=== PATIENT | male | born 1955 | race Two or more races ===

== ENCOUNTER 2023-06-30 10:24 | Outpatient (REF) | payer MEDICARE, SELFPAY ==
[2023-06-30 11:24] LABS: MANUAL DIFF FLAG NO
[2023-06-30 11:46] LABS: Basophils Percent Auto 0.3 % (0-2); Eosinophils Absolute Auto 0.1 X10*3/uL (0.0-0.4); Eosinophils Percent Auto 0.7 % (0-4); Hematocrit 38.4 % (42.0-52.0); Hemoglobin 12.8 g/dl (14.0-18.0); Imm Gran Abs Auto 0.08 X10*3/uL (0.00-0.03); Imm Gran Pct Auto 0.7 % (0.0-0.4); Lymphocytes Absolute Auto 2.2 X10*3/uL (1.2-4.9); Lymphocytes Percent Auto 18.9 % (20-40); Mean Corpuscular HGB Conc 33.3 g/dl (31.0-36.0); Mean Corpuscular Hemoglobin 31.6 pg (27.0-33.0); Mean Corpuscular Volume 94.8 fL (80.0-98.0); Mean Platelet Volume 9.2 fL (9.4-12.4); Monocytes Absolute Auto 1.5 X10*3/uL (0.1-1.2); Monocytes Percent Auto 12.6 % (2-11); Neutrophils Absolute Auto 7.8 x10*3/uL (2.0-8.3); Neutrophils Percent Auto 66.8 % (45-73); Platelet Count 419 X10*3/uL (160-400); Red Blood Count 4.05 X10*6/uL (4.60-5.80); White Blood Count 11.7 X10*3/uL (4.8-10.8)
[2023-06-30 12:20] LABS: Estimated Average Glucose 105 mg/dL; Hemoglobin A1c % 5.3 % (<6.0)
[2023-06-30 12:38] LABS: Cholesterol 194 mg/dL (<200); HDL Cholesterol 44 mg/dL (>40); LDL Cholesterol Calculated 123 mg/dL (<100); Triglycerides 138 mg/dL (<150)
[2023-06-30 12:39] LABS: Alanine Aminotransferase 11 U/L (0-40); Albumin Level 4.3 g/dL (3.5-5.0); Alkaline Phosphatase 84 U/L (39-117); Anion Gap 12 (12-20); Aspartate Amino Transferase 15 U/L (5-37); Bilirubin Total 0.3 mg/dL (0.0-1.0); Blood Urea Nitrogen 24 mg/dL (9-16); Calcium 9.4 mg/dL (8.4-10.2); Carbon Dioxide 26 mmol/L (22-29); Chloride 106 mmol/L (96-108); Estimated Glomerular Filt Rate > 60; Glucose Random 94 mg/dL (60-115); Potassium 4.1 mmol/L (3.3-5.1); Sodium 140 mmol/L (135-145); Total Protein 7.9 g/dL (6.5-8.0)
[2023-06-30 12:48] LABS: Reflex LDLD? No
[2023-06-30 15:47] LABS: CT PCR NOT DETECTED (Not Detect.); NG PCR NOT DETECTED (Not Detect.)
[2023-07-01 08:10] LABS: Syphilis Screen Nonreactive (Nonreactive)
[2023-07-01 08:43] LABS: HBc Num1 0.09 S/CO (0.00-0.79); HBsAGNum1 0.35 S/CO (0.00-0.99); Hepatitis B Core Antibody Nonreactive (Nonreactive); Hepatitis B Surface Antigen Negative (Negative); ~HepC Num1 0.33 S/CO (0.00-0.79); ~Hepatitis C Antibody Nonreactive (Nonreactive)
== END 2023-06-30 10:25 | disposition home or self-care (01) ==
LOC: HO.HHCL 10:24
PROVIDERS: Visit Provider Family Medicine
DX: Z00.00 Encounter for general adult medical examination without abnormal findings (principal); R63.4 Abnormal weight loss; R03.0 Elevated blood-pressure reading, without diagnosis of hypertension; Z20.2 Contact with and (suspected) exposure to infections with a predominantly sexual mode of transmission; Z13.220 Encounter for screening for lipoid disorders; Z13.1 Encounter for screening for diabetes mellitus
CPT/HCPCS: 0353U; 80053; 80061; 83036; 84443; 85025; 86704; 86780; 86803; 87340

== ENCOUNTER 2023-07-25 08:51 | Outpatient (REF) | payer MEDICARE, SELFPAY ==
--- NOTE | ~2023-07-25 | US_ITS ---
EXAMINATION: US RETROPERITONEAL LIMITED (AORTA) CLINICAL INFORMATION: Smoking history, screening COMPARISON: None available. TECHNIQUE: Desir-scale, color Doppler and spectral Doppler evaluation of the abdominal aorta. FINDINGS: There is atherosclerotic disease.. The measurements of the aorta in maximum AP and transverse dimensions respectively are as follows: Proximal: 2.6 x 2.6 cm. Mid: 1.9 x 1.7 cm. Distal: 1.7 x 1.5 cm. PSV: 80 cm/s. The measurements of the common iliac arteries in maximum AP and TRV dimensions are as follows: Right Common Iliac Artery: 1.1 x 1.0 cm. Left Common Iliac Artery: 1.2 x 1.1 cm. US/US abdominal aortic aneurysm IMPRESSION: No abdominal aortic or iliac artery aneurysm.
== END 2023-07-25 08:52 | disposition home or self-care (01) ==
LOC: HO.US 08:51
PROVIDERS: PCP Family Medicine; Visit Provider Family Medicine
DX: Z13.6 Encounter for screening for cardiovascular disorders (principal); F17.200 Nicotine dependence, unspecified, uncomplicated
CPT/HCPCS: 76706

== ENCOUNTER 2023-09-14 10:43 | Outpatient (REF) | payer MEDICARE, SELFPAY ==
--- NOTE | ~2023-09-14 | XR_ITS ---
EXAMINATION: CERVICAL SPINE 3 VIEWS CLINICAL INFORMATION: Bilateral chronic neck pain. COMPARISON: None. TECHNIQUE: Frontal, lateral and odontoid views are obtained. FINDINGS: Vertebral body heights and alignment are normal. At C5-C6 and C6-C7, there is moderately severe disc space narrowing. At C7-T1, there is moderate disc space narrowing. The remaining disc spaces are relatively well-maintained. No acute fracture or spondylolisthesis is seen. This multi-level mild cervical spondylosis. The posterior elements are intact. There are carotid atherosclerotic calcifications. XR/XR cervical spine 3V IMPRESSION: 1. There is moderately severe degenerative disc disease at C5-C6 and C6-C7, and moderate degenerative disc disease is seen at C7-T1. 2. There is multi-level cervical spondylosis. 3. There are carotid atherosclerotic calcifications, which can be more fully evaluated with dedicated carotid ultrasound, if clinically indicated. EXAMINATION: XR LUMBOSACRAL SPINE CLINICAL INFORMATION: Chronic lower back pain without sciatica. COMPARISON: Lumbar spine radiographs dated 12/15/2007. TECHNIQUE: AP and lateral views of the lumbar spine and lateral view of the lumbosacral junction. FINDINGS: Vertebral body heights are normal. At L1-L2, there is moderately severe disc space narrowing, with vacuum disc phenomenon. At L2-L3, there is a 4 mm retrolisthesis. The remaining disc spaces are relatively well-maintained. No acute fracture or spondylolisthesis is seen. There is multi-level lower thoracic and lumbar spondylosis. The posterior elements are intact. No spondylolysis defect is seen on the oblique views. The paravertebral soft tissues are unremarkable. IMPRESSION: 1. At L1-L2, spondylosis and severe degenerative disease, and at L2-L3, there is mild to moderate degenerative disc disease. 2. There is multi-level thoracolumbar spondylosis.
--- NOTE | ~2023-09-14 | XR_ITS ---
EXAMINATION: CERVICAL SPINE 3 VIEWS CLINICAL INFORMATION: Bilateral chronic neck pain. COMPARISON: None. TECHNIQUE: Frontal, lateral and odontoid views are obtained. FINDINGS: Vertebral body heights and alignment are normal. At C5-C6 and C6-C7, there is moderately severe disc space narrowing. At C7-T1, there is moderate disc space narrowing. The remaining disc spaces are relatively well-maintained. No acute fracture or spondylolisthesis is seen. This multi-level mild cervical spondylosis. The posterior elements are intact. There are carotid atherosclerotic calcifications. XR/XR lumbar spine 4V min IMPRESSION: 1. There is moderately severe degenerative disc disease at C5-C6 and C6-C7, and moderate degenerative disc disease is seen at C7-T1. 2. There is multi-level cervical spondylosis. 3. There are carotid atherosclerotic calcifications, which can be more fully evaluated with dedicated carotid ultrasound, if clinically indicated. EXAMINATION: XR LUMBOSACRAL SPINE CLINICAL INFORMATION: Chronic lower back pain without sciatica. COMPARISON: Lumbar spine radiographs dated 12/15/2007. TECHNIQUE: AP and lateral views of the lumbar spine and lateral view of the lumbosacral junction. FINDINGS: Vertebral body heights are normal. At L1-L2, there is moderately severe disc space narrowing, with vacuum disc phenomenon. At L2-L3, there is a 4 mm retrolisthesis. The remaining disc spaces are relatively well-maintained. No acute fracture or spondylolisthesis is seen. There is multi-level lower thoracic and lumbar spondylosis. The posterior elements are intact. No spondylolysis defect is seen on the oblique views. The paravertebral soft tissues are unremarkable. IMPRESSION: 1. At L1-L2, spondylosis and severe degenerative disease, and at L2-L3, there is mild to moderate degenerative disc disease. 2. There is multi-level thoracolumbar spondylosis.
== END 2023-09-14 10:44 | disposition home or self-care (01) ==
LOC: HO.HHCX 10:43
PROVIDERS: Visit Provider Family Medicine
DX: M54.50 Low back pain, unspecified (principal); M54.2 Cervicalgia; G89.29 Other chronic pain
CPT/HCPCS: 72040; 72110

== ENCOUNTER 2023-10-11 09:16 | Outpatient (REF) | payer MEDICARE, SELFPAY ==
[2023-10-11 11:05] LABS: MANUAL DIFF FLAG NO
[2023-10-11 11:07] LABS: Basophils Absolute Auto 0.1 X10*3/uL (0.0-0.2); Basophils Percent Auto 0.4 % (0-2); Eosinophils Absolute Auto 0.4 X10*3/uL (0.0-0.4); Eosinophils Percent Auto 3.4 % (0-4); Hematocrit 38.5 % (42.0-52.0); Hemoglobin 12.6 g/dl (14.0-18.0); Imm Gran Abs Auto 0.04 X10*3/uL (0.00-0.03); Imm Gran Pct Auto 0.4 % (0.0-0.4); Lymphocytes Absolute Auto 3.4 X10*3/uL (1.2-4.9); Lymphocytes Percent Auto 29.9 % (20-40); Mean Corpuscular HGB Conc 32.7 g/dl (31.0-36.0); Mean Corpuscular Hemoglobin 31.4 pg (27.0-33.0); Mean Platelet Volume 9.5 fL (9.4-12.4); Monocytes Absolute Auto 1.4 X10*3/uL (0.1-1.2); Monocytes Percent Auto 12.5 % (2-11); Neutrophils Percent Auto 53.4 % (45-73); Platelet Count 391 X10*3/uL (160-400); Red Blood Count 4.01 X10*6/uL (4.60-5.80); Red Cell Distribution Width 13.7 % (11.0-16.0); White Blood Count 11.3 X10*3/uL (4.8-10.8)
[2023-10-11 12:04] LABS: Cholesterol 124 mg/dL (<200); HDL Cholesterol 44 mg/dL (>40); LDL Cholesterol Calculated 60 mg/dL (<100); Triglycerides 101 mg/dL (<150)
[2023-10-11 12:34] LABS: Ferritin 130 ng/mL (20-250)
[2023-10-11 12:35] LABS: Folate 9.9 ng/mL (> or = 4.0); Vitamin B12 828 pg/mL (200-900)
[2023-10-11 12:39] LABS: Alanine Aminotransferase 18 U/L (0-40); Albumin Level 4.3 g/dL (3.5-5.0); Alkaline Phosphatase 82 U/L (39-117); Anion Gap 15 (12-20); Aspartate Amino Transferase 22 U/L (5-37); Bilirubin Total 0.3 mg/dL (0.0-1.0); Blood Urea Nitrogen 18 mg/dL (9-16); Calcium 9.6 mg/dL (8.4-10.2); Carbon Dioxide 23 mmol/L (22-29); Chloride 107 mmol/L (96-108); Estimated Glomerular Filt Rate > 60; Glucose Random 96 mg/dL (60-115); Iron 123 mcg/dL (45-160); Percent Iron Saturation 49 % (15-50); Potassium 4.3 mmol/L (3.3-5.1); Sodium 141 mmol/L (135-145); Total Iron Binding Capacity 251 mcg/dL (228-428); Total Protein 7.8 g/dL (6.5-8.0); Unsaturated Iron Binding 128 ug/dL
[2023-10-11 13:25] LABS: Reflex LDLD? No
== END 2023-10-11 09:17 | disposition home or self-care (01) ==
LOC: HO.HHCL 09:16
PROVIDERS: Visit Provider Family Medicine
DX: D64.9 Anemia, unspecified (principal); E78.5 Hyperlipidemia, unspecified; R03.0 Elevated blood-pressure reading, without diagnosis of hypertension
CPT/HCPCS: 36415; 80053; 80061; 82607; 82728; 82746; 83540; 85025

== ENCOUNTER 2023-10-19 13:58 | Outpatient (REF) | payer MEDICARE, SELFPAY ==
--- NOTE | ~2023-10-19 | US_ITS ---
EXAMINATION: US EXTRACRANIAL CAROTID DUPLEX, BILATERAL CLINICAL INFORMATION: Calcification of carotid arteries. COMPARISON: None available. TECHNIQUE: Real-time ultrasound and Doppler techniques (integrating B-mode 2-D vascular images, Doppler spectral analysis and color-flow Doppler imaging) were utilized to interrogate the extracranial carotid arteries, the vertebral arteries and proximal subclavian arteries bilaterally. The degree of stenosis is determined by criteria similar to NASCET. FINDINGS: Right Side: 1. There is mild atherosclerotic plaque seen in the bifurcation/proximal ICA region. 2. The common carotid artery PSV proximally is 113 cm/s and distally 104 cm/s. 3. The proximal internal carotid artery velocities are 232 cm/s systolic and 55 cm/s diastolic. 4. The proximal external carotid artery PSV is 117 cm/s. 5. The vertebral artery shows antegrade flow. 6. The subclavian artery waveforms are normal. Left Side: 1. There is mild atherosclerotic plaque seen in the bifurcation/proximal ICA region. 2. The common carotid artery PSV proximally is 104 cm/s and distally 80 cm/s. 3. The proximal internal carotid artery velocities are 70 cm/s systolic and 20 cm/s diastolic. 4. The proximal external carotid artery PSV is 113 cm/s. 5. The vertebral artery shows antegrade flow. 6. The subclavian artery waveforms are normal. US/US carotid duplex BI IMPRESSION: 1. RIGHT: Moderate, hemodynamically significant stenosis of the proximal right internal carotid artery corresponding to a 50-79% stenosis by velocity criteria. 2. LEFT: Minimal, non-hemodynamically significant stenosis of the proximal left internal carotid artery corresponding to a 0-49% stenosis by velocity criteria.
== END 2023-10-19 13:59 | disposition home or self-care (01) ==
LOC: HO.US 13:58
PROVIDERS: PCP Family Medicine; Visit Provider Family Medicine
DX: I65.23 Occlusion and stenosis of bilateral carotid arteries (principal)
CPT/HCPCS: 93880

== ENCOUNTER 2023-10-31 10:07 | Day surgery (SDC) | payer MEDICARE, SELFPAY ==
[2023-10-27 09:28] VITALS: BMI 20.6
--- NOTE | 2023-10-27 12:09 | HO.ANESPROP2 ---
Documented by User: Isadora Xiong NP 10/27/23 12:09 HPI - Anesthesia Eval Consult details Narrative: 68yo M for Left Cataract Extraction IOL Insertion Medically cleared No previous cataract on record [facility] Past Medical History Medical History (Updated 10/27/23 @ 09:26 by Paz Reese RN) Back pain Tobacco dependence Arthritis Anemia Elevated cholesterol Surgical History Surgical History (Updated 10/27/23 @ 09:13 by Paz Reese, RN) No pertinent past surgical history Social History Social History (System 09/15/23 @ 15:09 by Suzy Alvarado) Are you a primary care transport nurse to a significant other at home: No Do you presently have visiting nurse or other home services: No Patient Tobacco Use Status: Current everyday Tobacco user Tobacco use type: Cigarette Cigarettes Per Day: 10 Use of substances other than those prescribed or required for medical reasons: No Advance Directives: No Advance Directives Information Provided: Yes Advance Directives on File: No Recently lost weight without trying: No Eating poorly because of decreased appetite: No Nutrition Risks: No Nutritional Risk Poor oral hygiene: Yes (no teeth or dentures) Meds Allergies Allergy/AdvReac Type Severity Reaction Status Date / Time No Known Allergies Allergy Verified 10/27/23 08:53 Home Medications Medication Instructions Recorded Confirmed Last Taken Type atorvastatin 20 mg tablet 20 mg PO BEDTIME 10/27/23 10/27/23 Unknown History cyanocobalamin (vitamin B-12) 50 50 mcg PO DAILY 10/27/23 10/27/23 Unknown History mcg tablet (Vitamin B-12) cyclobenzaprine 5 mg tablet 5 mg PO TID PRN muscle spasm 10/27/23 10/27/23 Unknown History Exam Height,Weight and Vital Signs: Height 5 ft 5 in Weight 56.245 kg Assessment and Plan Assessment Anesthesia Assessment: Chart Reviewed Documented by User: Alban Chand MD 10/31/23 13:36 [facility] Past Medical History Medical History (Updated 10/27/23 @ 09:26 by Paz Reese RN) Back pain Tobacco dependence Arthritis Anemia Elevated cholesterol Family History Family history of problems with anesthesia: No Surgical History Surgical History (Updated 10/27/23 @ 09:13 by Paz Reese RN) No pertinent past surgical history History of Problems with Anesthesia: No Social History Social History (System 09/15/23 @ 15:09 by Suzy Alvarado) Are you a primary care transport nurse to a significant other at home: No Do you presently have visiting nurse or other home services: No Patient Tobacco Use Status: Current everyday Tobacco user Tobacco use type: Cigarette Cigarettes Per Day: 10 Use of substances other than those prescribed or required for medical reasons: No Advance Directives: No Advance Directives Information Provided: Yes Advance Directives on File: No Recently lost weight without trying: No Eating poorly because of decreased appetite: No Nutrition Risks: No Nutritional Risk Poor oral hygiene: Yes (no teeth or dentures) Meds Allergies Allergy/AdvReac Type Severity Reaction Status Date / Time No Known Allergies Allergy Verified 10/27/23 08:53 Home Medications Medication Instructions Recorded Confirmed Last Taken Type atorvastatin 20 mg tablet 20 mg PO BEDTIME 10/27/23 10/27/23 Unknown History cyanocobalamin (vitamin B-12) 50 50 mcg PO DAILY 10/27/23 10/27/23 Unknown History mcg tablet (Vitamin B-12) cyclobenzaprine 5 mg tablet 5 mg PO TID PRN muscle spasm 10/27/23 10/27/23 Unknown History Exam Airway Mallampati Class: II TM Dist: >3cm Neck ROM: Full Denture: Upper and Lower Loose/Missing/Broken Teeth: Yes Heart: rrr+[id number] Lungs: cta b/l Assessment and Plan Assessment Anesthesia Assessment: Anesthesia Plan Discussed Final Anesthetic Review Family History of Problems with Anesthesia: No History of Problems with Anesthesia: No NPO: Yes ASA Class: III Final Preanesthetic Review: No Changes in Pt Med Stat, Meds/Allgs Chart Reviewed, Consent Obtained/Reviewed and Anes Risks/Benef Reviewed Patient Risk: Intermediate Procedure Risk: Low Assessment/Block/Sedation in SS: Assess/Block/Sedation-SS Anesthetic Plan Anesthetic Plan: MAC: Disposition: Standard PACU
--- NOTE | 2023-10-28 08:37 | MHC.SHP ---
Pre-Procedural Eval Section A Date of Service: 10/28/23 The patient is an INPATIENT: No Changes since office visit: No Cold of Flu in the past 2 weeks, No New Medical Problems, No Changes in Medication and No Patient answered all questions The History & Physical has been completed within 30 days and I have reviewed it.: Yes Section B Chief Complaint: Age-related nuclear cataract, left eye Allergies: Allergies Allergy/AdvReac Type Severity Reaction Status Date / Time No Known Allergies Allergy Verified 10/27/23 08:53 Plan Diagnosis/Plan: Unchanged I have reviewed the history and physical and performed a pertinent physical examination on my patient. No changes have occurred unless specified. Time Spent With Patient Time: Total time managing care of this patient today ____ minutes.
[2023-10-31] MEDS: Phenylephrine HCL 2.5% Oph SoL 2 ML BOTTLE 1 DROP EYE-LEFT ×3 (13:29→13:39)
[2023-10-31] MEDS: Tropicamide 1 % Ophth Sol 3 ML BTL 1 DROP EYE-LEFT ×3 (13:29→13:39)
[2023-10-31] MEDS: Ketorolac Tromethamine 0.5% Op 5 ML DROPS 1 DROP EYE-LEFT ×3 (13:29→13:39)
[2023-10-31] MEDS: Cyclopentolate 1 % Ophth Sol 2 ML DRPBTL 1 DROP EYE-LEFT ×3 (13:30→13:39)
[2023-10-31] MEDS: Tetracaine HCl/PF 0.5% Oph Sol 4 ML DROPS 1 DROP EYE-LEFT (13:30)
[2023-10-31] MEDS: Lactated Ringers 500 ML 50 ML IV (13:31)
[2023-10-31 13:40] VITALS: BP 142/64; PULSE 76; RESP 18; TEMP 36.7; O2SAT 99
--- NOTE | 2023-10-31 14:16 | MHC.SHP ---
Pre-Procedural Eval Section A Date of Service: 10/31/23 The patient is an INPATIENT: No Changes since office visit: No Cold of Flu in the past 2 weeks, No New Medical Problems, No Changes in Medication and No Patient answered all questions The History & Physical has been completed within 30 days and I have reviewed it.: Yes Section B Chief Complaint: Age-related nuclear cataract, left eye Allergies: Allergies Allergy/AdvReac Type Severity Reaction Status Date / Time No Known Allergies Allergy Verified 10/31/23 13:48 Plan Diagnosis/Plan: Unchanged I have reviewed the history and physical and performed a pertinent physical examination on my patient. No changes have occurred unless specified. Time Spent With Patient Time: Total time managing care of this patient today ____ minutes.
--- NOTE | 2023-10-31 14:17 | HO.PNOPHT ---
Ophthalmology Procedure Procedure Date of Service: 10/31/23 Ophthalmology Viscoelastic: Heallia Duet Dual Pack Pro Ophthalmology Lenses: TECBRENDA [id number] (20) Procedure Notes: PREOPERATIVE DIAGNOSIS: Decreased visual acuity left eye secondary to cataract POSTOPERATIVE DIAGNOSIS: Same PROCEDURE: Left cataract extraction with intraocular lens insertion SURGEON: Delroy Aguilar M.D. ANESTHESIA: Topical/MAC ESTIMATED BLOOD LOSS: None COMPLICATIONS: None After obtaining informed consent, the patient was brought to the operation room suite and placed in the supine position. After adequate sedation per anesthesia, topical drops of Tetracaine were given to the left eye. The eye was then prepped and draped in the usual sterile fashion. The operating room microscope was then positioned over the operative eye and a lid speculum placed. A paracentesis was created. Viscoelastic was then instilled into the anterior chamber. A three plane incision was then created temporally, utilizing a 2.85 mm keratome. Capsulotomy forceps were then utilized to create a circular tear capsulotomy. Hydrodissection and hydrodelineation were carried out until adequate mobilization of the nucleus occurred. Phacoemulsification was then utilized to remove the dense central nucleus followed by removal of the cortical material utilizing the automated aspiration irrigation unit. Viscoat elastic was instilled into the posterior capsular bag followed by placement of a posterior chamber intraocular lens without difficulty. The residual Viscoat elastic was then removed utilizing the automated IA machine. The wound was check and found to be watertight. The patient tolerated the procedure well and the lid speculum was removed. Intracameral injection of Vigamox 0.1 mL followed by a subtenon injection of Kenalog-40 0.2 mL were administered. The patient will be seen in the a.m.
[2023-10-31 14:52] VITALS: BP 137/69; PULSE 71; RESP 16; TEMP 37.1; O2SAT 97
[2023-10-31 14:59] VITALS: BP 146/72; PULSE 72; RESP 16; TEMP 36.9; O2SAT 98
== END 2023-10-31 15:08 | disposition home or self-care (01) ==
PROVIDERS: PCP Family Medicine; Visit Provider Ophthalmology
PROC: (CPT 66985; principal; 2023-10-31 13:00)
DX: H25.12 Age-related nuclear cataract, left eye (principal); H52.4 Presbyopia; H11.153 Pinguecula, bilateral; H18.413 Arcus senilis, bilateral; E78.00 Pure hypercholesterolemia, unspecified; Z79.899 Other long term (current) drug therapy; F17.210 Nicotine dependence, cigarettes, uncomplicated
CPT/HCPCS: 66984; J3010; J3301; V2632

== ENCOUNTER 2023-11-07 08:35 | Day surgery (SDC) | payer MEDICARE, SELFPAY ==
[2023-10-27 09:37] VITALS: BMI 20.6
--- NOTE | 2023-11-04 09:20 | P.CONAN_ITS ---
Documented by User: Isadora Xiong NP 11/04/23 09:21 HPI - Anesthesia Eval Consult details Narrative: 68yo M for Right Cataract Extraction IOL Insertion PCP cleared Left eye 10/31/23: Fent 50 PMFSH Past Medical History Medical History Back pain Tobacco dependence Arthritis Anemia Elevated cholesterol Family History Family history of problems with anesthesia: No Surgical History Surgical History No pertinent past surgical history History of Problems with Anesthesia: No Social History Social History Are you a primary career coordinator to a significant other at home: No Do you presently have visiting nurse or other home services: No Patient Tobacco Use Status: Current everyday Tobacco user Tobacco use type: Cigarette Cigarettes Per Day: 10 Use of substances other than those prescribed or required for medical reasons: No Advance Directives: No Advance Directives Information Provided: Yes Advance Directives on File: No Recently lost weight without trying: No Eating poorly because of decreased appetite: No Nutrition Risks: No Nutritional Risk Poor oral hygiene: Yes (no teeth and no dentures) Meds Allergies Allergy/AdvReac Type Severity Reaction Status Date / Time No Known Allergies Allergy Verified 10/31/23 13:48 Home Medications Medication Instructions Recorded Confirmed Last Taken Type atorvastatin 20 mg tablet 20 mg PO BEDTIME 10/27/23 10/27/23 Unknown History cyanocobalamin (vitamin B-12) 50 50 mcg PO DAILY 10/27/23 10/27/23 Unknown History mcg tablet (Vitamin B-12) cyclobenzaprine 5 mg tablet 5 mg PO TID PRN muscle spasm 10/27/23 10/27/23 Unknown History Exam Height,Weight and Vital Signs: Height 5 ft 5 in Weight 56.245 kg Assessment and Plan Assessment Anesthesia Assessment: Chart Reviewed Final Anesthetic Review Family History of Problems with Anesthesia: No History of Problems with Anesthesia: No Documented by User: Alban Chand MD 11/07/23 09:46 [facility] Past Medical History Medical History Back pain Tobacco dependence Arthritis Anemia Elevated cholesterol Surgical History Surgical History No pertinent past surgical history Social History Social History Are you a primary career coordinator to a significant other at home: No Do you presently have visiting nurse or other home services: No Patient Tobacco Use Status: Current everyday Tobacco user Tobacco use type: Cigarette Cigarettes Per Day: 10 Use of substances other than those prescribed or required for medical reasons: No Advance Directives: No Advance Directives Information Provided: Yes Advance Directives on File: No Recently lost weight without trying: No Eating poorly because of decreased appetite: No Nutrition Risks: No Nutritional Risk Poor oral hygiene: Yes (no teeth and no dentures) Meds Allergies Allergy/AdvReac Type Severity Reaction Status Date / Time No Known Allergies Allergy Verified 10/31/23 13:48 Home Medications Medication Instructions Recorded Confirmed Last Taken Type atorvastatin 20 mg tablet 20 mg PO BEDTIME 10/27/23 10/27/23 Unknown History cyanocobalamin (vitamin B-12) 50 50 mcg PO DAILY 10/27/23 10/27/23 Unknown History mcg tablet (Vitamin B-12) cyclobenzaprine 5 mg tablet 5 mg PO TID PRN muscle spasm 10/27/23 10/27/23 Unknown History Exam Airway Mallampati Class: II TM Dist: >3cm Neck ROM: Full Loose/Missing/Broken Teeth: Yes Heart: rrr+s1s2 Lungs: cta b/l Assessment and Plan Assessment Anesthesia Assessment: Anesthesia Plan Discussed Final Anesthetic Review NPO: Yes ASA Class: III Final Preanesthetic Review: No Changes in Pt Med Stat, Meds/Allgs Chart Reviewed, Consent Obtained/Reviewed and Anes Risks/Benef Reviewed Patient Risk: Intermediate Procedure Risk: Low Assessment/Block/Sedation in SS: Assess/Block/Sedation-SS Anesthetic Plan Anesthetic Plan: MAC: Disposition: Standard PACU
[2023-11-07] MEDS: Tetracaine HCl/PF 0.5% Oph Sol 4 ML DROPS 1 DROP EYE-RIGHT (09:44)
[2023-11-07] MEDS: Cyclopentolate 1 % Ophth Sol 2 ML DRPBTL 1 DROP EYE-RIGHT ×3 (09:46→10:02)
[2023-11-07] MEDS: Tropicamide 1 % Ophth Sol 3 ML BTL 1 DROP EYE-RIGHT ×3 (09:48→10:04)
[2023-11-07 09:50] VITALS: BP 135/63; PULSE 75; RESP 16; TEMP 36.1; O2SAT 99; BMI 21.0
[2023-11-07] MEDS: Ketorolac Tromethamine 0.5% Op 5 ML DROPS 1 DROP EYE-RIGHT ×3 (09:50→10:06)
[2023-11-07] MEDS: Phenylephrine HCL 2.5% Oph SoL 2 ML BOTTLE 1 DROP EYE-RIGHT ×3 (09:52→10:08)
[2023-11-07] MEDS: Lactated Ringers 500 ML 50 ML IV (10:10)
--- NOTE | 2023-11-07 10:52 | MHC.SHP ---
Pre-Procedural Eval Section A - 24 Hr Update-Section A only Date of Service: 11/07/23 The patient is an INPATIENT: No Changes since office visit: No Cold of Flu in the past 2 weeks, No New Medical Problems, No Changes in Medication and No Patient answered all questions The patient has been examined within 24 hours of the surgical procedure. The History & Physical has been completed within 30 days and I have reviewed it.: Yes Section B - Complete if H&P > 30 days Chief Complaint: Age-related nuclear cataract, right eye Allergies: Allergies Allergy/AdvReac Type Severity Reaction Status Date / Time No Known Allergies Allergy Verified 10/31/23 13:48 Plan Diagnosis/Plan: Unchanged I have reviewed the history and physical and performed a pertinent physical examination on my patient. No changes have occurred unless specified. Time Spent With Patient Time: Total time managing care of this patient today ____ minutes.
--- NOTE | 2023-11-07 10:53 | HO.PNOPHT ---
Ophthalmology Procedure Procedure Date of Service: 11/07/23 Ophthalmology Viscoelastic: Heallia Duet Dual Pack Pro Ophthalmology Lenses: TECNIS [id number] (19.5) Procedure Notes: PREOPERATIVE DIAGNOSIS: Decreased visual acuity right eye secondary to cataract POSTOPERATIVE DIAGNOSIS: Same PROCEDURE: Right cataract extraction with intraocular lens insertion SURGEON: Delroy Aguilar M.D. ANESTHESIA: Topical/MAC ESTIMATED BLOOD LOSS: None COMPLICATIONS: None After obtaining informed consent, the patient was brought to the operating room suite and placed in the supine position. After adequate sedation per anesthesia, topical drops of Tetracaine were given to the right eye. The eye was then prepped and draped in the usual sterile fashion. The operating room microscope was then positioned over the operative eye and a lid speculum placed. A paracentesis was created. Viscoelastic was then instilled into the anterior chamber. A three plane incision was then created temporally, utilizing a 2.85 mm keratome. Capsulotomy forceps were then utilized to create a circular tear capsulotomy. Hydrodissection and hydrodelineation were carried out until adequate mobilization of the nucleus occurred. Phacoemulsification was then utilized to remove the dense central nucleus followed by removal of the cortical material utilizing the automated aspiration irrigation unit. Viscoelastic was instilled into the posterior capsular bag followed by placement of a posterior chamber intraocular lens without difficulty. The residual Viscoelastic was then removed utilizing the automated IA machine. The wound was checked and found to be watertight. The patient tolerated the procedure well and the lid speculum was removed. Intracameral injection of Vigamox 0.1 mL followed by a subtenon injection of Kenalog-40 0.2 mL were administered. The patient will be seen in the a.m.
[2023-11-07 11:18] VITALS: BP 125/64; PULSE 67; RESP 13; TEMP 36.7; O2SAT 100
== END 2023-11-07 11:35 | disposition home or self-care (01) ==
PROVIDERS: PCP Family Medicine; Visit Provider Ophthalmology
PROC: (CPT 66985; principal; 2023-11-07 11:20)
DX: H25.11 Age-related nuclear cataract, right eye (principal); H52.4 Presbyopia; H11.153 Pinguecula, bilateral; H18.413 Arcus senilis, bilateral; E78.00 Pure hypercholesterolemia, unspecified; D64.9 Anemia, unspecified; Z79.899 Other long term (current) drug therapy; F17.210 Nicotine dependence, cigarettes, uncomplicated
CPT/HCPCS: 66984; J2250; J3010; J3301; V2632

== ENCOUNTER 2023-11-18 11:07 | Outpatient (AMB) | payer MEDICARE, SELFPAY ==
--- NOTE | 2023-11-18 09:04 | MHC.OFFVIS ---
Intake Intake Visit Reasons: LDCT SD Allergies No Known Allergies Allergy (Verified 10/31/23 13:48) HPI HPI Comments History of Present Illness Details Omer is a pleasant 68 year old male, current smoker with a 22 PYH. Patient has been smoking since age 24 for 44 years at 1/2 ppd. Denies marijuana use. 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 Denies second hand smoke exposure. Denies known family history of lung cancer. Denies personal history of cancers. Denies chest CT in last year. Denies recent travel outside the [place]. Denies testing positive for COVID. Admits receiving COVID Vaccine. Denies fever, chills, chest pain, new cough, hemoptysis or unintentional weight loss. Lung Cancer Screening Questionnaire reviewed with patient by provider. Shared Decision Making Completed. Discussed in detail with patient, the risk versus benefit of LDCT screening. Patient in agreement of proceeding with scan. [facility] Medical History Back pain Tobacco dependence Arthritis Anemia Elevated cholesterol Surgical History No pertinent past surgical history Social History Are you a primary rn transitional care to a significant other at home: No Do you presently have visiting nurse or other home services: No Patient Tobacco Use Status: Current everyday Tobacco user Tobacco use type: Cigarette Cigarettes Per Day: 10 Assessment & Plan Assessment & Plan (1) Nicotine dependence, cigarettes, uncomplicated: Code(s): F17.210 - Nicotine dependence, cigarettes, uncomplicated Plan Shared decision-making visit completed today in office. This patient meets criteria for LDCT for lung cancer screening purposes and is asymptomatic. Offered smoking cessation, will enter referral to nurse navigator. Patient has been scheduled for a low dose chest CT for screening purposes at [facility]. We discussed how the results will be obtained depending on CT findings. RADS 1 and RADS 2 will receive a letter with results and will follow up for annual LDCT. Patient informed they will be contacted at later date to schedule upcoming LDCT scan. RADS 3 and RADS 4 will receive a telephone call, or an office visit after reviewing case at our Lung Cancer Conference to determine when the next LDCT will be scheduled or further interventions that may be needed. Discussed importance of screening program and compliance with yearly LDCT scan as scheduled. Risks, benefits, and alternatives were discussed in detail and patient agrees to proceed. Risks discussed include but are not limited to: radiation exposure and possibility of additional intervention for benign disease. Benefits include detection of lung cancer at an early stage. A copy of today's visit and LDCT results will be sent to patient's PCP. Incidental findings on LDCT are PCP's responsibility. If there are incidental findings, our office will ensure that PCP office is aware of these findings. All questions were answered and patient is in agreement of plan. Orders: Referrals Nurse Navigator Referral F17.210 - Nicotine dependence, cigarettes, uncomplicated Coding Level of Care Code Lung Cancer Screening G0296 Diagnoses Nicotine dependence, cigarettes, uncomplicated F17.210
== END 2023-11-18 11:24 | disposition home or self-care (01) ==
PROVIDERS: PCP Family Medicine; Referring Provider Family Medicine; Visit Provider Nurse Practitioner Family
DX: F17.210 Nicotine dependence, cigarettes, uncomplicated (principal)
CPT/HCPCS: G0296

== ENCOUNTER 2023-11-18 11:25 | Outpatient (REF) | payer MEDICARE, SELFPAY ==
--- NOTE | ~2023-11-18 | CT_ITS ---
EXAMINATION: CT CHEST SCREENING CLINICAL INFORMATION: Current smoker with 43 pack year history COMPARISON: No prior CTs. TECHNIQUE: Multidetector volumetric CT imaging of the chest is performed without contrast using low dose technique. Additional 2D coronal and sagittal reformatted images and axial 3D maximum intensity projection (MIP) images are generated on the CT workstation. This CT examination was performed using dose optimization techniques as appropriate, variously including the following: *Automated exposure control *Adjustment of mA and/or kV according to patient size (this includes techniques or standardized protocols for targeted exams where dose is matched to indication/reason for exam; i.e. 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 LUNGS: Mild biapical pleural thickening. Trachea and bronchi are patent. Mild paraseptal and centrilobular emphysema. 4 mm right lower lobe calcified granuloma. MEDIASTINUM: Unremarkable thyroid. Nonspecific mediastinal lymph nodes. Right hilar calcifications without evelia enlargement. Heart is not enlarged. No pericardial effusion. Atherosclerotic calcifications nonaneurysmal aorta. Nonenlarged pulmonary arteries. CORONARY ARTERY CALCIFICATION: Moderate PLEURA: There is no pleural effusion. No pleural mass or thickening. AXILLA: No lymphadenopathy. UPPER ABDOMEN: Unremarkable OSSEOUS STRUCTURES: Degenerative changes. No suspicious osseous lesions. CT/CT lung screening IMPRESSION: No suspicious lung lesions. Mild emphysematous changes. ASSESSMENT: Lung-RADS category 1: Negative RECOMMENDATION: Routine annual low-dose CT screening in 12 months.
== END 2023-11-18 11:26 | disposition home or self-care (01) ==
LOC: HO.CT 11:25
PROVIDERS: PCP Family Medicine; Visit Provider Nurse Practitioner Family
DX: Z12.2 Encounter for screening for malignant neoplasm of respiratory organs (principal); F17.210 Nicotine dependence, cigarettes, uncomplicated
CPT/HCPCS: 71271; G0296

== ENCOUNTER 2024-01-03 11:15 | Outpatient (AMB) | payer MEDICARE, SELFPAY ==
--- NOTE | 2024-01-03 11:23 | A.OFFVIS_ITS ---
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 He was sent over by [facility]. Was seen for blood pressure and upon workup was noted to have carotid bruits. Underwent subsequent carotid testing. And now presents to us for follow-up. Reports that he smokes about a half pack per day and reports that he quit about 6 days ago. He has a nondiabetic. 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 Now presents to us for evaluation with noninvasive carotid testing. [facility] Medical History Back pain Tobacco dependence Arthritis Anemia Elevated cholesterol Surgical History No pertinent past surgical history Social History Are you a primary family day care provider to a significant other at home: No Do you presently have visiting nurse or other home services: No Patient Tobacco Use Status: Current everyday Tobacco user Tobacco use type: Cigarette Cigarettes Per Day: 10 Review of Systems Const All systems reviewed & are unremarkable except as noted in HPI and below Reports no additional complaints ENT Reports Normal hearing present Card Denies chest pain, Denies chest pain at rest, Denies chest pain with activity and Denies pedal edema Resp Denies cough GI Denies abdominal pain Musc Denies abnormal gait, Denies muscle cramps and Denies radiating pain into limb Skin/Breast Denies skin ulcer and Denies wounds Neuro Reports Normal hearing present and Denies abnormal gait Psych Reports no additional complaints Physical Exam Vital Signs: Last Vital Signs BP 122/60 01/03/24 11:30 BMI result Body Mass Index 21.0 Const General: cooperative, healthy appearing and comfortable Orientation/consciousness: oriented to person, oriented to place and oriented to time HEENT Head: Yes normal to inspection Neck Neck: Yes normal visual inspection Carotids: no bruits Chest Chest palpation & inspection: normal inspection of the chest Resp Effort & Inspection: normal respiratory effort and able to speak in complete sentences Auscultation: clear to auscultation bilaterally, no crackles, no rales, no rhonchi and no wheezes Cardio Rate: regular rate Rhythm: regular rhythm Heart sounds: S1 normal heart sound present and S2 normal heart sound present Bruits: no carotid bruits Peripheral pulses: Peripheral pulses 2+ throughout GI Inspection: Yes normal to inspection Skin Wounds: no wounds Hair: normal Neuro General: oriented to person, oriented to place and oriented to time Cranial nerves: Yes CN's II-XII intact bilaterally and Yes Normal hearing present Cognition (Neuro): normal cognition Motor exam (neuro): 5/5 motor strength present throughout Extrem Other: venous exam: No significant superficial varicosities or spider te langiectasias, minimal edema General: No clubbing, No cyanosis and No edema Psych Appearance: grossly normal Mental Status: mental status grossly normal Speech and movement: Normal speech and movement present Results Reviewed Results Reviewed: Noninvasive carotid testing dated 10/19/2023 demonstrates right side 50-69% with a peak systolic velocity of 232 left side is 0-49% Assessment & Plan Assessment & Plan (1) Bilateral carotid artery stenosis: Code(s): I65.23 - Occlusion and stenosis of bilateral carotid arteries Plan: In short patient has asymptomatic carotid disease. We have reviewed signs and symptoms of a stroke. We also discussed risk factor modification inclusive a healthy diet low in cholesterol. We will obtain CT angiogram to elucidate the true degree of carotid stenosis. Should there be any changes or signs or sympto ms of a stroke we will be happy to see them back sooner. Thank you for allowing us to participate in this patient's care. If there are any questions or concerns please do not hesitate to contact us. Orders: Orders Creatinine Today I65.23 - Occlusion and stenosis of bilateral carotid arteries CT angio neck 1 Week I65.23 - Occlusion and stenosis of bilateral carotid arteries Blood Urea Nitrogen Today I65.23 - Occlusion and stenosis of bilateral carotid arteries Coding Level of Care Code Est Pt Level 4 (78168) Diagnoses Bilateral carotid artery stenosis I65.23
[2024-01-03 11:24] VITALS: BP 126/62; BMI 21.0
[2024-01-03 11:30] VITALS: BP 122/60
== END 2024-01-03 11:58 | disposition home or self-care (01) ==
PROVIDERS: PCP Family Medicine; Visit Provider Surgery Vascular Surgery
DX: I65.23 Occlusion and stenosis of bilateral carotid arteries (principal)
CPT/HCPCS: 99214

== ENCOUNTER → 2024-01-03 11:15 | Outpatient (BNVA) | payer MEDICARE, SELFPAY | PROVIDERS: PCP Family Medicine; Visit Provider Surgery Vascular Surgery | DX: I65.23 Occlusion and stenosis of bilateral carotid arteries (principal) | CPT/HCPCS: 99212 ==

== ENCOUNTER 2024-02-08 09:57 | Outpatient (REF) | payer MEDICARE, SELFPAY ==
[2024-02-08 12:11] LABS: Blood Urea Nitrogen 27 mg/dL (9-16); Estimated Glomerular Filt Rate > 60
== END 2024-02-08 09:58 | disposition home or self-care (01) ==
LOC: HO.HHCL 09:57
PROVIDERS: Visit Provider Surgery Vascular Surgery
DX: I65.23 Occlusion and stenosis of bilateral carotid arteries (principal)
CPT/HCPCS: 36415; 82565; 84520

== ENCOUNTER 2024-02-23 08:45 | Outpatient (AMB) | payer MEDICARE, SELFPAY ==
--- NOTE | 2024-02-23 08:56 | MHC.OFFVIS ---
Vital Signs 02/23/24 09:34 Height 5 ft 5 in Weight 128 lb 11.999 oz BMI 21.4 BP 150/72 H Blood Pressure Location Lt brachial Position Sitting Pulse 68 Intake Visit Reasons: Epigastric Pains, colon cancer screening Intake Note: New patient in office today for colonoscopy screening. CC: Patient c/o heartburn and acid reflux. Denies other GI symptoms. Patient has never had a colonoscopy done. 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 He is referred by [facility]. PMX Hypertension High cholesterol Smoker - quit 3 mos ago Carotid stenosis Back pain Neck pain Cataracts SURGICAL HISTORY Cataract surgery ALLERGIES;[facility] LABS: Laboratory Tests 10/11/23 09:18 WBC 11.3 H RBC 4.01 L Hgb 12.6 L Hct 38.5 L MCV 96.0 MCH 31.4 Plt Count 391 Estimated GFR > 60 Ferritin 130 Total Bilirubin 0.3 AST 22 ALT 18 Alkaline Phosphatase 82 NECK CTA 09/17/23 MPRESSION: 1. There is moderately severe degenerative disc disease at C5-C6 and C6-C7, and moderate degenerative disc disease is seen at C7-T1. 2. There is multi-level cervical spondylosis. 3. There are carotid atherosclerotic calcifications, which can be more fully evaluated with dedicated carotid ultrasound, if clinically indicated. FINDINGS: Vertebral body heights are normal. At L1-L2, there is moderately severe disc space narrowing, with vacuum disc phenomenon. At L2-L3, there is a 4 mm retrolisthesis. The remaining disc spaces are relatively well-maintained. No acute fracture or spondylolisthesis is seen. There is multi-level lower thoracic and lumbar spondylosis. The posterior elements are intact. No spondylolysis defect is seen on the oblique views. The paravertebral soft tissues are unremarkable. IMPRESSION: 1. At L1-L2, spondylosis and severe degenerative disease, and at L2-L3, there is mild to moderate degenerative disc disease. 2. There is multi-level thoracolumbar spondylosis. TODAY'S VISIT He has burning that only occurs when he looks up or lays in bed at night. No HB, no cough, no acid brash, no upset stomach and no r/t to moving his bowels. He will not have the pain if he sleeps on his stomach. 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 This is his first colonoscopy. He is naive to anesthesia and sedation. He denies any cardiac or respiratory problems. No ID problems. His father and brother had stomach cancer. No known FHX of crc or polyps PFSH Medical History Gastric pain Back pain Tobacco dependence Arthritis Anemia Elevated cholesterol Surgical History Hx of cataract surgery Family History Father Stomach cancer Brother Stomach cancer Social History Are you a primary day care supervisor to a significant other at home: No Do you presently have visiting nurse or other home services: No Alcohol intake: former Comment: quit 20 years ago Patient Tobacco Use Status: Former Tobacco user Tobacco use type: Cigarette Cigarettes Per Day: 10 Review of Systems Const Denies fatigue, Denies fever(s), Denies night sweats, Denies poor appetite and Denies weight loss ENT Reports Normal hearing present, Denies dental pain, Denies dysphagia, Denies hearing loss, Denies mouth pain, Denies odynophagia, Denies throat swelling, Denies tongue swelling and Reports other (Dentition adequate) Card Reports no additional complaints Resp Reports no additional complaints GI Details: Denies abdominal pain, Denies melena, Denies bloating, Denies hematochezia, Denies constipation, Denies GI cramping, Denies dysphagia, Denies excessive flatus, Denies early satiety, Reports heartburn, Denies diarrhea, Denies nausea, Denies odynophagia, Denies vomiting and Denies hematemesis Skin/Breast Denies pruritus, Denies lesions, Denies rash and Denies jaundice Neuro Reports Normal hearing present and Denies Abnormal speech present Endo Denies fatigue Aller/Immun Denies throat swelling and Denies tongue swelling Physical Exam Vital Signs: Last Vital Signs Pulse 68 02/23/24 09:34 BP 150/72 H 02/23/24 09:34 BMI result Body Mass Index 21.4 Const General: cooperative, no acute distress, well developed and well groomed Nutritional Appearance: average body habitus and well nourished Orientation/consciousness: oriented to person, oriented to place and oriented to time Limitations: No language barrier HEENT Head: Yes normocephalic and Yes atraumatic Eyes General: appearance normal, both eyes and all related structures Pupils: Equal, round and reactive pupils present Neck Neck: Yes normal visual inspection and Yes no lymphadenopathy Thyroid: Thyroid normal Resp Effort & Inspection: normal respiratory effort and able to speak in complete sentences Auscultation: clear to auscultation bilaterally Cardio Rate: regular rate Rhythm: regular rhythm Heart sounds: Normal, physiologic split S2 sound present Peripheral pulses: radial pulses present and posterior tibial pulses present GI Inspection: No distended and No Abdominal panniculus present Palpation (GI): Soft to palpation, nontender, no guarding, not rigid and No hepatosplenomegaly present Percussion: Yes normal to percussion Auscultation: normal bowel sounds Rectal Exam - Male: Yes deferred Back/Spine/Pelvis Cervical Spine: cervical ROM normal Thoracic/Lumbar Spine: pain with thoraco-lumbar ROM, No paraspinal muscle tenderness and other (Large spinal step off at T11-12) Skin General skin exam: no rashes or lesions noted, turgor normal, skin not dry, no jaundice, No spider nevi and no striae Rashes: no rashes Nails: normal Neuro General: oriented to person, oriented to place and oriented to time Cranial nerves: Yes Equal, round and reactive pupils present and Yes Normal hearing present Speech: No Abnormal speech present Extrem General: Yes normal to inspection, No clubbing, No cyanosis and No edema Psych Appearance: grossly normal and well kempt Mental Status: mental status grossly normal Speech and movement: Normal speech and movement present Affect: normal affect Attitude: cooperative Thought process: Normal thought process present and not confabulating Thought content: Normal thought content present Insight: Limited insight present (Psych) Judgement: Limited judgement present (Psych) Results Reviewed Results Reviewed: Laboratory Tests 10/11/23 09:18 WBC 11.3 H RBC 4.01 L Hgb 12.6 L Hct 38.5 L MCV 96.0 MCH 31.4 Plt Count 391 Estimated GFR > 60 Ferritin 130 Total Bilirubin 0.3 AST 22 ALT 18 Alkaline Phosphatase 82 NECK CTA 09/17/23 MPRESSION: 1. There is moderately severe degenerative disc disease at C5-C6 and C6-C7, and moderate degenerative disc disease is seen at C7-T1. 2. There is multi-level cervical spondylosis. 3. There are carotid atherosclerotic calcifications, which can be more fully evaluated with dedicated carotid ultrasound, if clinically indicated. FINDINGS: Vertebral body heights are normal. At L1-L2, there is moderately severe disc space narrowing, with vacuum disc phenomenon. At L2-L3, there is a 4 mm retrolisthesis. The remaining disc spaces are relatively well-maintained. No acute fracture or spondylolisthesis is seen. There is multi-level lower thoracic and lumbar spondylosis. The posterior elements are intact. No spondylolysis defect is seen on the oblique views. The paravertebral soft tissues are unremarkable. IMPRESSION: 1. At L1-L2, spondylosis and severe degenerative disease, and at L2-L3, there is mild to moderate degenerative disc disease. 2. There is multi-level thoracolumbar spondylosis Assessment & Plan Assessment & Plan (1) Pre-op examination: Code(s): Z01.818 - Encounter for other preprocedural examination Category: Medical Plan He has burning that only occurs when he looks up or lays in bed at night. No HB, no cough, no acid brash, no upset stomach and no r/t to moving his bowels. He will not have the pain if he sleeps on his stomach. 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 This is his first colonoscopy. He is naive to anesthesia and sedation. He denies any cardiac or respiratory problems. No ID problems. His father and brother had stomach cancer. No known FHX of crc or polyps Orders: Orders H Pylori Breath Test 02/23/24 Z01.818 - Encounter for other preprocedural examination, R10.9 - Unspecified abdominal pain EGD/[place] [facility] - GI Use Only 02/23/24 Z01.818 - Encounter for other preprocedural examination US abdomen complete 02/23/24 Z01.818 - Encounter for other preprocedural examination, R10.9 - Unspecified abdominal pain Medications: New sod sulf-pot chloride-mag sulf 1.479-0.188- 0.225 gram (Sutab) PO PER PKG DIR for colonoscopy prep 24 tabs 0RF Coding Level of Care Code New Pt Level 3 (57175) Diagnoses Pre-op examination Z01.818
[2024-02-23 09:34] VITALS: BP 150/72; PULSE 68; BMI 21.4
== END 2024-02-23 10:38 | disposition home or self-care (01) ==
PROVIDERS: PCP Family Medicine; Referring Provider Family Medicine; Visit Provider Nurse Practitioner
DX: R10.13 Epigastric pain (principal); Z01.818 Encounter for other preprocedural examination; Z12.11 Encounter for screening for malignant neoplasm of colon; Z80.0 Family history of malignant neoplasm of digestive organs
CPT/HCPCS: 99203; 99213

== ENCOUNTER 2024-02-23 14:09 | Outpatient (REF) | payer MEDICARE, SELFPAY ==
--- NOTE | ~2024-02-23 | CT_ITS ---
EXAMINATION: CT ANGIOGRAM NECK CLINICAL INFORMATION: Reason for Exam I65.23 - Occlusion and stenosis of bilateral carotid arteries COMPARISON: Carotid ultrasound 10/19/2023 TECHNIQUE: Test bolus sequences followed by intravenous administration 70 mL of Omnipaque 350. Helical imaging was performed in the axial plane from the aortic arch to the skull base. The data was processed at the product/device technologist's workstation for generation of MIP sequences. Angled MIPs and volume rendered reformatted images were also generated at an offline 3D workstation. Stenoses are assessed in accordance with Stenoses are assessed in accordance with Vines et al. Quantification of Carotid Stenosis on CT Angiography. AJR 2006. 27(1):13-19. This CT examination was performed using dose optimization techniques as appropriate, variously including the following: *Automated exposure control *Adjustment of mA and/or kV according to patient size (this includes techniques or standardized protocols for targeted exams where dose is matched to indication/reason for exam; i.e. extremities or head) *Use of iterative reconstruction technique DLP: 350.92 mGy-cm FINDINGS: CTA NECK: Two vessel branching pattern of the arch with left common carotid artery arising from the brachiocephalic trunk. Mild partially calcified atherosclerotic plaque of the aortic arch and great vessel origins. Origins of the great vessels are widely patent. Mid diagnostic assessment of the proximal right common carotid and right subclavian arteries related to adjacent venous contrast bolus. Minimal fibrofatty plaque of the left common carotid artery and trace calcific plaque of the right carotid artery without associated stenosis. Mild calcific plaque at the bilateral carotid bifurcations without associated stenosis. The left internal carotid artery is widely patent. There is partially calcified but predominantly fibrofatty plaque at the right post bulbar ICA contributing to 70% luminal narrowing with otherwise widely patent more distal right cervical ICA. The carotid bifurcations and bilateral internal carotid arteries are normal. The vertebral arteries are codominant The vertebral artery ostia are widely patent. Both vertebral arteries are widely patent throughout their extracranial cervical course. Patchy mild calcific plaque along the bilateral internal carotid arteries without associated stenosis. 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 1.8 mm infundibulum versus aneurysm arising from the terminal right ICA. CT NECK: Moderate bilateral frontoethmoidal mucosal disease. Sclerotic wall thickening of the bilateral maxillary sinus nobles compatible with sequela of remote sinusitis. Polypoid soft tissue opacifies the right maxillary sinus ostium/proximal ethmoid infundibulum and seen just posterior to the left ostiomeatal unit. The patient is edentulous. Bilateral calcified palatine tonsilloliths. Lobulated soft tissue along the base of tongue projecting into the vallecula, presumably lingual tonsillar hyperplasia. A small air-filled internal laryngocele partially effaces the right paraglottic fat. Centrilobular and paraseptal emphysema with several subpleural bullae in the lung apices and partially calcified biapical pleural plaques. Multilevel cervical spondylosis with several several rounded lucencies in the osseous structures with corresponding fat density most suggestive of focal osteopenia. Apparent severe C3-C4 spinal canal stenosis with mass effect on the cord and apparent at least moderate C6-C7 spinal canal stenosis. Uncovertebral and facet joint hypertrophy contribute to multilevel severe neural foraminal narrowing. CT/CT angio neck IMPRESSION: 1. Partially calcified but predominantly fibrofatty plaque at the right post bulbar ICA contributing to 70% luminal narrowing. The cervical arterial vasculature, including the left internal carotid artery, is otherwise widely patent. 2. 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 3. 1.8 mm infundibulum versus aneurysm arising from the terminal right ICA. 4. Cervical spondylosis as above that can be further diagnostically assessed with cervical spine MRI if there is referrable myelopathy/radiculopathy.
[2024-02-23] MEDS: iohexoL 350 MG/ML 100 ML INFUS..BTL IV (15:44)
[2024-02-26 09:23] LABS: H Pylori Breath Test Negative (Negative)
== END 2024-02-23 14:10 | disposition home or self-care (01) ==
LOC: HO.CT 14:09
PROVIDERS: Nurse Practitioner; PCP Family Medicine; Visit Provider Surgery Vascular Surgery
DX: Z01.818 Encounter for other preprocedural examination (principal); R10.9 Unspecified abdominal pain; I65.23 Occlusion and stenosis of bilateral carotid arteries
CPT/HCPCS: 70498; 83013; 99202; Q9967

== ENCOUNTER → 2024-03-08 10:28 | Outpatient (BNVA) | payer MEDICARE, SELFPAY | PROVIDERS: PCP Family Medicine; Visit Provider Surgery Vascular Surgery ==

== ENCOUNTER 2024-03-14 10:24 | Outpatient (AMB) | payer MEDICARE, SELFPAY ==
[2024-03-14 10:30] VITALS: BMI 21.3
--- NOTE | 2024-03-14 10:30 | A.OFFVIS_ITS ---
Vital Signs 03/14/24 10:30 Height 5 ft 5 in Weight 128 lb BMI 21.3 Intake Visit Reasons: Follow up CTA Neck 02/23/24 Intake Note: follow up CTA Neck 02/23/24, pt states no complaints Accompanied by: Self / Same As Patient Allergies No Known Allergies Allergy (Verified 03/14/24 10:33) HPI HPI Follow up CTA Neck 02/23/24: Details: Very pleasant 68-year-old gentleman presents for follow-up regarding carotid stenosis. He was sent in for [facility] that began as a workup for carotid bruits. He reports that he quit smoking about 2 and half months ago. He is a nondiabetic. 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 He reports he has no difficulty climbing 2 flights of stairs. He denies any shortness of breath. PFS Medical History Gastric pain Back pain Tobacco dependence Arthritis Anemia Elevated cholesterol Surgical History Hx of cataract surgery Family History Father Stomach cancer Brother Stomach cancer Social History Are you a primary care tech to a significant other at home: No Do you presently have visiting nurse or other home services: No Alcohol intake: former Comment: quit 20 years ago Patient Tobacco Use Status: Former Tobacco user Tobacco use type: Cigarette Cigarettes Per Day: 10 Review of Systems Const All systems reviewed & are unremarkable except as noted in HPI and below Reports no additional complaints ENT Reports Normal hearing present Card Denies chest pain, Denies chest pain at rest, Denies chest pain with activity and Denies pedal edema Resp Denies cough GI Denies abdominal pain Musc Denies abnormal gait, Denies muscle cramps and Denies radiating pain into limb Skin/Breast Denies skin ulcer and Denies wounds Neuro Reports Normal hearing present and Denies abnormal gait Psych Reports no additional complaints Physical Exam Vital Signs: BMI result Body Mass Index 21.3 Const General: cooperative, healthy appearing and comfortable Orientation/consciousness: oriented to person, oriented to place and oriented to time HEENT Head: Yes normal to inspection Neck Other: Thin neck palpable carotid pulse Neck: Yes normal visual inspection Carotids: no bruits Chest Chest palpation & inspection: normal inspection of the chest Resp Effort & Inspection: normal respiratory effort and able to speak in complete sentences Auscultation: clear to auscultation bilaterally, no crackles, no rales, no rhonchi and no wheezes Cardio Rate: regular rate Rhythm: regular rhythm Heart sounds: S1 normal heart sound present and S2 normal heart sound present Bruits: no carotid bruits Peripheral pulses: Peripheral pulses 2+ throughout GI Inspection: Yes normal to inspection Skin Wounds: no wounds Hair: normal Neuro General: oriented to person, oriented to place and oriented to time Cranial nerves: Yes CN's II-XII intact bilaterally and Yes Normal hearing present Cognition (Neuro): normal cognition Motor exam (neuro): 5/5 motor strength present throughout Extrem Other: venous exam: No significant superficial varicosities or spider telangiectasias, minimal edema General: No clubbing, No cyanosis and No edema Psych Appearance: grossly normal Mental Status: mental status grossly normal Speech and movement: Normal speech and movement present Results Reviewed Results Reviewed: CT angiogram dated 02/23/2024 demonstrates high-grade right carotid stenosis of 70%. Assessment & Plan Assessment & Plan (1) Bilateral carotid artery stenosis: Code(s): I65.23 - Occlusion and stenosis of bilateral carotid arteries Category: Medical Plan: In short patient has high-grade right carotid stenosis. The patient will require right carotid endarterectomy. Risks benefits complications of the proce dure including but not limited to bleeding infection stroke and were discussed in detail with the patient. Understood and consented and would like to move forward. Of note he will require cardiac risk stratification prior to operation. Coding Level of Care Code Est Pt Level 4 (97201) Diagnoses Bilateral carotid artery stenosis I65.23
== END 2024-03-14 10:59 | disposition home or self-care (01) ==
PROVIDERS: PCP Family Medicine; Visit Provider Surgery Vascular Surgery
DX: I65.23 Occlusion and stenosis of bilateral carotid arteries (principal)
CPT/HCPCS: 99214

== ENCOUNTER → 2024-03-14 10:24 | Outpatient (BNVA) | payer MEDICARE, SELFPAY | PROVIDERS: PCP Family Medicine; Visit Provider Surgery Vascular Surgery | DX: I65.23 Occlusion and stenosis of bilateral carotid arteries (principal) | CPT/HCPCS: 99212 ==

== ENCOUNTER 2024-03-20 13:38 | Outpatient (AMB) | payer MEDICARE, SELFPAY ==
[2024-03-20 13:59] VITALS: BP 120/64; PULSE 63; BMI 21.9
--- NOTE | 2024-03-20 13:59 | A.OFFVIS_ITS ---
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: Yes Ground Support Equipment Mechanic Name: [id number]/guillermo/indian Accompanied by: Self / Same As Patient Allergies No Known Allergies Allergy (Verified 03/14/24 10:33) Medication List - Last Reconciled 03/20/24 by Davey Aiken MD amlodipine 2.5 mg PO DAILY atorvastatin 20 mg PO BEDTIME cyanocobalamin (vitamin B-12) (Vitamin B-12) 50 mcg PO DAILY cyclobenzaprine 5 mg PO TID PRN gabapentin 600 mg PO DAILY sod sulf-pot chloride-mag sulf 1.479-0.188- 0.225 gram (Sutab) PO PER PKG DIR for colonoscopy prep HPI Comments Details: Omer is here for consultation regarding preoperative risk stratification for carotid surgery. History of smoking, hypertension, dyslipidemia. Within limits of his activity, he does not have any clear-cut anginal-type symptoms or other cardiac concerns. Discussed with patient using dry press operator helper. PFSH Medical History Gastric pain Back pain Tobacco dependence Arthritis Anemia Elevated cholesterol Surgical History Hx of cataract surgery Family History Father Stomach cancer Brother Stomach cancer Social History Are you a primary career center advisor to a significant other at home: No Do you presently have visiting nurse or other home services: No Alcohol intake: former Comment: quit 20 years ago Patient Tobacco Use Status: Former Tobacco user Tobacco use type: Cigarette Cigarettes Per Day: 10 Review of Systems Const Denies chills, Denies fatigue, Denies fever(s), Denies frequent falls, Denies weakness, Denies weight gain and Denies weight loss ENT Denies dizziness Card Denies chest pain, Denies leg edema, Denies lightheadedness, Denies palpitations, Denies dyspnea, Denies dyspnea on exertion and Denies orthopnea Resp Denies cough, Denies dyspnea and Denies dyspnea on exertion GI Denies bloating and Denies change in bowel habits Musc Denies muscle weakness, Denies numbness and Denies tingling Neuro Denies dizziness, Denies frequent falls, Denies numbness, Denies tingling and Denies weakness Endo Denies fatigue and Denies palpitations Physical Exam Vital Signs: Last Vital Signs Pulse 63 03/20/24 13:59 BP 120/64 03/20/24 13:59 BMI result Body Mass Index 21.9 Const General: comfortable and no acute distress Orientation/consciousness: patient oriented x3 HEENT Other: Unremarkable Head: Yes normal to inspection Neck Neck: Yes normal visual inspection Chest Chest palpation & inspection: normal inspection of the chest Resp Auscultation: clear to auscultation bilaterally Cardio Palpation: normal PMI Heart sounds: S1 normal heart sound present, S2 normal heart sound present, no gallops, no murmurs and no rubs GI Palpation (GI): Soft to palpation Back/Spine/Pelvis Other: unremarkable Skin General skin exam: no rashes or lesions noted Neuro General: patient oriented x3 Extrem General: Yes normal to inspection Psych Mental Status: mental status grossly normal Office Procedures EKG Details: EKG with sinus rhythm at 63/Min; LVH; no significant ST-T changes and otherwise unremarkable. [place] [id number], Complete Assessment & Plan Assessment & Plan (1) Preoperative cardiovascular examination: Code(s): Z01.810 - Encounter for preprocedural cardiovascular examination Category: Medical (2) Stenosis of right carotid artery: Code(s): I65.21 - Occlusion and stenosis of right carotid artery Category: Medical Plan Chest CT scan shows moderate coronary artery calcification. Multiple risk factors including smoking, hypertension, dyslipidemia. Plan for an echocardiogram/stress test as part of preop assessment. Can make an addendum after review of the above. Orders: Orders CA echo stress exercise Today R07.2 - Precordial pain, Z.810 - Encounter for preprocedural cardiovascular examination CA echo transthoracic complete Today I25.10 - Atherosclerotic heart disease of [place] coronary artery without angina pectoris, Z.810 - Encounter for preprocedural cardiovascular examination Coding Level of Care Code New Pt Level 4 (11270) Diagnoses Preoperative cardiovascular examination Z01.0 Stenosis of right carotid artery I65.21 CPT Codes EKG - CPT: 77706-[id number], Complete ([id number])
== END 2024-03-20 14:41 | disposition home or self-care (01) ==
PROVIDERS: PCP Family Medicine; Visit Provider Internal Medicine
DX: Z01.810 Encounter for preprocedural cardiovascular examination (principal); I65.21 Occlusion and stenosis of right carotid artery
CPT/HCPCS: 93010; 99204

== ENCOUNTER → 2024-03-20 13:38 | Outpatient (BNVA) | payer MEDICARE, SELFPAY | PROVIDERS: PCP Family Medicine; Visit Provider Internal Medicine | DX: Z01.810 Encounter for preprocedural cardiovascular examination (principal); I65.21 Occlusion and stenosis of right carotid artery | CPT/HCPCS: 93005; 99202 ==

== ENCOUNTER → 2024-03-21 12:08 | Outpatient (REF) | payer MEDICARE, SELFPAY ==
--- NOTE | 2024-03-21 12:14 | CA_ITS ---
Transthoracic Echocardiogram Patient (Last, First, Middle): Omer Lara, Gender: Male Date of : 1955 Age: 68 Procedure Date: 03/21/2024 Procedure Type: Transthoracic Echocardiogram Location: OP Height: 165.1 cm Weight: 58.06 kg BSA: 1.64 m2 Heart Rate: 59 bpm BP: 126 / 70 mmHg Aerosol Supervisor: SB Referring MD: Davey Aiken MD Symptoms: I25.10 - Atherosclerotic heart disease of [place] coronary artery without... Study Quality: Adequate ECG Rhythm: Bradycardia Conclusions: - The left ventricular systolic function is normal. The calculated ejection fraction is 67% by biplane method. - No obvious valvular pathology seen on this study. Findings Left Ventricle Normal left ventricular cavity size. There is normal left ventricular wall thickness. The left ventricular systolic function is normal. The calculated ejection fraction is 67% by biplane method. There is no evidence of regional wall motion abnormalities. Diastolic function is normal for age. LV peak GLS -16.7%. Right Ventricle Mildly increased right ventricular cavity size. There is normal right ventricular systolic function. Atria Both atria are normal in size. Aortic Valve There is a normal trileaflet aortic valve. There is no aortic valve stenosis. There is no aortic valve regurgitation. Mitral Valve The mitral valve appears normal. There is trace mitral valve regurgitation. There is no mitral valve stenosis. Pulmonic Valve The pulmonic valve is likely normal. There is trace pulmonic valve regurgitation. Tricuspid Valve Normal tricuspid valve structure. There is mild tricuspid valve regurgitation. There is no evidence of pulmonary hypertension. Great Vessels The asc aorta is normal in size. Venous The inferior vena cava is normal in size and collapses greater than 50% with inspiration. Pericardium/Pleural There is no evidence of pericardial effusion. Prior Study Comparison No prior study available for comparison. Recommendations, Care & Conclusions No obvious valvular pathology seen on this study. Measurements 2D Linear Measurements IVSd: 0.95 0.6-0.9/0.6-1.0 cm LVIDd: 4.64 3.9-5.3/4.2-5.9 cm LVIDd Index: 2.83 2.4-3.2/2.2-3.1 cm/m2 LVIDs: 3.11 2.0-3.6 cm LVPWd: 0.81 0.7-1.1 cm LA Diam: 3.40 2.7-3.8/3.0-4.0 cm LAIDs Index: 2.07 1.5-2.3 cm/m2 LV Mass: 169.63 67-162/88-224 g LV Mass Index: 103.43 43-95/49-115 g/m2 LVOT Diam: 2.30 3.0+(-)1.3 cm 2D Systolic Function EF 4C: 62.30 >55% EF 2C: 70.30 >55% EF BiP: 67.20 >55% Mitral Valve MV Pk E: 0.65 MV PK A: 0.53 MV Decel Time: 259.00 E/A: 1.20 E'Lateral: 8.81 E'Medial: 6.53 E/E' Med: 10.00 E/E' Lat: 7.40 PHT: 76.00 MVA PHT: 2.89 Decel [place]: 2.52 Aortic Valve AoV Pk Basim: 1.24 AoV Pk Grad: 6.00 GÓMEZ: 3.15 LVOT LVOT Pk Basim: 0.94 LVOT Mn Basim: 0.64 LVOT VTI: 0.22 LVOT Pk Grad: 4.00 LVOT Mn Grad: 2.00 LVOT Diam: 2.30 LVOT Area: 4.15 Diastolic Function MV Pk E: 0.65 MV Pk A: 0.53 E/A: 1.20 E'Medial: 6.53 E/E' Med: 10.00 E' Laterial: 8.81 E/E' Lat: 7.40 Right Ventricle TAPSE (mm): 21.70 TVS' Basim: 12.10 Tricuspid Valve TR Pk Basim: 2.20 TR Pk Grad: 19.00 RA Press: 3.00 RVSP: 22.00 Great Vessels Aorta Sinus of Valsalva: 3.40 2.0-3.5 cm Ao Asc: 3.50 2.1-3.4 cm Pulmonary Veins Pulm Vein S/D 1.10 Pulmonary Valve PV Pk Basim: 1.03 Peak PV Grad: 4.00 Updated in Other Vendor System with Status of Final Davey Aiken MD electronically signed on 03/23/2024 1:08:17 PM with status of Final
== END ==
LOC: HO.CARD 12:08
PROVIDERS: PCP Family Medicine; Visit Provider Internal Medicine
DX: Z01.810 Encounter for preprocedural cardiovascular examination (principal); I25.10 Atherosclerotic heart disease of native coronary artery without angina pectoris
CPT/HCPCS: 93306; 93356

== ENCOUNTER → 2024-03-21 12:14 | Outpatient (BNV) | payer MEDICARE, SELFPAY | PROVIDERS: PCP Family Medicine; Visit Provider Internal Medicine | DX: I36.1 Nonrheumatic tricuspid (valve) insufficiency (principal); I25.10 Atherosclerotic heart disease of native coronary artery without angina pectoris | CPT/HCPCS: 93306; 93356 ==

== ENCOUNTER → 2024-03-23 12:08 | Outpatient (REF) | payer MEDICARE, SELFPAY ==
--- NOTE | 2024-03-23 12:11 | CA_ITS ---
Acquisition Time: 2024-03-23 12:32:16 Total Exercise Time: 00:07:14 Test Indications: Precordial Pain Medications: Protocol: KIA Max HR: 142 BPM 92% of Pred: 154 BPM Max BP: 158/070 mmHG Max Work Load: 8.5 METS Exercise stress test exercise 7 min 41 sec of Kia protocol achieving 91% MPHR, with mild SOB, no chest discomfort, without arrhythmias, with noprmotensive response to exercise, without EKG chnages. Echo images obtained by tech at rest and immediately post peak exercise. Definity contrast used. Test reviewed with Dr. Aiken. Referred By: Davey Aiken Overread By: Deirdre Koenig
== END ==
LOC: HO.CARD 12:08
PROVIDERS: PCP Family Medicine; Visit Provider Internal Medicine
DX: Z01.810 Encounter for preprocedural cardiovascular examination (principal); R07.2 Precordial pain
CPT/HCPCS: 93350; Q9957

== ENCOUNTER → 2024-03-23 12:11 | Outpatient (BNV) | payer MEDICARE, SELFPAY | PROVIDERS: PCP Family Medicine; Visit Provider Nurse Practitioner | DX: R07.2 Precordial pain (principal) | CPT/HCPCS: 93016; 93018; 93350; 93352 ==

== ENCOUNTER 2024-04-02 06:05 | Inpatient (IN) | payer MEDICARE, SELFPAY ==
[2024-03-28 13:05] VITALS: BP 120/62; PULSE 74; RESP 16; O2SAT 97; BMI 25.5
--- NOTE | 2024-03-28 13:17 | HO.ANESPROP2 ---
Documented by User: Isadora Xiong NP 03/29/24 13:43 HPI - Anesthesia Eval Consult details Narrative: 68yo M for Right Carotid Endarterectomy Cardiac optimized. Work up by 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 Bruit noted by pcp w/u for htn. PMF Active Problems Active Problems: All Active Problems Stenosis of right carotid artery (Acute) Preoperative cardiovascular examination (Acute) Pre-op examination (Acute) HTN (hypertension), benign (Acute) Bilateral carotid artery stenosis (Acute) Nicotine dependence, cigarettes, uncomplicated (Acute) Elevated cholesterol (Acute) Past Medical History Medical History HTN (hypertension) Gastric pain Back pain Tobacco dependence Arthritis Anemia Elevated cholesterol Family History Family History Father Stomach cancer Brother Stomach cancer Family history of problems with anesthesia: No Surgical History Surgical History Hx of cataract surgery History of Problems with Anesthesia: No (Never rec'd GA) Social History Social History Are you a primary human services care specialist to a significant other at home: No Do you presently have visiting nurse or other home services: No Alcohol intake: former Comment: quit 20 years ago Patient Tobacco Use Status: Former Tobacco user Tobacco use type: Cigarette Cigarettes Per Day: 10 Use of substances other than those prescribed or required for medical reasons: No Have you been hit, kicked, punched, or otherwise hurt by someone within the past year? If so, by whom?: No Are you DNR?: No Advance Directives: No Advance Directives Information Provided: Yes Advance Directives on File: No Recently lost weight without trying: No Eating poorly because of decreased appetite: No Nutrition Risks: No Nutritional Risk Poor oral hygiene: Yes (no teeth) Meds Allergies Allergy/AdvReac Type Severity Reaction Status Date / Time No Known Allergies Allergy Verified 03/14/24 10:33 Home Medications ?Medication ?Instructions ?Recorded ?Confirmed ?Last Taken ?Type atorvastatin 20 mg tablet 20 mg PO BEDTIME 10/27/23 04/02/24 04/01/24 History cyanocobalamin (vitamin B-12) 50 50 mcg PO DAILY 10/27/23 04/02/24 04/01/24 History mcg tablet (Vitamin B-12) amlodipine 2.5 mg tablet 2.5 mg PO DAILY 02/23/24 03/28/24 04/02/24 History gabapentin 600 mg tablet 600 mg PO DAILY 02/23/24 04/02/24 04/01/24 History Exam Height,Weight and Vital Signs: Height 5 ft 0.5 in Weight 60.328 kg Last Vital Signs Pulse 74 03/28/24 13:05 Resp 16 03/28/24 13:05 BP 120/62 03/28/24 13:05 Pulse Ox 97 03/28/24 13:05 O2 Del Method Room Air 03/28/24 13:05 Pertinent Lab Results Pertinent Lab Results: Lab Results 03/28/24 03/28/24 Range/Units 13:40 13:45 WBC 8.1 (4.8-10.8) X10*3/uL RBC 3.63 L (4.60-5.80) X10*6/uL Hgb 11.7 L (14.0-18.0) g/dl Hct 34.8 L (42.0-52.0) % MCV 95.9 (80.0-98.0) fL MCH 32.2 (27.0-33.0) pg MCHC 33.6 (31.0-36.0) g/dl RDW 12.6 (11.0-16.0) % Plt Count 387 (160-400) X10*3/uL MPV 8.9 L (9.4-12.4) fL Absolute Nucleated RBC 0.000 (0.0-0.012) X10*3/uL Nucleated RBC % (auto) 0.0 (0.0-0.2) /100WBC PT 10.6 L (11.1-13.3) SEC INR 0.9 (0.9-1.1) APTT 31.0 (26.0-36.8) SEC Sodium 140 (135-145) mmol/L Potassium 4.4 (3.3-5.1) mmol/L Chloride 105 (96-108) mmol/L Carbon Dioxide 27 (22-29) mmol/L Anion Gap 12 (12-20) BUN 29 H (9-16) mg/dL Creatinine 0.96 (0.5-1.4) mg/dL Estim Creat Clear Calc 57.9 Estimated GFR > 60 Random Glucose 89 (60-115) mg/dL Calcium 9.4 (8.4-10.2) mg/dL Total Bilirubin 0.3 (0.0-1.0) mg/dL AST 21 (5-37) U/L ALT 19 (0-40) U/L Alkaline Phosphatase 91 (39-117) U/L Total Protein 7.8 (6.5-8.0) g/dL Albumin 4.5 (3.5-5.0) g/dL Blood Type O Positive Antibody Screen NEGATIVE Narrative Narrative: EKG 03/2024 sinus rhythm at 63/Min; LVH; no significant ST-T changes and otherwise unremarkable. Normal NH and corrected QT. ECHO 03/2024 Conclusions: - The left ventricular systolic function is normal. The calculated ejection fraction is 67% by biplane method. - No obvious valvular pathology seen on this study. ECHO Stress 03/2024 Protocol: MARCUS Max HR: 142 BPM 92% of Pred: 154 BPM Max BP: 158/070 mmHG Max Work Load: 8.5 METS Exercise stress test exercise 7 min 41 sec of Marcus protocol achieving 91% MPHR, with mild SOB, no chest discomfort, without arrhythmias, with noprmotensive response to exercise, without EKG chnages. Echo images obtained by tech at rest and immediately post peak exercise. Definity contrast used. Test reviewed with Dr. Aiken. Exercise stress echocardiogram reviewed. At rest, there is normal LVEF and wall motion. With peak exercise, there is appropriate augmentation of wall thickening and contractility. There is normal decrease in end-systolic volumes. There is no evidence of exercise induced diastolic dysfunction or pulmonary hypertension. Overall, normal study. Airway Mallampati Class: II TM Dist: >3cm Neck ROM: Limited Loose/Missing/Broken Teeth: Yes (Edentulous) Heart: RRR Lungs: CTAB Assessment and Plan Assessment Anesthesia Assessment: Anesthesia Plan Discussed, Smoking Cess. Discussed and PAT Visit Final Anesthetic Review Family History of Problems with Anesthesia: No History of Problems with Anesthesia: No (Never rec'd GA) Documented by User: Tayler Rogers MD 04/02/24 07:35 HPI - Anesthesia Eval Consult details Narrative: 68yo M for Right Carotid Endarterectomy Cardiac optimized. Work up by 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 Bruit noted by pcp w/u for htn. [facility] Past Medical History Medical History HTN (hypertension) Gastric pain Back pain Tobacco dependence Arthritis Anemia Elevated cholesterol Family History Family History Father Stomach cancer Brother Stomach cancer Family history of problems with anesthesia: No Surgical History Surgical History Hx of cataract surgery History of Problems with Anesthesia: No Social History Social History Are you a primary human services care specialist to a significant other at home: No Do you presently have visiting nurse or other home services: No Alcohol intake: former Comment: quit 20 years ago Patient Tobacco Use Status: Former Tobacco user Tobacco use type: Cigarette Cigarettes Per Day: 10 Use of substances other than those prescribed or required for medical reasons: No Have you been hit, kicked, punched, or otherwise hurt by someone within the past year? If so, by whom?: No Are you DNR?: No Advance Directives: No Advance Directives Information Provided: Yes Advance Directives on File: No Recently lost weight without trying: No Eating poorly because of decreased appetite: No Nutrition Risks: No Nutritional Risk Poor oral hygiene: Yes (no teeth) Meds Allergies Allergy/AdvReac Type Severity Reaction Status Date / Time No Known Allergies Allergy Verified 03/14/24 10:33 Home Medications ?Medication ?Instructions ?Recorded ?Confirmed ?Last Taken ?Type atorvastatin 20 mg tablet 20 mg PO BEDTIME 10/27/23 04/02/24 04/01/24 History cyanocobalamin (vitamin B-12) 50 50 mcg PO DAILY 10/27/23 04/02/24 04/01/24 History mcg tablet (Vitamin B-12) amlodipine 2.5 mg tablet 2.5 mg PO DAILY 02/23/24 03/28/24 04/02/24 History gabapentin 600 mg tablet 600 mg PO DAILY 02/23/24 04/02/24 04/01/24 History Exam Height,Weight and Vital Signs: Height 5 ft 0.5 in Weight 60.328 kg Last Vital Signs Pulse 74 03/28/24 13:05 Resp 16 03/28/24 13:05 BP 120/62 03/28/24 13:05 Pulse Ox 97 03/28/24 13:05 O2 Del Method Room Air 03/28/24 13:05 Vital Signs Temp Pulse Resp BP Pulse Ox O2 Del Method 04/02/24 06:42 97.9 F 56 16 122/56 L 99 Room Air Pertinent Lab Results Pertinent Lab Results: Lab Results 03/28/24 03/28/24 Range/Units 13:40 13:45 WBC 8.1 (4.8-10.8) X10*3/uL RBC 3.63 L (4.60-5.80) X10*6/uL Hgb 11.7 L (14.0-18.0) g/dl Hct 34.8 L (42.0-52.0) % MCV 95.9 (80.0-98.0) fL MCH 32.2 (27.0-33.0) pg MCHC 33.6 (31.0-36.0) g/dl RDW 12.6 (11.0-16.0) % Plt Count 387 (160-400) X10*3/uL MPV 8.9 L (9.4-12.4) fL Absolute Nucleated RBC 0.000 (0.0-0.012) X10*3/uL Nucleated RBC % (auto) 0.0 (0.0-0.2) /100WBC PT 10.6 L (11.1-13.3) SEC INR 0.9 (0.9-1.1) APTT 31.0 (26.0-36.8) SEC Sodium 140 (135-145) mmol/L Potassium 4.4 (3.3-5.1) mmol/L Chloride 105 (96-108) mmol/L Carbon Dioxide 27 (22-29) mmol/L Anion Gap 12 (12-20) BUN 29 H (9-16) mg/dL Creatinine 0.96 (0.5-1.4) mg/dL Estim Creat Clear Calc 57.9 Estimated GFR > 60 Random Glucose 89 (60-115) mg/dL Calcium 9.4 (8.4-10.2) mg/dL Total Bilirubin 0.3 (0.0-1.0) mg/dL AST 21 (5-37) U/L ALT 19 (0-40) U/L Alkaline Phosphatase 91 (39-117) U/L Total Protein 7.8 (6.5-8.0) g/dL Albumin 4.5 (3.5-5.0) g/dL Blood Type O Positive Antibody Screen NEGATIVE Lab Results 03/28/24 03/28/24 04/02/24 Range/Units 13:40 13:45 06:43 WBC 8.1 9.1 (4.8-10.8) X10*3/uL RBC 3.63 L 3.65 L (4.60-5.80) X10*6/uL Hgb 11.7 L 11.9 L (14.0-18.0) g/dl Hct 34.8 L 35.0 L (42.0-52.0) % MCV 95.9 95.9 (80.0-98.0) fL MCH 32.2 32.6 (27.0-33.0) pg MCHC 33.6 34.0 (31.0-36.0) g/dl RDW 12.6 12.5 (11.0-16.0) % Plt Count 387 379 (160-400) X10*3/uL MPV 8.9 L 8.8 L (9.4-12.4) fL Absolute Nucleated RBC 0.000 0.000 (0.0-0.012) X10*3/uL Nucleated RBC % (auto) 0.0 0.0 (0.0-0.2) /100WBC PT 10.6 L 11.2 (11.1-13.3) SEC INR 0.9 0.9 (0.9-1.1) APTT 31.0 31.0 (26.0-36.8) SEC Sodium 140 140 (135-145) mmol/L Potassium 4.4 3.9 (3.3-5.1) mmol/L Chloride 105 107 (96-108) mmol/L Carbon Dioxide 27 27 (22-29) mmol/L Anion Gap 12 10 L (12-20) BUN 29 H 28 H (9-16) mg/dL Creatinine 0.96 0.98 (0.5-1.4) mg/dL Estim Creat Clear Calc 57.9 56.9 Estimated GFR > 60 > 60 Random Glucose 89 92 (60-115) mg/dL Calcium 9.4 9.5 (8.4-10.2) mg/dL Total Bilirubin 0.3 (0.0-1.0) mg/dL AST 21 (5-37) U/L ALT 19 (0-40) U/L Alkaline Phosphatase 91 (39-117) U/L Total Protein 7.8 (6.5-8.0) g/dL Albumin 4.5 (3.5-5.0) g/dL Blood Type O Positive Antibody Screen NEGATIVE Airway Mallampati Class: II TM Dist: >3cm Neck ROM: Limited Loose/Missing/Broken Teeth: Yes (Edentulous) Heart: RRR Lungs: CTAB Assessment and Plan Assessment Anesthesia Assessment: Anesthesia Plan Discussed and Chart Reviewed Final Anesthetic Review Family History of Problems with Anesthesia: No History of Problems with Anesthesia: No NPO: Yes ASA Class: III Final Preanesthetic Review: No Changes in Pt Med Stat, Meds/Allgs Chart Reviewed, Consent Obtained/Reviewed and Anes Risks/Benef Reviewed Patient Risk: Intermediate Procedure Risk: Intermediate Assessment/Block/Sedation in SS: Assess/Block/Sedation-SS Anesthetic Plan Anesthetic Plan: GA and Other (Arterial line) Disposition: Standard PACU and Inp. Admit - ICU
[2024-03-28 14:25] LABS: Hematocrit 34.8 % (42.0-52.0); Hemoglobin 11.7 g/dl (14.0-18.0); Mean Corpuscular HGB Conc 33.6 g/dl (31.0-36.0); Mean Corpuscular Hemoglobin 32.2 pg (27.0-33.0); Mean Corpuscular Volume 95.9 fL (80.0-98.0); Mean Platelet Volume 8.9 fL (9.4-12.4); Platelet Count 387 X10*3/uL (160-400); Red Blood Count 3.63 X10*6/uL (4.60-5.80); Red Cell Distribution Width 12.6 % (11.0-16.0); White Blood Count 8.1 X10*3/uL (4.8-10.8)
[2024-03-28 14:29] LABS: INTERNATIONAL NORM RATIO 0.9 (0.9-1.1); Prothrombin Time 10.6 SEC (11.1-13.3)
[2024-03-28 14:50] LABS: Alanine Aminotransferase 19 U/L (0-40); Albumin Level 4.5 g/dL (3.5-5.0); Alkaline Phosphatase 91 U/L (39-117); Anion Gap 12 (12-20); Aspartate Amino Transferase 21 U/L (5-37); Bilirubin Total 0.3 mg/dL (0.0-1.0); Blood Urea Nitrogen 29 mg/dL (9-16); Calcium 9.4 mg/dL (8.4-10.2); Carbon Dioxide 27 mmol/L (22-29); Chloride 105 mmol/L (96-108); Creatinine Clr Calc Pharmacy 57.9; Estimated Glomerular Filt Rate > 60; Glucose Random 89 mg/dL (60-115); Potassium 4.4 mmol/L (3.3-5.1); Sodium 140 mmol/L (135-145); Total Protein 7.8 g/dL (6.5-8.0)
[2024-04-02] VITALS (22 sets, daily range): BP systolic 108–146; BP diastolic 40–76; PULSE 56–78; RESP 12–20; TEMP 36.1–36.6; O2SAT 94–100; BMI 25.7
--- NOTE | 2024-04-02 06:10 | PC.NURSE ---
called for labs
--- NOTE | 2024-04-02 06:49 | PC.NURSE ---
labs drawn. computer scanning with the lab is having problems
[2024-04-02] MEDS: Lactated Ringers 1,000 ML 100 ML IVCONT (06:55)
[2024-04-02 06:59] LABS: Hemoglobin 11.9 g/dl (14.0-18.0); Mean Corpuscular Hemoglobin 32.6 pg (27.0-33.0); Mean Corpuscular Volume 95.9 fL (80.0-98.0); Mean Platelet Volume 8.8 fL (9.4-12.4); Platelet Count 379 X10*3/uL (160-400); Red Blood Count 3.65 X10*6/uL (4.60-5.80); Red Cell Distribution Width 12.5 % (11.0-16.0); White Blood Count 9.1 X10*3/uL (4.8-10.8)
[2024-04-02 07:04] LABS: INTERNATIONAL NORM RATIO 0.9 (0.9-1.1); Prothrombin Time 11.2 SEC (11.1-13.3)
[2024-04-02 07:17] LABS: Anion Gap 10 (12-20); Blood Urea Nitrogen 28 mg/dL (9-16); Calcium 9.5 mg/dL (8.4-10.2); Carbon Dioxide 27 mmol/L (22-29); Chloride 107 mmol/L (96-108); Creatinine Clr Calc Pharmacy 56.9; Estimated Glomerular Filt Rate > 60; Glucose Random 92 mg/dL (60-115); Potassium 3.9 mmol/L (3.3-5.1); Sodium 140 mmol/L (135-145)
--- NOTE | 2024-04-02 07:36 | MHC.SHP ---
Pre-Procedural Eval Section A - 24 Hr Update-Section A only Date of Service: 04/02/24 The patient is an INPATIENT: No Changes since office visit: Yes Patient answered all questions The patient has been examined within 24 hours of the surgical procedure. The History & Physical has been completed within 30 days and I have reviewed it.: Yes Section B - Complete if H&P > 30 days Chief Complaint: postop Allergies: Allergies Allergy/AdvReac Type Severity Reaction Status Date / Time No Known Allergies Allergy Verified 03/14/24 10:33 Plan I have reviewed the history and physical and performed a pertinent physical examination on my patient. No changes have occurred unless specified. Time Spent With Patient Time: Total time managing care of this patient today ____ minutes.
--- NOTE | 2024-04-02 10:48 | W.PM.OPN ---
Operative Note Operative Note Date of Service: 04/02/24 Narrative: Operative note by [facility] Preoperative diagnosis:1. Right Carotid stenosis Postoperative diagnosis: Same Procedure: Right Carotid endarterectomy with patch angioplasty Surgeon:Luis Coy M.D. Robotic Technician: Dr. Mcclain Anesthesia: General Specimens: 1 Drains: 1 Estimated blood loss: 100 mL Indications: Very pleasant 68-year-old gentleman upon workup was noted to high-grade right carotid stenosis. On CT angiogram was confirmed to be greater than 70%. He now presents for right carotid endarterectomy The patient has signed the informed consent after reviewing risks, complications, benefits, and alternatives previously discussed with the patient. The patient was given the opportunity to ask any additional questions or voice any concerns. All questions were answered to the patient's satisfaction. Procedure in detail: Patient was taken to the operating room and placed in a supine position and prepped and draped in sterile manner with ChloraPrep. Longitudinal incision was made along the right anterior border of the sternocleidomastoid carried down through the subcutaneous fat and fascia. Hemostasis was obtained with electrocautery. The platysma muscle was then divided. The carotid sheath was identified in open. The vagus nerve, Ancef cervicalis, and hypoglossal nerves were identified and avoided. The common internal and external carotids were then freed from the surrounding tissue. At this point, 5000 units of heparin was administered and allowed to circulate for 5 minutes time to take effect. The internal, common, external carotids were clamped in that order. Once this was accomplished, we proceeded with the procedure. The carotid bulb was opened with an 11 blade and extended with Curry scissors through the very tight lesion into normal internal carotid artery. This was then extended down into the common carotid artery. We then placed a Valentin shunt. Then the plaque was sharply excised proximally and an eversion endarterectomy was performed successfully at the external. The plaque tapered nicely on to the internal and no tacking sutures were necessary. Heparinized saline was injected and no evidence of flapping or other debris was noted. The remaining carotid was examined, which showed no debris or flaps present. At this point a XenoSure patch was brought on to the field. This was anastomosed to the artery using a 6 0 Prolene in a running fashion. Once approximately 4/5 of the patch was sewn in the shunt was then removed. Prior to the last stitch the internal carotid was back bled through this. Heparinized saline was instilled into the carotid. The last stitch was tied. Hemostasis was excellent. The internal carotid was gently occluded while while of the external and internal were open in that order. Finally the internal was then opened and flow was restored to the entire system. Hemostasis was achieved with interrupted 7-0 Prolene sutures. The wound was irrigated thoroughly. We then used [place] Seal as a hemostatic agent. Deep layer was reapproximated using a 2-0 poly Sorb and finally the superficial layer with a 3-0 Polysorb. The skin was closed in a subcuticular manner. The patient awoke and neurologic status was checked and appeared to be intact. Sponge, needle and instrument counts were correct. The patient tolerated the procedure well. Returned to recovery with stable vitals. This note is constructed using voice recognition software. While every effort has been made to ensure accuracy, hard rock miner blasting errors may have been included. Thank you for allowing me to participate in the care of your patient. Yours sincerely, Luis Coy MD, FACS, R.P.V.I.
--- NOTE | 2024-04-02 11:15 | PHA.MEDREC ---
Pharmacy Consult ? Medication Reconciliation Pharmacy has completed the medication reconciliation. Reviewed med rec done by nursing
[2024-04-02] MEDS: 0.9 % Sodium Chloride 1,000 ML 80 ML IVCONT (11:57)
[2024-04-02] MEDS: oxyCODONE HCl Immed Release 5 MG TABLET PO ×2 (12:02→18:49)
[2024-04-02] MEDS: ceFAZolin Sodium/Dextrose,Iso 2 GM/50 ML PIGGYBACK IV (13:02)
[2024-04-02] MEDS: 0.9 % Sodium Chloride Flush 3 ML SYRINGE IVFLUSH (15:07)
--- NOTE | 2024-04-02 17:54 | P.HPCC_ITS ---
History of Present Illness Date of Service: 04/02/24 Chief Complaint: Admitted for elective right carotid endarterectomy 68-year-old male gentleman with past medical history of smoking over 20 pack years of cigarette, history of hypertension and hyperlipidemia was found to have carotid bruits for which he underwent CTA of the neck which showed 70% stenosis of postbulbar internal carotid artery. Today he is electively admitted to the hospital for and carotid endarterectomy, procedure was uneventful. Review of Systems 2 Constitutional: Constitutional: Denies body ache(s) and Denies chills Eyes: Eyes: Denies exophthalmos and Denies change in vision ENT: Reports Normal hearing present and Denies bleeding gums Cardiovascular: Cardiovascular: Reports no additional cardiovascular complaints, Denies Abdominal Distension, Denies chest pain, Denies chest pain at rest and Denies chest pain with activity Respiratory: Respiratory: Denies change in phlegm color, Denies chest congestion and Denies cough Gastrointestinal: Gastrointestinal: Denies abdominal pain and Denies belching Genitourinary: Genitourinary: Denies hematospermia and Denies change in libido Neurologic: Reports Normal hearing present, Denies Neuro-related abnormal movements, Denies Abnormal speech present and Denies behavioral changes Psychiatric: Psychiatric: Denies abnormal sleep pattern, Denies behavioral changes and Denies change in libido Endocrine: Endocrine: Denies change in body appearance and Denies change in libido [facility] Past Medical History Medical History HTN (hypertension) Gastric pain Back pain Tobacco dependence Arthritis Anemia Elevated cholesterol Family History Family History Father Stomach cancer Brother Stomach cancer Surgical History Surgical History Hx of cataract surgery Social History Social History Household Members: Spouse Housing: Apartment Are you a primary childcare director to a significant other at home: No Do you presently have visiting nurse or other home services: No Alcohol intake: former Comment: quit 20 years ago Patient Tobacco Use Status: Former Tobacco user Tobacco use type: Cigarette Cigarettes Per Day: 10 Use of substances other than those prescribed or required for medical reasons: No Have you been hit, kicked, punched, or otherwise hurt by someone within the past year? If so, by whom?: No Do you feel safe in your current relationship?: Yes Is there a partner from a previous relationship who is making you feel unsafe now?: No Are you made to feel afraid or neglected: No Spiritual Healthcare Practices: none per patient Jehov[employer] Healthcare Practices: none per patient Cultural Healthcare Practices: none per patient Are you DNR?: No Advance Directives: No Advance Directives Information Provided: Yes Advance Directives on File: No Do you have a plan to hurt others: No Plan Recently lost weight without trying: No Eating poorly because of decreased appetite: No Nutrition Risks: Difficulty chewing Poor oral hygiene: Yes Meds Allergies Allergy/AdvReac Type Severity Reaction Status Date / Time No Known Allergies Allergy Verified 03/14/24 10:33 Active Medications: Current Medications Acetaminophen (Acetaminophen 325 Mg Tablet) 650 mg PO Q6H PRN PRN Reason: Pain, Mild (Pain Scale 1-3), fever or headache Albuterol Sulfate (Albuterol Sulfate (0.083%) 2.5 Mg/3 Ml Vial.Neb) 2.5 mg INHALE ONCE PRN PRN Reason: Shortness of Breath/Wheezing Amlodipine Besylate (Amlodipine Besylate 2.5 Mg Tablet) 2.5 mg PO DAILY [facility]; Protocol Atorvastatin Calcium (Atorvastatin Calcium 20 Mg Tablet) 20 mg PO BEDTIME [facility] Calcium Carbonate (Calcium Carbonate 750 Mg Tab.Chew) 750 mg PO Q4H PRN PRN Reason: Heartburn Cyanocobalamin (Cyanocobalamin (Vitamin B-12) 100 Mcg Tablet) 50 mcg PO DAILY [facility] Gabapentin (Gabapentin 600 Mg Tablet) 600 mg PO DAILY [facility] Sodium Chloride (Ns) 1,000 mls @ 80 mls/hr IVCONT .[id number] [facility] Last Admin: 04/02/24 11:57 Dose: 80 mls/hr Magnesium Hydroxide (Milk Of Magnesia 30 Ml Oral.Susp) 30 ml PO DAILY PRN PRN Reason: Constipation Melatonin (Melatonin 3 Mg Tablet) 6 mg PO BEDTIME PRN PRN Reason: Insomnia Morphine Sulfate (Morphine Sulfate 2 Mg/Ml Cartridge) 2 mg IVPUSH Q4H PRN; Protocol PRN Reason: Pain, Severe (Pain Scale 7-10) Oxycodone HCl (Oxycodone Hcl Immed Release 5 Mg Tablet) 5 mg PO Q4H PRN PRN Reason: Pain, Moderate(Pain Scale 4-6) Last Admin: 04/02/24 12:02 Dose: 5 mg Sodium Chloride (0.9 % Sodium Chloride Flush 3 Ml Syringe) 3 ml IVFLUSH QSHIFT [facility] Last Admin: 04/02/24 15:07 Dose: 3 ml Home Medications ?Medication ?Instructions ?Recorded ?Confirmed ?Last Taken ?Type atorvastatin 20 mg tablet 20 mg PO BEDTIME 10/27/23 04/02/24 Unknown History cyanocobalamin (vitamin B-12) 50 50 mcg PO DAILY 10/27/23 04/02/24 04/01/24 History mcg tablet (Vitamin B-12) amlodipine 2.5 mg tablet 2.5 mg PO DAILY 02/23/24 03/28/24 Unknown History gabapentin 600 mg tablet 600 mg PO DAILY 02/23/24 04/02/24 Unknown History acetaminophen 500 mg tablet 1,000 mg PO Q8H PRN moderate pain 04/02/24 Unknown History diclofenac sodium 1 % topical gel g topical DAILY 04/02/24 04/02/24 Unknown History famotidine 20 mg tablet 20 - 40 mg PO BEDTIME 04/02/24 Unknown History nicotine (polacrilex) 2 mg gum 2 mg PO nicotine cravings 04/02/24 Unknown History omeprazole 20 mg capsule,delayed 20 mg PO QAM PRN Acid Reflux 04/02/24 Unknown History release Physical Exam 2 Vital Signs: Vital Signs: Last Vital Signs Temp 97.4 F 04/02/24 15:50 Pulse 76 04/02/24 17:51 Resp 15 04/02/24 17:51 BP 108/48 L 04/02/24 17:51 Pulse Ox 97 04/02/24 17:51 O2 Del Method Room Air 04/02/24 17:51 O2 Flow Rate 2 04/02/24 11:00 FiO2 43 04/02/24 11:30 BMI result Body Mass Index 25.7 General: Not in acute distress, normal appearing Nutritional Appearance: well nourished and normal weight Eyes: appearance normal, both eyes and all related structures; Alignment and Position: alignment normal and position normal Neck: No lymphadenopathy, no thyromegaly, carotid endarterectomy site looks okay, no bleeding, no oozing Resp: bilateral air entry equal, no added sounds present Cardio: Regular rate, regular rhythm; Heart sounds: S1 normal heart sound present and S2 normal heart sound present GI: soft, nontender, no guarding, no hepatosplenomegaly : bladder normal to inspection, bladder normal to palpation, no renal angle tenderness Skin: no rashes or lesions noted and elasticity normal Neuro: oriented to person, oriented to place, oriented to time and moves all extremities Neuro: Cranial nerves: Yes Normal hearing present Speech: No Abnormal speech present Results Labs 04/02/24 06:43 04/02/24 06:43 Labs: Laboratory Results - last 24 hr 04/02/24 06:43 MCV 95.9 MCH 32.6 MCHC 34.0 RDW 12.5 Plt Count 379 MPV 8.8 L Absolute Nucleated RBC 0.000 Nucleated RBC % (auto) 0.0 PT 11.2 INR 0.9 APTT 31.0 Anion Gap 10 L Estim Creat Clear Calc 56.9 Estimated GFR > 60 Random Glucose 92 Calcium 9.5 Assessment and Plan (1) Stenosis of right carotid artery: Status: Acute (2) HTN (hypertension), benign: Status: Acute (3) Bilateral carotid artery stenosis: Status: Acute (4) Nicotine dependence, cigarettes, uncomplicated: Status: Acute (5) Elevated cholesterol: Status: Acute Plan 68-year-old male gentleman with past medical history of smoking over 20 pack years of cigarette, history of hypertension and hyperlipidemia was found to have carotid bruits for which he underwent CTA of the neck which showed 70% stenosis of postbulbar internal carotid artery. T He underwent successful carotid endarterectomy this morning, procedure was uneventful. Continues to closely monitor his blood pressures, if needed we will restart his home antihypertensives We will closely watch for any signs of dyspnea or dysphagia or any signs of bleeding.
[2024-04-02] MEDS: Atorvastatin Calcium 20 MG TABLET PO (21:20)
[2024-04-02] MEDS: Melatonin 3 MG TABLET 6 MG PO (22:41)
[2024-04-03] VITALS (16 sets, daily range): BP systolic 118–148; BP diastolic 39–65; PULSE 60–77; RESP 13–21; TEMP 36.4–36.6; O2SAT 94–98; BMI 26.6
[2024-04-03] MEDS: 0.9 % Sodium Chloride 1,000 ML 80 ML IVCONT (00:53)
[2024-04-03] MEDS: 0.9 % Sodium Chloride Flush 3 ML SYRINGE IVFLUSH ×2 (00:54→08:54)
[2024-04-03] MEDS: oxyCODONE HCl Immed Release 5 MG TABLET PO (04:11)
[2024-04-03 05:33] LABS: Basophils Percent Auto 0.1 % (0-2); Eosinophils Absolute Auto 0.1 X10*3/uL (0.0-0.4); Eosinophils Percent Auto 0.3 % (0-4); Hematocrit 30.1 % (42.0-52.0); Hemoglobin 10.5 g/dl (14.0-18.0); Imm Gran Abs Auto 0.07 X10*3/uL (0.00-0.03); Imm Gran Pct Auto 0.4 % (0.0-0.4); Lymphocytes Absolute Auto 2.5 X10*3/uL (1.2-4.9); Lymphocytes Percent Auto 15.8 % (20-40); MANUAL DIFF FLAG SCAN; Mean Corpuscular HGB Conc 34.9 g/dl (31.0-36.0); Mean Corpuscular Hemoglobin 32.6 pg (27.0-33.0); Mean Corpuscular Volume 93.5 fL (80.0-98.0); Mean Platelet Volume 8.8 fL (9.4-12.4); Monocytes Absolute Auto 1.9 X10*3/uL (0.1-1.2); Monocytes Percent Auto 12.2 % (2-11); Neutrophils Absolute Auto 11.1 x10*3/uL (2.0-8.3); Neutrophils Percent Auto 71.2 % (45-73); Platelet Count 339 X10*3/uL (160-400); Red Blood Count 3.22 X10*6/uL (4.60-5.80); Red Cell Distribution Width 12.5 % (11.0-16.0); SCAN SMEAR FLAG 1; White Blood Count 15.6 X10*3/uL (4.8-10.8)
[2024-04-03 05:52] LABS: Anion Gap 9 (12-20); Blood Urea Nitrogen 21 mg/dL (9-16); Calcium 8.4 mg/dL (8.4-10.2); Carbon Dioxide 26 mmol/L (22-29); Chloride 108 mmol/L (96-108); Creatinine Clr Calc Pharmacy 74.4; Estimated Glomerular Filt Rate > 60; Glucose Random 102 mg/dL (60-115); Potassium 3.7 mmol/L (3.3-5.1); Sodium 139 mmol/L (135-145)
[2024-04-03 06:18] LABS: SLIDE REVIEW VERIFIED
[2024-04-03] MEDS: Gabapentin 600 MG TABLET PO (08:54)
[2024-04-03] MEDS: amLODIPine Besylate 2.5 MG TABLET PO (08:54)
[2024-04-03] MEDS: Cyanocobalamin (Vitamin B-12) 100 MCG TABLET 50 MCG PO (08:55)
--- NOTE | 2024-04-03 09:33 | MHC.CM.PN ---
IMM DELIVERED PT IS INDEPENDENT AT BASELINE AND LIVES WITH SPOUSE. PT STATES HE HAS A COPY OF HIS HCP BUT UNSURE WHERE, COPY REQUESTED. PCP DR. THERON KOCH DP: HOME NO SERVICES IS THE GOAL. PT HAS OWN RIDE HOME. CM WILL CONTINUE TO FOLLOW FOR ANY CHANGE TO DC PLAN/NEEDS
--- NOTE | 2024-04-03 13:08 | P.DS_ITS ---
DS: Providers Provider Date of Service: 04/03/24 Date of admission: 04/02/24 06:05 Primary care physician: Kassandra Phillips MD DS: Diagnosis Discharge Diagnosis (1) Stenosis of right carotid artery: Status: Acute (2) HTN (hypertension), benign: Status: Acute (3) Bilateral carotid artery stenosis: Status: Acute (4) Nicotine dependence, cigarettes, uncomplicated: Status: Acute (5) Elevated cholesterol: Status: Acute DS: Summary Hospital Course Hospital Course: Patient underwent elective right carotid endarterectomy on 04/02/2024. Postoperatively no issues. Was brought to the ICU and observed overnight. Blood pressure was within normal limits. Postop day 1: A-line and Cornelius was removed. He was voiding freely. He was neurologically intact. He was subsequently discharged. Time Attestation Discharge Coordination Time (in mins): 35 Quality: Safe Use of Opioids Does Pt have an Active Cancer Diagnosis on the Problem List?: No Quality: Stroke Does the patient have a stroke diagnosis?: No Physical Exam Vital Signs: Vital Signs: Last Vital Signs Temp 97.5 F 04/03/24 12:00 Pulse 67 04/03/24 12:00 Resp 18 04/03/24 12:00 BP 121/65 04/03/24 12:00 Pulse Ox 97 04/03/24 12:00 O2 Del Method Room Air 04/03/24 12:00 O2 Flow Rate 2 04/02/24 11:00 FiO2 43 04/02/24 11:30 BMI result Body Mass Index 26.6 Const: General: cooperative, healthy appearing and no acute distress Orientation/consciousness: oriented to person, oriented to place and oriented to time HEENT: Head: Yes normal to inspection Neck: Carotids: no bruits Chest: Chest palpation & inspection: normal inspection of the chest Resp: Effort & Inspection: normal respiratory effort and able to speak in complete sentences Auscultation: clear to auscultation bilaterally Cardio: Rate: regular rate Heart sounds: S1 normal heart sound present and S2 normal heart sound present GI: Inspection: Yes normal to inspection Skin: General skin exam: no rashes or lesions noted Wounds: no wounds Neuro: General: oriented to person, oriented to place, oriented to time and CN's II-XI intact bilaterally Extrem: General: Yes normal to inspection, Yes full ROM and Yes no clubbing, cyanosis or edema Psych: Appearance: grossly normal and well kempt Speech and movement: Normal speech and movement present Affect: normal affect DS: Data Data Completed and Pending Pending studies at discharge: Pending at discharge 04/02/24 09:02 Surgical [PTH] Routine Labs on day of discharge: Laboratory Results - last 24 hr 04/03/24 05:05 WBC 15.6 H RBC 3.22 L Hgb 10.5 L Hct 30.1 L MCV 93.5 MCH 32.6 MCHC 34.9 RDW 12.5 Plt Count 339 MPV 8.8 L Immature Gran % (Auto) 0.4 Neut % (Auto) 71.2 Lymph % (Auto) 15.8 L [place] % (Auto) 12.2 H Eos % (Auto) 0.3 Baso % (Auto) 0.1 Lymph # (Auto) 2.5 [place] # (Auto) 1.9 H Eos # (Auto) 0.1 Baso # (Auto) 0.0 Abs Immat Gran (auto) 0.07 H Absolute Neuts (auto) 11.1 H Absolute Nucleated RBC 0.000 Nucleated RBC % (auto) 0.0 Smear Tech's Comments VERIFIED Sodium 139 Potassium 3.7 Chloride 108 Carbon Dioxide 26 Anion Gap 9 L BUN 21 H Creatinine 0.75 Estim Creat Clear Calc 74.4 Estimated GFR > 60 Random Glucose 102 Calcium 8.4 D Discharge Plan Discharge Anticipated Discharge Date/Time: 04/03/24 13:04 Patient Disposition: Home, Self-Care Discharge Diagnosis: Status post right carotid endarterectomy Referrals: Kassandra Phillips MD [Primary Care Provider] - 1 Week Discharge Medications: New oxycodone-acetaminophen [Percocet] 5-325 mg tablet 1 tab PO TID PRN (Reason: pain) Qty: 10 0RF Rx Instructions: Partial Fill upon patient request. Continued atorvastatin 20 mg tablet 20 mg PO BEDTIME Vitamin B-12 50 mcg Tablet 50 mcg PO DAILY nicotine (polacrilex) 2 mg gum 2 mg PO acetaminophen 500 mg tablet 1,000 mg PO Q8H PRN (Reason: moderate pain) famotidine 20 mg tablet 20 - 40 mg PO BEDTIME omeprazole 20 mg capsule,delayed release(DR/EC) 20 mg PO QAM PRN (Reason: Acid Reflux) diclofenac sodium 1 % gel topical DAILY amlodipine 2.5 mg tablet 2.5 mg PO DAILY gabapentin 600 mg tablet 600 mg PO DAILY Discharge Orders: Discharge Order (Routine); Ordered 04/03/24 Ordered By: Luis Coy Diet: Advance to usual diet Activity on Discharge: As tolerated Stand Alone Forms: Patient Portal Discharge page Print Language: Azerbaijani Care Plan Goals: Carotid surveillance Health Concerns: Carotid stenosis Plan of Treatment: Postoperative ultrasound surveillance follow-up of carotid Assessment: Status post carotid endarterectomy
--- NOTE | 2024-04-03 13:12 | MHC.CM.PN ---
DP: PT HAS BEEN MEDICALLY CLEARED FOR DC HOME, NO SERIVES. PT HAS OWN RIDE HOME.
--- NOTE | 2024-04-03 14:04 | HO.POSTANES ---
Post Anesthesia Evaluation Post Anesthesia Evaluation Date of Service: 04/02/24 Vital Signs: Vital Signs Temp Pulse Pulse Resp BP BP Pulse Ox 04/03/24 13:00 71 18 121/45 L 94 04/03/24 12:00 97.5 F 67 18 121/65 97 04/03/24 11:00 70 15 131/61 96 04/03/24 10:00 61 15 135/53 L 97 04/03/24 08:58 67 21 H 147/49 H 98 04/03/24 08:54 143/47 H 04/03/24 08:37 97 04/03/24 08:00 64 148/50 H 04/03/24 08:00 65 15 135/44 L 97 04/03/24 07:00 64 15 131/43 L 96 04/03/24 06:00 74 15 127/49 L 95 04/03/24 05:00 63 15 130/43 L 97 04/03/24 04:00 97.8 F 65 15 127/42 L 97 04/03/24 03:00 68 14 120/39 L 96 O2 Del Method O2 Flow Rate 04/03/24 13:00 Nasal Cannula 4 04/03/24 12:00 Room Air 04/03/24 11:00 Room Air 04/03/24 10:00 Room Air 04/03/24 08:58 Room Air 04/03/24 08:54 04/03/24 08:37 Room Air 04/03/24 08:00 04/03/24 08:00 Room Air 04/03/24 07:00 Room Air 04/03/24 06:00 Room Air 04/03/24 05:00 Room Air 04/03/24 04:00 Room Air 04/03/24 03:00 Room Air Anesthesia: General Mental Status: Awake Pain Control: Satisfactory Nausea/Vomiting: None Hydration: Adequate Anesthesia-Related Issues: No Anes. Related Issues
--- NOTE | 2024-04-03 15:23 | P.DS_ITS ---
DS: Providers Provider Date of Service: 04/03/24 Date of admission: 04/02/24 06:05 Date of discharge: 04/03/24 Primary care physician: Kassandra Phillips MD Admitting clinician: Luis Coy Consults: none Attending physician on discharge: Yobany Strickland DS: Diagnosis Discharge Diagnosis (1) Stenosis of right carotid artery: Status: Acute (2) HTN (hypertension), benign: Status: Acute (3) Bilateral carotid artery stenosis: Status: Acute (4) Nicotine dependence, cigarettes, uncomplicated: Status: Acute (5) Elevated cholesterol: Status: Acute DS: Summary Hospital Course Hospital Course: Patient underwent elective right carotid endarterectomy on 04/02/2024. Postoperatively no issues. Was brought to the ICU and observed overnight. Blood pressure was within normal limits. Postop day 1: A-line and Cornelius was removed. He was voiding freely. He was neurologically intact. He was subsequently discharged. Status at Discharge Functional status at discharge: independent ambulation Physical Exam Vital Signs: Vital Signs: Last Vital Signs Temp 97.5 F 04/03/24 12:00 Pulse 71 04/03/24 13:00 Resp 18 04/03/24 13:00 BP 121/45 L 04/03/24 13:00 Pulse Ox 94 04/03/24 13:00 O2 Del Method Nasal Cannula 04/03/24 13:00 O2 Flow Rate 4 04/03/24 13:00 FiO2 43 04/02/24 11:30 BMI result Body Mass Index 26.6 DS: Data Data Completed and Pending Pending studies at discharge: Pending at discharge 04/02/24 09:02 Surgical [PTH] Routine Labs on day of discharge: Laboratory Results - last 24 hr 04/03/24 05:05 WBC 15.6 H RBC 3.22 L Hgb 10.5 L Hct 30.1 L MCV 93.5 MCH 32.6 MCHC 34.9 RDW 12.5 Plt Count 339 MPV 8.8 L Immature Gran % (Auto) 0.4 Neut % (Auto) 71.2 Lymph % (Auto) 15.8 L [place] % (Auto) 12.2 H Eos % (Auto) 0.3 Baso % (Auto) 0.1 Lymph # (Auto) 2.5 [place] # (Auto) 1.9 H Eos # (Auto) 0.1 Baso # (Auto) 0.0 Abs Immat Gran (auto) 0.07 H Absolute Neuts (auto) 11.1 H Absolute Nucleated RBC 0.000 Nucleated RBC % (auto) 0.0 Smear Tech's Comments VERIFIED Sodium 139 Potassium 3.7 Chloride 108 Carbon Dioxide 26 Anion Gap 9 L BUN 21 H Creatinine 0.75 Estim Creat Clear Calc 74.4 Estimated GFR > 60 Random Glucose 102 Calcium 8.4 D Discharge Plan Discharge Anticipated Discharge Date/Time: 04/03/24 13:04 Patient Disposition: Home, Self-Care Discharge Diagnosis: Status post right carotid endarterectomy Referrals: Kassandra Phillips MD [Primary Care Provider] - 1 Week Discharge Medications: New oxycodone-acetaminophen [Percocet] 5-325 mg tablet 1 tab PO TID PRN (Reason: pain) Qty: 10 0RF Rx Instructions: Partial Fill upon patient request. Continued atorvastatin 20 mg tablet 20 mg PO BEDTIME Vitamin B-12 50 mcg Tablet 50 mcg PO DAILY nicotine (polacrilex) 2 mg gum 2 mg PO acetaminophen 500 mg tablet 1,000 mg PO Q8H PRN (Reason: moderate pain) famotidine 20 mg tablet 20 - 40 mg PO BEDTIME omeprazole 20 mg capsule,delayed release(DR/EC) 20 mg PO QAM PRN (Reason: Acid Reflux) diclofenac sodium 1 % gel topical DAILY amlodipine 2.5 mg tablet 2.5 mg PO DAILY gabapentin 600 mg tablet 600 mg PO DAILY Discharge Orders: Discharge Order (Routine); Ordered 04/03/24 Ordered By: Luis Coy Diet: Advance to usual diet Activity on Discharge: As tolerated Stand Alone Forms: Patient Portal Discharge page Print Language: Stateless Care Plan Goals: Carotid surveillance Health Concerns: Carotid stenosis Plan of Treatment: Postoperative ultrasound surveillance follow-up of carotid Assessment: Status post carotid endarterectomy Discharge Date/Time: 04/03/24 13:57
--- NOTE | 2024-04-03 15:25 | PM.CCPN ---
Subjective Subjective Date of Service: 04/03/24 Critical Care Time (minutes): 20 Comment: Doing well this morning, no complaints Physical Exam Vital Signs: Vital Signs: Last Vital Signs Temp 97.5 F 04/03/24 12:00 Pulse 71 04/03/24 13:00 Resp 18 04/03/24 13:00 BP 121/45 L 04/03/24 13:00 Pulse Ox 94 04/03/24 13:00 O2 Del Method Nasal Cannula 04/03/24 13:00 O2 Flow Rate 4 04/03/24 13:00 FiO2 43 04/02/24 11:30 BMI result Body Mass Index 26.6 General: a not in any distress, normal appearance Nutritional Appearance: well nourished and normal weight Eyes: appearance normal, both eyes and all related structures; Alignment and Position: alignment normal and position normal Neck: No lymphadenopathy, no thyromegaly Resp: bilateral air entry equal, occasional added sounds present Cardio: Regular rate, regular rhythm; Heart sounds: S1 normal heart sound present and S2 normal heart sound present GI: soft, nontender, no guarding, no hepatosplenomegaly : bladder normal to inspection, bladder normal to palpation, no renal angle tenderness Skin: no rashes or lesions noted and elasticity normal Neuro: oriented to person, oriented to place, oriented to time and moves all extremities Objective Data Labs 04/03/24 05:05 04/03/24 05:05 Labs: Laboratory Results - last 24 hr 04/03/24 05:05 WBC 15.6 H RBC 3.22 L Hgb 10.5 L Hct 30.1 L MCV 93.5 MCH 32.6 MCHC 34.9 RDW 12.5 Plt Count 339 MPV 8.8 L Immature Gran % (Auto) 0.4 Neut % (Auto) 71.2 Lymph % (Auto) 15.8 L [place] % (Auto) 12.2 H Eos % (Auto) 0.3 Baso % (Auto) 0.1 Lymph # (Auto) 2.5 [place] # (Auto) 1.9 H Eos # (Auto) 0.1 Baso # (Auto) 0.0 Abs Immat Gran (auto) 0.07 H Absolute Neuts (auto) 11.1 H Absolute Nucleated RBC 0.000 Nucleated RBC % (auto) 0.0 Smear Tech's Comments VERIFIED Sodium 139 Potassium 3.7 Chloride 108 Carbon Dioxide 26 Anion Gap 9 L BUN 21 H Creatinine 0.75 Estim Creat Clear Calc 74.4 Estimated GFR > 60 Random Glucose 102 Calcium 8.4 D Progress Note: A&P Assessment and plan (1) Stenosis of right carotid artery: Status: Acute (2) Preoperative cardiovascular examination: Status: Acute (3) Pre-op examination: Status: Acute (4) HTN (hypertension), benign: Status: Acute (5) Bilateral carotid artery stenosis: Status: Acute Plan 68-year-old gentleman who has a chronic smoker with past medical history of hypertension, hyperlipidemia admitted yesterday to the hospital for an elective right carotid endarterectomy. He underwent the procedure successfully with no complications. We monitored him closely his blood pressures remained stable, this morning patient was comfortable with no complaints. He has been planned for discharge home with resuming his home medications. Discharge instructions given to the patient. Quality Stroke Does the patient have a stroke diagnosis?: No VTE Prior VTE?: No VTE Risk Level:: Medical - low VTE Device Contraindication: N/A - Device Ordered VTE Drug Contraindication: Patient Refused
== END 2024-04-03 13:57 | disposition home or self-care (01) | DRG 39 ==
LOC: HO.SSSA 06:54 → HO.ICU 10:58
PROVIDERS: Nurse Practitioner; Admitting Provider Surgery Vascular Surgery; PCP Family Medicine; Visit Provider Surgery Vascular Surgery
PROC: 03CK0ZZ Extirpation of Matter from Right Internal Carotid Artery, Open Approach (ICD-10-PCS; CPT 35301; principal; 2024-04-02 07:30)
DX: I65.21 Occlusion and stenosis of right carotid artery (principal); I10 Essential (primary) hypertension; E78.5 Hyperlipidemia, unspecified; Z79.899 Other long term (current) drug therapy; Z87.891 Personal history of nicotine dependence
CPT/HCPCS: 36415; 80048; 80053; 85025; 85027; 85610; 85730; 86850; 86900; 86901; 88304; 88311; A4649; C1758; C1768; C9250; J0690; J1100; J1644; J2250; J2371; J2405; J2704; J2795; J3010

== ENCOUNTER → 2024-04-02 06:05 | Outpatient (BNV) | payer MEDICARE, SELFPAY | PROVIDERS: Admitting Provider Surgery Vascular Surgery; PCP Family Medicine; Visit Provider Surgery Vascular Surgery | DX: I65.21 Occlusion and stenosis of right carotid artery (principal); I10 Essential (primary) hypertension; I65.23 Occlusion and stenosis of bilateral carotid arteries; F17.210 Nicotine dependence, cigarettes, uncomplicated; E78.00 Pure hypercholesterolemia, unspecified | CPT/HCPCS: 35301; 99024 ==

== ENCOUNTER → 2024-04-02 06:05 | Outpatient (BNV) | payer MEDICARE, SELFPAY | PROVIDERS: Admitting Provider Surgery Vascular Surgery; PCP Family Medicine; Visit Provider Internal Medicine Critical Care Medicine | DX: I65.21 Occlusion and stenosis of right carotid artery (principal); Z01.810 Encounter for preprocedural cardiovascular examination; Z01.818 Encounter for other preprocedural examination; I10 Essential (primary) hypertension; I65.23 Occlusion and stenosis of bilateral carotid arteries | CPT/HCPCS: 99222; 99231 ==

== ENCOUNTER 2024-04-23 13:08 | Outpatient (AMB) | payer MEDICARE, SELFPAY ==
--- NOTE | 2024-04-23 13:13 | A.OFFVIS_ITS ---
Vital Signs 04/23/24 13:18 04/23/24 13:19 BP 108/60 112/60 Blood Pressure Location Rt brachial Lt brachial Position Sitting Sitting Intake Visit Reasons: 2 week follow up right CEA Intake Note: 2 week follow up Right CEA 04/02/24. Pt states he has numbness in the incision area and jaw. Eating and drinking okay, no difficulty breathing. Accompanied by: Self / Same As Patient Allergies No Known Allergies Allergy (Verified 04/23/24 13:16) HPI HPI 2 week follow up right CEA: Details: Pleasant 68-year-old gentleman presents for follow-up regarding right carotid endarterectomy. No postoperative issues. Tolerating regular diet. Now for routine postoperative follow-up. [facility] Medical History (Updated 04/23/24 @ 13:39 by Luis Coy MD) HTN (hypertension) Gastric pain Back pain Tobacco dependence Arthritis Anemia Elevated cholesterol Surgical History (Updated 04/23/24 @ 13:17 by TESFAYE Gallagher) S/P carotid endarterectomy (04/02/24) Hx of cataract surgery Family History Father Stomach cancer Brother Stomach cancer Social History Household Members: Spouse Housing: Apartment Are you a primary care support representative to a significant other at home: No Do you presently have visiting nurse or other home services: No Alcohol intake: former Comment: quit 20 years ago Patient Tobacco Use Status: Former Tobacco user Tobacco use type: Cigarette Cigarettes Per Day: 10 service: No Review of Systems Const All systems reviewed & are unremarkable except as noted in HPI and below Reports no additional complaints ENT Reports Normal hearing present Card Denies chest pain, Denies chest pain at rest, Denies chest pain with activity and Denies pedal edema Resp Denies cough GI Denies abdominal pain Musc Denies abnormal gait, Denies muscle cramps and Denies radiating pain into limb Skin/Breast Denies skin ulcer and Denies wounds Neuro Reports Normal hearing present and Denies abnormal gait Psych Reports no additional complaints Physical Exam Vital Signs: Last Vital Signs BP 112/60 04/23/24 13:19 Const General: cooperative, healthy appearing and comfortable Orientation/consciousness: oriented to person, oriented to place and oriented to time HEENT Head: Yes normal to inspection Neck Neck: Yes normal visual inspection Carotids: no bruits Chest Chest palpation & inspection: normal inspection of the chest Resp Effort & Inspection: normal respiratory effort and able to speak in complete sentences Auscultation: clear to auscultation bilaterally, no crackles, no rales, no rhonchi and no wheezes Cardio Rate: regular rate Rhythm: regular rhythm Heart sounds: S1 normal heart sound present and S2 normal heart sound present Bruits: no carotid bruits Peripheral pulses: Peripheral pulses 2+ throughout GI Inspection: Yes normal to inspection Skin Other: Well-healed right neck incision Wounds: no wounds Hair: normal Neuro General: oriented to person, oriented to place and oriented to time Cranial nerves: Yes CN's II-XII intact bilaterally and Yes Normal hearing present Cognition (Neuro): normal cognition Motor exam (neuro): 5/5 motor strength present throughout Extrem Other: venous exam: No significant superficial varicosities or spider telangiectasias, minimal edema General: No clubbing, No cyanosis and No edema Psych Appearance: grossly normal Mental Status: mental status grossly normal Speech and movement: Normal speech and movement present Assessment & Plan Assessment & Plan (1) Bilateral carotid artery stenosis: Comment: 04/02/2024- right carotid endarterectomy Code(s): I65.23 - Occlusion and stenosis of bilateral carotid arteries Category: Medical Plan: Patient is doing extremely well status post right carotid endarterectomy. Patient will require daily baby aspirin. In addition we will schedule him for 3 month surveillance follow-up. Routine risk factor modification discussed with patient. Thank you for allowing us to assist in his care. Orders: Orders US carotid duplex BI 3 Months I65.23 - Occlusion and stenosis of bilateral carotid arteries Coding Level of Care Code Est Pt Level 4 (50592) Diagnoses Bilateral carotid artery stenosis I65.23
[2024-04-23 13:18] VITALS: BP 108/60
[2024-04-23 13:19] VITALS: BP 112/60
== END 2024-04-23 13:34 | disposition home or self-care (01) ==
PROVIDERS: PCP Family Medicine; Visit Provider Surgery Vascular Surgery
DX: I65.23 Occlusion and stenosis of bilateral carotid arteries (principal)
CPT/HCPCS: 99024

== ENCOUNTER → 2024-04-23 13:08 | Outpatient (BNVA) | payer MEDICARE, SELFPAY | PROVIDERS: PCP Family Medicine; Visit Provider Surgery Vascular Surgery | DX: I65.23 Occlusion and stenosis of bilateral carotid arteries (principal) | CPT/HCPCS: 99212 ==

== ENCOUNTER 2024-05-10 13:18 | Outpatient (REF) | payer MEDICARE, SELFPAY ==
--- NOTE | ~2024-05-10 | US_ITS ---
EXAMINATION: US EXTRACRANIAL CAROTID DUPLEX, BILATERAL CLINICAL INFORMATION: History of right-sided endarterectomy 03/29/2024 COMPARISON: Carotid duplex 10/19/2023 TECHNIQUE: Real-time ultrasound and Doppler techniques (integrating B-mode 2-D vascular images, Doppler spectral analysis and color-flow Doppler imaging) were utilized to interrogate the extracranial carotid arteries, the vertebral arteries and proximal subclavian arteries bilaterally. The degree of stenosis is determined by criteria similar to NASCET. FINDINGS: Right Side: 1. There is no atherosclerotic plaque seen in the bifurcation/proximal ICA region. 2. The common carotid artery PSV proximally is 100.9 cm/s and distally 79.3 cm/s. 3. The proximal internal carotid artery velocities are 63.7 cm/s systolic and 20.9 cm/s diastolic. 4. The proximal external carotid artery PSV is 108 cm/s. 5. The vertebral artery shows antegrade flow. 6. The subclavian artery waveforms are normal. Left Side: 1. There is mild atherosclerotic plaque seen in the bifurcation/proximal ICA region. 2. The common carotid artery PSV proximally is 77.5 cm/s and distally 58.2 cm/s. 3. The proximal internal carotid artery velocities are 58.2 cm/s systolic and 18 cm/s diastolic. 4. The proximal external carotid artery PSV is 88.3 cm/s. 5. The vertebral artery shows antegrade flow. 6. The subclavian artery waveforms are normal. US/US carotid duplex BI IMPRESSION: 1. RIGHT: Resolution of right-sided plaque status post endarterectomy with normal velocities in the common carotid artery and internal carotid artery. 2. LEFT: Minimal, non-hemodynamically significant stenosis of the proximal left internal carotid artery corresponding to a 0-49% stenosis by velocity criteria.
== END 2024-05-10 13:19 | disposition home or self-care (01) ==
LOC: HO.US 13:18
PROVIDERS: PCP Family Medicine; Visit Provider Surgery Vascular Surgery
DX: I65.23 Occlusion and stenosis of bilateral carotid arteries (principal)
CPT/HCPCS: 93880

== ENCOUNTER 2024-05-21 10:29 | Outpatient (REF) | payer MEDICARE, SELFPAY ==
--- NOTE | ~2024-05-21 | XR_ITS ---
EXAMINATION: XR KNEE, LEFT CLINICAL INFORMATION: Left knee pain. COMPARISON: None available. TECHNIQUE: AP and lateral views of the left knee. FINDINGS: Mild medial compartment joint space narrowing. Tiny medial and patellofemoral compartment marginal osteophytes. No osseous erosion. Mild tricompartmental chondrocalcinosis. Trace joint effusion. XR/XR knee LT 2V IMPRESSION: Mild medial and patellofemoral compartment osteoarthritis. Mild tricompartmental chondrocalcinosis. Trace joint effusion.
== END 2024-05-21 10:30 | disposition home or self-care (01) ==
LOC: HO.HHCX 10:29
PROVIDERS: Visit Provider Family Medicine
DX: M25.562 Pain in left knee (principal); G89.29 Other chronic pain
CPT/HCPCS: 73560

== ENCOUNTER 2024-05-25 09:47 | Outpatient (AMB) | payer MEDICARE, SELFPAY ==
--- NOTE | 2024-05-25 09:51 | MHC.OFFVIS ---
Vital Signs 05/25/24 10:36 Height 5 ft 5 in Weight 136 lb BMI 22.6 BP 143/62 H Blood Pressure Location Lt brachial Position Sitting Pulse 63 Intake Visit Reasons: acid reflex Intake Note: Patient followup for acid reflex/ January current patient Patient cc: acid reflex wth burning sensation at night time, edications Fmotidine and Omeprazole are not working for him, denies any other GI issues. Farm Machine Tender Required: Yes Farm Machine Tender Name: [facility] Accompanied by: Self / Same As Patient Allergies No Known Allergies Allergy (Verified 05/25/24 10:22) Medication List - Last Reconciled 05/25/24 by Ben Ricci MD acetaminophen 1,000 mg PO Q8H PRN amlodipine 2.5 mg PO DAILY atorvastatin 20 mg PO BEDTIME cyanocobalamin (vitamin B-12) (Vitamin B-12) 50 mcg PO DAILY diclofenac sodium 1% grams topical DAILY famotidine 20 - 40 mg PO BEDTIME gabapentin 600 mg PO DAILY nicotine (polacrilex) 2 mg PO omeprazole 20 mg PO QAM PRN oxycodone-acetaminophen 5-325 mg (Percocet) 1 tab PO TID PRN HPI HPI acid reflex: Details: GI clinic visit for this 68 YM for evaluation of heartburn Patient is stating when he laying down upwards he is been having strong burning sensation. Pt is followed by Niki Cutler NP and scheduled for an urgent FU appt. LABS IN [facility] : 03/2024 Reviewed - showed normocytic normochromic anemia IMAGING STUDIES: No recent GI imaging ENDOSCOPIC STUDIES: None in [facility] TODAY'S VISIT: Patient cc: acid reflex wth burning sensation at night time, edications Fmotidine and Omeprazole are not working for him, denies any other GI issues. Complains of intermittent burning in his stomach and radiating into the chest. Denies significant association with food intake Patient denies symptoms of dysphagia, nausea, vomiting, change in appetite or weight. Denies recent change in bowel habits, constipation, diarrhea, black stools or rectal bleeding. Patient denies major cardiac or pulmonary problems, loud snoring or sleep apnea Denies problems with anesthesia in the past. Denies being on chronic anticoagulation. Patient denies known family history of colon polyps, colon cancer or other GI malignancies. PAST GI HISTORY BY REVIEW OF MEDICAL RECORDS: Pt was seen by Niki Cutler and advised to schedule an EGD and a colonoscopy On 05/21/24 @ 10:01 ShukriJayshree Wrote To [facility] Schedulers patient has been called 3x's and a letter was mailed with no response from pt. [facility] Medical History (Updated 05/25/24 @ 11:07 by Ben Ricci MD) HTN (hypertension) Gastric pain Back pain Tobacco dependence Arthritis Anemia Elevated cholesterol Surgical History S/P carotid endarterectomy (04/02/24) Hx of cataract surgery Family History Father Stomach cancer Brother Stomach cancer Social History Household Members: Spouse Housing: Apartment Are you a primary care team coordinator scheduler to a significant other at home: No Do you presently have visiting nurse or other home services: No Alcohol intake: former Comment: quit 20 years ago Patient Tobacco Use Status: Former Tobacco user Tobacco use type: Cigarette Cigarettes Per Day: 10 service: No Review of Systems Const All systems reviewed & are unremarkable except as noted in HPI and below Reports no additional complaints ENT Reports Normal hearing present Card Denies chest pain, Denies chest pain at rest, Denies chest pain with activity and Denies pedal edema Resp Denies cough GI Denies abdominal pain Musc Denies abnormal gait, Denies muscle cramps and Denies radiating pain into limb Skin/Breast Denies skin ulcer and Denies wounds Neuro Reports Normal hearing present and Denies abnormal gait Psych Reports no additional complaints Physical Exam Vital Signs: Last Vital Signs Pulse 63 05/25/24 10:36 BP 143/62 H 05/25/24 10:36 BMI result Body Mass Index 22.6 Const General: no acute distress Nutritional Appearance: average body habitus Orientation/consciousness: patient oriented x3 Limitations: language barrier HEENT Head: Yes normal to inspection Ears: hearing grossly normal bilaterally Eyes Sclerae: sclerae normal Pupils: Equal, round and reactive pupils present Neck Neck: Yes normal visual inspection Chest Chest palpation & inspection: normal inspection of the chest Resp Effort & Inspection: normal respiratory effort Auscultation: clear to auscultation bilaterally Cardio Palpation: normal PMI Rate: regular rate Rhythm: regular rhythm Heart sounds: S1 normal heart sound present, S2 normal heart sound present and no murmurs GI Palpation (GI): Soft to palpation, nontender and No hepatosplenomegaly present Auscultation: normal bowel sounds Rectal Exam - Male: Yes deferred Skin General skin exam: no rashes or lesions noted Neuro General: patient oriented x3, gait normal and moves all extremities Cranial nerves: Yes Equal, round and reactive pupils present and Yes Normal hearing present Psych Appearance: grossly normal Mental Status: mental status grossly normal Assessment & Plan Assessment & Plan (1) GERD (gastroesophageal reflux disease): Code(s): K21.9 - Gastro-esophageal reflux disease without esophagitis Category: Medical (2) Upper abdominal pain: Code(s): R10.10 - Upper abdominal pain, unspecified Category: Medical (3) Colon cancer screening: Code(s): Z12.11 - Encounter for screening for malignant neoplasm of colon Category: Medical (4) Anemia: Code(s): D64.9 - Anemia, unspecified Category: Medical Plan 68-year-old Hebrew-speaking male with hypertension, hypercholesterolemia and bilateral carotid artery stenosis seen in GI clinic with GERD, epigastric pain and anemia. Complains of intermittent burning in his stomach and radiating into the chest. Denies significant association with food intake Anemia can be due to upper versus LGI source. Patient denies major cardiac or pulmonary problems, loud snoring or sleep apnea Denies problems with anesthesia in the past. Denies being on chronic anticoagulation. Patient denies known family history of colon polyps, colon cancer or other GI malignancies. Pt was seen by Niki Cutler and advised to schedule an EGD and a colonoscopy On 05/21/24 @ 10:01 Jayshree Watt Wrote To [facility] Schedul[facility] patient has been called 3x's and a letter was mailed with no response from pt. PLAN: Patient was advised further evaluation with an upper endoscopy and colonoscopy. Both procedures and potential complications including bleeding, perforation, reaction to anesthetics and aspiration pneumonia were reviewed with the patient. He was advised to increase omeprazole from 20 mg once daily to twice a day. Follow-up in 3 months with Niki Cutler NP Orders: Orders Ferritin 05/25/24 D64.9 - Anemia, unspecified Complete Blood Count Auto Diff 05/25/24 D64.9 - Anemia, unspecified IRON PROFILE 05/25/24 D64.9 - Anemia, unspecified Medications: Changed From omeprazole 20 mg PO QAM PRN Acid Reflux K21.9 - Gastro-esophageal reflux disease without esophagitis, R10.10 - Upper abdominal pain, unspecified To omeprazole 20 mg PO BID PRN 120 caps 2RF Acid Reflux 60 days K21.9 - Gastro-esophageal reflux disease without esophagitis, R10.10 - Upper abdominal pain, unspecified Coding Level of Care Code Est Pt Level 4 (43743) Diagnoses GERD (gastroesophageal reflux disease) K21.9 Upper abdominal pain R10.10 Colon cancer screening Z12.11 Anemia D64.9 Time Spent (min) 22
[2024-05-25 10:36] VITALS: BP 143/62; PULSE 63; BMI 22.6
== END 2024-05-25 11:13 | disposition home or self-care (01) ==
PROVIDERS: PCP Family Medicine; Visit Provider Internal Medicine Gastroenterology
DX: K21.9 Gastro-esophageal reflux disease without esophagitis (principal); R10.10 Upper abdominal pain, unspecified; Z12.11 Encounter for screening for malignant neoplasm of colon; D64.9 Anemia, unspecified
CPT/HCPCS: 99214

== ENCOUNTER → 2024-05-25 09:47 | Outpatient (BNVA) | payer MEDICARE, SELFPAY | PROVIDERS: PCP Family Medicine; Visit Provider Internal Medicine Gastroenterology | DX: K21.9 Gastro-esophageal reflux disease without esophagitis (principal); R10.10 Upper abdominal pain, unspecified; Z79.899 Other long term (current) drug therapy | CPT/HCPCS: 99212 ==

== ENCOUNTER 2024-08-07 09:54 | Day surgery (SDC) | payer MEDICARE, SELFPAY ==
--- NOTE | 2024-08-06 12:00 | HO.ANESPROP2 ---
Documented by User: Isadora Xiong NP 08/06/24 12:03 HPI - Anesthesia Eval Consult details Narrative: 68yo M for Upper Endoscopy and Colonoscopy s/p R CEA 03/2024 by [facility]. 04/2024 f/u visit - no issues post op PMFSH Active Problems Active Problems: All Active Problems Anemia (Acute) Colon cancer screening (Acute) Upper abdominal pain (Acute) GERD (gastroesophageal reflux disease) (Acute) Preoperative cardiovascular examination (Acute) Pre-op examination (Acute) HTN (hypertension), benign (Acute) Bilateral carotid artery stenosis (Acute) Nicotine dependence, cigarettes, uncomplicated (Acute) Elevated cholesterol (Acute) Past Medical History Medical History HTN (hypertension) Gastric pain Back pain Tobacco dependence Arthritis Anemia Elevated cholesterol Family History Family History Father Stomach cancer Brother Stomach cancer Family history of problems with anesthesia: No Surgical History Surgical History S/P carotid endarterectomy (04/02/24) Hx of cataract surgery History of Problems with Anesthesia: No Social History Social History Household Members: Spouse Housing: Apartment Are you a primary career professional to a significant other at home: No Do you presently have visiting nurse or other home services: No Alcohol intake: former Comment: quit 20 years ago Patient Tobacco Use Status: Former Tobacco user Tobacco use type: Cigarette Cigarettes Per Day: 10 Have you been hit, kicked, punched, or otherwise hurt by someone within the past year? If so, by whom?: No Are you DNR?: No Advance Directives: No Advance Directives Information Provided: Yes Recently lost weight without trying: No Nutrition Risks: No Nutritional Risk service: No Meds Allergies Allergy/AdvReac Type Severity Reaction Status Date / Time No Known Allergies Allergy Verified 08/07/24 10:07 Home Medications ?Medication ?Instructions ?Recorded ?Confirmed ?Last Taken ?Type atorvastatin 20 mg tablet 20 mg PO BEDTIME 10/27/23 08/07/24 Unknown History cyanocobalamin (vitamin B-12) 50 50 mcg PO DAILY 10/27/23 08/07/24 04/01/24 History mcg tablet (Vitamin B-12) amlodipine 2.5 mg tablet 2.5 mg PO DAILY 02/23/24 08/07/24 Unknown History gabapentin 600 mg tablet 600 mg PO DAILY 02/23/24 08/07/24 Unknown History acetaminophen 500 mg tablet 1,000 mg PO Q8H PRN moderate pain 04/02/24 08/07/24 Unknown History diclofenac sodium 1 % topical gel g topical DAILY 04/02/24 05/25/24 Unknown History famotidine 20 mg tablet 20 - 40 mg PO BEDTIME 04/02/24 08/07/24 Unknown History nicotine (polacrilex) 2 mg gum 2 mg PO nicotine cravings 04/02/24 05/25/24 Unknown History Exam Pertinent Lab Results Pertinent Lab Results: Laboratory Tests 04/03/24 05:05 WBC 15.6 H Hgb 10.5 L Hct 30.1 L Plt Count 339 Sodium 139 Potassium 3.7 Chloride 108 Carbon Dioxide 26 BUN 21 H Creatinine 0.75 Narrative Narrative: EKG 03/2024 sinus rhythm at 63/Min; LVH; no significant ST-T changes and otherwise unremarkable. Normal OH and corrected QT. ECHO 03/2024 Conclusions: - The left ventricular systolic function is normal. The calculated ejection fraction is 67% by biplane method. - No obvious valvular pathology seen on this study. ECHO Stress 03/2024 Protocol: MARCUS Max HR: 142 BPM 92% of Pred: 154 BPM Max BP: 158/070 mmHG Max Work Load: 8.5 METS Exercise stress test exercise 7 min 41 sec of Marcus protocol achieving 91% MPHR, with mild SOB, no chest discomfort, without arrhythmias, with noprmotensive response to exercise, without EKG chnages. Echo images obtained by tech at rest and immediately post peak exercise. Definity contrast used. Test reviewed with Dr. Aiken. Exercise stress echocardiogram reviewed. At rest, there is normal LVEF and wall motion. With peak exercise, there is appropriate augmentation of wall thickening and contractility. There is normal decrease in end-systolic volumes. There is no evidence of exercise induced diastolic dysfunction or pulmonary hypertension. Overall, normal study. Assessment and Plan Assessment Anesthesia Assessment: Chart Reviewed Final Anesthetic Review Family History of Problems with Anesthesia: No History of Problems with Anesthesia: No Documented by User: Tayler Rogers MD 08/07/24 12:01 [facility] Past Medical History Medical History HTN (hypertension) Gastric pain Back pain Tobacco dependence Arthritis Anemia Elevated cholesterol Family History Family History Father Stomach cancer Brother Stomach cancer Family history of problems with anesthesia: No Surgical History Surgical History S/P carotid endarterectomy (04/02/24) Hx of cataract surgery History of Problems with Anesthesia: No Social History Social History Household Members: Spouse Housing: Apartment Are you a primary career professional to a significant other at home: No Do you presently have visiting nurse or other home services: No Alcohol intake: former Comment: quit 20 years ago Patient Tobacco Use Status: Former Tobacco user Tobacco use type: Cigarette Cigarettes Per Day: 10 Have you been hit, kicked, punched, or otherwise hurt by someone within the past year? If so, by whom?: No Are you DNR?: No Advance Directives: No Advance Directives Information Provided: Yes Recently lost weight without trying: No Nutrition Risks: No Nutritional Risk service: No Meds Allergies Allergy/AdvReac Type Severity Reaction Status Date / Time No Known Allergies Allergy Verified 08/07/24 10:07 Home Medications ?Medication ?Instructions ?Recorded ?Confirmed ?Last Taken ?Type atorvastatin 20 mg tablet 20 mg PO BEDTIME 10/27/23 08/07/24 Unknown History cyanocobalamin (vitamin B-12) 50 50 mcg PO DAILY 10/27/23 08/07/24 04/01/24 History mcg tablet (Vitamin B-12) amlodipine 2.5 mg tablet 2.5 mg PO DAILY 02/23/24 08/07/24 Unknown History gabapentin 600 mg tablet 600 mg PO DAILY 02/23/24 08/07/24 Unknown History acetaminophen 500 mg tablet 1,000 mg PO Q8H PRN moderate pain 04/02/24 08/07/24 Unknown History diclofenac sodium 1 % topical gel g topical DAILY 04/02/24 05/25/24 Unknown History famotidine 20 mg tablet 20 - 40 mg PO BEDTIME 04/02/24 08/07/24 Unknown History nicotine (polacrilex) 2 mg gum 2 mg PO nicotine cravings 04/02/24 05/25/24 Unknown History Exam Height,Weight and Vital Signs: Height 5 ft 5 in Weight 61.689 kg Vital Signs Temp Pulse Resp BP Pulse Ox O2 Del Method 08/07/24 10:25 98.2 F 76 18 147/68 H 100 Room Air Pertinent Lab Results Pertinent Lab Results: Laboratory Tests 04/03/24 05:05 WBC 15.6 H Hgb 10.5 L Hct 30.1 L Plt Count 339 Sodium 139 Potassium 3.7 Chloride 108 Carbon Dioxide 26 BUN 21 H Creatinine 0.75 Airway Mallampati Class: II TM Dist: >3cm Neck ROM: Full Denture: Upper and Lower Loose/Missing/Broken Teeth: Yes (Edentulous) Heart: RRR Lungs: CTAB Assessment and Plan Assessment Anesthesia Assessment: Anesthesia Plan Discussed and Chart Reviewed Final Anesthetic Review Family History of Problems with Anesthesia: No History of Problems with Anesthesia: No NPO: Yes ASA Class: III Final Preanesthetic Review: No Changes in Pt Med Stat, Meds/Allgs Chart Reviewed, Consent Obtained/Reviewed and Anes Risks/Benef Reviewed Patient Risk: Intermediate Procedure Risk: Low Assessment/Block/Sedation in SS: Assess/Block/Sedation-SS Anesthetic Plan Anesthetic Plan: TIVA Disposition: Standard PACU
[2024-08-07 10:04] VITALS: BMI 22.6
[2024-08-07] MEDS: Lactated Ringers 1,000 ML 100 ML IVCONT (10:17)
[2024-08-07 10:25] VITALS: BP 147/68; PULSE 76; RESP 18; TEMP 36.8; O2SAT 100
--- NOTE | 2024-08-07 10:46 | P.HPSUR_ITS ---
Pre-Procedural Eval Section A - 24 Hr Update-Section A only Date of Service: 08/07/24 The patient is an INPATIENT: No The patient has been examined within 24 hours of the surgical procedure. The History & Physical has been completed within 30 days and I have reviewed it.: No Section B - Complete if H&P > 30 days Chief Complaint: screening, GERD Relevant Family History (Specify if Yes): Yes Relevant Social History: Tobacco Use (former smoker) Present Medications: see Short Stay Collaborative assessment Medical History: Significant History (HTN (hypertension) Gastric pain Back pain Tobacco dependence Arthritis Anemia Elevated cholesterol) History of Previous Operations: Relevant previous surgery/procedure and date(s) (S/P carotid endarterectomy (04/02/24) Hx of cataract surgery) Allergies: Allergies Allergy/AdvReac Type Severity Reaction Status Date / Time No Known Allergies Allergy Verified 08/07/24 10:07 Review of Systems Sugical H&P ROS: Negative: Constitution, Cardiovascular, Respiratory and Ga strointestinal Exam Surgical H&P Exam: Normal: Heart, Normal: Lungs, Normal: Extremities and Normal: Abdomen Plan Diagnosis/Plan: Unchanged I have reviewed the history and physical and performed a pertinent physical examination on my patient. No changes have occurred unless specified. Time Spent With Patient Time: Total time managing care of this patient today ____ minutes.
--- NOTE | 2024-08-07 12:30 | HO.OPN-COLON ---
Colonoscopy Operative Note Operative Note Date of Service: 08/07/24 Narrative: FLEXIBLE TRANSORAL UPPER GASTROINTESTINAL ENDOSCOPY WITH BIOPSIES AND COLONOSCOPY TILL CECUM WITH BIOPSIES AND SNARE POLYPECTOMY Pre-op diagnosis: Colon cancer screening, nodule Post-op diagnosis: Gastritis, Gastric polyp, Colon Polyps, Diverticulosis, hemorrhoids Endoscopist:? Ben Ricci MD Anesthesia:?MAC UPPER ENDOSCOPY Consent: Indications for the procedure and potential complications of bleeding, perforation, reaction to medications and missed diagnosis were discussed with the patient and informed consent was obtained. Instrument: Olympus GIF H 190 mid size upper endoscope Monitoring: Vital signs and clinical assessment, continuous EKG monitoring, Pulse oximetry, Carbon Dioxide monitoring and blood pressure monitoring were done throughout the procedure. Procedure: The patient was placed in the left lateral decubitis position and pre-procedure medications were administered and a bite block was placed. The endoscope was inserted into the mouth and advanced under direct vision to the third part of duodenum. A careful inspection was made as the upper endoscope was withdrawn including a retroflexed examination of the proximal stomach; Findings and interventions are described below. Findings: Larynx: Normal Esophagus: GE junction at 40 cms. Mildly tortuous esophagus without stricture or ring. No esophagitis or Krueger's Stomach: Moderate diffuse gastric erythema with decreased fundal folds - biopsies were obtained from the gastric body and antrum. A 5-6 mm calcified nodule in the gastric body - biopsied. Grade 2 flap valve on retroflexed examination of the cardia. Duodenum: Normal bulb and descending duodenum Biopsies were obtained from descending duodenum to check for celiac sprue Intervention: Biopsies as noted above COLONOSCOPY PROCEDURE NOTE Instrument: Olympus PCF H 190 L variable stiffness pediatric colonoscope Monitoring: Vital signs and clinical assessment, intermittent blood pressure monitoring, continuous EKG monitoring, Pulse oximetry and Carbon Dioxide monitoring were done throughout the procedure. Please see anesthesia flowsheet. Colon withdrawl time was 22 minutes. Procedure: The patient was placed in the left lateral decubitis position and pre-procedure medications were administered. After a digital rectal examination of the ano-rectum, the video colonoscope was inserted into the rectum and advanced through the colon to the cecum. The colonoscope was slowly withdrawn in a retrograde panoramic fashion and the colon mucosa was carefully examined including a retroflexed view of the rectum. Findings and interventions are described below. Procedure Difficulty: Colon was tortuous and there was spasm and some loop formation Findings: Terminal Ileum: Not evaluated Cecum: A 7-8 mm sessile polyp - removed with a cold snare Ascending Colon: Moderate diverticulosis scattered throughout the colon Transverse Colon: Moderate diverticulosis scattered throughout the colon Descending Colon: Moderate diverticulosis scattered throughout the colon Sigmoid Colon: Moderate diverticulosis Rectum: Normal Ano-rectum: Moderate internal hemorrhoids Colon preparation: Good after copious irrigation. Charlotte Bowel Preparation Scale Right colon; 2 Transverse colon: 2 Left colon; 2 (0 = Unprepared colon segment with mucosa not seen due to solid stool that cannot be cleared. 1 = Portion of mucosa of the colon segment seen, but other areas of the colon segment not well seen due to staining, residual stool and/or opaque liquid. 2 = Minor amount of residual staining, small fragments of stool and/or opaque liquid, but mucosa of colon segment seen well. 3 = Entire mucosa of colon segment seen well with no residual staining, small fragments of stool or opaque liquid) Impression and Post Procedure Diagnosis: Endoscopy Findings: ESOPHAGUS: Mildly tortuous esophagus without stricture or ring. No esophagitis or Krueger's STOMACH: : Moderate diffuse gastric erythema with decreased fundal folds - biopsies were obtained from the gastric body and antrum. A 5-6 mm calcified nodule in the gastric body - biopsied. DUODENUM: Normal - biopsied to check for celiac sprue Colonoscopy Findings: One polyp was removed Moderate diverticulosis seen in the entire colon Small hemorrhoids on retroflexed exam. Plan: Pt has a FU appointment on 08/24/24 with Niki Cutler NP, Repeat Colonoscopy in 5 years if polyps are adenomatous and 10 year if polyps are hyperplastic. Above findings were reviewed with the patient and relevant handouts were given and the discharge area. BIOPSIES SHOWED: A. Small bowel, biopsy: Duodenal mucosa within normal limits. B. Stomach, antrum, biopsy: Reactive gastropathy with background mild chronic inactive inflammation. C. Stomach, body, biopsy: - Oxyntic mucosa with severe chronic active inflammation. - Positive for H pylori. D. Stomach, nodule, biopsy: Antral-type mucosa with moderate chronic active inflammation. E. Cecum, polypectomy: Fragments of sessile serrated lesion/polyp; negative for cytologic dysplasia. Letter sent to the patient advising repeat colon in 5 years. Patient was placed on the colonoscopy recall list.
[2024-08-07 13:10] VITALS: BP 94/44; PULSE 65; RESP 16; TEMP 36.2; O2SAT 98
[2024-08-07 13:25] VITALS: BP 114/55; PULSE 59; RESP 16; TEMP 36.5; O2SAT 97
== END 2024-08-07 14:09 | disposition home or self-care (01) ==
PROVIDERS: PCP Family Medicine; Visit Provider Internal Medicine Gastroenterology
PROC: (CPT 45385; principal; 2024-08-07 12:10)
DX: Z12.11 Encounter for screening for malignant neoplasm of colon (principal); D12.0 Benign neoplasm of cecum; K57.30 Diverticulosis of large intestine without perforation or abscess without bleeding; K64.8 Other hemorrhoids; K21.9 Gastro-esophageal reflux disease without esophagitis; K22.89 Other specified disease of esophagus; K29.50 Unspecified chronic gastritis without bleeding; K31.7 Polyp of stomach and duodenum; D64.9 Anemia, unspecified; I10 Essential (primary) hypertension; E78.00 Pure hypercholesterolemia, unspecified; Z79.899 Other long term (current) drug therapy; Z87.891 Personal history of nicotine dependence; Z98.890 Other specified postprocedural states
CPT/HCPCS: 45385; 45380; 43239; 88305; 88313; 88342; J1596; J2003; J2704; J2710

== ENCOUNTER → 2024-08-07 09:54 | Outpatient (BNV) | payer MEDICARE, SELFPAY | PROVIDERS: PCP Family Medicine; Visit Provider Internal Medicine Gastroenterology | DX: Z12.11 Encounter for screening for malignant neoplasm of colon (principal); K63.5 Polyp of colon; K64.8 Other hemorrhoids; K57.90 Diverticulosis of intestine, part unspecified, without perforation or abscess without bleeding; K29.70 Gastritis, unspecified, without bleeding; K31.7 Polyp of stomach and duodenum | CPT/HCPCS: 43239; 45385 ==

== ENCOUNTER 2024-08-14 11:14 | Outpatient (REF) | payer MEDICARE, SELFPAY ==
--- NOTE | ~2024-08-14 | US_ITS ---
EXAMINATION: US EXTRACRANIAL CAROTID DUPLEX, BILATERAL CLINICAL INFORMATION: Occlusion/stenosis of bilateral carotid arteries. COMPARISON: 05/10/2024 TECHNIQUE: Real-time ultrasound and Doppler techniques (integrating B-mode 2-D vascular images, Doppler spectral analysis and color-flow Doppler imaging) were utilized to interrogate the extracranial carotid arteries, the vertebral arteries and proximal subclavian arteries bilaterally. The degree of stenosis is determined by criteria similar to NASCET. FINDINGS: Right Side: 1. There is minimal atherosclerotic plaque seen in the bifurcation/proximal ICA region. 2. The common carotid artery PSV proximally is 79 cm/s and distally 136 cm/s. 3. The proximal internal carotid artery velocities are 98 cm/s systolic and 40 cm/s diastolic. 4. The proximal external carotid artery PSV is 149 cm/s. 5. The vertebral artery shows antegrade flow. 6. The subclavian artery waveforms are normal. Left Side: 1. There is mild atherosclerotic plaque seen in the bifurcation/proximal ICA region. 2. The common carotid artery PSV proximally is 86 cm/s and distally 90 cm/s. 3. The proximal internal carotid artery velocities are 85 cm/s systolic and 32 cm/s diastolic. 4. The proximal external carotid artery PSV is 149 cm/s. 5. The vertebral artery shows antegrade flow. 6. The subclavian artery waveforms are normal. US/US carotid duplex BI IMPRESSION: 1. RIGHT: Minimal, non-hemodynamically significant stenosis of the proximal right internal carotid artery corresponding to a 0-49% stenosis by velocity criteria. 2. LEFT: Minimal, non-hemodynamically significant stenosis of the proximal left internal carotid artery corresponding to a 0-49% stenosis by velocity criteria. 3. There is no change in the category severity of disease when compared to the previous study dated 05/10/2024. Electronically signed by: Ramon Ibrahim MD 08/21/2024 12:54 PM [facility] [place]
== END 2024-08-14 11:15 | disposition home or self-care (01) ==
LOC: HO.US 11:14
PROVIDERS: PCP Family Medicine; Visit Provider Surgery Vascular Surgery
DX: I65.23 Occlusion and stenosis of bilateral carotid arteries (principal)
CPT/HCPCS: 93880

== ENCOUNTER 2024-08-24 13:04 | Outpatient (AMB) | payer MEDICARE, SELFPAY ==
[2024-08-24 13:05] VITALS: BP 138/72; PULSE 76; O2SAT 96; BMI 22.5
--- NOTE | 2024-08-24 13:05 | MHC.OFFVIS ---
Vital Signs 08/24/24 13:05 Height 5 ft 5 in Weight 135 lb 5.821 oz BMI 22.5 BP 138/72 Blood Pressure Location Rt brachial Position Sitting Pulse 76 Pulse Source Pulse Oximeter Pulse Oximetry (%) 96 Oxygen Delivery Method Room Air Intake Visit Reasons: s/p colonoscopy Intake Note: Relevant Flags or Indicators ? Requires Contract Administration Manager? N Omer presents in office today for a scheduled s/p FUV (colo) CC; No recent labs, diagnostics, or med orders placed. ? Relevant GI Sx as reported per pt? Reflux - Pt states that his medication that he was using for PPI does not seem to be working as well for him anymore. Pt is unsure, believes he had been taking pantoprazole most recently? Hx of any recent surgeries? [place] w/ Dr. Ricci Contract Administration Manager Required: No Allergies No Known Allergies Allergy (Verified 10/19/24 15:19) HPI HPI s/p colonoscopy: Details: Assessment & Plan (1) Pre-op examination: Code(s): Z01.818 - Encounter for other preprocedural examination Category: Medical Plan He has burning that only occurs when he looks up or lays in bed at night. No HB, no cough, no acid brash, no upset stomach and no r/t to moving his bowels. He will not have the pain if he sleeps on his stomach. 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 This is his first colonoscopy. He is naive to anesthesia and sedation. He denies any cardiac or respiratory problems. No ID problems. His father and brother had stomach cancer. No known FHX of crc or polyps Orders: Orders H Pylori Breath Test 02/23/24 Z01.818 - Encounter for other preprocedural examination, R10.9 - Unspecified abdominal pain EGD/[place] Combo - GI Use Only 02/23/24 Z01.818 - Encounter for other preprocedural examination US abdomen complete 02/23/24 Z01.818 - Encounter for other preprocedural examination, R10.9 - Unspecified abdominal pain Medications: New sod sulf-pot chloride-mag sulf 1.479-0.188- 0.225 gram (Sutab) PO PER PKG DIR for colonoscopy prep 24 tabs 0RF Laboratory Tests 02/23/24 10:26 H. pylori Breath Test Negative EGD/COLONOSCOPY 08/07/24 Findings: Larynx: Normal Esophagus: GE junction at 40 cms. Mildly tortuous esophagus without stricture or ring. No esophagitis or Krueger's Stomach: Moderate diffuse gastric erythema with decreased fundal folds - biopsies were obtained from the gastric body and antrum. A 5-6 mm calcified nodule in the gastric body - biopsied. Grade 2 flap valve on retroflexed examination of the cardia. Duodenum: Normal bulb and descending duodenum Biopsies were obtained from descending duodenum to check for celiac sprue Findings: Terminal Ileum: Not evaluated Cecum: A 7-8 mm sessile polyp - removed with a cold snare Ascending Colon: Moderate diverticulosis scattered throughout the colon Transverse Colon: Moderate diverticulosis scattered throughout the colon Descending Colon: Moderate diverticulosis scattered throughout the colon Sigmoid Colon: Moderate diverticulosis Rectum: Normal Ano-rectum: Moderate internal hemorrhoids Impression and Post Procedure Diagnosis: Endoscopy Findings: ESOPHAGUS: Mildly tortuous esophagus without stricture or ring. No esophagitis or Krueger's STOMACH: : Moderate diffuse gastric erythema with decreased fundal folds - biopsies were obtained from the gastric body and antrum. A 5-6 mm calcified nodule in the gastric body - biopsied. DUODENUM: Normal - biopsied to check for celiac sprue Colonoscopy Findings: One polyp was removed Moderate diverticulosis seen in the entire colon Small hemorrhoids on retroflexed exam. Plan: Pt has a FU appointment on 08/24/24 with Niki Cutler NP, Repeat Colonoscopy in 5 years if polyps are adenomatous and 10 year if polyps are hyperplastic. BIOPSY Received: 08/07/24 Diagnosis A. Small bowel, biopsy: Duodenal mucosa within normal limits. B. Stomach, antrum, biopsy: Reactive gastropathy with background mild chronic inactive inflammation. C. Stomach, body, biopsy: - Oxyntic mucosa with severe chronic active inflammation. - Positive for H pylori. D. Stomach, nodule, biopsy: Antral-type mucosa with moderate chronic active inflammation. E. Cecum, polypectomy: Fragments of sessile serrated lesion/polyp; negative for cytologic dysplasia. CORRESPONDENCE On 08/15/24 @ 11:24 Niki Cutler Wrote To Niki Cutler (2) Yes he has H pylori. Ordinarily I would explain this to him during his follow-up appointment. I have not yet seen him after his endoscopy to go over all of this. Jc can you call the patient and find out if he desires to be treated right away and if so I can do this. If he does want to be treated he will be put on doxycycline and Flagyl so he will need Education about the importance of completing the antibiotics, the fact that he can not have any alcohol or things like cough syrup containing alcohol. And he would need a probiotic supplement. On 08/13/24 @ 13:34 Agnes Ansari Wrote To Niki Cutler (2) Patient had a procedure done last month and his PCP called and stated the patient told her, that he tested positive for H.pylori and wasn't going to be given an antibiotic and his PCP, is a little confused but this. She is asking for clarification to the patient. He seems to not understand also. Please advise US ABD TODAY'S VISIT He is positive for H pylori via direct biopsy after his EGD. I started him on quadruple therapy. Taking abx but has epigastric/under the ribs burning. Also lack of appetite in the morning. Increase int o2o from 20mg to 40mg and want him to take BID. I educated him that sometimes it gets worse before it gets better and he should really try to stick out the antibiotics. He is agreeable to a 5 year follow-up. The procedure was well tolerated. The results were explained and the patient is agreeable to the follow-up interval as stated. The bowel pattern has returned to normal. Education was provided to tell any 1st degree relatives about their findings to be sure that they are screened by age 45. Educated that they will be put on a recall list when it is time for their repeat scope but should they move out of state or away from the hospital they will need to remember along with their primary to repeat the procedure in a timely fashion to avoid any adverse complications. ROV 6 weeks will need HP stool. PFSH Medical History Nicotine dependence, cigarettes, uncomplicated Colon cancer screening HTN (hypertension) Gastric pain Back pain Arthritis Anemia Elevated cholesterol Surgical History S/P carotid endarterectomy (04/02/24) Hx of cataract surgery Family History Father Stomach cancer Brother Stomach cancer Social History Household Members: Spouse Housing: Apartment Are you a primary healthcare administration intern to a significant other at home: No Do you presently have visiting nurse or other home services: No Alcohol intake: former Comment: quit 20 years ago Patient Tobacco Use Status: Former Tobacco user Tobacco use type: Cigarette Cigarettes Per Day: 10 service: No Review of Systems Const Denies fatigue, Denies fever(s), Denies night sweats, Denies poor appetite and Denies weight loss ENT Reports Normal hearing present, Denies dental pain, Denies dysphagia, Denies hearing loss, Denies mouth pain, Denies odynophagia, Denies throat swelling, Denies tongue swelling and Reports other (Dentition adequate) Card Reports no additional complaints Resp Reports no additional complaints GI Details: Reports abdominal pain, Denies melena, Denies bloating, Denies hematochezia, Denies constipation, Denies GI cramping, Denies dysphagia, Denies excessive flatus, Denies early satiety, Reports dyspepsia, Reports heartburn, Denies diarrhea, Denies nausea, Denies odynophagia, Denies vomiting and Denies hematemesis Skin/Breast Denies pruritus, Denies lesions, Denies rash and Denies jaundice Neuro Reports Normal hearing present and Denies Abnormal speech present Endo Denies fatigue Aller/Immun Denies throat swelling and Denies tongue swelling Physical Exam Vital Signs: Last Vital Signs Pulse 76 08/24/24 13:05 BP 138/72 08/24/24 13:05 Pulse Ox 96 08/24/24 13:05 Oxygen Delivery Method Room Air 08/24/24 13:05 BMI result Body Mass Index 22.5 Const General: cooperative, no acute distress, well developed and well groomed Nutritional Appearance: average body habitus and well nourished Orientation/consciousness: oriented to person, oriented to place and oriented to time Limitations: No language barrier HEENT Head: Yes normocephalic and Yes atraumatic Eyes General: appearance normal, both eyes and all related structures Pupils: Equal, round and reactive pupils present Neck Neck: Yes normal visual inspection and Yes no lymphadenopathy Thyroid: Thyroid normal Resp Effort & Inspection: normal respiratory effort and able to speak in complete sentences Auscultation: clear to auscultation bilaterally Cardio Rate: regular rate Rhythm: regular rhythm Heart sounds: Normal, physiologic split S2 sound present Peripheral pulses: radial pulses present and posterior tibial pulses present GI Inspection: No distended and No Abdominal panniculus present Palpation (GI): Soft to palpation, nontender, no guarding, not rigid and No hepatosplenomegaly present Percussion: Yes normal to percussion Auscultation: normal bowel sounds Rectal Exam - Male: Yes deferred Skin General skin exam: no rashes or lesions noted, turgor normal, skin not dry, no jaundice, No spider nevi and no striae Rashes: no rashes Nails: normal Neuro General: oriented to person, oriented to place and oriented to time Cranial nerves: Yes Equal, round and reactive pupils present and Yes Normal hearing present Speech: No Abnormal speech present Extrem General: Yes normal to inspection, No clubbing, No cyanosis and No edema Psych Appearance: grossly normal and well kempt Mental Status: mental status grossly normal Speech and movement: Normal speech and movement present Affect: normal affect Attitude: cooperative Thought process: Normal thought process present and not confabulating Thought content: Normal thought content present Insight: Limited insight present (Psych) Judgement: Limited judgement present (Psych) Results Reviewed Results Reviewed: Laboratory Tests 02/23/24 10:26 H. pylori Breath Test Negative EGD/COLONOSCOPY 08/07/24 Findings: Larynx: Normal Esophagus: GE junction at 40 cms. Mildly tortuous esophagus without stricture or ring. No esophagitis or Krueger's Stomach: Moderate diffuse gastric erythema with decreased fundal folds - biopsies were obtained from the gastric body and antrum. A 5-6 mm calcified nodule in the gastric body - biopsied. Grade 2 flap valve on retroflexed examination of the cardia. Duodenum: Normal bulb and descending duodenum Biopsies were obtained from descending duodenum to check for celiac sprue Findings: Terminal Ileum: Not evaluated Cecum: A 7-8 mm sessile polyp - removed with a cold snare Ascending Colon: Moderate diverticulosis scattered throughout the colon Transverse Colon: Moderate diverticulosis scattered throughout the colon Descending Colon: Moderate diverticulosis scattered throughout the colon Sigmoid Colon: Moderate diverticulosis Rectum: Normal Ano-rectum: Moderate internal hemorrhoids Impression and Post Procedure Diagnosis: Endoscopy Findings: ESOPHAGUS: Mildly tortuous esophagus without stricture or ring. No esophagitis or Krueger's STOMACH: : Moderate diffuse gastric erythema with decreased fundal folds - biopsies were obtained from the gastric body and antrum. A 5-6 mm calcified nodule in the gastric body - biopsied. DUODENUM: Normal - biopsied to check for celiac sprue Colonoscopy Findings: One polyp was removed Moderate diverticulosis seen in the entire colon Small hemorrhoids on retroflexed exam. Plan: Pt has a FU appointment on 08/24/24 with Niki Cutler NP, Repeat Colonoscopy in 5 years if polyps are adenomatous and 10 year if polyps are hyperplastic. BIOPSY Received: 08/07/24 Diagnosis A. Small bowel, biopsy: Duodenal mucosa within normal limits. B. Stomach, antrum, biopsy: Reactive gastropathy with background mild chronic inactive inflammation. C. Stomach, body, biopsy: - Oxyntic mucosa with severe chronic active inflammation. - Positive for H pylori. D. Stomach, nodule, biopsy: Antral-type mucosa with moderate chronic active inflammation. E. Cecum, polypectomy: Fragments of sessile serrated lesion/polyp; negative for cytologic dysplasia. Assessment & Plan Assessment & Plan (1) H. pylori duodenitis: Comment: 10/2024 stool antigen confirms eradication after quadruple therapy Code(s): K29.80 - Duodenitis without bleeding; B96.81 - Helicobacter pylori [H. pylori] as the cause of diseases classified elsewhere Category: Medical (2) Upper abdominal pain: Code(s): R10.10 - Upper abdominal pain, unspecified Category: Medical (3) GERD (gastroesophageal reflux disease): Code(s): K21.9 - Gastro-esophageal reflux disease without esophagitis Category: Medical Plan He is positive for H pylori via direct biopsy after his EGD. I started him on quadruple therapy. Taking abx but has epigastric/under the ribs burning. Also lack of appetite in the morning. Increase int o2o from 20mg to 40mg and want him to take BID. I educated him that sometimes it gets worse before it gets better and he should really try to stick out the antibiotics. He is agreeable to a 5 year follow-up. The procedure was well tolerated. The results were explained and the patient is agreeable to the follow-up interval as stated. The bowel pattern has returned to normal. Education was provided to tell any 1st degree relatives about their findings to be sure that they are screened by age 45. Educated that they will be put on a recall list when it is time for their repeat scope but should they move out of state or away from the hospital they will need to remember along with their primary to repeat the procedure in a timely fashion to avoid any adverse complications. ROV 6 weeks will need HP stool. Orders: Orders US abdomen complete 08/24/24 R10.10 - Upper abdominal pain, unspecified Medications: New omeprazole 40 mg PO BID 28 caps 3RF 14 days K29.80 - Duodenitis without bleeding, B96.81 - Helicobacter pylori [H. pylori] as the cause of diseases classified elsewhere Discontinued omeprazole Discontinued Reason: Doctor's Order 20 mg PO BID 60 days PRN 120 caps 2RF Acid Reflux K21.9 - Gastro-esophageal reflux disease without esophagitis, R10.10 - Upper abdominal pain, unspecified Patient Instructions: Omer Lara Estoy aumentando el omeprazol a 40 mg y quiero que lo tomes DOS VECES AL D?A bree 14 d?as. Despu?s de esto puede volver a cool dosis de 20 mg. Es importante terminar todos vinod antibi?ticos ya que H. pylori es un microbio dif?cil de matar. Quiero verte en 6 semanas. Coding Level of Care Code Est Pt Level 3 (83874) Diagnoses H. pylori duodenitis K29.80; B96.81 Upper abdominal pain R10.10 GERD (gastroesophageal reflux disease) K21.9
== END 2024-08-24 13:33 | disposition home or self-care (01) ==
PROVIDERS: PCP Family Medicine; Visit Provider Nurse Practitioner
DX: K29.80 Duodenitis without bleeding (principal); B96.81 Helicobacter pylori [H. pylori] as the cause of diseases classified elsewhere; R10.10 Upper abdominal pain, unspecified; K21.9 Gastro-esophageal reflux disease without esophagitis
CPT/HCPCS: 99213

== ENCOUNTER → 2024-08-24 13:04 | Outpatient (BNVA) | payer MEDICARE, SELFPAY | PROVIDERS: PCP Family Medicine; Visit Provider Nurse Practitioner | DX: K29.80 Duodenitis without bleeding (principal); K21.9 Gastro-esophageal reflux disease without esophagitis; B96.81 Helicobacter pylori [H. pylori] as the cause of diseases classified elsewhere; R10.10 Upper abdominal pain, unspecified; Z98.890 Other specified postprocedural states | CPT/HCPCS: 99212 ==

== ENCOUNTER 2024-09-03 13:44 | Outpatient (AMB) | payer MEDICARE, SELFPAY ==
--- NOTE | 2024-09-03 13:51 | MHC.OFFVIS ---
Intake Visit Reasons: follow up s/p Carotid US 08/14/24 Intake Note: Patient presents for Carotid US follow up. No complaints. Allergies No Known Allergies Allergy (Verified 09/03/24 13:52) HPI HPI follow up s/p Carotid US 08/14/24: Details: Omer, a pleasant 69-year-old male patient, presenting today for three-month follow-up to bilateral carotid ultrasound. He is status post right carotid endarterectomy on April 02 2024. He continues to endorse numbness along the right carotid area where the incision was. He denies any numbness or tingling in the jaw. He denies any difficulty chewing, talking, or swallowing. He denies any stroke-like symptoms. He states he is feeling very well other than the numbness in the site of the incision. [facility] Medical History Pre-op examination Preoperative cardiovascular examination Colon cancer screening HTN (hypertension) Gastric pain Back pain Tobacco dependence Arthritis Anemia Elevated cholesterol Surgical History S/P carotid endarterectomy (04/02/24) Hx of cataract surgery Family History Father Stomach cancer Brother Stomach cancer Social History Household Members: Spouse Housing: Apartment Are you a primary lpn care manager to a significant other at home: No Do you presently have visiting nurse or other home services: No Alcohol intake: former Comment: quit 20 years ago Patient Tobacco Use Status: Former Tobacco user Tobacco use type: Cigarette Cigarettes Per Day: 10 service: No Review of Systems Const Reports as per HPI and Denies weakness ENT Reports Normal hearing present and Denies dizziness Card Reports as per HPI, Denies chest pain, Denies chest pain at rest, Denies chest pain with activity, Denies dyspnea and Denies dyspnea on exertion Resp Reports as per HPI, Denies cough, Denies dyspnea and Denies dyspnea on exertion GI Reports as per HPI, Denies abdominal pain, Denies nausea and Denies vomiting Musc Denies numbness Skin/Breast Reports as per HPI, Denies erythema and Denies wounds Neuro Reports Normal hearing present, Denies dizziness, Denies numbness, Denies Sensory deficit (Neuro) and Denies weakness Psych Reports no additional complaints Endo Reports no additional complaints Physical Exam Const General: healthy appearing and no acute distress Orientation/consciousness: patient oriented x3 HEENT Head: Yes normal to inspection Ears: hearing grossly normal bilaterally Mouth: Normal oral and palatal mucosa present Neck Other: Well healed right carotid incision site. Resp Effort & Inspection: normal respiratory effort and able to speak in complete sentences Auscultation: clear to auscultation bilaterally Cardio Jugular venous distension: no JVD Rate: regular rate Rhythm: regular rhythm Heart sounds: S1 normal heart sound present and S2 normal heart sound present Bruits: no abdominal aortic bruits, no carotid bruits, no femoral bruits and no renal bruits Peripheral pulses: Peripheral pulses 2+ throughout GI Inspection: Yes normal to inspection Palpation (GI): No Abdominal aortic bruit present Skin General skin exam: no rashes or lesions noted Wounds: no wounds Hair: normal Neuro General: patient oriented x3 Cranial nerves: Yes Normal hearing present Cognition (Neuro): normal cognition Gait exam (Neuro): Normal gait present Motor exam (neuro): 5/5 motor strength present throughout Sensory Exam: No Sensory deficit (Neuro) Extrem General: Yes normal to inspection, Yes full ROM, Yes capillary refill normal and Yes normal gait Results Reviewed Results Reviewed: Bilateral carotid duplex ultrasound: Minimal non hemodynamically significant stenosis of the proximal right internal carotid artery corresponding to 0-49% stenosis Minimal non hemodynamically significant stenosis of the proximal left internal carotid artery corresponding to a 0-49% stenosis Assessment & Plan Assessment & Plan (1) Bilateral carotid artery stenosis: Comment: 04/02/2024- right carotid endarterectomy Code(s): I65.23 - Occlusion and stenosis of bilateral carotid arteries Category: Medical Plan: Omer is presenting today as a follow up to a bilateral carotid ultrasound. He is status post right CEA on 04/02/2024. He states he is doing very well, other than some numbness at the site of the incision. He denies any jaw issues or eating issues. He is doing well otherwise. We discussed that it can take a while for the numbness to go away, if it does go away at all. We will have him follow up with an US and appt in 6m. If there are any questions or concerns or any changes, please do not hesitate to reach out to us. Orders: Orders US carotid duplex BI 6 Months I65.23 - Occlusion and stenosis of bilateral carotid arteries Coding Level of Care Code Est Pt Level 4 (50271) Diagnoses Bilateral carotid artery stenosis I65.23 Comment Review of carotid US
== END 2024-09-03 13:58 | disposition home or self-care (01) ==
PROVIDERS: PCP Family Medicine; Visit Provider Physician Assistant Surgical
DX: I65.23 Occlusion and stenosis of bilateral carotid arteries (principal)
CPT/HCPCS: 99214

== ENCOUNTER → 2024-09-03 13:44 | Outpatient (BNVA) | payer MEDICARE, SELFPAY | PROVIDERS: PCP Family Medicine; Visit Provider Physician Assistant Surgical | DX: I65.23 Occlusion and stenosis of bilateral carotid arteries (principal) | CPT/HCPCS: 99212 ==

== ENCOUNTER 2024-09-11 09:42 | Outpatient (REF) | payer MEDICARE, SELFPAY | END 2024-09-11 09:43 | disposition home or self-care (01) | LOC: HO.US 09:42 | PROVIDERS: PCP Family Medicine; Visit Provider Nurse Practitioner | DX: R10.10 Upper abdominal pain, unspecified (principal) | CPT/HCPCS: 76700 ==

== ENCOUNTER 2024-10-11 13:56 | Outpatient (AMB) | payer MEDICARE, SELFPAY ==
--- NOTE | 2024-10-11 13:59 | MHC.OFFVIS ---
Vital Signs 10/11/24 14:00 Height 5 ft 5 in Weight 141 lb BMI 23.5 BP 142/78 H Blood Pressure Location Lt brachial Position Sitting Pulse 75 Intake Visit Reasons: s/p egd/colon Intake Note: Patient in office today in follow up of US. CC: Patient c/o heartburn and constipation. Patient states that he feels the medication given for heartburn is not working. Per patient the heartburn is worst when laying down. 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 Also lack of appetite in the morning. Increasing o2o from 20mg to 40mg and want him to take BID. ROV 6 weeks will need HP stool. Assessment & Plan (1) H. pylori duodenitis: Code(s): K29.80 - Duodenitis without bleeding; B96.81 - Helicobacter pylori [H. pylori] as the cause of diseases classified elsewhere Category: Medical (2) Upper abdominal pain: Code(s): R10.10 - Upper abdominal pain, unspecified Category: Medical (3) GERD (gastroesophageal reflux disease): Code(s): K21.9 - Gastro-esophageal reflux disease without esophagitis Category: Medical Orders: Orders US abdomen complete Today R10.10 - Upper abdominal pain, unspecified Medications: New omeprazole 40 mg PO BID 28 caps 3RF 14 days B96.81 - Helicobacter pylori [H. pylori] as the cause of diseases classified elsewhere, K29.80 - Duodenitis without bleeding Discontinued omeprazole Discontinued Reason: Doctor's Order 20 mg PO BID 60 days PRN 120 caps 2RF Acid Reflux K21.9 - Gastro-esophageal reflux disease without esophagitis, R10.10 - Upper abdominal pain, unspecified ULTRASOUND OF THE ABDOMEN 09/30/24 FINDINGS: PANCREAS: Visualized portions are unremarkable. ABDOMINAL AORTA: There are atheromatous plaques. Partially obscured by bowel gas. INFERIOR VENA CAVA: Visualized portions are normal. LIVER: The liver is normal in size. The liver contour is normal. Parenchymal echogenicity is normal. No focal hepatic lesion. There is no intrahepatic biliary duct dilatation seen. GALLBLADDER: The gallbladder is physiologically distended without evidence of stones, sludge, polyps, wall thickening or pericholecystic fluid. COMMON BILE DUCT: Normal in caliber measuring 0.3 cm in diameter. RIGHT KIDNEY: No hydronephrosis. No renal calculi or focal parenchymal lesions. The kidney measures 10.6 cm in maximum dimension. LEFT KIDNEY: No hydronephrosis. No renal calculi or focal parenchymal lesions. The kidney measures 10.4 cm in maximum dimension. Limited visualization obscured by bowel gas. SPLEEN: The spleen measures 9.6 cm in maximum dimension. Limited visualization obscured by bowel gas. FREE FLUID: None. US/US abdomen complete IMPRESSION: 1. No ultrasound explanation for patient's pain symptoms. 2. No evidence of gallbladder disease or gallstones. 3. Atheromatous plaques of the abdominal aorta. TODAY'S VISIT He needs to go for an HP stool. He continues to have quite a lot of heartburn and can not eat 1st thing in the morning related to pain and nausea. However this does clear and he is able to eat by noon. I am uncertain if this is a some other pathology than H pylori but we really need to get his stool sample to see if we eradicated it. If not we will progress from quadruple therapy to Levaquin amoxicillin therapy. Since there is no evidence of gallbladder disease, and if the H pylori is eradicated we may need to consider if a gastric emptying study is part of the potential problem. He has not appointment with me on October 19 and we will keep that going forward. [facility] Medical History (Updated 10/08/24 @ 14:57 by Margo Chamberlain PA-C) Nicotine dependence, cigarettes, uncomplicated Colon cancer screening HTN (hypertension) Gastric pain Back pain Arthritis Anemia Elevated cholesterol Surgical History S/P carotid endarterectomy (04/02/24) Hx of cataract surgery Family History Father Stomach cancer Brother Stomach cancer Social History Household Members: Spouse Housing: Apartment Are you a primary home care manager rn to a significant other at home: No Do you presently have visiting nurse or other home services: No Alcohol intake: former Comment: quit 20 years ago Patient Tobacco Use Status: Former Tobacco user Tobacco use type: Cigarette Cigarettes Per Day: 10 service: No Review of Systems Const Denies fatigue, Denies fever(s), Denies night sweats, Reports poor appetite and Denies weight loss ENT Reports Normal hearing present, Denies dental pain, Denies dysphagia, Denies hearing loss, Denies mouth pain, Denies odynophagia, Denies throat swelling, Denies tongue swelling and Reports other (Dentition adequate) Card Reports no additional complaints Resp Reports no additional complaints GI Details: Reports abdominal pain, Denies melena, Denies bloating, Denies hematochezia, Denies constipation, Denies GI cramping, Denies dysphagia, Denies excessive flatus, Denies early satiety, Reports heartburn, Denies diarrhea, Denies nausea, Denies odynophagia, Denies vomiting and Denies hematemesis Skin/Breast Denies pruritus, Denies lesions, Denies rash and Denies jaundice Neuro Reports Normal hearing present and Denies Abnormal speech present Endo Denies fatigue Aller/Immun Denies throat swelling and Denies tongue swelling Physical Exam Vital Signs: Last Vital Signs Pulse 75 10/11/24 14:00 BP 142/78 H 10/11/24 14:00 BMI result Body Mass Index 23.5 Const General: cooperative, no acute distress, well developed and well groomed Nutritional Appearance: average body habitus and well nourished Orientation/consciousness: oriented to person, oriented to place and oriented to time Limitations: No language barrier HEENT Head: Yes normocephalic and Yes atraumatic Eyes General: appearance normal, both eyes and all related structures Pupils: Equal, round and reactive pupils present Neck Neck: Yes normal visual inspection and Yes no lymphadenopathy Thyroid: Thyroid normal Resp Effort & Inspection: normal respiratory effort and able to speak in complete sentences Auscultation: clear to auscultation bilaterally Cardio Rate: regular rate Rhythm: regular rhythm Heart sounds: Normal, physiologic split S2 sound present Peripheral pulses: radial pulses present and posterior tibial pulses present GI Inspection: No distended and No Abdominal panniculus present Palpation (GI): Soft to palpation, nontender, no guarding, not rigid and No hepatosplenomegaly present Percussion: Yes normal to percussion Auscultation: normal bowel sounds Rectal Exam - Male: Yes deferred Skin General skin exam: no rashes or lesions noted, turgor normal, skin not dry, no jaundice, No spider nevi and no striae Rashes: no rashes Nails: normal Neuro General: oriented to person, oriented to place and oriented to time Cranial nerves: Yes Equal, round and reactive pupils present and Yes Normal hearing present Speech: No Abnormal speech present Extrem General: Yes normal to inspection, No clubbing, No cyanosis and No edema Psych Appearance: grossly normal and well kempt Mental Status: mental status grossly normal Speech and movement: Normal speech and movement present Affect: normal affect Attitude: cooperative Thought process: Normal thought process present and not confabulating Thought content: Normal thought content present Insight: Fair insight present (Psych) and Limited insight present (Psych) Judgement: Fair judgement present (Psych) and Limited judgement present (Psych) Assessment & Plan Assessment & Plan (1) Upper abdominal pain: Code(s): R10.10 - Upper abdominal pain, unspecified Category: Medical (2) GERD (gastroesophageal reflux disease): Code(s): K21.9 - Gastro-esophageal reflux disease without esophagitis Category: Medical (3) H. pylori duodenitis: Code(s): K29.80 - Duodenitis without bleeding; B96.81 - Helicobacter pylori [H. pylori] as the cause of diseases classified elsewhere Category: Medical Plan He needs to go for an HP stool. He continues to have quite a lot of heartburn and can not eat 1st thing in the morning related to pain and nausea. However this does clear and he is able to eat by noon. I am uncertain if this is a some other pathology than H pylori but we really need to get his stool sample to see if we eradicated it. If not we will progress from quadruple therapy to Levaquin amoxicillin therapy. Since there is no evidence of gallbladder disease, and if the H pylori is eradicated we may need to consider if a gastric emptying study is part of the potential problem. He has not appointment with me on October 19 and we will keep that going forward. Orders: Orders H pylori Ag Stool Today B96.81 - Helicobacter pylori [H. pylori] as the cause of diseases classified elsewhere, K29.80 - Duodenitis without bleeding Coding Level of Care Code Est Pt Level 3 (22715) Diagnoses Upper abdominal pain R10.10 GERD (gastroesophageal reflux disease) K21.9 H. pylori duodenitis K29.80; B96.81
[2024-10-11 14:00] VITALS: BP 142/78; PULSE 75; BMI 23.5
== END 2024-10-11 14:21 | disposition home or self-care (01) ==
PROVIDERS: PCP Family Medicine; Visit Provider Nurse Practitioner
DX: R10.10 Upper abdominal pain, unspecified (principal); K21.9 Gastro-esophageal reflux disease without esophagitis; K29.80 Duodenitis without bleeding; B96.81 Helicobacter pylori [H. pylori] as the cause of diseases classified elsewhere
CPT/HCPCS: 99213

== ENCOUNTER → 2024-10-11 13:56 | Outpatient (BNVA) | payer MEDICARE, SELFPAY | PROVIDERS: PCP Family Medicine; Visit Provider Nurse Practitioner | DX: K21.9 Gastro-esophageal reflux disease without esophagitis (principal); K29.80 Duodenitis without bleeding; R10.10 Upper abdominal pain, unspecified; B96.81 Helicobacter pylori [H. pylori] as the cause of diseases classified elsewhere | CPT/HCPCS: 99212 ==

== ENCOUNTER 2024-10-12 12:50 | Outpatient (REF) | payer MEDICARE, SELFPAY | END 2024-10-12 12:51 | disposition home or self-care (01) | LOC: HO.LNP 12:50 | PROVIDERS: Visit Provider Nurse Practitioner | DX: K29.80 Duodenitis without bleeding (principal); B96.81 Helicobacter pylori [H. pylori] as the cause of diseases classified elsewhere | CPT/HCPCS: 87338 ==

== ENCOUNTER → 2024-10-14 14:42 | Outpatient (BNV) | payer MEDICARE, SELFPAY | PROVIDERS: PCP Family Medicine; Visit Provider Radiology Diagnostic Radiology | DX: M48.062 Spinal stenosis, lumbar region with neurogenic claudication (principal) | CPT/HCPCS: 72148 ==

== ENCOUNTER 2024-10-14 14:43 | Outpatient (REF) | payer MEDICARE, SELFPAY ==
--- NOTE | ~2024-10-14 | MR_ITS ---
EXAMINATION: MR LUMBAR SPINE WITHOUT IV CONTRAST History: low back pain with radiculopathy. Difficulty walking. Technique: Sagittal T1, T2 and STIR, and axial T1 and T2 weighted images of the lumbar spine were obtained per departmental protocol. Comparison: Correlation is made with plain films of the lumbar spine dated 09/14/2023. Findings: The vertebral bodies maintain normal height and marrow signal intensity. There is slight anterior wedging of L1 without abnormal marrow signal intensities to suggest an acute fracture. The appearance is similar to that on the prior plain films. There is mild to moderate degenerative disc disease with disc desiccation, loss of disc height, and endplate spurring, most prominent at the L1-2 level. At T12-L1,there is no evidence of disc herniation, central spinal stenosis, or neural foraminal narrowing. At L1-2, there is posterior spurring and a mild disc bulge which are asymmetric to the right. This causes narrowing of the inferior recess of the right neural foramen. There is no central spinal or left neural foraminal stenosis. At L2-3, there is a mild disc bulge. There is mild facet hypertrophy without central spinal or neural foraminal stenosis. At L3-4, there is a mild disc bulge with annular tear. There is mild facet and ligamentum flavum hypertrophy causing narrowing of the inferior recess of the right neural foramen. The left neural foramen is patent. There is no central spinal stenosis. At L4-5, there is a mild disc bulge with central annular tear. There is facet and ligamentum flavum hypertrophy causing narrowing of the inferior recesses of the neural foramen. There is no central spinal stenosis. At L5-S1, there is a mild disc bulge. There is facet and ligamentum flavum hypertrophy causing bilateral neural foraminal stenosis. There is no central spinal stenosis. The conus terminates at the T12-L1 level and demonstrates normal signal intensity. The visualized paraspinal soft tissues are unremarkable. MR/MR lumbar spine wo con Impression: Degenerative changes of the lumbar spine as described. There is bilateral neural foraminal stenosis at the L5-S1 level secondary to a disc bulge and facet and ligamentum flavum hypertrophy. Electronically signed by: Azam Brito MD 10/15/2024 09:59 AM [facility] [place]
== END 2024-10-14 14:44 | disposition home or self-care (01) ==
LOC: HO.MRI 14:43
PROVIDERS: PCP Family Medicine; Visit Provider Family Medicine
DX: M54.50 Low back pain, unspecified (principal); G89.29 Other chronic pain
CPT/HCPCS: 72148

== ENCOUNTER 2024-10-19 14:57 | Outpatient (AMB) | payer MEDICARE, SELFPAY ==
[2024-10-19 15:06] VITALS: BP 156/76; PULSE 78; BMI 23.8
--- NOTE | 2024-10-19 15:06 | MHC.OFFVIS ---
Vital Signs 10/19/24 15:06 Height 5 ft 5 in Weight 143 lb 4.807 oz BMI 23.8 BP 156/76 H Blood Pressure Location Lt brachial Position Sitting Pulse 78 Intake Visit Reasons: 6 week follow up Intake Note: Patient in office today in follow up of H pylori stool test. CC: Patient reports doing well today and denies new concerns. Hospital Manager Required: No Accompanied by: Self / Same As Patient Allergies No Known Allergies Allergy (Verified 10/19/24 15:19) HPI HPI 6 week follow up: Details: ssessment & Plan (1) Upper abdominal pain: Code(s): R10.10 - Upper abdominal pain, unspecified Category: Medical (2) GERD (gastroesophageal reflux disease): Code(s): K21.9 - Gastro-esophageal reflux disease without esophagitis Category: Medical (3) H. pylori duodenitis: Code(s): K29.80 - Duodenitis without bleeding; B96.81 - Helicobacter pylori [H. pylori] as the cause of diseases classified elsewhere Category: Medical Plan He needs to go for an HP stool. He continues to have quite a lot of heartburn and can not eat 1st thing in the morning related to pain and nausea. However this does clear and he is able to eat by noon. I am uncertain if this is a some other pathology than H pylori but we really need to get his stool sample to see if we eradicated it. If not we will progress from quadruple therapy to Levaquin amoxicillin therapy. Since there is no evidence of gallbladder disease, and if the H pylori is eradicated we may need to consider if a gastric emptying study is part of the potential problem. He has not appointment with me on October 19 and we will keep that going forward. Orders: Orders H pylori Ag Stool Today B96.81 - Helicobacter pylori [H. pylori] as the cause of diseases classified elsewhere, K29.80 - Duodenitis without bleeding Laboratory Tests 10/12/24 11:00 Stool H. pylori Ag negative TODAY'S VISIT I informed him that the H pylori seems to be eradicated. He continues on omeprazole twice a day and only has rare heartburn which isn't improvement from before we 1st started. However, he still has the inability to eat filling like ?my stomach is blocked? in the morning. This really bothers him because he needs to take his medications in the morning and some need to be taken with food. Usually this will resolve by noon time. To address this as he may have some sort of intermittent gastroparesis I will start him on a dose of Reglan 10 mg only in the morning. I told him that he can try going down to once a day on the omeprazole in order to simplify his medication regimen, if he finds that he has severe reflux he can go back to twice a day. Return office visit next available to evaluate the Reglan and to see if he is able to wean down the omeprazole. [facility] Medical History Nicotine dependence, cigarettes, uncomplicated Colon cancer screening HTN (hypertension) Gastric pain Back pain Arthritis Anemia Elevated cholesterol Surgical History S/P carotid endarterectomy (04/02/24) Hx of cataract surgery Family History Father Stomach cancer Brother Stomach cancer Social History Household Members: Spouse Housing: Apartment Are you a primary healthcare market consultant to a significant other at home: No Do you presently have visiting nurse or other home services: No Alcohol intake: former Comment: quit 20 years ago Patient Tobacco Use Status: Former Tobacco user Tobacco use type: Cigarette Cigarettes Per Day: 10 service: No Review of Systems Const Denies fatigue, Denies fever(s), Denies night sweats, Reports poor appetite (Only in the mornings) and Denies weight loss ENT Reports Normal hearing present, Denies dental pain, Denies dysphagia, Denies hearing loss, Denies mouth pain, Denies odynophagia, Denies throat swelling, Denies tongue swelling and Reports other (Dentition adequate) Card Reports no additional complaints Resp Reports no additional complaints GI Details: Denies abdominal pain, Denies melena, Denies bloating, Denies hematochezia, Denies constipation, Denies GI cramping, Denies dysphagia, Denies excessive flatus, Denies early satiety, Reports heartburn, Denies diarrhea, Denies nausea, Denies odynophagia, Denies vomiting and Denies hematemesis Skin/Breast Denies pruritus, Denies lesions, Denies rash and Denies jaundice Neuro Reports Normal hearing present and Denies Abnormal speech present Endo Denies fatigue Aller/Immun Denies throat swelling and Denies tongue swelling Physical Exam Vital Signs: Last Vital Signs Pulse 78 10/19/24 15:06 BP 156/76 H 10/19/24 15:06 BMI result Body Mass Index 23.8 Const General: cooperative, no acute distress, well developed and well groomed Nutritional Appearance: average body habitus and well nourished Orientation/consciousness: oriented to person, oriented to place and oriented to time Limitations: No language barrier HEENT Head: Yes normocephalic and Yes atraumatic Eyes General: appearance normal, both eyes and all related structures Pupils: Equal, round and reactive pupils present Neck Neck: Yes normal visual inspection and Yes no lymphadenopathy Thyroid: Thyroid normal Resp Effort & Inspection: normal respiratory effort and able to speak in complete sentences Auscultation: clear to auscultation bilaterally Cardio Rate: regular rate Rhythm: regular rhythm Heart sounds: Normal, physiologic split S2 sound present Peripheral pulses: radial pulses present and posterior tibial pulses present GI Inspection: No distended and No Abdominal panniculus present Palpation (GI): Soft to palpation, nontender, no guarding, not rigid and No hepatosplenomegaly present Percussion: Yes normal to percussion Auscultation: normal bowel sounds Rectal Exam - Male: Yes deferred Skin General skin exam: no rashes or lesions noted, turgor normal, skin not dry, no jaundice, No spider nevi and no striae Rashes: no rashes Nails: normal Neuro General: oriented to person, oriented to place and oriented to time Cranial nerves: Yes Equal, round and reactive pupils present and Yes Normal hearing present Speech: No Abnormal speech present Extrem General: Yes normal to inspection, No clubbing, No cyanosis and No edema Psych Appearance: grossly normal and well kempt Mental Status: mental status grossly normal Speech and movement: Normal speech and movement present Affect: normal affect Attitude: cooperative Thought process: Normal thought process present and not confabulating Thought content: Normal thought content present Insight: Limited insight present (Psych) Judgement: Limited judgement present (Psych) Assessment & Plan Assessment & Plan (1) H. pylori duodenitis: Comment: 10/2024 stool antigen confirms eradication Code(s): K29.80 - Duodenitis without bleeding; B96.81 - Helicobacter pylori [H. pylori] as the cause of diseases classified elsewhere Category: Medical (2) Lack of appetite: Comment: Occurs only in the morning and bothersome because he needs to take medications Code(s): R63.0 - Anorexia Category: Medical (3) GERD (gastroesophageal reflux disease): Code(s): K21.9 - Gastro-esophageal reflux disease without esophagitis Category: Medical Plan I informed him that the H pylori seems to be eradicated. He continues on omeprazole twice a day and only has rare heartburn which isn't improvement from before we 1st started. However, he still has the inability to eat filling like ?my stomach is blocked? in the morning. This really bothers him because he needs to take his medications in the morning and some need to be taken with food. Usually this will resolve by noon time. To address this as he may have some sort of intermittent gastroparesis I will start him on a dose of Reglan 10 mg only in the morning. I told him that he can try going down to once a day on the omeprazole in order to simplify his medication regimen, if he finds that he has severe reflux he can go back to twice a day. Return office visit next available to evaluate the Reglan and to see if he is able to wean down the omeprazole. Medications: New metoclopramide HCl (Reglan) 10 mg PO .qamac 30 tabs 6RF K21.9 - Gastro-esophageal reflux disease without esophagitis Changed From omeprazole 40 mg PO BID 14 days 28 caps 3RF K21.9 - Gastro-esophageal reflux disease without esophagitis To omeprazole 40 mg PO BID 30 days 60 caps 6RF K21.9 - Gastro-esophageal reflux disease without esophagitis Coding Level of Care Code Est Pt Level 3 (89416) Diagnoses H. pylori duodenitis K29.80; B96.81 Lack of appetite R63.0 GERD (gastroesophageal reflux disease) K21.9
== END 2024-10-19 15:53 | disposition home or self-care (01) ==
PROVIDERS: PCP Family Medicine; Visit Provider Nurse Practitioner
DX: K29.80 Duodenitis without bleeding (principal); B96.81 Helicobacter pylori [H. pylori] as the cause of diseases classified elsewhere; R63.0 Anorexia; K21.9 Gastro-esophageal reflux disease without esophagitis
CPT/HCPCS: 99213

== ENCOUNTER → 2024-10-19 14:57 | Outpatient (BNVA) | payer MEDICARE, SELFPAY | PROVIDERS: PCP Family Medicine; Visit Provider Nurse Practitioner | DX: K29.80 Duodenitis without bleeding (principal); K21.9 Gastro-esophageal reflux disease without esophagitis; R63.0 Anorexia; B96.81 Helicobacter pylori [H. pylori] as the cause of diseases classified elsewhere | CPT/HCPCS: 99212 ==

== ENCOUNTER 2024-11-22 12:04 | Outpatient (REF) | payer MEDICARE, SELFPAY ==
--- OUTSIDE RECORDS SUMMARY | 2024-11-22 12:22 | XMS_ITS | Encounter Summary ---
Author Organization [employer] Address [address] [facility] [address] [place] [address] Care Team Providers Care Pallet Stone Inserter Name Role Phone Kassandra Phillips MD Primary Care Provider [phone] Blanco Gar PharmD Unavailable [phone] Reason for Visit * Reason Comments Med Refill Encounter Details Date Type Department Care Team ([facility] st Contact Info) Description 02/29/2024 Refill [facility] [address], [place] [phone] Kassandra Phillips MD [address] [place], [place] [phone] Social History Tobacco Use Types Packs/Day Years Used Date Smoking Tobacco: Former Cigarettes 0.5 40 0 12/26/1983 - 12/26/2023 Passive Smoke Exposure: Current Comments:Cigarette smoking h istory of 1/2 ppd x 40 years. Most recent Quit date 12/26/2023 Alcohol Use Standard Drinks/Week Comments Not Currently 0 (1 standard drink = 0.6 oz pur e alcohol) Depression Answer Date Recorded Patient Health Questionnaire-9 Score 4 06/30/2023 Housing Stability Answer Date Recorded What is your housing situation today? I have suma marie 07/25/[address] you li ve. Do you have problems with any of the following? None of the above 07/25/2023 Food Insecurity Answer Date Recorded Within the past 12 months, y ou worried that your food would run out before you got money to buy more: Never True 07/25/2023 Within the past 12 months,th e food you bought just didn't last and you didn't have enough money to get more: Never True Transportation Answer Date Recorded In the past 12 months, has l ack of transportation kept you from medical appts, meetings, work or from getting things needed for daily living? No 07/25/2023 Utilities Answer Date Recorded In the past 12 months, has t he electric, gas, oil or water company threatened to shut off services in your home? No 07/25/2023 Depression Answer Date Recorded Patient Health Questionnaire-2 Score 0 06/30/2023 Sex and Gender Information Value Date Recorded Sex Assigned at Male 05/03/2023 1:47 PM EDT Legal Sex Male 9:48 AM EDT Gender Identity Male 05/03/2023 1:47 PM EDT Sexual Orientation Don't know 06/28/2023 3: 06 PM EDT documented as of this encounter Plan of Treatment Upcoming Encounters Date Type Department Care Team (Late st Contact Info) Description 02/15/2025 11:00 AM EDT Clinical Support [facility] [address] [place] [phone] Layla Thapa RN [address] [place] [address] documented as of this encounter Goals Goal Patient Goal Type Associated Problems Recent Progress Patient-Stated? Author Quit using tobacco (cigarettes, smokeless, etc) Tobacco Use No Blanco Gar, Julianne Note: Quit date: 12/26/2023 documented as of this encounter Visit Diagnoses Not on filedocumented in this encounter Additional Health Concerns Assessment Noted Time PHQ-9 Depression Total Score: 4 06/30/20 23 9:32 AM EDT documented as of this encounter Care Teams Pallet Stone Inserter Relationship Specialty Start Date End Date Kassandra Phillips MD [address] [place] [id number] PCP - General Family Medicine 06/30/23 Blanco Gar, SouravD [address] [place] [phone] Pharmacist Internal Medicine 12/26/23 documented as of this encounter
--- OUTSIDE RECORDS SUMMARY | 2024-11-22 12:22 | XMS_ITS | Encounter Summary ---
Author Organization [employer] Address [address] [facility] [address] [place] [address] Care Team Providers Care Corrections Lieutenant Name Role Phone Kassandra Phillips MD Primary Care Provider [phone] Blanco Gar PharmD Unavailable [phone] Reason for Visit * Reason Onset Date Comments Med Refill 07/18/2024 Encounter Details Date Type Department Care Team ([facility] st Contact Info) Description 07/18/2024 Telephone [facility] [address] [place], [place] [phone] Kassandra Phillips MD [address] [place], [place] [phone] Med Refill Social History Tobacco Use Types Packs/Day Years [...] PM EDT documented as of this encounter Miscellaneous Notes * Telephone Encounter - Gerard Wright - 07/18/2024 3:32 PM EDT TC from pt requesting medication refill. Medications needing refill : traMADol (Ultram) 50 MG tablet To be sent to: [id number] - [place], [place] - [address] [place] [address] AT [facility] documented in this encounter Plan of Treatment Upcoming Encounters Date Type Department Care Team ([facility] st Contact Info) Description 02/15/2025 11:00 AM EDT Clinical Support [facility] [address] [place] [address] Layla Thapa, DON [address] [place] [address] documented as of this encounter Goals Goal Patient Goal Type Associated Problems Recent Progress Patient-Stated? Author Quit using tobacco (cigarettes, smokeless, etc) Tobacco Use No Blanco Gar, PharmD Note: Quit date: 12/26/2023 documented as of this encounter Visit Diagnoses Not on filedocumented in this encounter Additional Health Concerns Assessment Noted Time PHQ-9 Depression Total Score: 4 06/30/20 23 9:32 AM EDT documented as of this encounter Care Teams Corrections Lieutenant Relationship Specialty Start Date End Date Kassandra Phillips MD [address] [place] [address] PCP - General Family Medicine 06/30/23 Blanco Gar, SouravD [address] [place] [address] Pharmacist Internal Medicine 12/26/23 documented as of this encounter
--- OUTSIDE RECORDS SUMMARY | 2024-11-22 12:22 | XMS_ITS | Clinical Summary ---
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 30 tablet 2 09/14/20 23 Active nicotine polacrilex (Nicorette) 2 MG gumIndications :Tobacco dependence Chew 1 piece of gum every 1-2 hours as needed for cravings 110 each 12/26/19 24 Active atorvastatin (Lipitor) 20 MG tabletIndicati ons:Routine general medical examination at a health care facility TAKE 1 TABLET(20 MG) BY MOUTH AT BEDTIME 90 tablet 3 03/27/20 24 Active Diclofenac Sodium 1 % gel APPLY TOPICALLY TO THE AFFECTED AREA DAILY 100 g 2 04/13/20 24 Active pantoprazole (Protonix) 40 MG EC tablet Take 1 tablet (40 mg) by mouth before breakfast. Do not crush, chew, or split. 30 tablet 11 05/21/20 24 025 Active Acetaminophen Extra Strength 500 MG tablet TAKE 2 TABLETS BY MOUTH EVERY 8 HOURS NEEDED FOR MODERATE PAIN OR FEVER 60 tablet 3 07/30/20 24 Active gabapentin (Neurontin) 600 MG tablet Take 1 tablet (600 mg) by mouth 2 times daily. 60 tablet 11 08/13/20 24 025 Active famotidine (Pepcid) 20 MG tablet TAKE 1 TO 2 TABLETS BY MOUTH AT NIGHT 60 tablet 11/14/19 25 Active oxyCODONE (Roxicodone) 5 MG immediate release tabletIndicati ons:Cervical spondylosis,Ne ck pain,Chronic bilateral low back pain, unspecified whether sciatica present Take 1 tablet (5 mg) by mouth if needed each day for severe pain. 28 tablet 11/22/19 25 Active naloxone (Narcan) 4 mg/0.1 mL nasal spray Administer 1 spray (4 mg) into affected nostril(s) if needed for opioid reversal. May repeat every 2-3 minutes if needed, alternating nostrils, until medical assistance becomes available. 2 each 11/22/19 25 026 Active amLODIPine (Norvasc) 5 MG tablet TAKE 1 TABLET(5 MG) BY MOUTH IN THE MORNING 90 tablet 3 11/22/19 25 Active amLODIPine (Norvasc) 2.5 MG tablet TAKE 1 TABLET(2.5 MG) BY MOUTH IN THE MORNING 90 tablet 3 11/29/19 24 025 Discontinued(R eorder (will not trigger notification to Pharmacy)) traMADol (Ultram) 50 MG tabletIndicati ons:Cervical spondylosis,Ne ck pain,Other chronic back pain TAKE 1 TABLET(50 MG) BY MOUTH EVERY 8 HOURS NEEDED FOR SEVERE PAIN 84 tablet 09/20/20 24 025 Discontinued(R eorder (will not trigger notification to Pharmacy)) naloxone (Narcan) 4 mg/0.1 mL nasal spray Administer 1 spray (4 mg) into affected nostril(s) if needed for opioid reversal. May repeat every 2-3 minutes if needed, alternating nostrils, until medical assistance becomes available. 2 each 09/28/20 24 025 Discontinued(R eorder (will not trigger notification to Pharmacy)) naloxone (Narcan) 4 mg/0.1 mL nasal spray Administer 1 spray (4 mg) into affected nostril(s) if needed for opioid reversal. May repeat every 2-3 minutes if needed, alternating nostrils, until medical assistance becomes available. 2 each 09/28/20 24 025 Discontinued(M ed list cleanup (will not trigger notification to Pharmacy)) famotidine (Pepcid) 20 MG tablet TAKE 1 TO 2 TABLETS BY MOUTH AT NIGHT 60 tablet 10/22/19 25 025 Discontinued traMADol (Ultram) 50 MG tabletIndicati ons:Cervical spondylosis,Ne ck pain,Other chronic back pain Take 1 tablet (50 mg) by mouth every 8 (eight) hours if needed for severe pain. 84 tablet 10/31/19 25 025 Discontinued(A lternate therapy) Active Problems Problem Noted Date Diagnosed Date Chronic pain of both knees 05/21/2024 Assessment & Plan (05/21/2024 11:41 AM EDT): -likely arthritic in nature -ordered XR to further evaluate Gastroesophageal reflux disease 05/21/2024 Assessment & Plan (08/19/2024 2:12 PM EST): -followed by [facility], last seen in Jul 2024 -H. Pylori stool antigen and breath test were negative previously -EGD on 08/07/24 was positive for H. Pylori -continue pantoprazole and famotidine -keep appointment with GI for follow up of EGD Assessment & Plan (05/21/2024 11:38 AM EDT): -seen by GI in February 2024, Rx antacid, but patient has not been taking it -H. Pylori stool antigen and breath test were negative -continue famotidine at bedtime -change omeprazole to pantoprazole -keep appointment with GI for EGD Cervical spondylosis 05/20/2024 Assessment & Plan (08/19/2024 2:13 PM EST): - see neck pain plan Abdominal pain 12/04/2023 Assessment & Plan (08/19/2024 2:10 PM EST): - H pylori stool antigen test ordered, which he has not done it yet - EGD on 08/07/24 was positive for H. pylori - Continue omeprazole 20 mg daily - Continue Famotidine 20 mg at night Assessment & Plan (02/12/2024 5:36 AM EDT): - probable GERD, or possibly H. Pylori - H pylori stool antigen test ordered - Continue omeprazole 20 mg daily - Start Famotidine 20 mg daily in the morning - Patient has been scheduled with GI for colonoscopy planning on 02/23/24. Will ask if patient can also have EGD. Assessment & Plan (12/04/2023 2:54 PM EST): - probable GERD, or possibly H. Pylori - start omeprazole 20 mg daily - work on smoking cessation - refer to another GI for can evaluate him with both EGD and colonoscopy Hypertension 10/30/2023 Assessment & Plan (08/17/2024 4:45 PM EST): -Goal BP < 150/90 per JNC-8 and < 130 per ACC/AHA guideline -BP WNL in clinic -Continue working on lifestyle modifications -Continue amlodipine 2.5 mg daily -Recommended self-monitoring BP. If SBP persistently > 150, advised to contact us. -Follow up in 3 mo, sooner if any problem arises Assessment & Plan (05/21/2024 10:01 AM EDT): -Goal BP < 150/90 per JNC-8 and < 130 per ACC/AHA guideline -BP WNL in clinic -Continue working on lifestyle modifications -Continue amlodipine 2.5 mg daily -Recommended self-monitoring BP. If SBP persistently > 150, advised to contact us. -Follow up in 3 mo, sooner if any problem arises Assessment & Plan (02/08/2024 9:06 PM EDT): -Goal BP < 150/90 per JNC-8 and < 130 per ACC/AHA guideline -BP borderline in the clinic, mostly normal at home per pt -Continue working on lifestyle modifications -Continue amlodipine 2.5 mg daily -Recommended self-monitoring BP. If SBP persistently > 150, advised to contact us. -Follow up in 3 mo, sooner if any problem arises Assessment & Plan (12/04/2023 2:50 PM EST): -Goal BP < 150/90 per JNC-8 and < 130 per ACC/AHA guideline -BP borderline in the clinic, mostly normal at home per pt -Continue working on lifestyle modifications -Continue amlodipine 2.5 mg daily -Recommended self-monitoring BP. If SBP persistently > 150, advised to contact us. -Follow up in 3 mo, sooner if any problem arises Assessment & Plan (10/30/2023 10:14 AM EST): Records of previous BP 161/89 as of 10/28/2023 161/89 153/80 Today BP in both arms 144/70 Checked manually -start amlodipine 2.5 mg daily -bring home BP readings at next apt w PCP -has apt already scheduled in 4 weeks -advised to decrease or stop smoking --referred today to tobacco cessation program Carotid stenosis, right 10/20/2023 Assessment & Plan (08/17/2024 4:45 PM EST): - carotid US on 10/19/23, showed moderate, hemodynamically significant stenosis of the proximal right internal carotid artery corresponding to a 50-79% stenosis by velocity criteria. Minimal, non-hemodynamically significant stenosis of the proximal left internal carotid artery corresponding to a 0-49% stenosis by velocity criteria. 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 - s/p right carotid endarterectomy with patch angioplasty on 04/02/24. - Optimize risk factor management Assessment & Plan (05/20/2024 6:29 AM EDT): - carotid US on 10/19/23, showed moderate, hemodynamically significant stenosis of the proximal right internal carotid artery corresponding to a 50-79% stenosis by velocity criteria. Minimal, non-hemodynamically significant stenosis of the proximal left internal carotid artery corresponding to a 0-49% stenosis by velocity criteria. 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 - s/p right carotid endarterectomy with patch angioplasty on 04/02/24. - Optimize risk factor management Assessment & Plan (02/12/2024 5:32 AM EDT): - carotid US on 10/19/23 - RIGHT: Moderate, hemodynamically significant stenosis of the proximal right internal carotid artery corresponding to a 50-79% stenosis by velocity criteria. - LEFT: Minimal, non-hemodynamically significant stenosis of the proximal left internal carotid artery corresponding to a 0-49% stenosis by velocity criteria. - Seen by [facility] vascular specialist, Dr. Coy, on 01/05/24. CTA is scheduled on 02/23/24. - Optimize risk factor management Assessment & Plan (12/04/2023 2:51 PM EST): - carotid US on 10/19/23 - RIGHT: Moderate, hemodynamically significant stenosis of the proximal right internal carotid artery corresponding to a 50-79% stenosis by velocity criteria. - LEFT: Minimal, non-hemodynamically significant stenosis of the proximal left internal carotid artery corresponding to a 0-49% stenosis by velocity criteria. - Upcoming appointment with vascular specialist - Optimize risk factor management Assessment & Plan (10/20/2023 1:28 PM EST): - carotid US on 10/19/23 1. RIGHT: Moderate, hemodynamically significant stenosis of the proximal right internal carotid artery corresponding to a 50-79% stenosis by velocity criteria. 2. LEFT: Minimal, non-hemodynamically significant stenosis of the proximal left internal carotid artery corresponding to a 0-49% stenosis by velocity criteria. Referred to vascular specialist Optimize risk factor management Dyslipidemia 09/14/2023 Assessment & Plan (08/17/2024 4:46 PM EST): - Lipid profile on 10/11/23 TC 124; TG 101; HDL 44; LDL 60 - continue working on lifestyle modification - continue atorvastatin 20 mg at bedtime (started in Jun 2023 for 10-year ASCVD risk 23%) Assessment & Plan (05/21/2024 9:51 AM EDT): - Lipid profile on 10/11/23 TC 124; TG 101; HDL 44; LDL 60 - continue working on lifestyle modification - continue atorvastatin 20 mg at bedtime (started in Jun 2023 for 10-year ASCVD risk 23%) Assessment & Plan (02/08/2024 9:12 PM EDT): - Lipid profile on 10/11/23 TC 124; TG 101; HDL 44; LDL 60 - continue working on lifestyle modification - continue atorvastatin 20 mg at bedtime (started in Jun 2023 for 10-year ASCVD risk 23%) Assessment & Plan (09/14/2023 4:25 AM EST): - Lipid profile on 06/30/23 TC 194; TG 138; HDL 44; LDL 123 - continue working on lifestyle modification - continue atorvastatin 20 mg at bedtime (started in Jun 2023 for 10-year ASCVD risk 23%) Neck pain 09/14/2023 Assessment & Plan (08/19/2024 2:09 PM EST): - multifactorial, cervical spondylosis / DDD - trapezius muscle spasm - diclofenac gel - add Tramadol prn for pain - judicious use of Gabapentin, and encouraged to taper down and off - check the status of MRI Assessment & Plan (05/21/2024 11:40 AM EDT): - multifactorial, cervical spondylosis / DDD - trapezius muscle spasm - diclofenac gel - add Tramadol prn for pain - judicious use of Gabapentin, and encouraged to taper down and off - will order MRI to further evaluate Assessment & Plan (02/08/2024 9:05 PM EDT): - multifactorial - trapezius muscle spasm - add cyclobenzaprine prn - apply lidocaine patch - refer to PT - reassess symptoms in 3 mo to see if he needs further imaging or referral to pain management and/or movement education specialist Assessment & Plan (09/14/2023 3:47 PM EST): - multifactorial - evaluate with X-ray - trapezius muscle spasm - add cyclobenzaprine prn - apply lidocaine patch - refer to PT - reassess symptoms in 3 mo to see if he needs further imaging or referral to pain management and/or movement education specialist Back pain 09/14/2023 Assessment & Plan (08/19/2024 2:18 PM EST): - X-ray in Sep 2023 showed severe DDD - evaluated by PSS provider and was recommended PT and/or injection treatment. He has tried PT which unsatisfactory outcome. - previously tried APAP, NSAIDs, topical diclofenac, and cyclobenzaprine with minimal relief - started on tramadol and gabapentin which have been effective - Continue judicious use of tramadol and gabapentin, will increase dose. - check the status of MRI order - [employer] appt Assessment & Plan (05/21/2024 11:42 AM EDT): - X-ray in Sep 2023 showed severe DDD - evaluated by PSS provider and was recommended PT and/or injection treatment - patient has tried APAP and NSAIDs which were ineffective - currently taking cyclobenzaprine which give mild relief, but still with significant pain - Rx diclofenac gel - Rx tramadol for severe pain - evaluate with MRI Assessment & Plan (02/08/2024 9:11 PM EDT): - X-ray in Sep 2023 showed severe DDD - evaluated by PSS provider and was recommended PT and/or injection treatment - patient has tried APAP and NSAIDs which were ineffective - currently taking cyclobenzaprine which give mild relief, but still with significant pain - Rx diclofenac gel - Rx tramadol for severe pain - follow up with specialist as scheduled Assessment & Plan (12/04/2023 3:02 PM EST): - X-ray in Sep 2023 showed severe DDD - evaluated by PSS provider and was recommended PT and/or injection treatment - patient has tried APAP and NSAIDs which were ineffective - currently taking cyclobenzaprine which give mild relief, but still with significant pain - Rx diclofenac gel - Rx tramadol for severe pain - follow up with specialist as scheduled Anemia 09/14/2023 Assessment & Plan (02/08/2024 9:10 PM EDT): -Labs on 10/11/23 showed: Hb 12.6, iron 123. B12 828. Folate 9.9 - Continue follow up with Colonoscopy as scheduled (02/23/24) Assessment & Plan (09/14/2023 3:52 PM EST): - check iron study, B12 - advised to check with GI office for colonoscopy appt date Cataract 06/30/2023 Assessment & Plan (05/20/2024 6:30 AM EDT): - following with Dr. Aguilar - s/p bilateral cataract surgery in Oct 2023 Assessment & Plan (09/14/2023 4:35 AM EST): - discussed about driving safety and fall precaution - following with Dr. Aguilar - cataract surgery in Oct 2023 Assessment & Plan (06/30/2023 5:33 PM EDT): - discussed about driving safety and fall precaution Tobacco dependence 06/30/2023 Assessment & Plan (08/17/2024 4:46 PM EST): -Congratulated patient on quitting (quit in January 2024) and encouraged him to maintain smoking cessation. Assessment & Plan (05/21/2024 10:17 AM EDT): -Congratulated patient on quitting (quit in January 2024) and encouraged him to maintain smoking cessation. Assessment & Plan (02/08/2024 9:14 PM EDT): -Congratulated patient on quitting (quit in January 2024) and encouraged him to maintain smoking cessation. Assessment & Plan (09/14/2023 3:51 PM EST): - precontemplative stage of change, possibly preparation - continue discussing about smoking cessation Assessment & Plan (06/30/2023 5:33 PM EDT): - precontemplative stage of change - continue discussing about smoking cessation Smoking greater than 20 pack years 06/30/2023 Assessment & Plan (08/19/2024 2:13 PM EST): - low-dose chest CT through [facility] [place] screening [facility] - Last CT on 11/18/23 Lung RADS 1 Assessment & Plan (05/21/2024 9:51 AM EDT): - low-dose chest CT through [facility] [place] [facility] - Last CT on 11/18/23 Lung RADS 1 Assessment & Plan (02/08/2024 9:14 PM EDT): - low-dose chest CT through [facility] [place] [facility] - Last CT on 11/18/23 Lung RADS 1 Assessment & Plan (09/14/2023 3:51 PM EST): - low-dose chest CT through [facility] [place] [facility] - pt states he will go to get CT done and is thinking about smoking cessation Assessment & Plan (06/30/2023 5:32 PM EDT): - low-dose chest CT through [facility] [place] screening [facility] Resolved Problems Problem Noted Date Diagnosed Date Resolved Date Health care maintenance 09/14/2023 05/0 10/2023 Assessment & Plan (09/14/2023 4:24 AM EST): - Colonoscopy: Referred - AAA screening US on 07/25/23 negative Encounters Date Type Department Care Team Description 11/22/2024 11:00 AM EST Office Visit [facility] [address] [place] [id number] Kassandra Phillips MD Hypertension, unspecified type (Primary Dx); Carotid stenosis, right; Cervical spondylosis; Dyslipidemia; Tobacco dependence; Smoking greater than 20 pack years; Neck pain; Need for COVID-19 vaccine; Screening for diabetes mellitus; Chronic bilateral low back pain, unspecified whether sciatica present 11/22/2024 Travel 11/16/2024 11:00 AM EST Clinical Support [address] [address] Layla Thapa, carrot tier pain of both knees 11/16/2024 Travel 11/14/[address] [place] [address] Kassandra Phillips MD 11/13/2024 Telephone [facility] [address] [facility] [place] [address] Layla Thapa RN 11/08/2024 Patient Outreach [facility] [address] [place] [address] Kassandra Phillips MD Pre-visit Planning (Pre-visit planning - LV ) 10/30/2024 Refill [facility] [address] [place] [address] Kassandra Phillips MD Cervical spondylosis; Neck pain; Other chronic back pain 10/30/2024 Telephone [facility] [address] [place] [address] Kassandra Phillips MD 10/25/2024 Telephone [facility] [place] [address] Yamile Curiel MA november10/20/2024 Refill [facility] [address] [place] [address] Kassandra Phillips MD 09/28/2024 9:00 AM EST Clinical Support [facility] [place] [address] Layla Thapa, DON Other chronic back pain 09/28/2024 Refill [facility] [address] [facility] [place] [address] Layla Thapa RN 09/28/2024 Travel 09/20/2024 Refill [facility] [address] [place] [address] Kassandra Phillips MD 09/20/2024 Refill [facility] [address] [place] [address] Kassandra Phillips MD 09/19/2024 Refill [facility] [address] [place] [address] Kassandra Phillips MD Cervical spondylosis; Neck pain; Other chronic back pain 09/17/2024 Telephone [facility] [address] [place] [address] Kassandra Phillips MD Med Refill 09/11/2024 Orders Only External Provider, [facility] from Last 3 Months Immunizations Name Administration Dates Next Due Hep A, Adult 08/13/2024,11/29/2023 Influenza High-dose Quadrivalent Preservative Fr ee 06/20/2023 Influenza injectable quadrivalent preservative f ree 07/18/2021 Influenza, High Dose Seasonal, Preservative Free 08/13/2024 Meningococcal Polysaccharide A,C,Y,W-135 TT Conj ugate 08/13/2024 Pfizer Covid-19 Vaccine 12+ 11/22/2024, Pneumococcal Conjugate PCV 20 06/30/2023 RSV Bivalent 12/26/2023 Tdap 06/30/2023 Zoster, Recombinant 12/26/2023,06/20/2023 Family History Medical History Relation Name Comments Stomach cancer Brother Stomach cancer Father Relation Name Status Comments Brother Father Social History Tobacco Use Types Packs/Day Years Used Date Smoking Tobacco: Former Cigarettes 0.5 40 0 12/26/1983 - 12/26/2023 Passive Smoke Exposure: Current Tobacco Cessation:Counseling Given: Not Answered Comments:Cigarette smoking history of 1/2 ppd x 40 years. Most recent Quit date 12/26/2023 Alcohol Use Standard Drinks/Week Comments Not Currently 0 (1 standard drink = 0.6 oz pur e alcohol) Alcohol Answer Date Recorded Frequency of Alcohol Consumption Not on file 08/13/2024 Average Number of Drinks Not on file 024 Frequency of Binge Drinking Not on file 01/2024 Score 0 08/13/2024 Depression Answer Date Recorded Patient Health Questionnaire-9 Score 1 08/13/2024 Patient Health Questionnaire-9 Score 1 08/13/2024 Last PHQ-9: Questionnaire Data Not on file 1 10/13/2023 Housing Stability Answer Date Recorded What is your housing situation today? I have suma marie 08/13/[address] you li ve. Do you have problems with any of the following? None of the above 08/13/2024 Food Insecurity Answer Date Recorded Within the past 12 months, y ou worried that your food would run out before you got money to buy more: Never True 08/13/2024 Within the past 12 months,th e food you bought just didn't last and you didn't have enough money to get more: Never True 01/2024 Transportation Answer Date Recorded In the past 12 months, has l ack of transportation kept you from medical appts, meetings, work or from getting things needed for daily living? No 08/13/2024 Utilities Answer Date Recorded In the past 12 months, has t he electric, gas, oil or water company threatened to shut off services in your home? No 08/13/2024 Depression Answer Date Recorded Patient Health Questionnaire-2 Score 0 08/13/2024 Internet Access Answer Date Recorded Internet Access Q1 I am not sure 08/13/2024 Internet Access Q2 Not on file 08/13/2024 Sex and Gender Information Value Date Recorded Sex Assigned at Male 05/03/2023 1:47 PM EDT Legal Sex Male 9:48 AM EDT Gender Identity Male 05/03/2023 1:47 PM EDT Sexual Orientation Don't know 06/28/2023 3: 06 PM EDT Last Filed Vital Signs Vital Sign Reading Time Taken Comments Blood Pressure 144/85 11/22/2024 11:15 AM EST Pulse 60 11/22/2024 11:15 AM EST Temperature 36.1 ??C (96.9 ??F) 11/22/2024 11:[address] Respiratory Rate 19 11/22/2024 11:15 AM EST Oxygen Saturation 98% 11/22/2024 11:15 AM EST Inhaled Oxygen Concentration - - Weight 67.8 kg (149 lb 6.4 oz) 11/22/2024 11:15 AM EST Height 165.1 cm (5' 5 ) 08/13/2024 12:58 PM EST Body Mass Index 24.86 08/13/2024 12:58 PM EST Plan of Treatment Upcoming Encounters Date Type Department Care Team (Late st Contact Info) Description 02/15/2025 11:00 AM EDT Clinical Support [facility] [address] [place], [place] [phone] Layla Thapa, DON [address] [place], [place] [phone] Health Maintenance Due Date Last Done Comments CT Colonography 1957 Colonoscopy 1957 Colorectal Cancer Screening 1957 FIT DNA/Cologuard 1957 FIT 1957 FOBT 1957 Sigmoidoscopy 1957 Lung Cancer Screening 11/18/2024 11/18/2023 Alcohol/Substance Use Screening 08/13/2025 08/13/2024 Depression Screening 08/13/2025 08/13/2024, 08/13/20 24 SDOH Screening 08/13/2025 08/13/2024 Tobacco Screening 11/22/2025 11/22/2024 Lipid Panel 10/11/2028 10/11/2023, 06/30/2023 DTaP/Tdap/Td Vaccines (2 - Td or Tdap) 06/30/2033 06/30/2023 Hepatitis C Screening Completed 06/30/2023 Pneumococcal Vaccine: 50+ Years Completed 06/30/2023 RSV Patients and Patients Aged 60 years or older Completed 12/26/2023 Zoster Vaccines Completed 12/26/2023, 06/20/2023 Hepatitis A Vaccines Completed 08/13/2024, 11/29/19 24 Influenza Vaccine Completed 08/13/2024, , 07/18/2021 Meningococcal Vaccine Aged Out 08/13/2024 No rodrigo lisandro eligible based on patient's age to complete this topic COVID-19 Vaccine Completed 11/22/2024, , 03/16/2022, Additional history exists HIB Vaccines Aged Out No longer eligi ble based on patient's age to complete this topic HPV Vaccines Aged Out No longer eligi ble based on patient's age to complete this topic Hepatitis B Vaccines Aged Out No long er eligible based on patient's age to complete this topic IPV Vaccines Aged Out No longer eligi ble based on patient's age to complete this topic RSV under 20 months Aged Out No longe r eligible based on patient's age to complete this topic Rotavirus Vaccines Aged Out No longer eligible based on patient's age to complete this topic Goals Goal Patient Goal Type Associated Problems Recent Progress Patient-Stated? Author Quit using tobacco (cigarettes, smokeless, etc) Tobacco Use Blanco Vega, PharmD Note: Quit date: 12/26/2023 Procedures Procedure Name Priority Date/Time Associated Diagnosis Comments POCT JOSE-14 URINE DRUG SCREEN Routine 11/16/2024 10:56 AM EST Chronic pain of both knees MR LUMBAR SPINE WO CONTRAST Routine 10/14/2024 3:07 PM EST Chronic bilateral low back pain, unspecified whether sciatica present POCT JOSE-14 URINE DRUG SCREEN Routine 09/28/2024 9:10 AM EST Other chronic back pain US ABDOMEN COMPLETE Routine 09/11/2024 9 :54 AM EST LDCT LUNG SCREENING Routine 11/18/2023 1 1:57 AM EST LIPID PANEL WITH REFLEX TO DIRECT LDL Routine 10/11/2023 9:18 AM EST Dyslipidemia HEPATITIS C AB W/REFL TO HCV RNA, QN, PCR Routine 06/30/2023 10:33 AM EDT Routine general medical examination at a health care facility from Last 3 Months or Most Recently Relevant to Health Maintenance Results * POCT JOSE-14 Urine Drug Screen (11/16/2024 10:56 AM EST) Only the most recent of2 resultswithin the time period is included. Urine Urine specimen obtained by clean catch procedure / Unknown 11/16/2024 10:56 AM EST Narrative Layla Thapa RN - 11/16/2024 10:56 AM EST .[employer] cup Lot#[id number] Exp. 07/04/26 Internal Pass Control us Kassandra Phillips MD POINT OF CARE TEST ENTER/EDIT OR DERABLES Final Result * MR Lumbar Spine w/o Contrast (10/14/2024 3:07 PM EST) Anatomical Region Laterality Modality Spine, L-spine Magnetic Resonan ce 10/14/2024 3:07 PM EST Narrative 10/15/2024 10:02 AM EST ? [facility] ?[address] ?[place] [address] ? Magnetic Resonance Report ? Signed ? Patient: Kostas Peter,Omer ?MR#: [id number] ?? [id number] ? : 1955 ?Acct:[id number] ? Age/Sex: 69 / M ?ADM Date: 10/14/24 ? Loc: HO.MRI ? Attending Dr: Kassandra Phillips MD ? Ordering Physician: Kassandra Phillips MD ?? Date of Service: 10/14/24 ?? Procedure(s): MR lumbar spine wo con ?? Accession Number(s): [id number] ? cc: Kassandra Phillips MD ? Workstation: [id number] ? EXAMINATION: ??MR LUMBAR SPINE WITHOUT IV CONTRAST ? History: low back pain with radiculopathy. ??Difficulty walking. ? Technique: Sagittal T1, T2 and STIR, and axial T1 and T2 weighted ?? images of the lumbar spine were obtained per departmental protocol. ? Comparison: Correlation is made with plain films of the lumbar spine ?? dated 09/14/2023. ? Findings: ?? The vertebral bodies maintain normal height and marrow signal ?? intensity. There is slight anterior wedging of L1 without abnormal ?? marrow signal intensities to suggest an acute fracture. The appearance ?? is similar to that on the prior plain films. There is mild to moderate ?? degenerative disc disease with disc desiccation, loss of disc height, ?? and endplate spurring, most prominent at the L1-2 level. ? At T12-L1,there is no evidence of disc herniation, central spinal ?? stenosis, or neural foraminal narrowing. ? At L1-2, there is posterior spurring and a mild disc bulge which are ?? asymmetric to the right. This causes narrowing of the inferior recess ?? of the right neural foramen. There is no central spinal or left neural ?? foraminal stenosis. ? At L2-3, there is a mild disc bulge. There is mild facet hypertrophy ?? without central spinal or neural foraminal stenosis. ? At L3-4, there is a mild disc bulge with annular tear. There is mild ?? facet and ligamentum flavum hypertrophy causing narrowing of the ?? inferior recess of the right neural foramen. The left neural foramen is ?? patent. There is no central spinal stenosis. ? At L4-5, there is a mild disc bulge with central annular tear. There is ?? facet and ligamentum flavum hypertrophy causing narrowing of the ?? inferior recesses of the neural foramen. There is no central spinal ?? stenosis. ? At L5-S1, there is a mild disc bulge. There is facet and ligamentum ?? flavum hypertrophy causing bilateral neural foraminal stenosis. There ?? is no central spinal stenosis. ? The conus terminates at the T12-L1 level and demonstrates normal signal ?? intensity. The visualized paraspinal soft tissues are unremarkable. ? MR/MR lumbar spine wo con ?? Impression: ?? Degenerative changes of the lumbar spine as described. There is ?? bilateral neural foraminal stenosis at the L5-S1 level secondary to a ?? disc bulge and facet and ligamentum flavum hypertrophy. ? Electronically signed by: ??Azam Brito MD ??10/15/2024 09:59 AM EST ? Dictated By: ?Azam Brito MD ? Signed By: ?<Electronically signed by Azam Brito MD in OV> ?10/15/24 0959 ? DD/ 1507 ? TD/TT: 10/14/24 1521 ? Industrial Methods Consultant: ? Procedure Note Breanna, Chasidy - 10/15/2024 [place] [address] Magnetic Resonance Report Signed Patient: Benny LaraUziel#: [id number] : 1955cct:[id number] Age/Sex: 69 / MADM Date: 10/14/24 Loc: HO.MRI Attending Dr: Kassandra Phillips MD Ordering Physician: Kassandra Phillips MD Date of Service: 10/14/24 Procedure(s): MR lumbar spine wo con Accession Number(s): [id number] cc: Kassandra Phillips MD Workstation: [id number] EXAMINATION: MR LUMBAR SPINE WITHOUT IV CONTRAST History: low back pain with radiculopathy. Difficulty walking. Technique: Sagittal T1, T2 and STIR, and axial T1 and T2 weighted images of the lumbar spine were obtained per departmental protocol. Comparison: Correlation is made with plain films of the lumbar spine dated 09/14/2023. Findings: The vertebral bodies maintain normal height and marrow signal intensity. There is slight anterior wedging of L1 without abnormal marrow signal intensities to suggest an acute fracture. The appearance is similar to that on the prior plain films. There is mild to moderate degenerative disc disease with disc desiccation, loss of disc height, and endplate spurring, most prominent at the L1-2 level. At T12-L1,there is no evidence of disc herniation, central spinal stenosis, or neural foraminal narrowing. At L1-2, there is posterior spurring and a mild disc bulge which are asymmetric to the right. This causes narrowing of the inferior recess of the right neural foramen. There is no central spinal or left neural foraminal stenosis. At L2-3, there is a mild disc bulge. There is mild facet hypertrophy without central spinal or neural foraminal stenosis. At L3-4, there is a mild disc bulge with annular tear. There is mild facet and ligamentum flavum hypertrophy causing narrowing of the inferior recess of the right neural foramen. The left neural foramen is patent. There is no central spinal stenosis. At L4-5, there is a mild disc bulge with central annular tear. There is facet and ligamentum flavum hypertrophy causing narrowing of the inferior recesses of the neural foramen. There is no central spinal stenosis. At L5-S1, there is a mild disc bulge. There is facet and ligamentum flavum hypertrophy causing bilateral neural foraminal stenosis. There is no central spinal stenosis. The conus terminates at the T12-L1 level and demonstrates normal signal intensity. The visualized paraspinal soft tissues are unremarkable. MR/MR lumbar spine wo con Impression: Degenerative changes of the lumbar spine as described. There is bilateral neural foraminal stenosis at the L5-S1 level secondary to a disc bulge and facet and ligamentum flavum hypertrophy. Electronically signed by: Azam Brito MD 10/15/2024 09:59 AM EST Dictated By: Azam Brito MD Signed By: <Electronically signed by Azam Brito MD in OV> 10/15/24 0959 DD/ 1507 TD/TT: 10/14/24 1521 Industrial Methods Consultant: us Kassandra Phillips MD IMDeniz MRI PROCEDURES Edited Result - Final * US Abdomen Complete (09/11/2024 9:54 AM EST) Anatomical Region Laterality Modality Abdomen Ultrasound 09/11/2024 9:54 AM EST Narrative 09/30/2024 12:55 PM EST ? [facility] ?[address] ?[place] [address] ? Ultrasound Report ? Signed ? Patient: Omer Lara ?MR#: [id number] ?? [id number] ? : 1955 ?Acct:[id number] ? Age/Sex: 69 / M ?ADM Date: 09/11/24 ? Loc: HO.US ? Attending Dr: Niki GUO ? Ordering Physician: Niki Cutler ?? Date of Service: 09/11/24 ?? Procedure(s): US abdomen complete ?? Accession Number(s): [id number] ? cc: Niki Cutler; Kassandra Phillips MD ? EXAMINATION: ?? US ABDOMEN COMPLETE ? CLINICAL INFORMATION: ?? Upper abdominal pain, unspecified. ? COMPARISON: ?? None available. ? TECHNIQUE: ?? Real-time imaging of the abdominal viscera. Technically limited study ?? secondary to bowel gas. ? FINDINGS: ? PANCREAS: Visualized portions are unremarkable. ? ABDOMINAL AORTA: There are atheromatous plaques. Partially obscured by ?? bowel gas. ? INFERIOR VENA CAVA: Visualized portions are normal. ? LIVER: The liver is normal in size. The liver contour is normal. ?? Parenchymal echogenicity is normal. No focal hepatic lesion. There is ?? no intrahepatic biliary duct dilatation seen. ? GALLBLADDER: The gallbladder is physiologically distended without ?? evidence of stones, sludge, polyps, wall thickening or pericholecystic ?? fluid. ? COMMON BILE DUCT: Normal in caliber measuring 0.3 cm in diameter. ? RIGHT KIDNEY: No hydronephrosis. No renal calculi or focal parenchymal ?? lesions. The kidney measures 10.6 cm in maximum dimension. ? LEFT KIDNEY: No hydronephrosis. No renal calculi or focal parenchymal ?? lesions. The kidney measures 10.4 cm in maximum dimension. Limited ?? visualization obscured by bowel gas. ? SPLEEN: The spleen measures 9.6 cm in maximum dimension. Limited ?? visualization obscured by bowel gas. ? FREE FLUID: None. ? US/US abdomen complete ?? IMPRESSION: ? 1. ??No ultrasound explanation for patient's pain symptoms. ? 2. ??No evidence of gallbladder disease or gallstones. ? 3. ??Atheromatous plaques of the abdominal aorta. ? Electronically signed by: ??Nicolle Sutherland MD ??09/30/2024 12:52 PM EST ? Dictated By: ?Nicolle Sutherland MD ? Signed By: ?<Electronically signed by Nicolle Sutherland MD in OV> ?09/30/24 1252 ? DD/ 0954 ? TD/TT: 09/11/24 1024 ? Industrial Methods Consultant: HS ? Procedure Note Chasidy Carlos - 09/30/2024 [place] [address] Ultrasound Report Signed Patient: Maria Antonia Lara#: [id number] : 1955cct:[id number] Age/Sex: 69 / MADM Date: 09/11/24 Loc: HO.US Attending Dr: Niki GUO Ordering Physician: Niki Cutler Date of Service: 09/11/24 Procedure(s): US abdomen complete Accession Number(s): [id number] cc: Niki Cutler; Kassandra Phillips MD EXAMINATION: US ABDOMEN COMPLETE CLINICAL INFORMATION: Upper abdominal pain, unspecified. COMPARISON: None available. TECHNIQUE: Real-time imaging of the abdominal viscera. Technically limited study secondary to bowel gas. FINDINGS: PANCREAS: Visualized portions are unremarkable. ABDOMINAL AORTA: There are atheromatous plaques. Partially obscured by bowel gas. INFERIOR VENA CAVA: Visualized portions are normal. LIVER: The liver is normal in size. The liver contour is normal. Parenchymal echogenicity is normal. No focal hepatic lesion. There is no intrahepatic biliary duct dilatation seen. GALLBLADDER: The gallbladder is physiologically distended without evidence of stones, sludge, polyps, wall thickening or pericholecystic fluid. COMMON BILE DUCT: Normal in caliber measuring 0.3 cm in diameter. RIGHT KIDNEY: No hydronephrosis. No renal calculi or focal parenchymal lesions. The kidney measures 10.6 cm in maximum dimension. LEFT KIDNEY: No hydronephrosis. No renal calculi or focal parenchymal lesions. The kidney measures 10.4 cm in maximum dimension. Limited visualization obscured by bowel gas. SPLEEN: The spleen measures 9.6 cm in maximum dimension. Limited visualization obscured by bowel gas. FREE FLUID: None. US/US abdomen complete IMPRESSION: 1. No ultrasound explanation for patient's pain symptoms. 2. No evidence of gallbladder disease or gallstones. 3. Atheromatous plaques of the abdominal aorta. Electronically signed by: Nicolle Sutherland MD 09/30/2024 12:52 PM EST Dictated By: Nicolle Sutherland MD Signed By: <Electronically signed by Nicolle Sutherland MD in OV> 09/30/24 1252 DD/ 0954 TD/TT: 09/11/24 1024 Industrial Methods Consultant: JAIR [facility] External Provider IMG US PROCEDURES Edited Result - Final * CT Lung Screening Low dose (11/18/2023 11:57 AM EST) Anatomical Region Laterality Modality Lung Computed Tomogra phy 11/18/2023 11:5 7 AM EST Narrative 11/22/2023 3:09 PM EST ? [facility] ?[address] ?[place] [address] ? CT Scan Report ? Signed ? Patient: Omer Lara ?MR#: [id number] ?? [id number] ? : 1955 ?Acct:[id number] ? Age/Sex: 68 / M ?ADM Date: //24 ? Loc: HO.CT ? Attending Dr: Laura Tinajero MACHINE ICER ? Ordering Physician: Laura Tinajero NP ?? Date of Service: 11/18/23 ?? Procedure(s): CT lung screening ?? Accession Number(s): [id number] ? cc: Kassandra Phillips MD; Laura Tinajero NP ? EXAMINATION: ?? CT CHEST SCREENING ? CLINICAL INFORMATION: ?? Current smoker with 43 pack year history ? COMPARISON: ?? No prior CTs. ? TECHNIQUE: ?? Multidetector volumetric CT imaging of the chest is performed without ?? contrast using low dose technique. Additional 2D coronal and sagittal ?? reformatted images and axial 3D maximum intensity projection (MIP) ?? images are generated on the CT workstation. ? This CT examination was performed using dose optimization techniques as ?? appropriate, variously including the following: ?? *Automated exposure control ?? *Adjustment of mA and/or kV according to patient size (this includes ?? techniques or standardized protocols for targeted exams where dose is ?? matched to indication/reason for exam; i.e. extremities or head) ?? *Use of iterative reconstruction technique ? DLP: ? 43 mGy-cm ? FINDINGS: ? MODELING AGENCY MANAGER: Clear lungs. ? LUNGS: Mild biapical pleural thickening. Trachea and bronchi are ?? patent. Mild paraseptal and centrilobular emphysema. 4 mm right lower ?? lobe calcified granuloma. ? MEDIASTINUM: Unremarkable thyroid. Nonspecific mediastinal lymph nodes. ?? Right hilar calcifications without evelia enlargement. ?? Heart is not enlarged. No pericardial effusion. ?? Atherosclerotic calcifications nonaneurysmal aorta. Nonenlarged ?? pulmonary arteries. ? CORONARY ARTERY CALCIFICATION: Moderate ? PLEURA: There is no pleural effusion. No pleural mass or thickening. ? AXILLA: No lymphadenopathy. ? UPPER ABDOMEN: Unremarkable ? OSSEOUS STRUCTURES: Degenerative changes. No suspicious osseous ?? lesions. ? CT/CT lung screening ?? IMPRESSION: ?? No suspicious lung lesions. Mild emphysematous changes. ? ASSESSMENT: ? Lung-RADS category 1: ??Negative ? RECOMMENDATION: ?? Routine annual low-dose CT screening in 12 months. ? Dictated By: ?Temi Rogers MD ? Signed By: ?<Electronically signed by Temi Rogers MD in OV> ?11/22/23 1505 ? DD/ ? TD/TT: ? Industrial Methods Consultant: ? Procedure Note Donotluz elenater, Image - 11/22/[address] [address] [address] Scan Report Signed Patient: Benny LaraR#: [id number] : 1955cct:[id number] Age/Sex: 68 / MADM Date: 11/18/23 Loc: HO.CT Attending Dr: Laura Tinajero NP Ordering Physician: Laura Tinajero NP Date of Service: 11/18/23 Procedure(s): CT lung screening Accession Number(s): [id number] cc: Kassandra Phillips MD; Laura Tinajero NP EXAMINATION: CT CHEST SCREENING CLINICAL INFORMATION: Current smoker with 43 pack year history COMPARISON: No prior CTs. TECHNIQUE: Multidetector volumetric CT imaging of the chest is performed without contrast using low dose technique. Additional 2D coronal and sagittal reformatted images and axial 3D maximum intensity projection (MIP) images are generated on the CT workstation. This CT examination was performed using dose optimization techniques as appropriate, variously including the following: *Automated exposure control *Adjustment of mA and/or kV according to patient size (this includes techniques or standardized protocols for targeted exams where dose is matched to indication/reason for exam; i.e. extremities or head) *Use of iterative reconstruction technique DLP: 43 mGy-cm FINDINGS: MODELING AGENCY MANAGER: Clear lungs. LUNGS: Mild biapical pleural thickening. Trachea and bronchi are patent. Mild paraseptal and centrilobular emphysema. 4 mm right lower lobe calcified granuloma. MEDIASTINUM: Unremarkable thyroid. Nonspecific mediastinal lymph nodes. Right hilar calcifications without evelia enlargement. Heart is not enlarged. No pericardial effusion. Atherosclerotic calcifications nonaneurysmal aorta. Nonenlarged pulmonary arteries. CORONARY ARTERY CALCIFICATION: Moderate PLEURA: There is no pleural effusion. No pleural mass or thickening. AXILLA: No lymphadenopathy. UPPER ABDOMEN: Unremarkable OSSEOUS STRUCTURES: Degenerative changes. No suspicious osseous lesions. CT/CT lung screening IMPRESSION: No suspicious lung lesions. Mild emphysematous changes. ASSESSMENT: Lung-RADS category 1: Negative RECOMMENDATION: Routine annual low-dose CT screening in 12 months. Dictated By: Temi Rogers MD Signed By: <Electronically signed by Temi Rogers MD in OV> 11/22/23 1505 DD/ 1157 TD/TT: Industrial Methods Consultant: [facility] External Provider IMG CT PROCEDURES Final Result * Lipid Panel with Reflex to Direct LDL (10/11/2023 9:18 AM EST) Triglycerides 101 <150 mg/dL [facility] Comment:Desirable Triglyceri de: less than 150 mg/dLBorderline High Triglyceride 150-199 mg/dLHigh Triglyceride: 200-499 mg/dLVery High Triglyceride: greater than or equal to 5OO mg/dL Cholesterol 124 <200 mg/dL [facility] Comment:Desirable Cholestero l: less than 200 mg/dLBorderline High Cholesterol: 200-239 mg/dLHigh Cholesterol: greater than 239 mg/dL LDL Cholesterol Calculated 60 <100 mg/dL [facility] Comment:Desirable LDL: less than 100 mg/dLNear Optimal/Above Optimal LDL: 110- 129 mg/dLBorderline High LDL: 130-159 mg/dLHigh LDL: 160-189 mg/dLVery High LDL: greater than or equal to 190 mg/dL HDL Cholesterol 44 >40 mg/dL [facility] Comment:Desirable HDL: great er than 40 mg/dL Note: This HDL assay may give artificially low results in patients with liver disease. Blood 10/11/2023 9:18 AM EST 10/11/2023 10:59 AM EST Kassandra Phillips MD LAB BLOOD ORDERABLES Final Resul t LABS [address] [place] [address] [phone] * Hepatitis C Antibody with Reflex to HCV, RNA, Quantitative, Real-Time PCR (06/30/2023 10:33 AM EDT) Hepatitis C Antibody Nonreactive Nonreactive LAB[facility] Comment:Antibodies to HCV no t detected; does not exclude early acuteHCV infection. Blood Venous blood specimen / Unknown 06/30/2023 10:33 AM EDT 06/30/2023 11:20 AM EDT Kassandra Phillips MD LAB BLOOD ORDERABLES Final Resul t LABS [address] [place] [address] [phone] from Last 3 Months or Most Recently Relevant to Health Maintenance Insurance [facility] Care Teams Rectifier Operator Relationship Specialty Start Date End Date Kassandra Phillips MD [address] [place] [address] PCP - General Family Medicine 06/30/23 Blanco Gar, PharmD [address] [place] [address] Pharmacist Internal Medicine 12/26/23
--- OUTSIDE RECORDS SUMMARY | 2024-11-22 12:22 | XMS_ITS | Encounter Summary ---
Author Organization [employer] Address [address] [facility] [address] [place] [address] Care Team Providers Care Head Of Operation And Logistics Name Role Phone Kassandra Phillips MD Primary Care Provider [phone] Blanco Gar PharmD Unavailable [phone] Reason for Visit * Reason Comments Med Refill Encounter Details Date Type Department Care Team ([facility] st Contact Info) Description 09/20/2024 Refill [facility] [address] [place], [place] [phone] Kassandra Phillips MD [address] [place], [place] [phone] Social History Tobacco Use Types Packs/Day Years [...] Description 02/15/2025 11:00 AM EDT Clinical Support [facility] [address] [place] [phone] Layla Thapa RN [address] [place] [address] documented as of this encounter Goals Goal Patient Goal Type Associated Problems Recent Progress Patient-Stated? Author Quit using tobacco (cigarettes, smokeless, etc) Tobacco Use Blanco Vega, SouravD Note: Quit date: 12/26/2023 documented as of this encounter Visit Diagnoses Not on filedocumented in this encounter Additional Health Concerns Assessment Noted Time PHQ-9 Depression Total Score: 1 08/13/20 24 12:59 PM EST documented as of this encounter Care Teams Head Of Operation And Logistics Relationship Specialty Start Date End Date Kassandra Phillips MD [address] [place] [address] PCP - General Family Medicine 06/30/23 Blanco Gar, SouravD [address] [place] [phone] Pharmacist Internal Medicine 12/26/23 documented as of this encounter
--- OUTSIDE RECORDS SUMMARY | 2024-11-22 12:23 | XMS_ITS | Encounter Summary ---
Author Organization [facility] Address [address] [place] [address] [address] [place] [address] Care Team Providers Care Geographic Information System Analyst Name Role Phone Kassandra Phillips MD Primary Care Provider [phone] Blanco Gar PharmD Unavailable [phone] Encounter Details Date Type Department Care Team (Late st Contact Info) Description 07/01/2023 Orders Only [facility] [address] [place] [address] [phone] Kassandra Phillips MD [address] [place] [address] [phone] Anemia, unspecified type (Primary Dx) Social History Tobacco Use Types Packs/Day Years Used Date Smoking Tobacco: Every Day Cigarettes Passive Smoke Exposure: Current Depression Answer Date Recorded Patient Health Questionnaire-9 Score 4 06/30/2023 Depression Answer Date Recorded Patient Health Questionnaire-2 [...] Description 02/15/2025 11:00 AM EDT Clinical Support [facility] [address] [place] [address] [phone] Layla Thapa RN [address] [place], [place] [phone] Scheduled Orders Name Type Priority Associated Diagnoses Orde r Schedule CBC auto differential Lab Routine Anemia, unspecified type Expected: 07/01/2023 (Approximate), Expires: 07/01/2024 Iron And Total Iron Binding Capacity Lab Routine Anemia, unspecified type Expected: 07/01/2023, Expires: 07/01/2024 Vitamin B12/Folate, Serum Panel Lab Routine Anemia, unspecified type Expected: 07/01/2023 (Approximate), Expires: 07/01/2024 PSA,Total Lab Routine Anemia, unspecified type Expected: 07/01/2023, Expires: 07/01/2024 HIV-1/2 Antigen and Antibodies, Fourth Generation, with Reflexes Lab Routine Anemia, unspecified type Expected: 07/01/2023 (Approximate), Expires: 07/01/2024 documented as of this encounter Visit Diagnoses Diagnosis Anemia, unspecified type- Primary documented in this encounter Additional Health Concerns Assessment Noted Time PHQ-9 Depression Total Score: 4 06/30/20 23 9:32 AM EDT documented as of this encounter Care Teams Geographic Information System Analyst Relationship Specialty Start Date End Date Kassandra Phillips MD [address] [place] [address] PCP - General Family Medicine 06/30/23 Blanco Gar, SouravD [address] [place] [address] Pharmacist Internal Medicine 12/26/23 documented as of this encounter
--- OUTSIDE RECORDS SUMMARY | 2024-11-22 12:23 | XMS_ITS | Encounter Summary ---
Author Organization [employer] Address [address] [facility] 7t [place] [address] Care Team Providers Care Lens Blank Gauger Name Role Phone Kassandra Phillips MD Primary Care Provider [phone] Blanco Gar PharmD Unavailable [phone] Reason for Visit * Reason Onset Date Comments november recall 10/25/2024 Encounter Details Date Type Department Care Team (Late st Contact Info) Description 10/25/2024 Telephone [facility] [address] [place], [place] [phone] Yamile Curiel [place] november recall Social History Tobacco Use Types Packs/Day Years [...] t he electric, gas, oil or water [employer] threatened to shut off services in your [...] encounter Miscellaneous Notes * Telephone Encounter - Mateusz Lomas - 10/25/2024 2:54 PM EST Tc from pt returning call regarding message prior. * Telephone Encounter - Yamile Curiel MA - 10/25/2024 1:32 PM EST .CATHLEEN called the patient to schedule a visit and no answer. Message left to call back and schedule. (November recall RV carotid stenosis, lab, GERD, neck and back MRI. ) documented in this encounter Plan of Treatment Upcoming Encounters Date Type Department Care Team (Late st Contact Info) Description 02/15/2025 11:00 AM EDT Clinical Support [facility] [address] [place] [address] Layla Thapa, DON [address] [place], [place] [phone] documented as of this encounter Goals Goal Patient Goal Type Associated Problems Recent Progress Patient-Stated? Author Quit using tobacco (cigarettes, smokeless, etc) Tobacco Use No Blanco Gar, PharmJohnnie Note: Quit date: 12/26/2023 documented as of this encounter Visit Diagnoses Not on filedocumented in this encounter Additional Health Concerns Assessment Noted Time PHQ-9 Depression Total Score: 1 08/13/20 24 12:59 PM EST documented as of this encounter Care Teams Lens Blank Gauger Relationship Specialty Start Date End Date Kassandra Phillips MD [address] [place] [address] PCP - General Family Medicine 06/30/23 Blanco Gar, PharmD [address] [place] [address] Pharmacist Internal Medicine 12/26/23 documented as of this encounter
--- OUTSIDE RECORDS SUMMARY | 2024-11-22 12:23 | XMS_ITS | Encounter Summary ---
Author Organization [employer] Address [address] [facility] 7t [place] [address] Care Team Providers Care Marine Fitter Name Role Phone Kassandra Phillips MD Primary Care Provider [phone] Blanco Gar PharmD Unavailable [phone] Reason for Referral * Consultation (Routine) - Closed Specialty Diagnoses / Procedures Referred By Contac t Referred To Contact Orthopaedic Surgery Diagnoses Osteoarthritis of cervical spine, unspecified spinal osteoarthritis complication status Lumbar degenerative disc disease Kassandra Phillips MD [address] [place] [address] Phone: tel: fax: [facility] [address] [facility] [address] [place], [place] Phone: tel: fax: Referral ID Status Reason Start Date Expiration Date V isits Requested Visits Authorized [id number] Closed Specialty Services Required 09/19/2023 09/18/2024 1 1 * Imaging (Routine) - Closed Specialty Diagnoses / Procedures Referred By Contac t Referred To Contact Cardiology Diagnoses Calcification of both carotid arteries Procedures VASC US Carotid Artery Duplex Bilateral Kassandra Phillips MD [address] [place] [address] Phone: tel: fax: [facility] [address] [place], [place] Phone: tel: fax: Referral ID Status Reason Start Date Expiration Date V isits Requested Visits Authorized [id number] Closed Perform Procedure 09/19/2023 09/18/2024 1 1 Encounter Details Date Type Department Care Team (Late st Contact Info) Description 09/19/2023 Orders Only [facility] [address] [place] [address] Kassandra Phillips MD [address] [place] [address] Calcification of both carotid arteries (Primary Dx); Osteoarthritis of cervical spine, unspecified spinal osteoarthritis complication status; Lumbar degenerative disc disease Social History Tobacco Use Types Packs/Day Years [...] as of this encounter Miscellaneous Notes * Result Encounter Note - Kassandra Phillips MD - 09/19/2023 9:12 AM EST Please inform patient that carotid us shows carotid stenosis on the right side and patient will be referred to a vascular specialist. It will be important to take cholesterol medication and BP control. BP at last visit was elevated. Please ask patient to monitor home BP. Please schedule BP check with nurse or PCP within 1 mo. Thank you. documented in this encounter Plan of Treatment Upcoming Encounters Date Type Department Care Team (Late st Contact Info) Description 02/15/2025 11:00 AM EDT Clinical Support [facility] [address] [place] [address] Layla Thapa RN [address] [place] [address] Scheduled Referrals Name Type Priority Associated Diagnoses Orde r Schedule Referral to Orthopaedic Surgery Outpatient Referral Routine Osteoarthritis of cervical spine, unspecified spinal osteoarthritis complication status Lumbar degenerative disc disease Expected: 09/19/2023 (Approximate), Expires: 09/19/2024 documented as of this encounter Procedures Procedure Name Priority Date/Time Associated Diagnosis Comments [facility] US CAROTID ARTERY DUPLEX BILATERAL Routine 10/19/2023 2:39 PM EST documented in this encounter Results * [facility] US Carotid Artery Duplex Bilateral (10/19/2023 2:39 PM EST) 10/19/2023 2:39 PM EST Narrative [facility] - 10/20/2023 12:34 PM EST ? [facility] ?[address] ?[place] [address] ? Ultrasound Report ? Signed ? Patient: Kostas Peter,Omer ?MR#: [id number] ?? [id number] ? : 1955 ?Acct:[id number] ? Age/Sex: 68 / M ?ADM Date: 01/10/24 ? Loc: HO.US ? Attending Dr: Kassandra Phillips MD ? Ordering Physician: Kassandra Phillips MD ?? Date of Service: 10/19/23 ?? Procedure(s): US carotid duplex BI ?? Accession Number(s): [id number] ? cc: Kassandra Phillips MD ? EXAMINATION: ?? US EXTRACRANIAL CAROTID DUPLEX, BILATERAL ? CLINICAL INFORMATION: ?? Calcification of carotid arteries. ? COMPARISON: ?? None available. ? TECHNIQUE: ?? Real-time ultrasound and Doppler techniques (integrating B-mode 2-D ?? vascular images, Doppler spectral analysis and color-flow Doppler ?? imaging) were ?? utilized to interrogate the extracranial carotid arteries, the ?? vertebral arteries and proximal subclavian arteries bilaterally. The ?? degree of stenosis is determined by criteria similar to NASCET. ? FINDINGS: ?? Right Side: ?? 1. There is mild atherosclerotic plaque seen in the ?? bifurcation/proximal ICA region. ?? 2. The common carotid artery PSV proximally is 113 cm/s and distally ?? 104 cm/s. ?? 3. The proximal internal carotid artery velocities are 232 cm/s ?? systolic and 55 cm/s diastolic. ?? 4. The proximal external carotid artery PSV is 117 cm/s. ?? 5. The vertebral artery shows antegrade flow. ?? 6. The subclavian artery waveforms are normal. ? Left Side: ?? 1. There is mild atherosclerotic plaque seen in the ?? bifurcation/proximal ICA region. ?? 2. The common carotid artery PSV proximally is 104 cm/s and distally 80 ?? cm/s. ?? 3. The proximal internal carotid artery velocities are 70 cm/s systolic ?? and 20 cm/s diastolic. ?? 4. The proximal external carotid artery PSV is 113 cm/s. ?? 5. The vertebral artery shows antegrade flow. ?? 6. The subclavian artery waveforms are normal. ? US/US carotid duplex BI ?? IMPRESSION: ?? 1. RIGHT: Moderate, hemodynamically significant stenosis of the ?? proximal right internal carotid artery corresponding to a 50-79% ?? stenosis by velocity criteria. ? 2. LEFT: Minimal, non-hemodynamically significant stenosis of the ?? proximal left internal carotid artery corresponding to a 0-49% stenosis ?? by velocity criteria. ? Dictated By: ?Gerard Swift MD ? Signed By: ?<Electronically signed by Gerard Swift MD in OV> ?10/20/23 1230 ? DD/ 1439 ? TD/TT: ? Cro: JK ? Procedure Note Donotuseinterpreter, Image - 10/20/[address] [address] Ultrasound Report Signed Patient: Benny LaraR#: [id number] : 1955cct:[id number] Age/Sex: 68 / MADM Date: 10/19/23 Loc: HO.US Attending Dr: Kassandra Phillips MD Ordering Physician: Kassandra Pihllips MD Date of Service: 10/19/23 Procedure(s): US carotid duplex BI Accession Number(s): [id number] cc: Kassandra Phillips MD EXAMINATION: US EXTRACRANIAL CAROTID DUPLEX, BILATERAL CLINICAL INFORMATION: Calcification of carotid arteries. COMPARISON: None available. TECHNIQUE: Real-time ultrasound and Doppler techniques (integrating B-mode 2-D vascular images, Doppler spectral analysis and color-flow Doppler imaging) were utilized to interrogate the extracranial carotid arteries, the vertebral arteries and proximal subclavian arteries bilaterally. The degree of stenosis is determined by criteria similar to NASCET. FINDINGS: Right Side: 1. There is mild atherosclerotic plaque seen in the bifurcation/proximal ICA region. 2. The common carotid artery PSV proximally is 113 cm/s and distally 104 cm/s. 3. The proximal internal carotid artery velocities are 232 cm/s systolic and 55 cm/s diastolic. 4. The proximal external carotid artery PSV is 117 cm/s. 5. The vertebral artery shows antegrade flow. 6. The subclavian artery waveforms are normal. Left Side: 1. There is mild atherosclerotic plaque seen in the bifurcation/proximal ICA region. 2. The common carotid artery PSV proximally is 104 cm/s and distally 80 cm/s. 3. The proximal internal carotid artery velocities are 70 cm/s systolic and 20 cm/s diastolic. 4. The proximal external carotid artery PSV is 113 cm/s. 5. The vertebral artery shows antegrade flow. 6. The subclavian artery waveforms are normal. US/US carotid duplex BI IMPRESSION: 1. RIGHT: Moderate, hemodynamically significant stenosis of the proximal right internal carotid artery corresponding to a 50-79% stenosis by velocity criteria. 2. LEFT: Minimal, non-hemodynamically significant stenosis of the proximal left internal carotid artery corresponding to a 0-49% stenosis by velocity criteria. Dictated By: Gerard Swift MD Signed By: <Electronically signed by Gerard Swift MD in OV> 10/20/23 1230 DD/ 1439 TD/TT: Cro: SUMAN us Kassandra Phillips MD CV VASCULAR PROCEDURES Final Res ult [facility] [address] [place], [place] [phone] documented in this encounter Visit Diagnoses Diagnosis Calcification of both carotid arteries- Primary Osteoarthritis of cervical spine, unspecified spinal osteoarthritis complication status Lumbar degenerative disc disease documented in this encounter Additional Health Concerns Assessment Noted Time PHQ-9 Depression Total Score: 4 06/30/20 23 9:32 AM EDT documented as of this encounter Care Teams Marine Fitter Relationship Specialty Start Date End Date Kassandra Phillips MD [address] [place] [address] PCP - General Family Medicine 06/30/23 Blanco Gar, SouravD [address] [place] [address] Pharmacist Internal Medicine 12/26/23 documented as of this encounter
--- OUTSIDE RECORDS SUMMARY | 2024-11-22 12:23 | XMS_ITS | Encounter Summary ---
Author Organization [employer] Address [address] [facility] 7t [place] [address] Care Team Providers Care Portfolio Specialist Name Role Phone Kassandra Phillips MD Primary Care Provider [phone] Blanco Gar PharmD Unavailable [phone] Encounter Details Date Type Department Care Team (Late st Contact Info) Description 10/20/2023 Orders Only [facility] [address] [place], [place] [phone] Kassandra Phillips MD [address] [place], [place] [phone] Carotid stenosis, right Social History Tobacco Use Types Packs/Day Years [...] as of this encounter Miscellaneous Notes * Assessment & Plan Note - Kassandra Phillips MD - 10/20/2023 1:27 PM ESTAssociated Problem(s): Carotid stenosis, right - carotid US on 10/19/23 1. RIGHT: Moderate, hemodynamically significant stenosis of the proximal right internal carotid artery corresponding to a 50-79% stenosis by velocity criteria. 2. LEFT: Minimal, non-hemodynamically significant stenosis of the proximal left internal carotid artery corresponding to a 0-49% stenosis by velocity criteria. Referred to vascular specialist [employer] risk factor management documented in this encounter Plan of Treatment Upcoming Encounters Date Type Department Care Team (Late st Contact Info) Description 02/15/2025 11:00 AM EDT Clinical Support [facility] [address] [place] [address] Layla Thapa, DON [address] [place] [address] documented as of this encounter Procedures Procedure Name Priority Date/Time Associated Diagnosis Comments LDCT LUNG SCREENING Routine 11/18/2023 1 1:57 AM EST documented in this encounter Results * CT Lung Screening Low dose (11/18/2023 11:57 AM EST) Anatomical Region Laterality Modality Lung Computed Tomogra phy 11/18/2023 11:5 7 AM EST Narrative 11/22/2023 3:09 PM EST ? [facility] ?[address] ?[place] [address] ? CT Scan Report ? Signed ? Patient: Kenyongerson Peter,Omer ?MR#: [id number] ?? [id number] ? : 1955 ?Acct:[id number] ? Age/Sex: 68 / M ?ADM Date: 11/18/23 ? Loc: HO.CT ? Attending Dr: Laura Tinajero JOB SERVICE SPECIALIST ? Ordering Physician: Laura Tinajero NP ?? Date of Service: 11/18/23 ?? Procedure(s): CT lung screening ?? Accession Number(s): [id number] ? cc: Kassandra Phillips MD; Laura Tinajero [...] DLP: ? 43 mGy-cm ? FINDINGS: ? INSURANCE HEALTHCARE CONSULTANT: Clear lungs. ? LUNGS: Mild biapical pleural [...] MD in OV> ?11/22/23 1505 ? DD/ 1157 ? TD/TT: ? Resistor Winder: ? Procedure Note Donsteffter, Image - 11/22/[address] [address] [address] Scan Report Signed Patient: Maria Antonia Lara#: [id number] : 7Acct:[id number] Age/Sex: 68 / MADM Date: 11/18/23 Loc: HO.CT Attending Dr: Laura Tinajero NP Ordering Physician: Laura Tinajero NP Date of Service: 11/18/23 Procedure(s): CT lung screening Accession Number(s): [id number] cc: Kassandra Phillips MD; Laura Tinajero NP [...] iterative reconstruction technique DLP: 43 mGy-cm FINDINGS: INSURANCE HEALTHCARE CONSULTANT: Clear lungs. LUNGS: Mild biapical pleural thickening. [...] in OV> 11/22/23 1505 DD/ 1157 TD/TT: Resistor Winder: [facility] External Provider IMG CT PROCEDURES Final Result documented in this encounter Visit Diagnoses Diagnosis Carotid stenosis, right Occlusion and stenosis of carotid artery without mention of cerebral infarction documented in this encounter Additional Health Concerns Assessment Noted Time PHQ-9 Depression Total Score: 4 06/30/20 23 9:32 AM EDT documented as of this encounter Care Teams Portfolio Specialist Relationship Specialty Start Date End Date Kassandra Phillips MD [address] [place] [address] PCP - General Family Medicine 06/30/23 Blanco Gar, SouravD [address] [place] [address] Pharmacist Internal Medicine 12/26/23 documented as of this encounter
--- OUTSIDE RECORDS SUMMARY | 2024-11-22 12:23 | XMS_ITS | Encounter Summary ---
Author Organization [employer] Address [address] [facility] 7t [place] [address] Care Team Providers Care Cloth Washer Operator Name Role Phone Kassandra Phillips MD Primary Care Provider [phone] Blanco Gar PharmD Unavailable [phone] Encounter Details Date Type Department Care Team (Late st Contact Info) Description 10/30/2024 Telephone [facility] MEDICINE [address] [place], [place] [phone] Kassandra Phillips MD [address] [place], [place] [phone] Social History Tobacco Use Types Packs/Day Years [...] Description 02/15/2025 11:00 AM EDT Clinical Support [facility] MEDICINE [address] [place] [address] Layla Thapa RN [address] [place] [address] documented as of this encounter Goals Goal [...] documented as of this encounter Care Teams Cloth Washer Operator Relationship Specialty Start Date End Date Kassandra Phillips MD [address] [place] [address] PCP - General Family Medicine 06/30/23 Blanco Gar, PharmD [address] [place] [address] [place] [address] Pharmacist Internal Medicine 12/26/23 documented as of this encounter
--- OUTSIDE RECORDS SUMMARY | 2024-11-22 12:23 | XMS_ITS | Encounter Summary ---
Author Organization [employer] Address [address] [facility] 7t [place] [address] Care Team Providers Care Repairer Maintenance Building Name Role Phone Kassandra Phillips MD Primary Care Provider [phone] Blanco Gar PharmD Unavailable [phone] Reason for Visit * Reason Onset Date Comments Med Refill 09/17/2024 Encounter Details Date Type Department Care Team (Late st Contact Info) Description 09/17/2024 Telephone [facility] MEDICINE [address] [place], [place] [phone] Kassandra Phillips MD [address] [place], [place] [phone] Med Refill Social History Tobacco Use Types [...] encounter Miscellaneous Notes * Telephone Encounter - Kranthi Ruth - 09/17/2024 11:52 AM EST TC from pt requesting medication refill. Medications needing refill : traMADol (Ultram) 50 MG tablet To be sent to: [id number] documented in this encounter Plan of Treatment Upcoming Encounters Date Type Department Care Team (Late st Contact Info) Description 02/15/2025 11:00 AM EDT Clinical Support [facility] MED[facility]INE [address] [place], [place] [phone] Layla Thapa, DON [address] [place], [place] [phone] documented as of this encounter Goals Goal Patient Goal Type Associated Problems Recent Progress Patient-Stated? Author Quit using tobacco (cigarettes, smokeless, etc) Tobacco Use No Gar, Blanco, Julianne Note: Quit date: 12/26/2023 documented as of this encounter Visit Diagnoses Not on filedocumented in this encounter Additional Health Concerns Assessment Noted Time PHQ-9 Depression Total Score: 1 08/13/20 24 12:59 PM EST documented as of this encounter Care Teams Repairer Maintenance Building Relationship Specialty Start Date End Date Kassandra Phillips MD [address] [place] [address] PCP - General Family Medicine 06/30/23 Blanco Gar, Julianne [address] [place] [address] Pharmacist Internal Medicine 12/26/23 documented as of this encounter
--- OUTSIDE RECORDS SUMMARY | 2024-11-22 12:23 | XMS_ITS | Encounter Summary ---
Author Organization [employer] Address [address] [facility] 7t [place] [address] Care Team Providers Care Trades Helper Name Role Phone Kassandra Phillips MD Primary Care Provider [phone] Blanco Gar PharmD Unavailable [phone] Reason for Visit * Reason Onset Date Comments Med Refill 06/20/2024 Encounter Details Date Type Department Care Team ([facility] st Contact Info) Description 06/20/2024 Telephone [facility] MEDICINE [address] [place], [place] [phone] Kassandra Phillips MD [address] [place], [place] [phone] Med Refill Social History Tobacco Use Types [...] encounter Miscellaneous Notes * Telephone Encounter - Waleska Borges - 06/20/2024 1:56 PM EDT TC from pt requesting medication refill. Medications needing refill : traMADol (Ultram) 50 MG tablet To be sent to: [id number] - [place], [place] - [address] [facility] documented in this encounter Plan of Treatment Upcoming Encounters Date Type Department Care Team (Late st Contact Info) Description 02/15/2025 11:00 AM EDT Clinical Support [facility] [address] [place] [address] Layla Thapa RN [address] [place] [address] documented as of this encounter Goals Goal Patient Goal Type Associated Problems Recent Progress Patient-Stated? Author Quit using tobacco (cigarettes, smokeless, etc) Tobacco Use Blanco Vega, PharmD Note: Quit date: 12/26/2023 documented as of this encounter Visit Diagnoses Not on filedocumented in this encounter Additional Health Concerns Assessment Noted Time PHQ-9 Depression Total Score: 4 06/30/20 23 9:32 AM EDT documented as of this encounter Care Teams Trades Helper Relationship Specialty Start Date End Date Sakurai, Kassandra, MD [address] [place], [place] [phone] PCP - General Family Medicine 06/30/23 Blanco Gar, SouravD [address] [place] [address] Pharmacist Internal Medicine 12/26/23 documented as of this encounter
--- OUTSIDE RECORDS SUMMARY | 2024-11-22 12:23 | XMS_ITS | Encounter Summary ---
Author Organization [employer] Address [address] [facility] 7t [place] [address] Care Team Providers Care Asphalt Paving Supervisor Name Role Phone Kassandra Phillips MD Primary Care Provider [phone] Blanco Gar PharmD Unavailable [phone] Reason for Visit * Reason Comments Med Refill Encounter Details Date Type Department Care Team ([facility] st Contact Info) Description 11/14/2024 Refill [facility] MEDICINE 230 [place], [place] [phone] Kassandra Phillips MD [address] [place], [place] [phone] Social History Tobacco Use Types Packs/Day Years [...] Description 02/15/2025 11:00 AM EDT Clinical Support [facility] MEDICINE [address] [place] [address] Layla Thapa RN [address] [place] [address] documented as of this encounter Goals Goal [...] documented as of this encounter Care Teams Asphalt Paving Supervisor Relationship Specialty Start Date End Date Kassandra Phillips MD [address] [place] [address] PCP - General Family Medicine 06/30/23 Blanco Gar, SouravD [address] [place] [address] Pharmacist Internal Medicine 12/26/23 documented as of this encounter
--- OUTSIDE RECORDS SUMMARY | 2024-11-22 12:23 | XMS_ITS | Encounter Summary ---
Author Organization [employer] Address [address] [facility] 7t [place] [address] Care Team Providers Care Machine Cutter Name Role Phone Kassandra Phillips MD Primary Care Provider [phone] Blanco Gar PharmD Unavailable [phone] Reason for Visit * Reason Onset Date Comments Med Refill 10/30/2024 Encounter Details Date Type Department Care Team (Late st Contact Info) Description 10/30/2024 Refill [facility] [address] [place], [place] [phone] Kassandra Phillips MD [address] [place], [place] [phone] Cervical spondylosis; Neck pain; Other chronic back pain Social History Tobacco Use Types Packs/Day Years [...] encounter Miscellaneous Notes * Telephone Encounter - Lo Bradley RN - 10/30/2024 2:39 PM EST PORT CAPTAIN checked. Pt last picked up 28 day supply of tramadol 09/21/24. Soonest fill date 10/19/24. Upcoming appt with PERSONALIZED LIVING ASSISTANT 11/16/24. Refill appropriate. Queued. * Telephone Encounter - Gerard Wright - 10/30/2024 9:45 AM EST TC from pt requesting medication refill. Medications needing refill : traMADol (Ultram) 50 MG tablet To be sent to: [id number] - [place] - [address] [facility] documented in this encounter Plan of Treatment Upcoming Encounters Date Type Department Care Team (Late st Contact Info) Description 02/15/2025 11:00 AM EDT Clinical Support [facility] MEDICINE [address] [place] [address] Layla Thapa, RN [address] [place] [address] documented as of this encounter Goals Goal Patient Goal Type Associated Problems Recent Progress Patient-Stated? Author Quit using tobacco (cigarettes, smokeless, etc) Tobacco Use No Blanco Gar, Julianne Note: Quit date: 12/26/2023 documented as of this encounter Visit Diagnoses Diagnosis Cervical spondylosis Cervical spondylosis without myelopathy Neck pain Cervicalgia Other chronic back pain documented in this encounter Additional Health Concerns Assessment Noted Time PHQ-9 Depression Total Score: 1 08/13/20 24 12:59 PM EST documented as of this encounter Care Teams Machine Cutter Relationship Specialty Start Date End Date Kassandra Phillips MD [address] [place] [address] PCP - General Family Medicine 06/30/23 Blanco Gar, PharmD [address] [place] [address] Pharmacist Internal Medicine 12/26/23 documented as of this encounter
--- OUTSIDE RECORDS SUMMARY | 2024-11-22 12:23 | XMS_ITS | Encounter Summary ---
Author Organization [employer] Address 75 [facility] 7t [place] [address] Care Team Providers Care Stone Rigger Name Role Phone Kassandra Phillips MD Primary Care Provider [phone] Blanco Gar PharmD Unavailable [phone] Encounter Details Date Type Department Care Team (Late st Contact Info) Description 11/10/2023 Telephone [facility] 230 [place], [place] [phone] Kassandra Phillips MD 230 [place], [place] [phone] Social History Tobacco Use Types Packs/Day Years [...] Description 02/15/2025 11:00 AM EDT Clinical Support [facility] 230 [place] [address] Layla Thapa, DON 505 [place] [address] documented as of this encounter Visit Diagnoses Not on filedocumented in this encounter Additional Health Concerns Assessment Noted Time PHQ-9 Depression Total Score: 4 06/30/20 9:32 AM EDT documented as of this encounter Care Teams Stone Rigger Relationship Specialty Start Date End Date Kassandra Phillips MD [address] [place] [address] PCP - General Family Medicine 06/30/23 Blanco Gar, SouravD [address] [place] [address] Pharmacist Internal Medicine 12/26/23 documented as of this encounter
--- OUTSIDE RECORDS SUMMARY | 2024-11-22 12:23 | XMS_ITS | Encounter Summary ---
Author Organization [employer] Address 75 [facility] 7t [place] [address] Care Team Providers Care Snailer Name Role Phone Kassandra Phillips MD Primary Care Provider [phone] Blanco Gar PharmD Unavailable [phone] Encounter Details Date Type Department Care Team (Late st Contact Info) Description 11/13/2024 Telephone [facility] 505 [place], [place] [phone] Layla Thapa, RN 505 [place], [place] [phone] Social History Tobacco Use Types Packs/Day Years [...] encounter Miscellaneous Notes * Telephone Encounter - Layla Thapa RN - 11/13/2024 3:54 PM EST .What CAMPUS SAFETY OFFICER Tier would you like this patient to be? Tier 1 = HIGH RISK, Monthly CAMPUS SAFETY OFFICER visits Tier 2 = MODerate RISK, Q3 Month visits Tier 3 = LOW RISK = Q4-6 month visits documented in this encounter Plan of Treatment Upcoming Encounters Date Type Department Care Team (Late st Contact Info) Description 02/15/2025 11:00 AM EDT Clinical Support [facility] MED[facility] [address] [place] [address] [phone] Layla Thapa RN 505 [place], [place] [phone] documented as of this encounter Goals Goal [...] documented as of this encounter Care Teams Snailer Relationship Specialty Start Date End Date Kassandra Phillips MD 230 [place] [address] PCP - General Family Medicine 06/30/23 Blanco Gar, SouravD 230 [place] [address] Pharmacist Internal Medicine 12/26/23 documented as of this encounter
--- OUTSIDE RECORDS SUMMARY | 2024-11-22 12:23 | XMS_ITS | Encounter Summary ---
Author Organization [employer] Address 75 [facility] 7t [place] [address] Care Team Providers Care Junior Linux Systems Administrator Name Role Phone Kassandra Phillips MD Primary Care Provider [phone] Blanco Gar PharmD Unavailable [phone] Reason for Visit * Reason Comments Pre-visit Planning Pre-visit planning - LVM Encounter Details Date Type Department Care Team ([facility] st Contact Info) Description 11/08/2024 Patient Outreach [facility] 230 [place], [place] [phone] Kassandra Phillips MD 230 [place], [place] [phone] Pre-visit Planning (Pre-visit planning - LVM ) Social History Tobacco Use Types Packs/Day Years [...] PM EDT documented as of this encounter Progress Notes * Margo Obrien - 11/08/2024 2:44 PM EST OLGA Gonzalez placed outbound call to patient to complete pre-visit planning. No answer at this time. Patient name and were not confirmed. CC left voicemail requesting return call. Direct contact information provided. documented in this encounter Plan of Treatment Upcoming Encounters Date Type Department Care Team (Late st Contact Info) Description 02/15/2025 11:00 AM EDT Clinical Support [facility] MED[facility]INE [address] [place] [address] Layla Thapa RN 505 [place], [place] [phone] documented as of this encounter Goals Goal [...] documented as of this encounter Care Teams Junior Linux Systems Administrator Relationship Specialty Start Date End Date Kassandra Phillips MD 230 [place] [address] PCP - General Family Medicine 06/30/23 Blanco Gar, PharmD [address] [place] [address] Pharmacist Internal Medicine 12/26/23 documented as of this encounter
--- OUTSIDE RECORDS SUMMARY | 2024-11-22 12:23 | XMS_ITS | Encounter Summary ---
Author Organization [employer] Address 75 [facility] 7t [place] [address] Care Team Providers Care Seo Consultant Name Role Phone Kassandra Phillips MD Primary Care Provider [phone] Blanco Gar PharmD Unavailable [phone] Encounter Details Date Type Department Care Team (Latest Contact Info) Description 11/22/2024 Travel Social History Tobacco Use Types Packs/Day Years [...] Description 02/15/2025 11:00 AM EDT Clinical Support [facility] [address] [place] [address] Layla Thapa RN 505 [place] [address] documented as of this encounter Goals Goal Patient Goal Type Associated Problems Recent Progress Patient-Stated? Author Quit using tobacco (cigarettes, smokeless, etc) Tobacco Use No Blanco Gar PharmD Note: Quit date: 12/26/2023 documented as of this encounter Visit Diagnoses Not on filedocumented in this encounter Additional Health Concerns Assessment Noted Time PHQ-9 Depression Total Score: 1 08/13/20 24 12:59 PM EST documented as of this encounter Care Teams Seo Consultant Relationship Specialty Start Date End Date Kassandra Phillips MD [address] [place] [address] PCP - General Family Medicine 06/30/23 Blanco Gar, Julianne [address] [place] [address] Pharmacist Internal Medicine 12/26/23 documented as of this encounter
--- OUTSIDE RECORDS SUMMARY | 2024-11-22 12:23 | XMS_ITS | Encounter Summary ---
Author Organization [employer] Address 75 [facility] 7t [place] [address] Care Team Providers Care Hand Ornament Maker Name Role Phone Kassandra Phillips MD Primary Care Provider [phone] Blanco Gar PharmD Unavailable [phone] Reason for Visit * Reason Comments controlled substance treatment Encounter Details Date Type Department Care Team (Latest Contact Info) Description 11/16/2024 11:00 AM EST Clinical Support [facility] MEDICINE 230 [place] [address] Layla Thapa, DON 505 [place], [place] [phone] Chronic pain of both knees Social History Tobacco Use Types Packs/Day Years [...] as of this encounter Progress Notes * Layla Thapa RN - 11/16/2024 11:00 AM EST S: INTERMEDIATE CARD TENDER NV. Patient is prescribed Tramadol 50mg tid PRN for chronic back/neck pain. Last PCP visit was on 08/13/24. Patient states has been taking medications only as prescribed. Denies any adverse effects. Denies ETOH or illicit drugs use. States quit smoking cigarettes about 7 month ago, congratulated! Current pain level is 9/10 located in the lower back/ neck. Patient states medication usually provides 50% pain relief. Chronic pain group pamphlet given, patient not interested at this time. CSTAgreement initiated today. O: VSS. INTERMEDIATE CARD TENDER tier 3. BRICK KILN WORKER checked on 11/16/24. No discrepancies noted. Medication refilled on 10/31/24. Pill count performed, patient has 44 pills left, 38 expected. Medication is not being overused. Utoxperformed, negative for all tested substances, as expected. A: BZO use r/t anxiety. P: Patient to cont. with current medication regimen as needed and take medication only as directed.f/u for next INTERMEDIATE CARD TENDER NV scheduled for 02/15/25 @ 11am. F/u with PCP 11/22/24. Reminder slip given. f/u sooner PRN. Patient verbalized understanding and agreed to plan. documented in this encounter Plan of Treatment Upcoming Encounters Date Type Department Care Team (Late st Contact Info) Description 02/15/2025 11:00 AM EDT Clinical Support [facility] MED[facility]INE 230 [place] [address] Layla Thapa RN 505 [place], [place] [phone] documented as of this encounter Goals Goal Patient Goal Type Associated Problems Recent Progress Patient-Stated? Author Quit using tobacco (cigarettes, smokeless, etc) Tobacco Use Blanco Vega, PharmD Note: Quit date: 12/26/2023 documented as of this encounter Procedures Procedure Name Priority Date/Time Associated Diagnosis Comments POCT JOSE-14 URINE DRUG SCREEN Routine 11/16/2024 10:56 AM EST Chronic pain of both knees documented in this encounter Results * POCT JOSE-14 Urine Drug Screen (11/16/2024 10:56 AM EST) Urine Urine specimen obtained by clean catch procedure / Unknown 11/16/2024 10:56 AM EST Narrative Layla Thapa RN - 11/16/2024 10:56 AM EST .UTOX cup Lot#[id number] Exp. 07/04/26 Internal Pass Control Kassandra Phillips MD POINT OF CARE TEST ENTER/EDIT OR DERABLES Final Result documented in this encounter Visit Diagnoses Diagnosis Chronic pain of both knees documented in this encounter Additional Health Concerns Assessment Noted Time PHQ-9 Depression Total Score: 1 08/13/20 24 12:59 PM EST documented as of this encounter Care Teams Hand Ornament Maker Relationship Specialty Start Date End Date Kassandra Phillips MD 230 [place] [address] PCP - General Family Medicine 06/30/23 Blanco Gar, Julianne [address] [place] [address] Pharmacist Internal Medicine 12/26/23 documented as of this encounter
--- OUTSIDE RECORDS SUMMARY | 2024-11-22 12:23 | XMS_ITS | Encounter Summary ---
Author Organization [employer] Address 75 [facility] 7t [place] [address] Care Team Providers Care Automotive Parts Clerk Name Role Phone Kassandra Phillips MD Primary Care Provider [phone] Blanco Gar PharmD Unavailable [phone] Encounter Details Date Type Department Care Team (Latest Contact Info) Description 11/16/2024 Travel Social History Tobacco Use Types Packs/Day [...] Description 02/15/2025 11:00 AM EDT Clinical Support [facility] MEDICINE [address] [place] [address] Layla Thapa RN 505 [place] [address] documented as of this encounter Goals Goal [...] documented as of this encounter Care Teams Automotive Parts Clerk Relationship Specialty Start Date End Date Kassandra Phillips MD [address] [place] [address] PCP - General Family Medicine 06/30/23 Blanco Gar, Julianne [address] [place] [address] Pharmacist Internal Medicine 12/26/23 documented as of this encounter
--- OUTSIDE RECORDS SUMMARY | 2024-11-22 12:23 | XMS_ITS | Encounter Summary ---
Author Organization [employer] Address 75 [facility] 7t [place] [address] Care Team Providers Care Pockets And Pieces Necktie Operator Name Role Phone Kassandra Phillips MD Primary Care Provider [phone] Blanco Gar PharmD Unavailable [phone] Reason for Visit * Reason Comments Med Refill Encounter Details Date Type Department Care Team ([facility] st Contact Info) Description 06/04/[address] [facility] MED[facility]INE 230 [place], [place] [phone] Madison Elizondo MD 230 [place], [place] [phone] Social History Tobacco Use Types Packs/Day Years [...] Description 02/15/2025 11:00 AM EDT Clinical Support [facility] MED[facility]INE [address] [place] [address] Layla Thapa RN 505 [place] [address] documented as of this encounter Goals Goal [...] documented as of this encounter Care Teams Pockets And Pieces Necktie Operator Relationship Specialty Start Date End Date Kassandra Phillips MD [address] [place] [address] PCP - General Family Medicine 06/30/23 Blanco Gar, Julianne [address] [place] [address] Pharmacist Internal Medicine 12/26/23 documented as of this encounter
--- OUTSIDE RECORDS SUMMARY | 2024-11-22 12:23 | XMS_ITS | Encounter Summary ---
Author Organization [employer] [facility] Address 75 [facility] 7t [place] [address] Care Team Providers Care Python Django Developer Name Role Phone Kassandra Phillips MD Primary Care Provider [phone] Blanco Gar PharmD Unavailable [phone] Reason for Referral * Imaging (Routine) - Closed Specialty Diagnoses / Procedures Referred By Contac t Referred To Contact Radiology Diagnoses Chronic bilateral low back pain, unspecified whether sciatica present Procedures MR Lumbar Spine w/o Contrast Kassandra Phillips MD 230 [place] [address] Phone: tel: fax: [address] Phone: tel: fax: Referral ID Status Reason Start Date Expiration Date Visits Re quested Visits Authorized [id number] Closed 05/24/2024 05/24/2025 1 1 Encounter Details Date Type Department Care Team (Late st Contact Info) Description 05/24/2024 Orders Only [facility] MEDICINE [address] [place] [address] [phone] Kassandra Phillips MD 230 [place], [place] [phone] Chronic bilateral low back pain, unspecified whether sciatica present (Primary Dx) Social History Tobacco Use Types [...] Description 02/15/2025 11:00 AM EDT Clinical Support [facility] MEDICINE [address] [place] [address] [phone] Layla Thapa RN 505 [place], [place] [phone] documented as of this encounter Goals Goal Patient Goal Type Associated Problems Recent Progress Patient-Stated? Author Quit using tobacco (cigarettes, smokeless, etc) Tobacco Use No Blanco Gar, PharmD Note: Quit date: 12/26/2023 documented as of this encounter Procedures Procedure Name Priority Date/Time Associated Diagnosis Comments MR LUMBAR SPINE WO CONTRAST Routine 10/14/2024 3:07 PM EST Chronic bilateral low back pain, unspecified whether sciatica present documented in this encounter Results * MR Lumbar Spine w/o Contrast (10/14/2024 3:07 PM EST) Anatomical Region Laterality Modality Spine, L-spine Magnetic Resonan ce 10/14/2024 3:07 PM EST Narrative 10/15/2024 10:02 AM EST ? [facility] ?[address] ?[place] [address] ? Magnetic Resonance Report ? Signed ? Patient: Omer Lara ?MR#: [id number] ?? [id number] ? : 1955 ?Acct:[id number] ? Age/Sex: 69 / M ?ADM Date: 10/14/24 ? Loc: HO.MRI ? Attending Dr: Kassandra Phillips MD ? Ordering Physician: Kassandra Phillips MD ?? Date of Service: 10/14/24 ?? Procedure(s): MR lumbar spine wo con ?? Accession Number(s): [id number] ? cc: Kassandra Phillips MD ? Workstation: [employer] ? EXAMINATION: ??MR LUMBAR SPINE WITHOUT IV [...] ??Azam Brito MD ??10/15/2024 09:59 AM EST ?? RP ? Dictated By: ?Azam Brito MD ? Signed By: ?<Electronically signed by Azam Brito MD in OV> ?10/15/24 0959 ? DD/ 1507 ? TD/TT: 10/14/24 1521 ? Home Economics Teacher: ? Procedure Note Chasidy Carlos - 10/15/[address] [address] Magnetic Resonance Report Signed Patient: Maria Antonia Lara#: [id number] : 1955cct:[id number] Age/Sex: 69 / MADM Date: 10/14/24 Loc: HO.MRI Attending Dr: Kassandra Phillips MD Ordering Physician: Kassandra Phillips MD Date of Service: 10/14/24 Procedure(s): MR lumbar spine wo con Accession Number(s): [id number] cc: Kassandra Phillips MD Workstation: [employer] EXAMINATION: MR LUMBAR SPINE WITHOUT IV CONTRAST [...] Azam Brito MD 10/15/2024 09:59 AM EST RP Dictated By: Azam Brito MD Signed By: <Electronically signed by Azam Brito MD in OV> 10/15/24 0959 DD/ 1507 TD/TT: 10/14/24 1521 Home Economics Teacher: Kassandra Phillips MD IMG MRI PROCEDURES Edited Result - Final documented in this encounter Visit Diagnoses Diagnosis Chronic bilateral low back pain, unspecified whether sciatica present- Primary documented in this encounter Additional Health Concerns Assessment Noted Time PHQ-9 Depression Total Score: 4 06/30/20 23 9:32 AM EDT documented as of this encounter Care Teams Python Django Developer Relationship Specialty Start Date End Date Kassandra Phillips MD 230 [place] [address] PCP - General Family Medicine 06/30/23 Blanco Gar PharmD 230 [place] [address] Pharmacist Internal Medicine 12/26/23 documented as of this encounter
--- OUTSIDE RECORDS SUMMARY | 2024-11-22 12:23 | XMS_ITS | Encounter Summary ---
Author Organization [employer] Address 75 [facility] 7t [place] [address] Care Team Providers Care Chief Telephone Operator Name Role Phone Kassandra Phillips MD Primary Care Provider [phone] Blanco Gar PharmD Unavailable [phone] Reason for Visit * Reason Comments Med Refill Encounter Details Date Type Department Care Team ([facility] st Contact Info) Description 01/23/2024 Refill [facility] MED[facility]INE 230 [place], [place] [phone] Kassandra Phillips MD 230 [place], [place] [phone] Social History Tobacco Use Types Packs/Day Years [...] Description 02/15/2025 11:00 AM EDT Clinical Support [facility] MEDICINE [address] [place] [address] Layla Thapa RN 505 [place] [address] documented as of this encounter Goals Goal [...] documented as of this encounter Care Teams Chief Telephone Operator Relationship Specialty Start Date End Date Kassandra Phillips MD [address] [place] [address] PCP - General Family Medicine 06/30/23 Blanco Gar, SouravD [address] [place] [address] Pharmacist Internal Medicine 12/26/23 documented as of this encounter
--- OUTSIDE RECORDS SUMMARY | 2024-11-22 12:23 | XMS_ITS | Encounter Summary ---
Author Organization [employer] Address 75 [facility] 7t [place] [address] Care Team Providers Care Regulator Assembler Name Role Phone Kassandra Phillips MD Primary Care Provider [phone] Blanco Gar PharmD Unavailable [phone] Encounter Details Date Type Department Care Team (Late st Contact Info) Description 11/22/2024 11:00 AM EST Office Visit [facility] MED[facility]INE 230 [place], [place] [phone] Kassandra Phillips MD 230 [place], [place] [phone] Hypertension, unspecified type (Primary Dx); Carotid stenosis, right; Cervical spondylosis; Dyslipidemia; Tobacco dependence; Smoking greater than 20 pack years; Neck pain; Need for COVID-19 vaccine; Screening for diabetes mellitus; Chronic bilateral low back pain, unspecified whether sciatica present Social History Tobacco Use Types Packs/Day Years [...] PM EDT documented as of this encounter Last Filed Vital Signs Vital Sign Reading [...] 6.4 oz) 11/22/2024 11:15 AM EST Height - - Body Mass Index 24.86 08/13/2024 12:58 PM EST documented in this encounter Plan of Treatment Upcoming Encounters Date Type Department Care Team (Late st Contact Info) Description 02/15/2025 11:00 AM EDT Clinical Support [facility] MEDICINE 230 [place] [address] Layla Thapa RN [address] [place] [address] Scheduled Orders Name Type Priority Associated Diagnoses Orde r Schedule Hemoglobin A1c Lab Routine Screening for diabetes mellitus Expected: 11/22/2024 (Approximate), Expires: 11/22/2025 Comprehensive Metabolic Panel Lab Routine Hypertension, unspecified type Dyslipidemia Expected: 11/22/2024 (Approximate), Expires: 11/22/2025 Lipid Panel with Reflex to Direct LDL Lab Routine Dyslipidemia Expected: 11/22/2024 (Approximate), Expires: 11/22/2025 Albumin, Random Urine W/Creatinine Lab Routine Hypertension, unspecified type Expected: 11/22/2024 (Approximate), Expires: 11/22/2025 documented as of this encounter Goals Goal Patient Goal Type Associated Problems Recent Progress Patient-Stated? Author Quit using tobacco (cigarettes, smokeless, etc) Tobacco Use No Blanco Gar, PharmD Note: Quit date: 12/26/2023 documented as of this encounter Visit Diagnoses Diagnosis Hypertension, unspecified type- Primary Carotid stenosis, right Occlusion and stenosis of carotid artery without mention of cerebral infarction Cervical spondylosis Cervical spondylosis without myelopathy Dyslipidemia Other and unspecified hyperlipidemia Tobacco dependence Tobacco use disorder Smoking greater than 20 pack years Neck pain Cervicalgia Need for COVID-19 vaccine Screening for diabetes mellitus Chronic bilateral low back pain, unspecified whether sciatica present documented in this encounter Additional Health Concerns Assessment Noted Time PHQ-9 Depression Total Score: 1 08/13/20 24 12:59 PM EST documented as of this encounter Care Teams Regulator Assembler Relationship Specialty Start Date End Date Kassandra Phillips MD 230 [place] [address] PCP - General Family Medicine 06/30/23 Blanco Gar, PharmD [address] [place] [address] Pharmacist Internal Medicine 12/26/23 documented as of this encounter
--- OUTSIDE RECORDS SUMMARY | 2024-11-22 12:23 | XMS_ITS | Encounter Summary ---
Author Organization [employer] Address 75 [facility] 7t [place] [address] Care Team Providers Care Registered Occupational Therapist Name Role Phone Kassandra Phillips MD Primary Care Provider [phone] Blanco Gar PharmD Unavailable [phone] Reason for Visit * Reason Comments Med Refill Encounter Details Date Type Department Care Team ([facility] st Contact Info) Description 01/24/2024 Refill [facility] 230 [place], [place] [phone] Naida Hobson MD 230 [place], [place] [phone] Social History Tobacco Use Types Packs/Day Years [...] is your housing situation today? I have sumaadeline marie 07/25/[address] you [...] Description 02/15/2025 11:00 AM EDT Clinical Support [facility] [address] [place] [address] Layla Thapa RN 505 [place] [address] documented as of this encounter Goals Goal [...] documented as of this encounter Care Teams Registered Occupational Therapist Relationship Specialty Start Date End Date Kassandra Phillips MD [address] [place] [address] PCP - General Family Medicine 06/30/23 Blanco Gar, SouravD [address] [place] [address] Pharmacist Internal Medicine 12/26/23 documented as of this encounter
[2024-11-22 12:56] LABS: MANUAL DIFF FLAG NO
[2024-11-22 12:59] LABS: Basophils Percent Auto 0.4 % (0-2); Eosinophils Absolute Auto 0.4 X10*3/uL (0.0-0.4); Eosinophils Percent Auto 5.3 % (0-4); Hematocrit 36.4 % (42.0-52.0); Hemoglobin 11.8 g/dl (14.0-18.0); Imm Gran Abs Auto 0.03 X10*3/uL (0.00-0.03); Imm Gran Pct Auto 0.4 % (0.0-0.4); Lymphocytes Absolute Auto 2.5 X10*3/uL (1.2-4.9); Lymphocytes Percent Auto 36.4 % (20-40); Mean Corpuscular HGB Conc 32.4 g/dl (31.0-36.0); Mean Corpuscular Hemoglobin 31.1 pg (27.0-33.0); Mean Corpuscular Volume 95.8 fL (80.0-98.0); Mean Platelet Volume 8.9 fL (9.4-12.4); Monocytes Percent Auto 14.6 % (2-11); Neutrophils Absolute Auto 2.9 x10*3/uL (2.0-8.3); Neutrophils Percent Auto 42.9 % (45-73); Platelet Count 371 X10*3/uL (160-400); Red Cell Distribution Width 12.9 % (11.0-16.0); White Blood Count 6.8 X10*3/uL (4.8-10.8)
[2024-11-22 13:05] LABS: Estimated Average Glucose 117 mg/dL; Hemoglobin A1C 121.6228 umol/L; Hemoglobin A1c % 5.7 % (<6.0); Total Hemoglobin (HGBA1C) 3151.2591 umol/L
[2024-11-22 13:10] LABS: Cholesterol 134 mg/dL (<200); HDL Cholesterol 45 mg/dL (>40); LDL Cholesterol Calculated 57 mg/dL (<100); Triglycerides 161 mg/dL (<150)
[2024-11-22 13:15] LABS: Alanine Aminotransferase 25 U/L (0-40); Albumin Level 4.2 g/dL (3.5-5.0); Alkaline Phosphatase 102 U/L (39-117); Anion Gap 11 (12-20); Aspartate Amino Transferase 27 U/L (5-37); Bilirubin Total 0.2 mg/dL (0.0-1.0); Blood Urea Nitrogen 24 mg/dL (9-16); Calcium 9.1 mg/dL (8.4-10.2); Carbon Dioxide 25 mmol/L (22-29); Chloride 107 mmol/L (96-108); Estimated Glomerular Filt Rate > 60; Glucose Random 98 mg/dL (60-115); Iron 122 mcg/dL (45-160); Percent Iron Saturation 47 % (15-50); Potassium 4.2 mmol/L (3.3-5.1); Sodium 139 mmol/L (135-145); Total Iron Binding Capacity 257 mcg/dL (228-428); Total Protein 7.5 g/dL (6.5-8.0); Unsaturated Iron Binding 135 ug/dL
[2024-11-22 13:16] LABS: Reflex LDLD? No
[2024-11-22 13:32] LABS: Ferritin 141 ng/mL (20-250)
[2024-11-22 14:52] LABS: TSH reflex Free T4 1.68 uIU/mL (0.32-4.0)
== END 2024-11-22 12:05 | disposition home or self-care (01) ==
LOC: HO.HHCL 12:04
PROVIDERS: Internal Medicine Gastroenterology; Visit Provider Family Medicine
DX: Z13.1 Encounter for screening for diabetes mellitus (principal); E78.5 Hyperlipidemia, unspecified; I10 Essential (primary) hypertension; D64.9 Anemia, unspecified
CPT/HCPCS: 36415; 80053; 80061; 82728; 83036; 83540; 84443; 85025

== ENCOUNTER 2024-11-27 13:17 | Outpatient (REF) | payer MEDICARE, SELFPAY ==
[2024-11-27 16:48] LABS: TSH reflex Free T4 0.94 uIU/mL (0.32-4.0)
[2024-11-27 17:04] LABS: Folate 12.4 ng/mL (> or = 4.0); Vitamin B12 1470 pg/mL (200-900)
== END 2024-11-27 13:18 | disposition home or self-care (01) ==
LOC: HO.HHCL 13:17
PROVIDERS: Visit Provider Family Medicine
DX: D64.9 Anemia, unspecified (principal)
CPT/HCPCS: 36415; 82607; 82746; 84443

== ENCOUNTER 2024-11-30 19:27 | Outpatient (REF) | payer MEDICARE, SELFPAY ==
--- NOTE | ~2024-11-30 | MR_ITS ---
CLINICAL HISTORY: neck pain, b l hand and arm numbness. MR cervical spine without gadolinium Comparison: None Findings: Motion artifact limits interpretation. Mild straightening of the normal cervical lordosis. Multilevel disc space narrowing and disc desiccation, most pronounced at C3-C4. The spinal cord appears within normal limits in caliber and signal, given motion artifact. Visualized portions of the posterior fossa demonstrate mild volume loss within the cerebellum brainstem. Paravertebral soft tissues are unremarkable. No suspicious marrow lesion. Individual levels: C2-C3: Small right eccentric disc protrusion. Mild right neural foraminal narrowing. No central canal stenosis. C3-C4: Uncovertebral spurring with a small posterior disc protrusion. Moderate central canal stenosis and moderate bilateral neural foraminal narrowing, [id number]. C4-C5: Small right eccentric disc protrusion. No significant central canal stenosis. Mild right neural foraminal narrowing. C5-C6: Small right eccentric disc protrusion. Moderate to severe right neural foraminal narrowing. C6-C7: No central canal stenosis or neural foraminal narrowing. C7-T1: Mild bilateral neural foraminal narrowing. No central canal stenosis. Impression: There is significant motion artifact which limits interpretation despite repeat imaging. There is moderate central canal stenosis at C3-C4 and there is multilevel neural foraminal narrowing as detailed. This document has been electronically signed by: Adonay Nolen MD on 12/03/2024 10:41:01
== END 2024-11-30 19:28 | disposition home or self-care (01) ==
LOC: HO.MRI 19:27
PROVIDERS: PCP Family Medicine; Visit Provider Family Medicine
DX: M47.812 Spondylosis without myelopathy or radiculopathy, cervical region (principal); M54.2 Cervicalgia
CPT/HCPCS: 72141

== ENCOUNTER → 2024-11-30 19:43 | Outpatient (BNV) | payer MEDICARE, SELFPAY | PROVIDERS: PCP Family Medicine; Visit Provider Radiology Vascular & Interventional Radiology | DX: M48.02 Spinal stenosis, cervical region (principal); M99.71 Connective tissue and disc stenosis of intervertebral foramina of cervical region | CPT/HCPCS: 72141 ==

== ENCOUNTER 2025-01-22 13:53 | Outpatient (AMB) | payer MEDICARE, SELFPAY ==
--- NOTE | 2025-01-22 14:16 | A.OFFVIS_ITS ---
Vital Signs 01/22/25 14:18 Height 5 ft 5 in Weight 142 lb 13.753 oz BMI 23.8 BP 158/88 H Blood Pressure Location Lt brachial Position Sitting Pulse 75 Pulse Source Pulse Oximeter Intake Visit Reasons: 2 month follow up GERD R/S from 12/14/24 Intake Note: Patient in office today in follow up of GERD. CC: Patient c/o burning from stomach with radiation to his left chest. Patient also reports not having much appetite in the morning. Allergies No Known Allergies Allergy (Verified 01/22/25 14:24) HPI HPI 2 month follow up GERD R/S from 12/14/24: Details: Assessment & Plan (1) H. pylori duodenitis: Comment: 10/2024 stool antigen confirms eradication Code(s): K29.80 - Duodenitis without bleeding; B96.81 - Helicobacter pylori [H. pylori] as the cause of diseases classified elsewhere Category: Medical (2) Lack of appetite: Comment: Occurs only in the morning and bothersome because he needs to take medications Code(s): R63.0 - Anorexia Category: Medical (3) GERD (gastroesophageal reflux disease): Code(s): K21.9 - Gastro-esophageal reflux disease without esophagitis Category: Medical Plan I informed him that the H pylori seems to be eradicated. He continues on omeprazole twice a day and only has rare heartburn which isn't improvement from before we 1st started. However, he still has the inability to eat filling like ?my stomach is blocked? in the morning. This really bothers him because he needs to take his medications in the morning and some need to be taken with food. Usually this will resolve by noon time. To address this as he may have some sort of intermittent gastroparesis I will start him on a dose of Reglan 10 mg only in the morning. I told him that he can try going down to once a day on the omeprazole in order to simplify his medication regimen, if he finds that he has severe reflux he can go back to twice a day. Return office visit next available to evaluate the Reglan and to see if he is able to wean down the omeprazole. Medications: New metoclopramide HCl (Reglan) 10 mg PO .qamac 30 tabs 6RF K21.9 - Gastro- esophageal reflux disease without esophagitis Changed From omeprazole 40 mg PO BID 14 days 28 caps 3RF K21.9 - Gastro-esophageal reflux disease without esophagitis To omeprazole 40 mg PO BID 30 days 60 caps 6RF K21.9 - Gastro-esophageal reflux disease without esophagitis TODAY'S VISIT He is having more epigastric pain mostly in the evening. However, he does not know if he ever received the reglan. I want to extend the reglan to qa and qhs - resending. He continues on his omeprazole 40mg bid. I also want him to bring all fo his medications in a bag tot he next visit. Next available. [facility] Medical History Nicotine dependence, cigarettes, uncomplicated Colon cancer screening HTN (hypertension) Gastric pain Back pain Arthritis Anemia Elevated cholesterol Surgical History S/P carotid endarterectomy (04/02/24) Hx of cataract surgery Family History Father Stomach cancer Brother Stomach cancer Social History Household Members: Spouse Housing: Apartment Are you a primary workforce investment act career manager to a significant other at home: No Do you presently have visiting nurse or other home services: No Alcohol intake: former Comment: quit 20 years ago Patient Tobacco Use Status: Former Tobacco user Tobacco use type: Cigarette Cigarettes Per Day: 10 service: No Review of Systems Const Denies fatigue, Denies fever(s), Denies night sweats, Reports poor appetite and Denies weight loss ENT Reports Normal hearing present, Denies dental pain, Denies dysphagia, Denies hearing loss, Denies mouth pain, Denies odynophagia, Denies throat swelling, Denies tongue swelling and Reports other (Dentition adequate) Card Reports no additional complaints Resp Reports no additional complaints GI Details: Reports abdominal pain, Denies melena, Denies bloating, Denies hematochezia, Denies constipation, Denies GI cramping, Denies dysphagia, Denies excessive flatus, Denies early satiety, Reports heartburn, Denies diarrhea, Denies nausea, Denies odynophagia, Denies vomiting and Denies hematemesis Skin/Breast Denies pruritus, Denies lesions, Denies rash and Denies jaundice Neuro Reports Normal hearing present and Denies Abnormal speech present Endo Denies fatigue Aller/Immun Denies throat swelling and Denies tongue swelling Physical Exam Vital Signs: Last Vital Signs Pulse 75 01/22/25 14:18 BP 158/88 H 01/22/25 14:18 BMI result Body Mass Index 23.8 Const General: cooperative, no acute distress, well developed and well groomed Nutritional Appearance: average body habitus and well nourished Orientation/consciousness: oriented to person, oriented to place and oriented to time Limitations: No language barrier HEENT Head: Yes normocephalic and Yes atraumatic Eyes General: appearance normal, both eyes and all related structures Pupils: Equal, round and reactive pupils present Neck Neck: Yes normal visual inspection and Yes no lymphadenopathy Thyroid: Thyroid normal Resp Effort & Inspection: normal respiratory effort and able to speak in complete sentences Auscultation: clear to auscultation bilaterally Cardio Rate: regular rate Rhythm: regular rhythm Heart sounds: Normal, physiologic split S2 sound present Peripheral pulses: radial pulses present and posterior tibial pulses present GI Inspection: No distended and No Abdominal panniculus present Palpation (GI): Soft to palpation, nontender, no guarding, not rigid and No hepatosplenomegaly present Percussion: Yes normal to percussion Auscultation: normal bowel sounds Rectal Exam - Male: Yes deferred Skin General skin exam: no rashes or lesions noted, turgor normal, skin not dry, no jaundice, No spider nevi and no striae Rashes: no rashes Nails: normal Neuro General: oriented to person, oriented to place and oriented to time Cranial nerves: Yes Equal, round and reactive pupils present and Yes Normal hearing present Speech: No Abnormal speech present Extrem General: Yes normal to inspection, No clubbing, No cyanosis and No edema Psych Appearance: grossly normal and well kempt Mental Status: mental status grossly normal Speech and movement: Normal speech and movement present Affect: normal affect Attitude: cooperative Thought process: Normal thought process present and not confabulating Thought content: Normal thought content present Insight: Fair insight present (Psych) and Limited insight present (Psych) Judgement: Fair judgement present (Psych) and Limited judgement present (Psych) Assessment & Plan Assessment & Plan (1) Lack of appetite: Comment: Occurs only in the morning and bothersome because he needs to take medications Code(s): R63.0 - Anorexia Category: Medical (2) Upper abdominal pain: Code(s): R10.10 - Upper abdominal pain, unspecified Category: Medical (3) GERD (gastroesophageal reflux disease): Code(s): K21.9 - Gastro-esophageal reflux disease without esophagitis Category: Medical Plan He is having more epigastric pain mostly in the evening. However, he does not know if he ever received the reglan. I want to extend the reglan to qam and qhs - resending. He continues on his omeprazole 40mg bid. I also want him to bring all fo his medications in a bag tot he next visit. If we can not this under control we may want to consider repeat testing for H pylori eradication. It is possible that the high-dose PPI has cause the stool antigen test to be inaccurate. He was diagnosed with H pylori on his 07/2024 EGD. Next available. Medications: Changed From metoclopramide HCl (Reglan) 10 mg PO .qamac 30 tabs 6RF K21.9 - Gastro- esophageal reflux disease without esophagitis To metoclopramide HCl (Reglan) 10 mg PO .qamac and qhs 30 tabs 6RF K21.9 - Gastro-esophageal reflux disease without esophagitis Coding Level of Care Code Est Pt Level 3 (47348) Diagnoses Lack of appetite R63.0 Upper abdominal pain R10.10 GERD (gastroesophageal reflux disease) K21.9
[2025-01-22 14:18] VITALS: BP 158/88; PULSE 75; BMI 23.8
--- OUTSIDE RECORDS SUMMARY | 2025-01-22 17:06 | XMS_ITS | Encounter Summary ---
Author Organization [employer] Address [address] [facility] [address] [place] [address] Care Team Providers Care Checkman Name Role Phone Kassandra Phillips MD Primary Care Provider [phone] Blanco Gar PharmD Unavailable [phone] Reason for Visit * Reason Comments Med Refill Encounter Details Date Type Department Care Team ([facility] st Contact Info) Description 02/29/2024 Refill [facility] [address] [place], [place] [phone] Kassandra Phillips MD [address] [place], [place] [phone] Social History Tobacco Use Types Packs/Day Years [...] Description 02/15/2025 11:00 AM EDT Clinical Support [facility] [address] [place] [phone] Layla Thapa RN [address] [place] [address] documented as of this encounter Goals Goal [...] documented as of this encounter Care Teams Checkman Relationship Specialty Start Date End Date Kassandra Phillips MD [address] [place] [phone] PCP - General Family Medicine 06/30/23 Blanco Gar, SouravD [address] [place] [phone] Pharmacist Internal Medicine 12/26/23 documented as of this encounter
--- OUTSIDE RECORDS SUMMARY | 2025-01-22 17:06 | XMS_ITS | Encounter Summary ---
Author Organization [employer] Address [address] [facility] 7[address] [place] [address] Care Team Providers Care Computer Programming Manager Name Role Phone Kassandra Phillips MD Primary Care Provider [phone] Blanco Gar PharmD Unavailable [phone] Reason for Visit * Reason Onset Date Comments Med Refill 06/20/2024 Encounter Details Date Type Department Care Team (Late st Contact Info) Description 06/20/2024 Telephone [facility] [address] [place], [place] [phone] Kassandra Phillips MD [address] [place], [place] [phone] Med Refill Social History Tobacco Use Types [...] 50 MG tablet To be sent to: [id number] - [place], [place] - [address] [facility] documented in this encounter Plan of Treatment Upcoming Encounters Date Type Department Care Team (Late st Contact Info) Description 02/15/2025 11:00 AM EDT Clinical Support [facility] [address] [place] [address] Layla Thapa RN [address] [place] [phone] documented as of this encounter Goals Goal [...] documented as of this encounter Care Teams Computer Programming Manager Relationship Specialty Start Date End Date Sakurai, Kassandra, MD [address] [place], [place] [phone] PCP - General Family Medicine 06/30/23 Blanco Gar, SouravD [address] [place] [address] Pharmacist Internal Medicine 12/26/23 documented as of this encounter
--- OUTSIDE RECORDS SUMMARY | 2025-01-22 17:06 | XMS_ITS | Encounter Summary ---
Author Organization [employer] Address [address] [facility] 7t [place] [address] Care Team Providers Care Rotor Coil Taper Name Role Phone Kassandra Phillips MD Primary Care Provider [phone] Blanco Gar PharmD Unavailable [phone] Reason for Visit * Reason Comments Med Refill Encounter Details Date Type Department Care Team ([facility] st Contact Info) Description 09/20/2024 Refill [facility] [address] [place], [place] [phone] Kassandra Phillips MD [address] [place], [place] [phone] Social History Tobacco Use Types Packs/Day Years [...] Description 02/15/2025 11:00 AM EDT Clinical Support [facility] [address] [place] [phone] Layla Thapa RN [address] [place] [address] documented as of this encounter Goals Goal [...] documented as of this encounter Care Teams Rotor Coil Taper Relationship Specialty Start Date End Date Kassandra Phillips MD [address] [place] [address] PCP - General Family Medicine 06/30/23 Blanco Gar, SouravD [address] [place] [phone] Pharmacist Internal Medicine 12/26/23 documented as of this encounter
--- OUTSIDE RECORDS SUMMARY | 2025-01-22 17:06 | XMS_ITS | Encounter Summary ---
Author Organization [employer] Address [address] [facility] 7t [place] [address] Care Team Providers Care Property Insurance Inspector Name Role Phone Kassandra Phillips MD Primary Care Provider [phone] Blanco Gar PharmD Unavailable [phone] Reason for Visit * Reason Comments Med Refill Encounter Details Date Type Department Care Team ([facility] st Contact Info) Description 06/04/2024 Refill [facility] [address] [place], [place] [phone] Madison Elizondo MD [address] [place], [place] [phone] Social History Tobacco Use Types Packs/Day Years [...] 11:00 AM EDT Clinical Support [facility] [address] [place] [phone] Layla Thapa RN [address] [place] [address] documented as of this encounter Goals Goal [...] documented as of this encounter Care Teams Property Insurance Inspector Relationship Specialty Start Date End Date Kassandra Phillips MD [address] [place] [phone] PCP - General Family Medicine 06/30/23 Blanco Gar, Julianne [address] [place] [phone] Pharmacist Internal Medicine 12/26/23 documented as of this encounter
--- OUTSIDE RECORDS SUMMARY | 2025-01-22 17:06 | XMS_ITS | Clinical Summary ---
Author Organization [employer] Address [address] [facility] [address] [place] [address] Care Team Providers Care Street Inspector Name Role Phone Kassandra Phillips MD Primary Care Provider [phone] Blanco Gar PharmD Unavailable [phone] Allergies No known active allergies Medications Blood [...] 60 tablet 11 08/13/20 24 025 Active naloxone (Narcan) 4 mg/0.1 mL nasal spray Administer 1 spray (4 mg) into affected nostril(s) if needed for opioid reversal. May repeat every 2-3 minutes if needed, alternating nostrils, until medical assistance becomes available. 2 each 11/22/19 25 026 Active amLODIPine (Norvasc) 5 MG tablet TAKE 1 TABLET(5 MG) BY MOUTH IN THE MORNING 90 tablet 3 11/22/19 25 Active famotidine (Pepcid) 20 MG tablet TAKE 1 TO 2 TABLETS BY MOUTH AT NIGHT 60 tablet 01/15/20 25 Active oxyCODONE (Roxicodone) 5 MG immediate release tabletIndicati ons:Cervical spondylosis,Ne ck pain,Chronic bilateral low back pain, unspecified whether sciatica present Take 1 tablet (5 mg) by mouth if needed each day for severe pain. 28 tablet 01/17/20 25 Active famotidine (Pepcid) 20 MG tablet TAKE 1 TO 2 TABLETS BY MOUTH AT NIGHT 60 tablet 12/15/19 25 025 Discontinued oxyCODONE (Roxicodone) 5 MG immediate release tabletIndicati ons:Cervical spondylosis,Ne ck pain,Chronic bilateral low back pain, unspecified whether sciatica present Take 1 tablet (5 mg) by mouth if needed each day for severe pain. 28 tablet 12/22/19 25 025 Discontinued(R eorder (will not trigger notification to Pharmacy)) Active Problems Problem Noted Date Diagnosed Date Chronic pain of both knees 05/21/2024 Assessment & Plan (05/21/2024 11:41 AM EDT): -likely arthritic in nature -ordered XR to further evaluate Gastroesophageal reflux disease 05/21/2024 Assessment & Plan (08/19/2024 2:12 PM EST): -followed by [facility], last seen in Jul 2024 -H. [...] EGD Cervical spondylosis 05/20/2024 Assessment & Plan (11/23/2024 12:00 AM EST): - see neck pain plan - Ordered MR Cervical Spine w/o Contrast Assessment & Plan (08/19/2024 2:13 PM EST): - see neck pain plan Abdominal pain 12/04/2023 Assessment & Plan (11/22/2024 2:37 PM EST): - EGD on 08/07/24 was positive for H. pylori - Continue omeprazole 20 mg daily - Continue Famotidine 20 mg at night Assessment & Plan (08/19/2024 2:10 PM EST): [...] and colonoscopy Hypertension 10/30/2023 Assessment & Plan (11/24/2024 5:23 PM EST): -Goal BP < 150/90 per JNC-8 and < 130 per ACC/AHA guideline -BP elevated today, possibly due to pain, but patient reports elevated BP at home as well -Continue working on lifestyle modifications -Increase amlodipine 5 mg daily -Recommended self-monitoring BP. If SBP persistently > 150, advised to contact us. -Follow up in 3 mo, sooner if any problem arises - Ordered Albumin, Random Urine W/Creatinine Assessment & Plan (08/17/2024 4:45 PM EST): [...] Carotid stenosis, right 10/20/2023 Assessment & Plan (11/22/2024 2:42 PM EST): - following with Dr. Coy, [facility] - carotid US on 10/19/23, showed moderate, [...] endarterectomy with patch angioplasty on 04/02/24. - most recent post CEA US on 08/14/24, no hemodynamically significant stenosis bilateral. - Optimize risk factor management Assessment & Plan (08/17/2024 4:45 PM EST): [...] stenosis by velocity criteria. - Seen by [facility] specialist, Dr. Coy, on 01/05/24. CTA [...] factor management Dyslipidemia 09/14/2023 Assessment & Plan (11/22/2024 11:57 PM EST): - Lipid profile on 10/11/23 TC 124; TG 101; HDL 44; LDL 60 - continue working on lifestyle modification - continue atorvastatin 20 mg at bedtime (started in Jun 2023 for 10-year ASCVD risk 23%) Assessment & Plan (08/17/2024 4:46 PM EST): [...] 23%) Neck pain 09/14/2023 Assessment & Plan (11/22/2024 11:58 PM EST): - multifactorial, cervical spondylosis / DDD - trapezius muscle spasm - diclofenac gel - change tramadol to oxycodone since tramadol was ineffective - oxycodone 5 mg nightly - continue judicious use of Gabapentin, and encouraged to taper down and off - check the status of MRI; reordered - Ordered MR Cervical Spine w/o Contrast Assessment & Plan (08/19/2024 2:09 PM EST): [...] imaging or referral to pain management and/or oil fire specialist Assessment & Plan (09/14/2023 3:47 PM EST): - multifactorial - evaluate with X-ray - trapezius muscle spasm - add cyclobenzaprine prn - apply lidocaine patch - refer to PT - reassess symptoms in 3 mo to see if he needs further imaging or referral to pain management and/or oil fire specialist Back pain 09/14/2023 Assessment & Plan (11/24/2024 5:21 PM EST): - X-ray in Sep 2023 showed severe DDD - evaluated by PSS provider and was recommended PT and/or injection treatment. He has tried PT which unsatisfactory outcome. -10/14/24 MRI showed degenerative changes and bilateral foraminal stenosis at L5- S1 secondary to a disc bulge and facet and ligamentum flavum hypertrophy. - previously tried APAP, NSAIDs, topical diclofenac, and cyclobenzaprine with minimal relief - started on tramadol and gabapentin - switch tramadol to oxycodone - [employer] appt Assessment & Plan (08/19/2024 2:18 PM EST): [...] check the status of MRI order - [employer] appt Assessment & Plan (05/21/2024 11:42 [...] precaution Tobacco dependence 06/30/2023 Assessment & Plan (11/22/2024 11:57 PM EST): -Congratulated patient on quitting (quit in January 2024) and encouraged him to maintain smoking cessation. Assessment & Plan (08/17/2024 4:46 PM EST): [...] 20 pack years 06/30/2023 Assessment & Plan (11/22/2024 11:57 PM EST): - low-dose chest CT through [facility] [place] screening [facility] - Last CT on 11/18/23 Lung RADS 1 Assessment & Plan (08/19/2024 2:13 PM EST): - low-dose chest CT through [facility] - Last CT on 11/18/23 Lung RADS 1 Assessment & Plan (05/21/2024 9:51 AM EDT): - low-dose chest CT through [facility] - Last CT on 11/18/23 Lung RADS 1 Assessment & Plan (02/08/2024 9:14 PM EDT): - low-dose chest CT through [facility] - Last CT on 11/18/23 Lung RADS 1 Assessment & Plan (09/14/2023 3:51 PM EST): - low-dose chest CT through [facility] - pt states he will go to get CT done and is thinking about smoking cessation Assessment & Plan (06/30/2023 5:32 PM EDT): - low-dose chest CT through [facility] Resolved Problems Problem Noted Date Diagnosed Date Resolved Date Health care maintenance 09/14/2023 05/0 10/2023 Assessment & Plan (09/14/2023 4:24 AM EST): - Colonoscopy: Referred - AAA screening US on 07/25/23 negative Encounters Date Type Department Care Team Description 01/16/2025 Refill [facility] [address] [place] [address] Layla Thapa, DON Cervical spondylosis; Neck pain; Chronic bilateral low back pain, unspecified whether sciatica present 01/16/2025 Telephone [facility] [address] [place] [address] Kassandra Phillips MD Med Refill 01/14/2025 Refill [facility] [address] [place] [address] Naida Hobson MD 01/13/2025 Refill [facility] [address] [place] [address] Kassandra Phillips MD 12/21/2024 Telephone [facility] [address] [place] [phone] Kassandra Phillips MD Medication Question 12/19/2024 Refill [facility] [address] [place] [address] Layla Thapa, RN Cervical spondylosis; Neck pain; Chronic bilateral low back pain, unspecified whether sciatica present 12/19/2024 Telephone [facility] [address] [place] [phone] Kassandra Phillips MD Med Refill 12/14/2024 Refill [facility] [address] [place] [phone] Kassandra Phillips MD 11/23/2024 Refill [facility] [address] [place] [address] Layla Thapa, DON Cervical spondylosis; Neck pain; Chronic bilateral low back pain, unspecified whether sciatica present 11/23/2024 Telephone [facility] [address] [place] [address] Layla Thapa, DON 11/23/2024 Telephone [facility] [address] [place] [phone] Kassandra Phillips MD Medication Question 11/22/2024 11:00 AM EST Office Visit [facility] [address] [place] [phone] Kassandra Phillips MD Hypertension, unspecified type (Primary Dx); Carotid stenosis, right; Cervical spondylosis; Dyslipidemia; Tobacco dependence; Smoking greater than 20 pack years; Neck pain; Need for COVID-19 vaccine; Screening for diabetes mellitus; Chronic bilateral low back pain, unspecified whether sciatica present; Epigastric pain 11/22/2024 Refill [facility] [address] [place] [address] Layla Thapa, RN Cervical spondylosis; Neck pain; Chronic bilateral low back pain, unspecified whether sciatica present 11/22/2024 Telephone [facility] [address] [place] [address] [place] [address] Kassandra Phillips MD Med Refill 11/22/2024 Abstract [facility] [address] [place] [address] Yamile Curiel [place] 11/22/[address] [phone] Krystle Willoughby, RN Results 11/22/2024 Orders Only [facility] [address] [place] [address] Kassandra Phillips MD Anemia, unspecified type (Primary Dx); Cervical spondylosis; Neck pain; Chronic bilateral low back pain, unspecified whether sciatica present 11/22/[address] [phone] Kassandra Phillips MD Med Refill 11/22/2024 Orders Only GENERIC EXTERNAL DATA DEPARTMENT Provider, Generic External Data 11/22/2024 Travel 11/16/2024 11:00 AM EST Clinical Support [address] [place] [address] Layla Thapa, chief librarian branch or department pain of both knees 11/16/2024 Travel 11/14/2024 Refill [facility] [address] [place] [phone] Kassandra Phillips MD 11/13/2024 Telephone [facility] [address] [place] [address] Layla Thapa, DON 11/08/2024 Patient Outreach [address] [phone] Kassandra Phillips MD Pre-visit Planning (Pre-visit planning - LVM ) 10/30/2024 Refill [facility] [address] [place] [address] Kassandra Phillips MD Cervical spondylosis; Neck pain; Other chronic back pain 10/30/2024 Telephone [facility] [address] [place] [address] Kassandra Phillips MD 10/25/2024 Telephone [facility] [address] [place] [address] Yamile Curiel [place] november recall from Last 3 Months Immunizations Name Administration [...] Sign Reading Time Taken Comments Blood Pressure 150/90 11/22/2024 11:57 AM EST Pulse 60 11/22/2024 11:15 AM [...] Description 02/15/2025 11:00 AM EDT Clinical Support [facility] [address] [place] [address] Layla Thapa, DON [address] [place], [place] [phone] Health Maintenance Due Date Last Done Comments CT Colonography 1955 FIT DNA/Cologuard 1955 FIT 1955 FOBT 1955 Sigmoidoscopy 1955 Lung Cancer Screening 11/18/2024 11/18/2023 Alcohol/Substance Use Screening 08/13/2025 08/13/2024 Depression Screening 08/13/2025 08/13/2024, 08/13/20 24 SDOH Screening 08/13/2025 08/13/2024 Diabetes: Hemoglobin A1C 11/22/2025 11/22/2024, 06/11 Tobacco Screening 11/22/2025 11/22/2024 Colonoscopy 08/07/2029 08/07/2024 Colorectal Cancer Screening 08/07/2029 Lipid Panel 11/22/2029 11/22/2024, 010 11/2023, 06/30/2023 DTaP/Tdap/Td Vaccines (2 - Td or Tdap) 06/30/2033 06/30/2023 Hepatitis C Screening Completed 06/30/2023 Pneumococcal Vaccine: 50+ Years Completed 06/30/2023 RSV Patients and Patients Aged 60 years or older Completed 12/26/2023 Zoster Vaccines Completed 12/26/2023, 06/20/2023 Hepatitis A Vaccines Aged Out 08/13/2024, 11/29/19 24 No longer eligible based on patient's age to complete this topic Influenza Vaccine Completed 08/13/2024, , 07/18/2021 Meningococcal [...] Name Priority Date/Time Associated Diagnosis Comments MR CERVICAL SPINE WO CONTRAST Routine 12/03/2024 10:41 AM EST Cervical spondylosis Neck pain TSH W/REFLEX TO FT4 Routine 11/27/2024 1 :19 PM EST Anemia, unspecified type VITAMIN B12/FOLATE, SERUM PANEL Routine 11/27/2024 1:19 PM EST Anemia, unspecified type TSH W/REFLEX TO FT4 Routine 11/22/2024 1 2:07 PM EST Anemia, unspecified type FERRITIN Routine 11/22/2024 12:07 PM EST Anemia, unspecified type IRON AND TOTAL IRON BINDING CAPACITY Routine 11/22/2024 12:07 PM EST CBC WITH AUTO DIFFERENTIAL Routine 11/22/2024 12:07 PM EST LIPID PANEL WITH REFLEX TO DIRECT LDL Routine 11/22/2024 12:07 PM EST Dyslipidemia COMPREHENSIVE METABOLIC PANEL Routine 11/22/2024 12:07 PM EST Hypertension, unspecified type Dyslipidemia HEMOGLOBIN A1C Routine 11/22/2024 12:07 PM EST Screening for diabetes mellitus POCT JOSE-14 URINE DRUG SCREEN Routine 11/16/2024 10:56 AM EST Chronic pain of both knees HM COLONOSCOPY Routine 08/07/2024 LDCT LUNG SCREENING Routine 11/18/2023 1 1:57 AM EST HEPATITIS C AB W/REFL TO HCV RNA, QN, PCR Routine 06/30/2023 10:33 AM EDT Routine general medical examination at a health care facility from Last 3 Months or Most Recently Relevant to Health Maintenance Results * MR Cervical Spine w/o Contrast (12/03/2024 10:41 AM EST) Anatomical Region Laterality Modality Spine, C-spine Magnetic Resonan ce 12/03/2024 10:4 1 AM EST Narrative 12/03/2024 10:42 AM EST ? [facility] ?[address] ?[place] [address] ? Magnetic Resonance Report ? Signed ? Patient: Omer Lara ?MR#: [id number] ?? [id number] ? : 1955 ?Acct:[id number] ? Age/Sex: 69 / M ?ADM Date: 11/30/24 ? Loc: HO.MRI ? Attending Dr: Kassandra Phillips MD ? Ordering Physician: Kassandra Phillips MD ?? Date of Service: 11/30/24 ?? Procedure(s): MR cervical spine wo con ?? Accession Number(s): [id number] ? cc: Kassandra Phillips MD ? CLINICAL HISTORY: neck pain, b l hand and arm numbness. ? MR cervical spine without gadolinium ? Comparison: None ? Findings: ? Motion artifact limits interpretation. ?? Mild straightening of the normal cervical lordosis. ?? Multilevel disc space narrowing and disc desiccation, most pronounced at ?? C3-C4. ?? The spinal cord appears within normal limits in caliber and signal, given ?? motion artifact. ?? Visualized portions of the posterior fossa demonstrate mild volume loss ?? within the cerebellum brainstem. ?? Paravertebral soft tissues are unremarkable. ?? No suspicious marrow lesion. ? Individual levels: ? C2-C3: Small right eccentric disc protrusion. Mild right neural foraminal ?? narrowing. No central canal stenosis. ?? C3-C4: Uncovertebral spurring with a small posterior disc protrusion. ?? Moderate central canal stenosis and moderate bilateral neural foraminal ?? narrowing, [id number]-right. ?? C4-C5: Small right eccentric disc protrusion. No significant central canal ?? stenosis. Mild right neural foraminal narrowing. ?? C5-C6: Small right eccentric disc protrusion. Moderate to severe right ?? neural foraminal narrowing. ?? C6-C7: No central canal stenosis or neural foraminal narrowing. ?? C7-T1: Mild bilateral neural foraminal narrowing. No central canal ?? stenosis. ? Impression: ? There is significant motion artifact which limits interpretation despite ?? repeat imaging. ?? There is moderate central canal stenosis at C3-C4 and there is multilevel ?? neural foraminal narrowing as detailed. ? This document has been electronically signed by: Adonay Nolen MD on ?? 12/03/2024 10:41:01 ? Dictated By: ?Adonay Nolen MD ? Signed By: ?<Electronically signed by Adonay Nolen MD in OV> ? 12/03/24 1042 ? DD/ 1041 ? TD/TT: 12/03/24 1041 ? Collections Attorney: ? Procedure Note [place], Image - 12/03/2024 [place] [address] Magnetic Resonance Report Signed Patient: Benny LaraR#: [id number] : 1955cct:[id number] Age/Sex: 69 / MADM Date: 11/30/24 Loc: HO.MRI Attending Dr: Kassandra Phillips MD Ordering Physician: Kassandra Phillips MD Date of Service: 11/30/24 Procedure(s): MR cervical spine wo con Accession Number(s): [id number] cc: Kassandra Phillips MD CLINICAL HISTORY: neck pain, b l hand and arm numbness. MR cervical spine without gadolinium Comparison: None Findings: Motion artifact limits interpretation. Mild straightening of the normal cervical lordosis. Multilevel disc space narrowing and disc desiccation, most pronounced at C3-C4. The spinal cord appears within normal limits in caliber and signal, given motion artifact. Visualized portions of the posterior fossa demonstrate mild volume loss within the cerebellum brainstem. Paravertebral soft tissues are unremarkable. No suspicious marrow lesion. Individual levels: C2-C3: Small right eccentric disc protrusion. Mild right neural foraminal narrowing. No central canal stenosis. C3-C4: Uncovertebral spurring with a small posterior disc protrusion. Moderate central canal stenosis and moderate bilateral neural foraminal narrowing, ohfs-[id number]-iczg-right. C4-C5: Small right eccentric disc protrusion. No significant central canal stenosis. Mild right neural foraminal narrowing. C5-C6: Small right eccentric disc protrusion. Moderate to severe right neural foraminal narrowing. C6-C7: No central canal stenosis or neural foraminal narrowing. C7-T1: Mild bilateral neural foraminal narrowing. No central canal stenosis. Impression: There is significant motion artifact which limits interpretation despite repeat imaging. There is moderate central canal stenosis at C3-C4 and there is multilevel neural foraminal narrowing as detailed. This document has been electronically signed by: Adonay Nolen MD on 12/03/2024 10:41:01 Dictated By: Adonay Nolen MD Signed By: <Electronically signed by Adonay Nolen MD in OV> 12/03/24 1042 DD/ 1041 TD/TT: 12/03/24 1041 Collections Attorney: Kassandra Phillips MD IMG MRI PROCEDURES Final Result * (ABNORMAL) Vitamin B12 (Cobalamin) and Folate Panel, Serum (11/27/2024 1:19 PM EST) Vitamin B12 1,470(H) 200 - 900 pg/mL [facility] Comment:NORMAL 200-900 PG/ML INDETERMINATE 160-199 PG/ML DEFICIENT < 160 PG/ML Folate 12.4 > or = 4.0 ng/mL [facility] Comment:Reference Values:> o r = 4.0 ng/mL< 4.0 ng/mL suggests folate deficiency Methotrexate, aminopterin and folinic acid(leucovorin) are chemotherapeutic agents whose molecularstructures are similar to folate; therefore, the Architectfolate assay cannot be used for patients using these drugs. Blood 11/27/2024 1:19 PM EST 11/27/2024 4:04 PM EST Kassandra Phillips MD LAB BLOOD ORDERABLES Final Resul t [facility] [address] [place] [phone] * TSH with Reflex to Free T4 (11/27/2024 1:19 PM EST) Only the most recent of2 resultswithin the time period is included. TSH reflex Free T4 0.94 0.32 - 4.0 uIU/mL [facility] Blood 11/27/2024 1:19 PM EST 11/27/2024 4:04 PM EST us Kassandra Phillips MD LAB BLOOD ORDERABLES Final Resul t [facility] [address] [place] [address] [phone] * (ABNORMAL) Lipid Panel with Reflex to Direct LDL (11/22/2024 12:07 PM EST) Triglycerides 161(H) <150 mg/dL [facility] Comment:Desirable Triglyceri de: less than 150 mg/dLBorderline High Triglyceride 150-199 mg/dLHigh Triglyceride: 200-499 mg/dLVery High Triglyceride: greater than or equal to 5OO mg/dL Cholesterol 134 <200 mg/dL [facility] Comment:Desirable Cholestero l: less than 200 mg/dLBorderline High Cholesterol: 200-239 mg/dLHigh Cholesterol: greater than 239 mg/dL LDL Cholesterol Calculated 57 <100 mg/dL [facility] Comment:Desirable LDL: less than 100 mg/dLNear Optimal/Above Optimal LDL: 110- 129 mg/dLBorderline High LDL: 130-159 mg/dLHigh LDL: 160-189 mg/dLVery High LDL: greater than or equal to 190 mg/dL HDL Cholesterol 45 >40 mg/dL [facility] Comment:Desirable HDL: great er than 40 mg/dL Note: This HDL assay may give artificially low results in patients with liver disease. Blood 11/22/2024 12:0 7 PM EST 11/22/2024 12:51 PM EST us Kassandra Phillips MD LAB BLOOD ORDERABLES Final Resul t [facility] [address] [place], [place] [phone] * (ABNORMAL) CBC auto differential (11/22/2024 12:07 PM EST) White Blood Count 6.8 4.8 - 10.8 X10*3/uL [facility] Red Blood Count 3.80(L) 4.60 - 5.80 X10*6/uL [facility] Hemoglobin 11.8(L) 14.0 - 18.0 g/dl [facility] Hematocrit 36.4(L) 42.0 - 52.0 % [facility] Mean Corpuscular Volume 95.8 80.0 - 98.0 fL [facility] Mean Corpuscular Hemoglobin 31.1 27.0 - 33.0 pg [facility] Mean Corpuscular HGB Conc 32.4 31.0 - 36.0 g/dl [facility] Red Cell Distribution Width 12.9 11.0 - 16.0 % [facility] Platelet Count 371 160 - 400 X10*3/uL [facility] Mean Platelet Volume 8.9(L) 9.4 - 12.4 fL [facility] Neutrophils Percent Auto 42.9(L) 45 - 73 % [facility] Imm Gran Pct Auto 0.4 0.0 - 0.4 % [facility] Lymphocytes Percent Auto 36.4 20 - 40 % [facility] Monocytes Percent Auto 14.6(H) 2 - 11 % [facility] Eosinophils Percent Auto 5.3(H) 0 - 4 % [facility] Basophils Percent Auto 0.4 0 - 2 % [facility] NRBC Pct Auto 0.0 0.0 - 0.2 /100WBC [facility] Neutrophils Absolute Auto 2.9 2.0 - 8.3 x10*3/uL [facility] Imm Gran Abs Auto 0.03 0.00 - 0.03 X10*3/uL [facility] Lymphocytes Absolute Auto 2.5 1.2 - 4.9 X10*3/uL [facility] Monocytes Absolute Auto 1.0 0.1 - 1.2 X10*3/uL [facility] Eosinophils Absolute Auto 0.4 0.0 - 0.4 X10*3/uL [facility] Basophils Absolute Auto 0.0 0.0 - 0.2 X10*3/uL [facility] NRBC Abs Auto 0.000 0.0 - 0.012 X10*3/uL [facility] 11/22/2024 12:0 7 PM EST 11/22/2024 12:51 PM EST Generic External Data Provider LAB BLOOD ORDERAB LES Final Result Performing Organization Address [facility] Co de Phone Number [facility] [address] [place] [phone] * Iron And Total Iron Binding Capacity (11/22/2024 12:07 PM EST) Iron 122 45 - 160 mcg/dL [facility] Total Iron Binding Capacity 257 228 - 428 mcg/dL [facility] Percent Iron Saturation 47 15 - 50 % [facility] Unsaturated Iron Binding 135 ug/dL [facility] 11/22/2024 12:0 7 PM EST 11/22/2024 12:51 PM EST us Generic External Data Provider LAB BLOOD ORDERAB LES Final Result Performing Organization Address [facility] Co de Phone Number [facility] [address] [place] [phone] * Hemoglobin A1c (11/22/2024 12:07 PM EST) Hemoglobin A1c 5.7 <6.0 % [facility] Comment:Hemoglobin A1C Refer ence Range Adults: 4.8 - 6.0 % Non diabetic: < 6.0 % Goal: < 7.0 %Additional Action Suggested: > 8.0 %Note: Hemoglobin A1c results are invalid for patients with abnormal amounts of HbF. Blood transfusions may impact the HbA1c concentration in the patient sample. Estimated Average Glucose 117 mg/dL [facility] Comment:eAG = Estimated ave rage glucose which is %A1C expressed asaverage glucose, using the formula of the D6Q-[id number] Glucose study (ADAG), Diabetes Care, Vol.31,#8,2007 Blood Venous blood specimen / Unknown 11/22/2024 12:07 PM EST 11/22/2024 12:51 PM EST us Kassandra Phillips MD LAB BLOOD ORDERABLES Final Resul t Performing Organization Address [facility] Co de Phone Number [facility] [address] [place] [address] [phone] * Ferritin (11/22/2024 12:07 PM EST) Pathologist [facility] Ferritin 141 20 - 250 ng/mL [facility] 11/22/2024 12:0 7 PM EST 11/22/2024 12:51 PM EST us Generic External Data Provider LAB BLOOD ORDERAB LES Final Result Performing Organization Address [facility] Phone Number [facility] [address] [place] [address] [phone] * (ABNORMAL) Comprehensive Metabolic Panel (11/22/2024 12:07 PM EST) Sodium 139 135 - 145 mmol/L [facility] Potassium 4.2 3.3 - 5.1 mmol/L [facility] Chloride 107 96 - 108 mmol/L [facility] Carbon Dioxide 25 22 - 29 mmol/L [facility] Anion Gap 11(L) 12 - 20 [facility] Urea Nitrogen (BUN) 24(H) 9 - 16 mg/dL [facility] Creatinine, Serum 0.89 0.5 - 1.4 mg/dL [facility] Estimated Glomerular Filt Rate >60 [facility] Comment:Chronic Kidney Disea se: Estimated GFR < 60 mL/min/1.55t7Teeifb Kidney Disease: Estimated GFR < 15 mL/min/1.73m2 Glucose 98 60 - 115 mg/dL [facility] Calcium 9.1 8.4 - 10.2 mg/dL [facility] Bilirubin, Total 0.2 0.0 - 1.0 mg/dL [facility] Aspartate Amino Transferase 27 5 - 37 U/L [facility] Alanine Aminotransferase 25 0 - 40 U/L [facility] Total Protein 7.5 6.5 - 8.0 g/dL [facility] Albumin Level 4.2 3.5 - 5.0 g/dL [facility] Alkaline Phosphatase 102 39 - 117 U/L [facility] Blood Venous blood specimen / Unknown 11/22/2024 12:07 PM EST 11/22/2024 12:51 PM EST Kassandra Phillips MD LAB BLOOD ORDERABLES Final Resul t [facility] [address] [place] [address] [phone] * POCT JOSE-14 Urine Drug Screen (11/16/2024 10:56 AM EST) Urine Urine specimen obtained by clean catch procedure / Unknown 11/16/2024 10:56 AM EST Narrative Layla Thapa RN - 11/16/2024 10:56 AM EST .UTOX cup Lot#[id number] Exp. 07/04/26 Internal Pass Control Kassandra Phillips MD POINT OF CARE TEST ENTER/EDIT OR DERABLES Final Result * (ABNORMAL) Hm Colonoscopy (08/07/2024) Colonoscopy Abnormal(A ) Normal 08/07/2024 Suni Doshi MD HEALTH MAINTENANCE Final Result * CT Lung Screening Low dose (11/18/2023 11:57 AM EST) Anatomical Region Laterality Modality Lung Computed Tomogra phy 11/18/2023 11:5 7 AM EST Narrative 11/22/2023 3:09 PM EST ? [facility] ?[address] ?[place] [address] ? CT Scan Report ? Signed ? Patient: Omer Lara ?MR#: [id number] ?? [id number] ? : 1955 ?Acct:[id number] ? Age/Sex: 68 / M ?ADM Date: 11/18/23 ? Loc: HO.CT ? Attending Dr: Laura Tinajero MAGNETIC PROSPECTING OPERATOR ? Ordering Physician: Laura Tinajero NP ?? Date of Service: 11/18/23 ?? Procedure(s): CT lung screening ?? Accession Number(s): [id number] ? cc: Kassandra Phillips MD; Laura Tinajero [...] DLP: ? 43 mGy-cm ? FINDINGS: ? DATA COLLECTOR: Clear lungs. ? LUNGS: Mild biapical pleural [...] signed by Temi Rogers MD in OV> ?11/22/235 ? DD/ 1157 ? TD/TT: ? Collections Attorney: ? Procedure Note Breanna, Image - 11/22/[address] [address] [address] Scan Report Signed Patient: Maria Antonia Lara#: [id number] : 1955cct:[id number] Age/Sex: 68 / MADM Date: 11/18/23 Loc: .CT Attending Dr: Laura Tinajero NP Ordering Physician: Laura Tinajero NP Date of Service: 11/18/23 Procedure(s): CT lung screening Accession Number(s): [id number] cc: Kassandra Phillips MD; Laura Tinajero NP [...] iterative reconstruction technique DLP: 43 mGy-cm FINDINGS: DATA COLLECTOR: Clear lungs. LUNGS: Mild biapical pleural thickening. [...] in OV> 11/22/23 1505 DD/ 1157 TD/TT: Collections Attorney: [facility] External Provider IMG CT PROCEDURES Final Result * Hepatitis C Antibody with Reflex to HCV, RNA, Quantitative, Real-Time PCR (06/30/2023 10:33 AM EDT) Hepatitis C Antibody Nonreactive Nonreactive [facility] Comment:Antibodies to HCV no t detected; does not exclude early acuteHCV infection. Blood Venous blood specimen / Unknown 06/30/2023 10:33 AM EDT 06/30/2023 11:20 AM EDT Kassandra Phillips MD LAB BLOOD ORDERABLES Final Resul t [facility] [address] [place] [phone] [phone] from Last 3 Months or Most Recently Relevant to Health Maintenance Insurance [facility] [place] [address] [address] Inspector Relationship Specialty Start Date End Date Kassandra Phillips MD [address] [employer] [address] PCP - General Family Medicine 06/30/23 [place] Gar, PharmD 230 [place] [address] Pharmacist Internal Medicine 12/26/23
--- OUTSIDE RECORDS SUMMARY | 2025-01-22 17:06 | XMS_ITS | Encounter Summary ---
Author Organization [employer] [facility] Address [address] 7t [place] [address] Care Team Providers Care Aviation Tactical Readiness Officer Name Role Phone Kassandra Phillips MD Primary Care Provider [phone] [place] Gar PharmD Unavailable [phone] Reason for Referral * Imaging (Routine) - Closed Specialty Diagnoses / Procedures Referred By Contac t Referred To Contact Radiology Diagnoses Chronic bilateral low back pain, unspecified whether sciatica present Procedures MR Lumbar Spine w/o Contrast Kassandra Phillips MD [address] [place] [address] Phone: tel: fax: [address] Phone: tel: fax: Referral ID Status Reason Start Date Expiration Date Visits Re quested Visits Authorized [id number] Closed 05/24/2024 05/24/2025 1 1 Encounter Details Date Type Department Care Team (Late st Contact Info) Description 05/24/2024 Orders Only [facility] [address] [place] [address] [phone] Kassandra Phillips MD [address] [place], [place] [phone] Chronic bilateral low back pain, unspecified whether [...] Description 02/15/2025 11:00 AM EDT Clinical Support [facility] [address] [place] [address] [phone] Layla Thapa RN [address] [place], [place] [phone] documented as of this encounter Goals Goal [...] EST Narrative 10/15/2024 10:02 AM EST ? [facility] ?[address] ?[place] [address] ? Magnetic Resonance Report ? Signed ? Patient: Omer Lara ?MR#: [id number] ?? [id number] ? : 1955 ?Acct:[id number] ? Age/Sex: 69 / M ?ADM Date: 10/14/24 ? Loc: HO.MRI ? Attending Dr: Kassandra Phillips MD ? Ordering Physician: Kassandra Phillips MD ?? Date of Service: 10/14/24 ?? Procedure(s): MR lumbar spine wo con ?? Accession Number(s): [id number] ? cc: Kassandra Phillips MD ? Workstation: [employer] ? EXAMINATION: ??MR LUMBAR SPINE WITHOUT IV [...] DD/ 1507 ? TD/TT: 10/14/24 1521 ? Drawstring Knotter: ? Procedure Note Chasidy Carlos - 10/15/[address] [address] Magnetic Resonance Report Signed Patient: Maria Antonia Lara#: [id number] : 1955cct:[id number] Age/Sex: 69 / MADM Date: 10/14/24 Loc: HO.MRI Attending Dr: Kassandra Phillips MD Ordering Physician: Kassandra Phillips MD Date of Service: 10/14/24 Procedure(s): MR lumbar spine wo con Accession Number(s): [id number] cc: Kassandra Phillips MD Workstation: [employer] EXAMINATION: MR LUMBAR SPINE WITHOUT IV CONTRAST [...] 10/15/24 0959 DD/ 1507 TD/TT: 10/14/24 1521 Drawstring Knotter: Kassandra Phillips MD IMG MRI PROCEDURES Edited Result - Final documented in this encounter Visit Diagnoses Diagnosis Chronic bilateral low back pain, unspecified whether sciatica present- Primary documented in this encounter Additional Health Concerns Assessment Noted Time PHQ-9 Depression Total Score: 4 06/30/20 23 9:32 AM EDT documented as of this encounter Care Teams Aviation Tactical Readiness Officer Relationship Specialty Start Date End Date Kassandra Phillips MD [address] [place] [address] PCP - General Family Medicine 06/30/23 [place] Gar PharmD [address] [place] [address] Pharmacist Internal Medicine 12/26/23 documented as of this encounter
--- OUTSIDE RECORDS SUMMARY | 2025-01-22 17:07 | XMS_ITS | Encounter Summary ---
Author Organization [employer] Address 75 [facility] 7t [place] [address] Care Team Providers Care Plating Equipment Tender Name Role Phone Kassandra Phillips MD Primary Care Provider [phone] [place] Gar PharmD Unavailable [phone] Reason for Visit * Reason Onset Date Comments Med Refill 12/19/2024 Encounter Details Date Type Department Care Team (Late st Contact Info) Description 12/19/2024 Telephone [facility] [address] [place], [place] [phone] Kassandra Phillips MD 230 [place], [place] [phone] Med Refill Social History Tobacco Use Types [...] encounter Miscellaneous Notes * Telephone Encounter - Ester Barkley - 12/19/2024 11:46 AM EDT TC from pt requesting medication refill. Medications needing refill : oxyCODONE (Roxicodone) 5 MG immediate release tablet To be sent to: [facility]/pharmacy #[address] [place] [address] documented in this encounter Plan of Treatment Upcoming Encounters Date Type Department Care Team (Late st Contact Info) Description 02/15/2025 11:00 AM EDT Clinical Support [facility] 230 [place], [place] [phone] Layla Thapa RN [address] [place], [place] [phone] documented as of this encounter Goals Goal [...] documented as of this encounter Care Teams Plating Equipment Tender Relationship Specialty Start Date End Date Kassandra Phillips MD [address] [place] [address] PCP - General Family Medicine 06/30/23 [place] Gar, PharmD [address] [place] [address] Pharmacist Internal Medicine 12/26/23 documented as of this encounter
--- OUTSIDE RECORDS SUMMARY | 2025-01-22 17:07 | XMS_ITS | Encounter Summary ---
Author Organization [employer] Address 75 [facility] 7t [place] [address] Care Team Providers Care Home Visitor Home Base Head Start Name Role Phone Kassandra Phillips MD Primary Care Provider [phone] [place] Gar PharmD Unavailable [phone] Reason for Visit * Reason Comments Med Refill Encounter Details Date Type Department Care Team ([facility] st Contact Info) Description 01/23/2024 Refill [facility] 230 [place], [place] [phone] Kassandra Phillips MD 230 [place], [place] [phone] Social History Tobacco Use Types Packs/Day Years [...] Description 02/15/2025 11:00 AM EDT Clinical Support [facility]INE [address] [place] [phone] Layla Thapa RN [address] [place] [address] documented as of this encounter Goals Goal [...] documented as of this encounter Care Teams Home Visitor Home Base Head Start Relationship Specialty Start Date End Date Kassandra Phillips MD [address] [place] [address] PCP - General Family Medicine 06/30/23 [place] Gar, SouravD [address] [place] [address] Pharmacist Internal Medicine 12/26/23 documented as of this encounter
--- OUTSIDE RECORDS SUMMARY | 2025-01-22 17:07 | XMS_ITS | Encounter Summary ---
Author Organization [employer] Address 75 [facility] 7 [place] [address] Care Team Providers Care Shoeblack Name Role Phone Kassandra Phillips MD Primary Care Provider [phone] [place] Gar PharmD Unavailable [phone] Reason for Visit * Reason Comments Med Refill Encounter Details Date Type Department Care Team ([facility] st Contact Info) Description 01/14/2025 Refill [facility] 230 [place], [place] [phone] Naida Hobson MD 230 [place], [place] [phone] Social History Tobacco Use Types Packs/Day Years [...] Upcoming Encounters Date Type Department Care Team ([facility] Contact Info) Description 02/15/2025 11:00 AM EDT Clinical Support [facility] [address] [place] [phone] Layla Thapa, DON 505 [place] [address] documented as of this encounter Goals Goal [...] documented as of this encounter Care Teams Shoeblack Relationship Specialty Start Date End Date Kassandra Phillips MD [address] [place] [address] PCP - General Family Medicine 06/30/23 [place] Gar, Julianne [address] [place] [address] Pharmacist Internal Medicine 12/26/23 documented as of this encounter
--- OUTSIDE RECORDS SUMMARY | 2025-01-22 17:07 | XMS_ITS | Encounter Summary ---
Author Organization [employer] Address 75 [facility] 7t [place] [address] Care Team Providers Care Insurance Healthcare Representative Name Role Phone Kassandra Phillips MD Primary Care Provider [phone] [place] Gar PharmD Unavailable [phone] Reason for Visit * Reason Onset Date Comments Med Refill 09/17/2024 Encounter Details Date Type Department Care Team (Late st Contact Info) Description 09/17/2024 Telephone [facility] 230 [place], [place] [phone] Kassandra Phillips MD 230 [place], [place] [phone] Med Refill Social History Tobacco Use Types [...] 50 MG tablet To be sent to: [facility][id number] documented in this encounter Plan of Treatment Upcoming Encounters Date Type Department Care Team (Late st Contact Info) Description 02/15/2025 11:00 AM EDT Clinical Support [facility] [address] [place], [place] [phone] Layla Thapa, DON [address] [place], [place] [phone] documented as of this encounter Goals Goal [...] documented as of this encounter Care Teams Insurance Healthcare Representative Relationship Specialty Start Date End Date Kassandra Phillips MD [address] [place] [address] PCP - General Family Medicine 06/30/23 [place] Gar, Julianne [address] [place] [address] Pharmacist Internal Medicine 12/26/23 documented as of this encounter
--- OUTSIDE RECORDS SUMMARY | 2025-01-22 17:07 | XMS_ITS | Encounter Summary ---
Author Organization [employer] Address 75 [facility] 7t [place] [address] Care Team Providers Care Plant Chief Name Role Phone Kassandra Phillips MD Primary Care Provider [phone] [place] Gar PharmD Unavailable [phone] Reason for Visit * Reason Comments Med Refill Encounter Details Date Type Department Care Team ([facility] st Contact Info) Description 01/24/2024 Refill [facility] [address] [place], [place] [phone] Naida Hobson MD 230 [place], [place] [phone] Social History Tobacco Use Types Packs/Day Years [...] Description 02/15/2025 11:00 AM EDT Clinical Support [facility] [address] [place] [address] Layla Thapa RN 505 [place] [address] documented as of this encounter Goals Goal [...] documented as of this encounter Care Teams Plant Chief Relationship Specialty Start Date End Date Kassandra Phillips MD [address] [place] [address] PCP - General Family Medicine 06/30/23 [place] Gar, SouravD [address] [place] [phone] Pharmacist Internal Medicine 12/26/23 documented as of this encounter
--- OUTSIDE RECORDS SUMMARY | 2025-01-22 17:07 | XMS_ITS | Encounter Summary ---
Author Organization [employer] Address 75 [facility] 7t [place] [address] Care Team Providers Care Tape Duplicator Name Role Phone Kassandra Phillips MD Primary Care Provider [phone] [place] Gar PharmD Unavailable [phone] Reason for Visit * Reason Onset Date Comments Med Refill 11/22/2024 Encounter Details Date Type Department Care Team (Late st Contact Info) Description 11/22/2024 Telephone [facility] 230 [place], [place] [phone] Kassandra Phillips MD 230 [place], [place] [phone] Med Refill Social History Tobacco Use Types [...] encounter Miscellaneous Notes * Telephone Encounter - Frida Coyle - 11/22/2024 3:26 PM EST TC from pt requesting medication refill. Medications needing refill : oxyCODONE (Roxicodone) 5 MG immediate release tablet To be sent to: [facility] - [address] [place] [phone]. Pt's spouse states that [id number] [place], [place] does not have the medication in stock and requested that the medication be sent to another pharmacy. Strip Machine Tender called to [address] [place] [address] and Med is available. documented in this encounter Plan of Treatment Upcoming Encounters Date Type Department Care Team ([facility] st Contact Info) Description 02/15/2025 11:00 AM EDT Clinical Support [facility] 230 [place] [address] Layla Thapa, RN 505 [place] [address] documented as of this encounter Goals Goal [...] documented as of this encounter Care Teams Tape Duplicator Relationship Specialty Start Date End Date Kassandra Phillips MD [address] [place] [facility] [address] PCP - General Family Medicine 06/30/23 [place] Gar, PharmD [address] [place] [facility] [address] Pharmacist Internal Medicine 12/26/23 documented as of this encounter
--- OUTSIDE RECORDS SUMMARY | 2025-01-22 17:07 | XMS_ITS | Encounter Summary ---
Author Organization [employer] Address 75 [facility] 7t [place] [address] Care Team Providers Care Coin Box Collector Name Role Phone Kassandra Phillips MD Primary Care Provider [phone] [place] Gar PharmD Unavailable [phone] Reason for Visit * Reason Onset Date Comments Medication Question 11/23/2024 Encounter Details Date Type Department Care Team ([facility] st Contact Info) Description 11/23/2024 Telephone [facility] 230 [place], [place] [phone] Kassandra Phillips MD 230 [place], [place] [phone] Medication Question Social History Tobacco Use Types Packs/Day Years [...] encounter Miscellaneous Notes * Telephone Encounter - Boone Amaro - 11/23/2024 1:35 PM EST Tc from pt requesting a call back to Discuss start date for medication oxyCODONE (Roxicodone) 5 MG immediate release tablet. Contact pt at Contact pt at [phone] documented in this encounter Plan of Treatment Upcoming Encounters Date Type Department Care Team (Late st Contact Info) Description 02/15/2025 11:00 AM EDT Clinical Support [facility] 230 [place], [place] [phone] Layla Thapa, DON 505 [place], [place] [phone] documented as of this encounter Goals Goal [...] documented as of this encounter Care Teams Coin Box Collector Relationship Specialty Start Date End Date Kassandra Phillips MD [address] [place] [address] PCP - General Family Medicine 06/30/23 [place] Gar, Julianne [address] [place] [address] Pharmacist Internal Medicine 12/26/23 documented as of this encounter
--- OUTSIDE RECORDS SUMMARY | 2025-01-22 17:07 | XMS_ITS | Encounter Summary ---
Author Organization [employer] [facility] Address [address] [place] [address] 7t [place] [address] Care Team Providers Care Osteopathic Medicine Teacher Name Role Phone Kassandra Phillips MD Primary Care Provider [phone] [place] Gar PharmD Unavailable [phone] Encounter Details Date Type Department Care Team (Late st Contact Info) Description 07/01/2023 Orders Only [facility] MEDICINE [address] [place] [address] [phone] Kassandra Phillips MD [address] [place] [address] [phone] Anemia, unspecified type (Primary Dx) Social History [...] Description 02/15/2025 11:00 AM EDT Clinical Support [facility]INE [address] [place] [address] [phone] Layla Thapa RN 505 [place], [place] [phone] Scheduled Orders Name Type Priority Associated Diagnoses [...] documented as of this encounter Care Teams Osteopathic Medicine Teacher Relationship Specialty Start Date End Date Kassandra Phillips MD 230 [place] [address] PCP - General Family Medicine 06/30/23 [place] Gar, SouravD 230 [place] [address] Pharmacist Internal Medicine 12/26/23 documented as of this encounter
--- OUTSIDE RECORDS SUMMARY | 2025-01-22 17:07 | XMS_ITS | Encounter Summary ---
Author Organization [employer] Address 75 [facility] 7t [place] [address] Care Team Providers Care Door Frame Builder Name Role Phone Kassandra Phillips MD Primary Care Provider [phone] [place] Gar PharmD Unavailable [phone] Encounter Details Date Type Department Care Team (Late st Contact Info) Description 10/30/2024 Telephone [facility] 230 [place], [place] [phone] Kassandra Phillips MD 230 [place], [place] [phone] Social History Tobacco Use Types Packs/Day Years [...] 11:00 AM EDT Clinical Support [facility] [address] [place] [phone] Layla Thapa RN 505 [place] [address] documented as of this encounter Goals Goal [...] documented as of this encounter Care Teams Door Frame Builder Relationship Specialty Start Date End Date Kassandra Phillips MD [address] [place] [address] PCP - General Family Medicine 06/30/23 [place] Gar, PharmD [address] [place] [address] [place] [address] Pharmacist Internal Medicine 12/26/23 documented as of this encounter
--- OUTSIDE RECORDS SUMMARY | 2025-01-22 17:07 | XMS_ITS | Encounter Summary ---
Author Organization [employer] Address 75 [facility] 7t [place] [address] Care Team Providers Care Technical Support Intern Name Role Phone Kassandra Phillips MD Primary Care Provider [phone] Blanco Gar PharmD Unavailable [phone] Encounter Details Date Type Department Care Team (Late st Contact Info) Description 11/22/2024 Orders Only [facility] MEDICINE [address], [place] [phone] Kassandra Phillips MD [address] [place], [place] [phone] Anemia, unspecified type (Primary Dx); Cervical spondylosis; [...] 11:00 AM EDT Clinical Support [facility] MEDICINE [address] [place] [phone] Layla Thapa, DON [address] [place] [phone] documented as of this encounter Goals Goal Patient Goal Type Associated Problems Recent Progress Patient-Stated? Author Quit using tobacco (cigarettes, smokeless, etc) Tobacco Use Blanco Vega, PharmD Note: Quit date: 12/26/2023 documented as of this encounter Procedures Procedure Name Priority Date/Time Associated Diagnosis Comments VITAMIN B12/FOLATE, SERUM PANEL Routine 11/27/2024 1:19 PM EST Anemia, unspecified type TSH W/REFLEX TO FT4 Routine 11/27/2024 1 :19 PM EST Anemia, unspecified type TSH W/REFLEX TO FT4 Routine 11/22/2024 1 2:07 PM EST Anemia, unspecified type FERRITIN Routine 11/22/2024 12:07 PM EST Anemia, unspecified type documented in this encounter Results * TSH with Reflex to Free T4 (11/27/2024 1:19 PM EST) TSH reflex Free T4 0.94 0.32 - 4.0 uIU/mL [facility] Blood 11/27/2024 1:19 PM EST 11/27/2024 4:04 PM EST Kassandra Phillips MD LAB BLOOD ORDERABLES Final Resul t [facility] [address] [place] [phone] * (ABNORMAL) Vitamin B12 (Cobalamin) and Folate Panel, Serum (11/27/2024 1:19 PM EST) Vitamin B12 1,470(H) 200 - 900 pg/mL [facility] Comment:NORMAL 200-900 PG/ML INDETERMINATE 160-199 PG/ML DEFICIENT < 160 PG/ML Folate 12.4 > or = 4.0 ng/mL [facility] Comment:Reference Values:> o r = 4.0 ng/mL< 4.0 ng/mL suggests folate deficiency Methotrexate, aminopterin and folinic acid(leucovorin) are chemotherapeutic agents whose molecularstructures are similar to folate; therefore, the Architectfolate assay cannot be used for patients using these drugs. Blood 11/27/2024 1:19 PM EST 11/27/2024 4:04 PM EST Kassandra Phillips MD LAB BLOOD ORDERABLES Final Resul t Performing Organization Address [facility] de Phone Number [facility] [address] [place] [phone] * TSH with Reflex to Free T4 (11/22/2024 12:07 PM EST) TSH reflex Free T4 1.68 0.32 - 4.0 uIU/mL [facility] 11/22/2024 12:0 7 PM EST 11/22/2024 12:51 PM EST us Generic External Data Provider LAB BLOOD ORDERAB LES Final Result Performing Organization Address [facility] de Phone Number [facility] [address] [place] [phone] * Ferritin (11/22/2024 12:07 PM EST) Ferritin 141 20 - 250 ng/mL [facility] 11/22/2024 12:0 7 PM EST 11/22/2024 12:51 PM EST Generic External Data Provider LAB BLOOD ORDERAB LES Final Result Performing Organization Address [facility] Phone Number [facility] [address] [place] [phone] documented in this encounter Visit Diagnoses Diagnosis Anemia, unspecified type- Primary Cervical spondylosis Cervical spondylosis without myelopathy Neck pain Cervicalgia Chronic bilateral low back pain, unspecified whether sciatica present documented in this encounter Additional Health Concerns Assessment Noted Time PHQ-9 Depression Total Score: 1 08/13/20 24 12:59 PM EST documented as of this encounter Care Teams Technical Support Intern Relationship Specialty Start Date End Date Kassandra Phillips MD [address] [place] [phone] PCP - General Family Medicine 06/30/23 Blanco Gar, PharmD [address] [place] [phone] Pharmacist Internal Medicine 12/26/23 documented as of this encounter
--- OUTSIDE RECORDS SUMMARY | 2025-01-22 17:07 | XMS_ITS | Encounter Summary ---
Author Organization [employer] Address 75 [facility] 7t [place] [address] Care Team Providers Care Assistant In Nursing Name Role Phone Kassandra Phillips MD Primary Care Provider [phone] Blanco Gar PharmD Unavailable [phone] Encounter Details Date Type Department Care Team (Late st Contact Info) Description 11/10/2023 Telephone [facility] MEDICINE [address] [place], [place] [phone] Kassandra Phillips MD [address] [place], [place] [phone] Social History Tobacco Use Types Packs/Day Years [...] Support [facility] MEDICINE [address] [place] [address] Layla Thapa, DON [address] [place] [address] documented as of this encounter Visit Diagnoses Not on filedocumented in this encounter Additional Health Concerns Assessment Noted Time PHQ-9 Depression Total Score: 4 06/30/20 9:32 AM EDT documented as of this encounter Care Teams Assistant In Nursing Relationship Specialty Start Date End Date Kassandra Phillips MD [address] [place] [phone] PCP - General Family Medicine 06/30/23 Blanco Gar, SouravD [address] [place] [phone] Pharmacist Internal Medicine 12/26/23 documented as of this encounter
--- OUTSIDE RECORDS SUMMARY | 2025-01-22 17:07 | XMS_ITS | Encounter Summary ---
Author Organization [employer] Address 75 [facility] 7t [place] [address] Care Team Providers Care Electronic Gluing Machine Operator Name Role Phone Kassandra Phillips MD Primary Care Provider [phone] Blanco Gar PharmD Unavailable [phone] Reason for Visit * Reason Onset Date Comments Med Refill 01/16/2025 Encounter Details Date Type Department Care Team (Late st Contact Info) Description 01/16/2025 Telephone [facility] MEDICINE [address] [place], [place] [phone] Kassandra Phillips MD [address] [place], [place] [phone] Med Refill Social History Tobacco Use Types [...] encounter Miscellaneous Notes * Telephone Encounter - Dominic Donaldson - 01/16/2025 3:25 PM EDT Tc from pt requesting medication refill for oxyCODONE (Roxicodone) 5 MG immediate release tablet .. Please send script to [facility] pharmacy documented in this encounter Plan of Treatment Upcoming Encounters Date Type Department Care Team (Late st Contact Info) Description 02/15/2025 11:00 AM EDT Clinical Support [facility] MEDICINE [address] [place], [place] [phone] Layla Thapa, DON [address] [place], [place] [phone] documented as of this encounter Goals Goal [...] documented as of this encounter Care Teams Electronic Gluing Machine Operator Relationship Specialty Start Date End Date Kassandra Phillips MD [address] [place] [phone] PCP - General Family Medicine 06/30/23 Blanco Gar, Julianne [address] [place] [phone] Pharmacist Internal Medicine 12/26/23 documented as of this encounter
--- OUTSIDE RECORDS SUMMARY | 2025-01-22 17:07 | XMS_ITS | Encounter Summary ---
Author Organization [employer] Address 75 [facility] 7t [place] [address] Care Team Providers Care Leaf Binner Name Role Phone Kassandra Phillips MD Primary Care Provider [phone] Blanco Gar PharmD Unavailable [phone] Reason for Referral * Consultation (Routine) - Closed Specialty Diagnoses / Procedures Referred By Contac t Referred To Contact Orthopaedic Surgery Diagnoses Osteoarthritis of cervical spine, unspecified spinal osteoarthritis complication status Lumbar degenerative disc disease Kassandra Phillips MD [address] [place] [address] Phone: tel: fax: [facility] [address] [facility] [address] [place], [place] Phone: tel: fax: Referral ID Status Reason Start Date Expiration Date V isits Requested Visits Authorized [id number] Closed Specialty Services Required 09/19/2023 09/18/2024 1 1 * Imaging (Routine) - Closed Specialty Diagnoses / Procedures Referred By Contac t Referred To Contact Cardiology Diagnoses Calcification of both carotid arteries Procedures VASC US Carotid Artery Duplex Bilateral Kassandra Phillips MD [address] [place] [address] Phone: tel: fax: [facility] [address] [place], [place] Phone: tel: fax: Referral ID Status Reason Start Date Expiration Date V isits Requested Visits Authorized [id number] Closed Perform Procedure 09/19/2023 09/18/2024 1 1 Encounter Details Date Type Department Care Team (Late st Contact Info) Description 09/19/2023 Orders Only [facility] MEDICINE [address] [place] [address] Kassandra Phillips MD [address] [place] [address] Calcification of both carotid arteries (Primary Dx); [...] Clinical Support [facility] MEDICINE [address] [place] [address] Layla Thapa RN [address] [place] [address] Scheduled Referrals Name Type Priority Associated Diagnoses Orde r Schedule Referral to Orthopaedic Surgery Outpatient Referral Routine Osteoarthritis of cervical spine, unspecified spinal osteoarthritis complication status Lumbar degenerative disc disease Expected: 09/19/2023 (Approximate), Expires: 09/19/2024 documented as of this encounter Procedures Procedure Name Priority Date/Time Associated Diagnosis Comments [facility] US CAROTID ARTERY DUPLEX BILATERAL Routine 10/19/2023 2:39 PM EST documented in this encounter Results * [facility] US Carotid Artery Duplex Bilateral (10/19/2023 2:39 PM EST) 10/19/2023 2:39 PM EST Narrative [facility] - 10/20/2023 12:34 PM EST ? [facility] ?[address] ?[place] [address] ? Ultrasound Report ? Signed ? Patient: Kostas Peter,Omer ?MR#: [id number] ?? [id number] ? : 1955 ?Acct:[id number] ? Age/Sex: 68 / M ?ADM Date: 01/10/24 ? Loc: HO.US ? Attending Dr: Kassandra Phillips MD ? Ordering Physician: Kassandra Phillips MD ?? Date of Service: 10/19/23 ?? Procedure(s): US carotid duplex BI ?? Accession Number(s): [id number] ? cc: Kassandra Phillips MD ? EXAMINATION: [...] 1230 ? DD/ 1439 ? TD/TT: ? Agency Operator: JK ? Procedure Note Donotuseinterpreter, Image - 10/20/[address] [address] Ultrasound Report Signed Patient: Benny LaraR#: [id number] : 1955cct:[id number] Age/Sex: 68 / MADM Date: 10/19/23 Loc: HO.US Attending Dr: Kassandra Phillips MD Ordering Physician: Kassandra Phillips MD Date of Service: 10/19/23 Procedure(s): US carotid duplex BI Accession Number(s): [id number] cc: Kassandra Phillips MD EXAMINATION: US EXTRACRANIAL [...] in OV> 10/20/23 1230 DD/ 1439 TD/TT: Agency Operator: SUMAN us Kassandra Phillips MD CV VASCULAR PROCEDURES Final Res ult [facility] [address] [place], [place] [phone] documented in this encounter Visit Diagnoses Diagnosis Calcification of both carotid arteries- Primary Osteoarthritis of cervical spine, unspecified spinal osteoarthritis complication status Lumbar degenerative disc disease documented in this encounter Additional Health Concerns Assessment Noted Time PHQ-9 Depression Total Score: 4 06/30/20 23 9:32 AM EDT documented as of this encounter Care Teams Leaf Binner Relationship Specialty Start Date End Date Kassandra Phillips MD [address] [place] [address] PCP - General Family Medicine 06/30/23 Blanco Gar, SouravD [address] [place] [address] Pharmacist Internal Medicine 12/26/23 documented as of this encounter
--- OUTSIDE RECORDS SUMMARY | 2025-01-22 17:07 | XMS_ITS | Encounter Summary ---
Author Organization [employer] Address 75 [facility] 7t [place] [address] Care Team Providers Care Street Worker Name Role Phone Kassandra Phillips MD Primary Care Provider [phone] Blanco Gar PharmD Unavailable [phone] Encounter Details Date Type Department Care Team (Late st Contact Info) Description 10/20/2023 Orders Only [facility] MEDICINE [address] [place], [place] [phone] Kassandra Phillips MD [address] [place], [place] [phone] Carotid stenosis, right Social History Tobacco Use [...] EDT Clinical Support [facility] MEDICINE [address] [place] [address] Layla Thapa, DON [address] [place] [address] documented as of this encounter Procedures Procedure Name Priority Date/Time Associated Diagnosis Comments LDCT LUNG SCREENING Routine 11/18/2023 1 1:57 AM EST documented in this encounter Results * CT Lung Screening Low dose (11/18/2023 11:57 AM EST) Anatomical Region Laterality Modality Lung Computed Tomogra phy 11/18/2023 11:5 7 AM EST Narrative 11/22/2023 3:09 PM EST ? [facility] ?[address] ?[place] [address] ? CT Scan Report ? Signed ? Patient: Kenyongerson Peter,Omer ?MR#: [id number] ?? [id number] ? : 1955 ?Acct:[id number] ? Age/Sex: 68 / M ?ADM Date: 11/18/23 ? Loc: HO.CT ? Attending Dr: Laura Tinajero PHYS ASST ? Ordering Physician: Laura Tinajero NP ?? Date of Service: 11/18/23 ?? Procedure(s): CT lung screening ?? Accession Number(s): [id number] ? cc: Kassandra Phillips MD; Laura Tinajero [...] DLP: ? 43 mGy-cm ? FINDINGS: ? GENERAL INTERN: Clear lungs. ? LUNGS: Mild biapical pleural [...] 1505 ? DD/ 1157 ? TD/TT: ? Wood Form Builder: ? Procedure Note Donsteffter, Image - 11/22/[address] [address] [address] Scan Report Signed Patient: Maria Antonia Lara#: [id number] : 7Acct:[id number] Age/Sex: 68 / MADM Date: 11/18/23 Loc: HO.CT Attending Dr: Laura Tinajero NP Ordering Physician: Laura Tinajero NP Date of Service: 11/18/23 Procedure(s): CT lung screening Accession Number(s): [id number] cc: Kassandra Phillips MD; Laura Tinajero NP [...] iterative reconstruction technique DLP: 43 mGy-cm FINDINGS: GENERAL INTERN: Clear lungs. LUNGS: Mild biapical pleural thickening. [...] in OV> 11/22/23 1505 DD/ 1157 TD/TT: Wood Form Builder: [facility] External Provider IMG CT PROCEDURES Final Result documented in this encounter Visit Diagnoses Diagnosis Carotid stenosis, right Occlusion and stenosis of carotid artery without mention of cerebral infarction documented in this encounter Additional Health Concerns Assessment Noted Time PHQ-9 Depression Total Score: 4 06/30/20 23 9:32 AM EDT documented as of this encounter Care Teams Street Worker Relationship Specialty Start Date End Date Kassandra Phillips MD [address] [place] [address] PCP - General Family Medicine 06/30/23 Blanco Gar, SouravD [address] [place] [phone] Pharmacist Internal Medicine 12/26/23 documented as of this encounter
== END 2025-01-22 14:55 | disposition home or self-care (01) ==
LOC: HO.HGI 13:53
PROVIDERS: PCP Family Medicine; Visit Provider Nurse Practitioner
DX: R63.0 Anorexia (principal); R10.10 Upper abdominal pain, unspecified; K21.9 Gastro-esophageal reflux disease without esophagitis
CPT/HCPCS: 99213

== ENCOUNTER → 2025-01-22 13:53 | Outpatient (BNVA) | payer MEDICARE, SELFPAY | PROVIDERS: PCP Family Medicine; Visit Provider Nurse Practitioner | DX: K21.9 Gastro-esophageal reflux disease without esophagitis (principal); R63.0 Anorexia; R10.10 Upper abdominal pain, unspecified; Z68.23 Body mass index [BMI] 23.0-23.9, adult | CPT/HCPCS: 99212 ==

== ENCOUNTER 2025-02-26 12:34 | Outpatient (AMB) | payer MEDICARE, SELFPAY ==
--- NOTE | 2025-02-26 12:37 | MHC.OFFVIS ---
Vital Signs 02/26/25 12:50 Height 5 ft 5 in Weight 147 lb 11.355 oz BMI 24.6 BP 135/64 Blood Pressure Location Lt brachial Position Sitting Pulse 74 Intake Visit Reasons: Follow up abd pain Intake Note: Omer presents in the office as a follow up for abdominal pains. CC: States that he has always had issues with his stomach - no issues with the bowels. [employer] Unix System Administrator Required: No Allergies No Known Allergies Allergy (Verified 02/26/25 12:50) HPI HPI Follow up abd pain: Details: Assessment & Plan (1) Lack of appetite: Comment: Occurs only in the morning and bothersome because he needs to take medications Code(s): R63.0 - Anorexia Category: Medical (2) Upper abdominal pain: Code(s): R10.10 - Upper abdominal pain, unspecified Category: Medical (3) GERD (gastroesophageal reflux disease): Code(s): K21.9 - Gastro-esophageal reflux disease without esophagitis Category: Medical Plan He is having more epigastric pain mostly in the evening. However, he does not know if he ever received the reglan. I want to extend the reglan to qam and qhs - resending. He continues on his omeprazole 40mg bid. I also want him to bring all fo his medications in a bag tot he next visit. If we can not this under control we may want to consider repeat testing for H pylori eradication. It is possible that the high-dose PPI has cause the stool antigen test to be inaccurate. He was diagnosed with H pylori on his 07/2024 EGD. Next available. Medications: Changed From metoclopramide HCl (Reglan) 10 mg PO .qamac 30 tabs 6RF K21.9 - Gastro-esophageal reflux disease without esophagitis To metoclopramide HCl (Reglan) 10 mg PO .qamac and qhs 30 tabs 6RF K21.9 - Gastro-esophageal ref CORRESPONDENCE On 01/23/25 @ 14:25 Waleska Lomas Wrote To Omayra,January script re-sent, sometimes theres a delay or issue with script being received by pharmacy electronically. telephone call to patient to inform, no answer. I left voicemail informing him of this. Waleska Lomas removed from item. On 01/23/25 @ 14:20 Deepak Combs Wrote To Omayra,January (2) Patient called stating medication: Metoclopramide HCI 10 mg was not sent to the pharmacy . Patient questionig if it was already sent . Called nurse Jc at [phone] for further assistance ; however , nurse was not available. TODAY'S VISIT Still has burning when he lays down at night, and am lack of appetite. Never received the reglan. We are calling the pharmacy to find out why. They were closed for lunch, so sent pt home and will call him when we determine that he can get the medication and to assess its effect. Return office visit to be determined. [facility] Medical History Nicotine dependence, cigarettes, uncomplicated Colon cancer screening HTN (hypertension) Gastric pain Back pain Arthritis Anemia Elevated cholesterol Surgical History (Updated 02/26/25 @ 12:51 by TESFAYE Paiz) Hx of colonoscopy History of esophagogastroduodenoscopy (EGD) S/P carotid endarterectomy (04/02/24) Hx of cataract surgery Family History Father Stomach cancer Brother Stomach cancer Social History Household Members: Spouse Housing: Apartment Are you a primary health careers instructor to a significant other at home: No Do you presently have visiting nurse or other home services: No Alcohol intake: former Comment: quit 20 years ago Patient Tobacco Use Status: Former Tobacco user Tobacco use type: Cigarette Cigarettes Per Day: 10 service: No Review of Systems Const Denies fatigue, Denies fever(s), Denies night sweats, Reports poor appetite and Denies weight loss ENT Reports Normal hearing present, Denies dental pain, Denies dysphagia, Denies hearing loss, Denies mouth pain, Denies odynophagia, Denies throat swelling, Denies tongue swelling and Reports other (Dentition adequate) Card Reports no additional complaints Resp Reports no additional complaints GI Details: Denies abdominal pain, Denies melena, Denies bloating, Denies hematochezia, Denies constipation, Denies GI cramping, Denies dysphagia, Denies excessive flatus, Denies early satiety, Reports heartburn, Denies diarrhea, Denies nausea, Denies odynophagia, Denies vomiting and Denies hematemesis Skin/Breast Denies pruritus, Denies lesions, Denies rash and Denies jaundice Neuro Reports Normal hearing present and Denies Abnormal speech present Endo Denies fatigue Aller/Immun Denies throat swelling and Denies tongue swelling Physical Exam Vital Signs: Last Vital Signs Pulse 74 02/26/25 12:50 BP 135/64 02/26/25 12:50 BMI result Body Mass Index 24.6 Const General: cooperative, no acute distress, well developed and well groomed Nutritional Appearance: average body habitus and well nourished Orientation/consciousness: oriented to person, oriented to place and oriented to time Limitations: No language barrier HEENT Head: Yes normocephalic and Yes atraumatic Eyes General: appearance normal, both eyes and all related structures Pupils: Equal, round and reactive pupils present Neck Neck: Yes normal visual inspection and Yes no lymphadenopathy Thyroid: Thyroid normal Resp Effort & Inspection: normal respiratory effort and able to speak in complete sentences Auscultation: clear to auscultation bilaterally Cardio Rate: regular rate Rhythm: regular rhythm Heart sounds: Normal, physiologic split S2 sound present Peripheral pulses: radial pulses present and posterior tibial pulses present GI Inspection: No distended and No Abdominal panniculus present Palpation (GI): Soft to palpation, nontender, no guarding, not rigid and No hepatosplenomegaly present Percussion: Yes normal to percussion Auscultation: normal bowel sounds Rectal Exam - Male: Yes deferred Skin General skin exam: no rashes or lesions noted, turgor normal, skin not dry, no jaundice, No spider nevi and no striae Rashes: no rashes Nails: normal Neuro General: oriented to person, oriented to place and oriented to time Cranial nerves: Yes Equal, round and reactive pupils present and Yes Normal hearing present Speech: No Abnormal speech present Extrem General: Yes normal to inspection, No clubbing, No cyanosis and No edema Psych Appearance: grossly normal and well kempt Mental Status: mental status grossly normal Speech and movement: Normal speech and movement present Affect: normal affect Attitude: cooperative Thought process: Normal thought process present and not confabulating Thought content: Normal thought content present Insight: Limited insight present (Psych) Judgement: Limited judgement present (Psych) Assessment & Plan Assessment & Plan (1) GERD (gastroesophageal reflux disease): Code(s): K21.9 - Gastro-esophageal reflux disease without esophagitis Category: Medical (2) Upper abdominal pain: Code(s): R10.10 - Upper abdominal pain, unspecified Category: Medical (3) Lack of appetite: Comment: Occurs only in the morning and bothersome because he needs to take medications Code(s): R63.0 - Anorexia Category: Medical Plan Still has burning when he lays down at night, and am lack of appetite. Never received the reglan. We are calling the pharmacy to find out why. They were closed for lunch, so sent pt home and will call him when we determine that he can get the medication and to assess its effect. Return office visit to be determined. Medications: Refilled metoclopramide HCl (Reglan) 10 mg PO .qamac and qhs 30 tabs 6RF K21.9 - Gastro-esophageal reflux disease without esophagitis Coding Level of Care Code Est Pt Level 3 (67929) Diagnoses GERD (gastroesophageal reflux disease) K21.9 Upper abdominal pain R10.10 Lack of appetite R63.0
[2025-02-26 12:50] VITALS: BP 135/64; PULSE 74; BMI 24.6
--- OUTSIDE RECORDS SUMMARY | 2025-02-26 13:40 | XMS_ITS | Encounter Summary ---
Author Organization [employer] Address [address] [facility] [facility] [address] 7t [place] [address] Care Team Providers Care Elevator Operator Freight Name Role Phone Kassandra Phillips MD Primary Care Provider [phone] Blanco Gar PharmD Unavailable [phone] Reason for Visit * Reason Onset Date Comments Med Refill 11/22/2024 Encounter Details Date Type Department Care Team (Late st Contact Info) Description 11/22/2024 Telephone [facility] MEDICINE [address] [place], [place] [phone] Kassandra Phillips MD 230 [place], [place] [phone] Med Refill Social History Tobacco Use Types [...] immediate release tablet To be sent to: [facility] Pharm[facility] - [address] [place] [address]. Pt's spouse states that [facility][id number] [place], [place] does not have the medication in stock and requested that the medication be sent to another pharmacy. Traffic Signal Technician called to [address] [place] [address] and Med is available. documented in this encounter Plan of Treatment Upcoming Encounters Date Type Department Care Team ([facility] st Contact Info) Description 03/05/2025 1:00 PM EDT Office Visit [facility] MEDICINE [address] [place] [address] Kassandra Phillips MD 230 [place] [address] 04/29/2025 10:00 AM EDT Telemedicine [facility] CHC MED & PEDS 505 [place] [address] Layla Thapa, RN 505 [place] [address] documented as of this encounter Goals Goal [...] documented as of this encounter Care Teams Elevator Operator Freight Relationship Specialty Start Date End Date Kassandra Phillips MD 230 [place] [address] PCP - General Family Medicine 06/30/23 Blanco Gar, PharmD [address] [place] [address] Pharmacist Internal Medicine 12/26/23 documented as of this encounter
--- OUTSIDE RECORDS SUMMARY | 2025-02-26 13:40 | XMS_ITS | Encounter Summary ---
Author Organization [employer] Address 75 [facility] 7t [place] [address] Care Team Providers Care Promotions Specialist Name Role Phone Kassandra Phillips MD Primary Care Provider [phone] Blanco Gar PharmD Unavailable [phone] Reason for Visit * Reason Comments Med Refill Encounter Details Date Type Department Care Team ([facility] st Contact Info) Description 02/12/2025 Refill [facility] MEDICINE 230 [place], [place] [phone] Kassandra Phillips MD 230 [place], [place] [phone] Social History Tobacco Use Types Packs/Day Years [...] Upcoming Encounters Date Type Department Care Team ([facility] st Contact Info) Description 03/05/2025 1:00 PM EDT Office Visit [facility] MEDICINE 230 [place] [address] Kassandra Phillips MD 230 [place] [address] 04/29/2025 10:00 AM EDT Telemedicine [facility] CHC MED & PEDS 505 [place] [address] Layla Thapa, DON 505 [place] [address] documented as of this encounter Goals Goal [...] documented as of this encounter Care Teams Promotions Specialist Relationship Specialty Start Date End Date Kassandra Phillips MD 230 [place] [address] PCP - General Family Medicine 06/30/23 Blanco Gar, Julianne 230 [place] [address] Pharmacist Internal Medicine 12/26/23 documented as of this encounter
--- OUTSIDE RECORDS SUMMARY | 2025-02-26 13:40 | XMS_ITS | Encounter Summary ---
Author Organization [employer] Address [address] [facility] [address] 7t [place] [address] Care Team Providers Care Egg Caser Name Role Phone Kassandra Phillips MD Primary Care Provider [phone] Blanco Gar PharmD Unavailable [phone] Reason for Visit * Reason Onset Date Comments Med Refill 02/11/2025 Encounter Details Date Type Department Care Team (Late st Contact Info) Description 02/11/2025 Telephone [facility] MEDICINE 230 [place], [place] [phone] Kassandra Phillips MD 230 [place], [place] [phone] Med Refill Social History Tobacco Use Types [...] * Telephone Encounter - Kranthi Ruth - 02/11/2025 2:22 PM EDT TC from pt requesting medication refill. Medications needing refill : oxyCODONE (Roxicodone) 5 MG immediate release tablet To be sent to: [facility][id number] [place], [place] - [address] [facility] documented in this encounter Plan of Treatment Upcoming Encounters Date Type Department Care Team ([facility] st Contact Info) Description 03/05/2025 1:00 PM EDT Office Visit [facility] MEDICINE 230 [place] [address] Kassandra Phillips MD 230 [place], [place] [phone] 04/29/2025 10:00 AM EDT Telemedicine [facility] CHC MED & PEDS [address] [place] [address] Layla Thapa, RN [address] [place] [address] documented as of this encounter Goals Goal [...] documented as of this encounter Care Teams Egg Caser Relationship Specialty Start Date End Date Kassandra Phillips MD 230 [place] [address] PCP - General Family Medicine 06/30/23 Blanco Gar, PharmD 230 [place] [address] Pharmacist Internal Medicine 12/26/23 documented as of this encounter
--- OUTSIDE RECORDS SUMMARY | 2025-02-26 13:40 | XMS_ITS | Encounter Summary ---
Author Organization [employer] Address [address] [facility] [address] 7t [place] [address] Care Team Providers Care White Washer Name Role Phone Kassandra Phillips MD Primary Care Provider [phone] Blanco Gar PharmD Unavailable [phone] Encounter Details Date Type Department Care Team (Late st Contact Info) Description 11/10/2023 Telephone [facility] MEDICINE 230 [place], [place] [phone] Kassandra Phillips MD 230 [place], [place] [phone] Social History Tobacco Use Types Packs/Day Years [...] Care Team (Late st Contact Info) Description 03/05/2025 1:00 PM EDT Office Visit [facility] MEDICINE 230 [place] [address] Kassandra Phillips MD 230 [place] [address] 04/29/2025 10:00 AM EDT Telemedicine [facility] CHC MED & PEDS 505 [place], [place] [phone] Layla Thapa, DON 505 [place] [address] documented as of this encounter Visit Diagnoses Not on filedocumented in this encounter Additional Health Concerns Assessment Noted Time PHQ-9 Depression Total Score: 4 06/30/20 23 9:32 AM EDT documented as of this encounter Care Teams White Washer Relationship Specialty Start Date End Date Kassandra Phillips MD [address] [place] [address] PCP - General Family Medicine 06/30/23 Blanco Gar, SouravD [address] [place] [address] Pharmacist Internal Medicine 12/26/23 documented as of this encounter
--- OUTSIDE RECORDS SUMMARY | 2025-02-26 13:40 | XMS_ITS | Encounter Summary ---
Author Organization [employer] Address [address] [facility] [address] 7t [place] [address] Care Team Providers Care Mine Technician Name Role Phone Kassandra Phillips MD Primary Care Provider [phone] Blanco Gar PharmD Unavailable [phone] Reason for Visit * Reason Onset Date Comments Med Refill 09/17/2024 Encounter Details Date Type Department Care Team (Late st Contact Info) Description 09/17/2024 Telephone [facility] MEDICINE 230 [place], [place] [phone] Kassandra Phillips MD 230 [place], [place] [phone] Med Refill Social History Tobacco Use Types [...] 50 MG tablet To be sent to: [facility] #[id number] documented in this encounter Plan of Treatment Upcoming Encounters Date Type Department Care Team (Late st Contact Info) Description 03/05/2025 1:00 PM EDT Office Visit [facility] MEDICINE 230 [place], [place] [phone] Kassandra Phillips MD 230 [place] [address] 04/29/2025 10:00 AM EDT Telemedicine [facility] CHC MED & PEDS [address] [place] [address] Layla Thapa, RN 505 [place] [address] documented as of this encounter Goals Goal [...] documented as of this encounter Care Teams Mine Technician Relationship Specialty Start Date End Date Kassandra Phillips MD [address] [place] [address] PCP - General Family Medicine 06/30/23 Blanco Gar, PharmD [address] [place] [address] Pharmacist Internal Medicine 12/26/23 documented as of this encounter
--- OUTSIDE RECORDS SUMMARY | 2025-02-26 13:40 | XMS_ITS | Encounter Summary ---
Author Organization [employer] Address 75 [facility] 7 [place] [address] Care Team Providers Care Laborer Egg Producing Farm Name Role Phone Kassandra Phillips MD Primary Care Provider [phone] Blanco Gar PharmD Unavailable [phone] Reason for Visit * Reason Comments Med Refill Encounter Details Date Type Department Care Team ([facility] st Contact Info) Description 01/14/2025 Refill [facility] MEDICINE 230 [place], [place] [phone] Naida Hobson MD 230 [place], [place] [phone] Social History Tobacco Use Types Packs/Day Years [...] Upcoming Encounters Date Type Department Care Team ([facility] st Contact Info) Description 03/05/2025 1:00 PM EDT Office Visit [facility] MEDICINE 230 [place] [address] Kassandra Phillips MD 230 [place] [address] 04/29/2025 10:00 AM EDT Telemedicine [facility] CHC MED & PEDS 505 [place] [address] Layla Thapa, DON 505 [place] [address] documented as of this encounter Goals Goal [...] documented as of this encounter Care Teams Laborer Egg Producing Farm Relationship Specialty Start Date End Date Kassandra Phillips MD 230 [place] [address] PCP - General Family Medicine 06/30/23 Blanco Gar, SouravD 230 [place] [address] Pharmacist Internal Medicine 12/26/23 documented as of this encounter
--- OUTSIDE RECORDS SUMMARY | 2025-02-26 13:40 | XMS_ITS | Encounter Summary ---
Author Organization [employer] Address 75 [facility] 7t [place] [address] Care Team Providers Care Lapel Stitcher Name Role Phone Kassandra Phillips MD Primary Care Provider [phone] Blanco Gar PharmD Unavailable [phone] Reason for Referral * Consultation (Routine) - Closed Specialty Diagnoses / Procedures Referred By Contac t Referred To Contact Orthopaedic Surgery Diagnoses Osteoarthritis of cervical spine, unspecified spinal osteoarthritis complication status Lumbar degenerative disc disease Kassandra Phillips MD 230 [place] [address] Phone: tel: fax: [facility] [address] [facility] [address] [place], [place] Phone: tel: fax: Referral ID Status Reason Start Date Expiration Date V isits Requested Visits Authorized [id number] Closed Specialty Services Required 09/19/2023 09/18/2024 1 1 * Imaging (Routine) - Closed Specialty Diagnoses / Procedures Referred By Contac t Referred To Contact Cardiology Diagnoses Calcification of both carotid arteries Procedures VASC US Carotid Artery Duplex Bilateral Kassandra Phillips MD 230 [place] [address] Phone: tel: fax: [facility] [address] [place], [place] Phone: tel: fax: Referral ID Status Reason Start Date Expiration Date V isits Requested Visits Authorized [id number] Closed Perform Procedure 09/19/2023 09/18/2024 1 1 Encounter Details Date Type Department Care Team (Late st Contact Info) Description 09/19/2023 Orders Only [facility] 230 [place] [address] Kassandra Phillips MD [address] [place] [address] Calcification of both carotid arteries (Primary Dx); [...] Description 03/05/2025 1:00 PM EDT Office Visit [facility] 230 [place], [place] [phone] Kassandra Phillips MD 230 [place] [address] 04/29/2025 10:00 AM EDT Telemedicine [facility] 505 [place], [place] [phone] Layla Thapa, RN [address] [place], [place] [phone] Scheduled Referrals Name Type Priority Associated Diagnoses Orde r Schedule Referral to Orthopaedic Surgery Outpatient Referral Routine Osteoarthritis of cervical spine, unspecified spinal osteoarthritis complication status Lumbar degenerative disc disease Expected: 09/19/2023 (Approximate), Expires: 09/19/2024 documented as of this encounter Procedures Procedure Name Priority Date/Time Associated Diagnosis Comments [facility] US CAROTID ARTERY DUPLEX BILATERAL Routine 10/19/2023 2:39 PM EST documented in this encounter Results * [facility] US Carotid Artery Duplex Bilateral (10/19/2023 2:39 PM EST) 10/19/2023 2:39 PM EST Narrative [facility] - 10/20/2023 12:34 PM EST ? [facility] ?[address] ?[place] [address] ? Ultrasound Report ? Signed ? Patient: Kenyon Rome,Omer ?MR#: [id number] ?? [id number] ? : 1955 ?Acct:[id number] ? Age/Sex: 68 / M ?ADM Date: 10/19/23 ? Loc: HO.US ? Attending Dr: Kassandra Phillips MD ? Ordering Physician: Kassandra Phillips MD ?? Date of Service: 10/19/23 ?? Procedure(s): US carotid duplex BI ?? Accession Number(s): [id number] ? cc: Kassandra Phillips MD ? EXAMINATION: [...] MD in OV> ?10/20/23 1230 ? DD/ [facility] ? TD/TT: ? Full Roll Inspector: SUMAN ? Procedure Note Donotuseinterpreter, Image - 10/20/[address] [address] Ultrasound Report Signed Patient: Benny LaraR#: [id number] : 7Acct:[id number] Age/Sex: 68 / MADM Date: 10/19/23 Loc: . Attending Dr: Kassandra Phillips MD Ordering Physician: Kassandra Phillips MD Date of Service: 10/19/23 Procedure(s): US carotid duplex BI Accession Number(s): [id number] cc: Kassandra Phillips MD EXAMINATION: US EXTRACRANIAL [...] in OV> 10/20/23 1230 DD/ 1439 TD/TT: Full Roll Inspector: SUMAN us Kassandra Phillips MD CV VASCULAR PROCEDURES Final Res ult [facility] [address] [place] [address] documented in this encounter Visit Diagnoses Diagnosis Calcification of both carotid arteries- Primary Osteoarthritis of cervical spine, unspecified spinal osteoarthritis complication status Lumbar degenerative disc disease documented in this encounter Additional Health Concerns Assessment Noted Time PHQ-9 Depression Total Score: 4 06/30/20 23 9:32 AM EDT documented as of this encounter Care Teams Lapel Stitcher Relationship Specialty Start Date End Date Kassandra Phillips MD 230 [place] [address] PCP - General Family Medicine 06/30/23 Blanco Gar, Julianne [address] [place] [address] Pharmacist Internal Medicine 12/26/23 documented as of this encounter
--- OUTSIDE RECORDS SUMMARY | 2025-02-26 13:40 | XMS_ITS | Encounter Summary ---
Author Organization [employer] Address [address] [facility] [address] 7t [place] [address] Care Team Providers Care Jewel Stripper Name Role Phone Kassandra Phillips MD Primary Care Provider [phone] Blanco Gar PharmD Unavailable [phone] Encounter Details Date Type Department Care Team (Late st Contact Info) Description 10/20/2023 Orders Only [facility] MEDICINE 230 [place], [place] [phone] Kassandra Phillips MD 230 [place], [place] [phone] Carotid stenosis, right Social History Tobacco Use [...] Description 03/05/2025 1:00 PM EDT Office Visit [facility] MEDICINE 230 [place] [address] Kassandra Phillips MD 230 [place] [address] 04/29/2025 10:00 AM EDT Telemedicine [facility] CHC MED & PEDS 505 [place] [address] Layla Thapa, RN 505 [place] [address] documented as of this encounter Procedures Procedure Name Priority Date/Time Associated Diagnosis Comments LDCT LUNG SCREENING Routine 11/18/2023 1 1:57 AM EST documented in this encounter Results * CT Lung Screening Low dose (11/18/2023 11:57 AM EST) Anatomical Region Laterality Modality Lung Computed Tomogra phy 11/18/2023 11:5 7 AM EST Narrative 11/22/2023 3:09 PM EST ? [facility] ?[address] ?[place], [place] [address] ? CT Scan Report ? Signed ? Patient: Omer Lara ?MR#: [id number] ? : 1955 ?Acct:[id number] ? Age/Sex: 68 / M ?ADM Date: 11/18/23 ? Loc: HO.CT ? Attending Dr: Laura Tinajero BRICK BURNER ? Ordering Physician: Laura Tinajero NP ?? Date of Service: 11/18/23 ?? Procedure(s): CT lung screening ?? Accession Number(s): [id number] ? cc: Kassandra Phillips MD; Laura Tinajero [...] DLP: ? 43 mGy-cm ? FINDINGS: ? INPATIENT CODER: Clear lungs. ? LUNGS: Mild biapical pleural [...] 1505 ? DD/ 1157 ? TD/TT: ? Citizenship Teacher: ? Procedure Note Donotluz elenater, Image - 11/22/[address] [place] [address] [address] Scan Report Signed Patient: Maria Antonia Lara#: [id number] : 1955cct:[id number] Age/Sex: 68 / MADM Date: 11/18/23 Loc: .CT Attending Dr: Laura Tinajero NP Ordering Physician: Laura Tinajero NP Date of Service: 11/18/23 Procedure(s): CT lung screening Accession Number(s): [id number] cc: Kassandra Phillips MD; Laura Tinajero NP [...] iterative reconstruction technique DLP: 43 mGy-cm FINDINGS: INPATIENT CODER: Clear lungs. LUNGS: Mild biapical pleural thickening. [...] in OV> 11/22/23 1505 DD/ 1157 TD/TT: Citizenship Teacher: [facility] External Provider IMG CT PROCEDURES Final Result documented in this encounter Visit Diagnoses Diagnosis Carotid stenosis, right Occlusion and stenosis of carotid artery without mention of cerebral infarction documented in this encounter Additional Health Concerns Assessment Noted Time PHQ-9 Depression Total Score: 4 06/30/20 23 9:32 AM EDT documented as of this encounter Care Teams Jewel Stripper Relationship Specialty Start Date End Date Kassandra Phillips MD 230 [place] [address] PCP - General Family Medicine 06/30/23 Blanco Gar PharmD 230 [place] [address] Pharmacist Internal Medicine 12/26/23 documented as of this encounter
--- OUTSIDE RECORDS SUMMARY | 2025-02-26 13:40 | XMS_ITS | Encounter Summary ---
Author Organization [employer] Address [address] [facility] [address] 7t [place] [address] Care Team Providers Care Stakeholder Manager Name Role Phone Kassandra Phillips MD Primary Care Provider [phone] Blanco Gar PharmD Unavailable [phone] Reason for Visit * Reason Onset Date Comments Medication Question 11/23/2024 Encounter Details Date Type Department Care Team ([facility] st Contact Info) Description 11/23/2024 Telephone [facility] MEDICINE 230 [place], [place] [phone] Kassandra Phillips MD 230 [place], [place] [phone] Medication Question Social History Tobacco Use Types [...] tablet. Contact pt at Contact pt at [phone] documented in this encounter Plan of Treatment Upcoming Encounters Date Type Department Care Team (Late st Contact Info) Description 03/05/2025 1:00 PM EDT Office Visit [facility] MEDICINE 230 [place], [place] [phone] Kassandra Phillips MD 230 [place] [address] 04/29/2025 10:00 AM EDT Telemedicine [facility] PEDS [address] [place] [address] Layla Thapa, RN 505 [place] [address] documented as of this encounter Goals Goal [...] documented as of this encounter Care Teams Stakeholder Manager Relationship Specialty Start Date End Date Kassandra Phillips MD [address] [place] [address] PCP - General Family Medicine 06/30/23 Blanco Gar, PharmD [address] [place] [address] Pharmacist Internal Medicine 12/26/23 documented as of this encounter
--- OUTSIDE RECORDS SUMMARY | 2025-02-26 13:40 | XMS_ITS | Encounter Summary ---
Author Organization [facility] [employer] Address 75 [facility] 7t [place] [address] Care Team Providers Care Naval Aircrewman Name Role Phone Kassandra Phillips MD Primary Care Provider [phone] Blanco Gar PharmD Unavailable [phone] Reason for Visit * Reason Onset Date Comments Med Refill 06/20/2024 Encounter Details Date Type Department Care Team ([facility] st Contact Info) Description 06/20/2024 Telephone [facility] MEDICINE 230 [place], [place] [phone] Kassandra Phillips MD 230 [place], [place] [phone] Med Refill Social History Tobacco Use Types [...] 50 MG tablet To be sent to: [facility] #[id number] - [place], [place] - [address] [facility] documented in this encounter Plan of Treatment Upcoming Encounters Date Type Department Care Team ([facility] st Contact Info) Description 03/05/2025 1:00 PM EDT Office Visit [facility] MEDICINE 230 [place] [address] Kassandra Phillips MD 230 [place] [address] 04/29/2025 10:00 AM EDT Telemedicine [facility] MED & PEDS 505 [place] [address] Layla Thapa, DON 505 [place] [address] documented as of this encounter Goals Goal [...] documented as of this encounter Care Teams Naval Aircrewman Relationship Specialty Start Date End Date Kassandra Phillips MD 230 [place] [address] PCP - General Family Medicine 06/30/23 Blanco Gar PharmD 230 [place] [address] Pharmacist Internal Medicine 12/26/23 documented as of this encounter
--- OUTSIDE RECORDS SUMMARY | 2025-02-26 13:40 | XMS_ITS | Encounter Summary ---
Author Organization [employer] Address 75 [facility] 7t [place] [address] Care Team Providers Care Auxiliary Plant Operator Name Role Phone Kassandra Phillips MD Primary Care Provider [phone] Blanco Gar PharmD Unavailable [phone] Reason for Visit * Reason Comments Med Refill Encounter Details Date Type Department Care Team ([facility] st Contact Info) Description 02/29/2024 Refill [facility] MEDICINE 230 [place], [place] [phone] Kassandra Phillips MD 230 [place], [place] [phone] Social History Tobacco Use Types Packs/Day Years [...] Description 03/05/2025 1:00 PM EDT Office Visit [facility] MEDICINE [address] [place] [address] Kassandra Phillips MD [address] [place] [address] 04/29/2025 10:00 AM EDT Telemedicine [facility] MED & PEDS 505 [place] [address] Layla Thapa, RN 505 [place] [address] documented as of this encounter Goals Goal [...] documented as of this encounter Care Teams Auxiliary Plant Operator Relationship Specialty Start Date End Date Kassandra Phillips MD [address] [place] [address] PCP - General Family Medicine 06/30/23 Blanco Gar, PharmD 230 [place] [address] Pharmacist Internal Medicine 12/26/23 documented as of this encounter
--- OUTSIDE RECORDS SUMMARY | 2025-02-26 13:40 | XMS_ITS | Encounter Summary ---
Author Organization [employer] Address [address] [facility] [address] 7t [place] [address] Care Team Providers Care River Rafting Guide Name Role Phone Kassandra Phillips MD Primary Care Provider [phone] Blanco Gar PharmD Unavailable [phone] Reason for Visit * Reason Onset Date Comments Med Refill 12/19/2024 Encounter Details Date Type Department Care Team (Late st Contact Info) Description 12/19/2024 Telephone [facility] MEDICINE 230 [place], [place] [phone] Kassandra Phillips MD 230 [place], [place] [phone] Med Refill Social History Tobacco Use Types [...] immediate release tablet To be sent to: [facility]/pharmacy #[id number] [place] [address] documented in this encounter Plan of Treatment Upcoming Encounters Date Type Department Care Team (Late st Contact Info) Description 03/05/2025 1:00 PM EDT Office Visit [facility] MEDICINE 230 [place], [place] [phone] Kassandra Phillips MD 230 [place], [place] [phone] 04/29/2025 10:00 AM EDT Telemedicine [facility] MED & PEDS [address] [place] [address] Layla Thapa, RN [address] [place] [address] documented as of this encounter Goals Goal [...] documented as of this encounter Care Teams River Rafting Guide Relationship Specialty Start Date End Date Kassandra Phillips MD 230 [place] [address] PCP - General Family Medicine 06/30/23 Blanco Gar, PharmD 230 [place] [address] Pharmacist Internal Medicine 12/26/23 documented as of this encounter
--- OUTSIDE RECORDS SUMMARY | 2025-02-26 13:40 | XMS_ITS | Clinical Summary ---
Author Organization [employer] Address [address] 7[address] [place] [address] Care Team Providers Care Intelligence Support Officer Name Role Phone Kassandra Phillips MD Primary Care Provider [phone] Blanco Gar PharmD Unavailable [phone] Allergies No known active allergies Medications Blood [...] MORNING 90 tablet 3 11/22/19 25 Active oxyCODONE (Roxicodone) 5 MG immediate release tabletIndicati ons:Cervical spondylosis,Ne ck pain,Chronic bilateral low back pain, unspecified whether sciatica present Take 1 tablet (5 mg) by mouth if needed each day for severe pain. Do not start before February 14, 2025. 28 tablet 02/15/20 25 Active famotidine (Pepcid) 20 MG tablet TAKE 1 TO 2 TABLETS BY MOUTH AT NIGHT 60 tablet 02/13/20 25 Active famotidine (Pepcid) 20 MG tablet TAKE 1 TO 2 TABLETS BY MOUTH AT NIGHT 60 tablet 01/15/20 25 025 Discontinued oxyCODONE (Roxicodone) 5 MG immediate release tabletIndicati ons:Cervical spondylosis,Ne ck pain,Chronic bilateral low back pain, unspecified whether sciatica present Take 1 tablet (5 mg) by mouth if needed each day for severe pain. 28 tablet 01/17/20 25 025 Discontinued(R eorder (will not trigger notification to Pharmacy)) Active Problems Problem Noted Date Diagnosed Date Long-term current use of opiate analgesic 2024 Chronic pain of both knees 05/21/2024 Assessment & Plan (05/21/2024 11:41 AM EDT): -likely arthritic in nature -ordered XR to further evaluate Gastroesophageal reflux disease 05/21/2024 Assessment & Plan (08/19/2024 2:12 PM EST): -followed by [facility], last seen in Jul 2024 -H. [...] PM EST): - following with Dr. Coy, [facility] Vascular - carotid US on 10/19/23, showed [...] stenosis by velocity criteria. - Seen by [facility] vascular specialist, Dr. Coy, on 01/05/24. CTA [...] imaging or referral to pain management and/or archives specialist Assessment & Plan (09/14/2023 3:47 PM EST): - multifactorial - evaluate with X-ray - trapezius muscle spasm - add cyclobenzaprine prn - apply lidocaine patch - refer to PT - reassess symptoms in 3 mo to see if he needs further imaging or referral to pain management and/or archives specialist Back pain 09/14/2023 Assessment & Plan [...] gabapentin - switch tramadol to oxycodone - RECRUITER SPECIALIST appt Assessment & Plan (08/19/2024 2:18 PM [...] check the status of MRI order - RECRUITER SPECIALIST appt Assessment & Plan (05/21/2024 11:42 AM [...] PM EST): - low-dose chest CT through [facility] lung cancer screening program - Last CT on 11/18/23 Lung RADS 1 Assessment & Plan (08/19/2024 2:13 PM EST): - low-dose chest CT through [facility] lung cancer screening program - Last CT on 11/18/23 Lung RADS 1 Assessment & Plan (05/21/2024 9:51 AM EDT): - low-dose chest CT through [facility] lung cancer screening program - Last CT on 11/18/23 Lung RADS 1 Assessment & Plan (02/08/2024 9:14 PM EDT): - low-dose chest CT through [facility] lung cancer screening program - Last CT on 11/18/23 Lung RADS 1 Assessment & Plan (09/14/2023 3:51 PM EST): - low-dose chest CT through [facility] lung cancer screening program - pt states he will go to get CT done and is thinking about smoking cessation Assessment & Plan (06/30/2023 5:32 PM EDT): - low-dose chest CT through [facility] lung cancer screening program Resolved Problems Problem Noted Date Diagnosed Date Resolved Date Health care maintenance 09/14/2023 050 10/2023 Assessment & Plan (09/14/2023 4:24 AM EST): - Colonoscopy: Referred - AAA screening US on 07/25/23 negative Encounters Date Type Department Care Team Description 02/15/2025 11:00 AM EDT Clinical Support [facility] MEDICINE [address] [place] [address] Layla Thapa, diamond expert bilateral low back pain, unspecified whether sciatica present (Primary Dx); Long-term current use of opiate analgesic 02/15/2025 Travel 02/12/2025 Refill [facility] MEDICINE [address] [place] [address] Kassandra Phillips MD 02/12/2025 Refill [facility] MEDICINE [address] [place] [address] Naida Hobson MD 02/12/2025 Refill C MEDICINE [address] [place] [address] Kassandra Phillips MD 02/11/2025 Refill [facility] MED & PEDS [address] [place] [address] Layla Thapa RN Cervical spondylosis; Neck pain; Chronic bilateral low back pain, unspecified whether sciatica present 02/11/2025 Telephone [facility] MEDICINE [address] [place] [address] Kassandra Phillips MD Med Refill 01/16/2025 Refill [facility] MED [facility] PEDS [address] [place] [address] Layla Thapa RN Cervical spondylosis; Neck pain; Chronic bilateral low back pain, unspecified whether sciatica present 01/16/2025 Telephone [facility] MEDICINE [address] [place] [address] Kassandra Phillips MD Med Refill 01/14/2025 Refill [facility] MEDICINE [address] [place] [address] Naida Hobson MD 01/13/2025 Refill [facility] MEDICINE [address] [place] [address] Kassandra Phillips MD 12/21/2024 Telephone [facility] MEDICINE [address] [place] [address] Kassandra Phillips MD Medication Question 12/19/2024 Refill [facility] MED [facility] PEDS [address] [place] [address] Layla Thapa RN Cervical spondylosis; Neck pain; Chronic bilateral low back pain, unspecified whether sciatica present 12/19/2024 Telephone [facility] MEDICINE [address] [place] [address] Kassandra Phillips MD Med Refill 12/14/2024 Refill [facility] MEDICINE [address] [place] [address] Kassandra Phillips MD from Last 3 Months Immunizations Immunization Administration Dates Next Due Hep A, Adult [...] Description 03/05/2025 1:00 PM EDT Office Visit [facility] MEDICINE [address] [place] [address] Kassandra Phillips MD [address] [place] [address] 04/29/2025 10:00 AM EDT Telemedicine [facility] MED [facility] PEDS [address] [place] [address] Layla Thapa, RN [address] [place] [address] Health Maintenance Due Date Last Done Comments CT Colonography 1955 FIT DNA/Cologuard 1955 FIT 1955 FOBT 1955 Sigmoidoscopy 1955 Lung Cancer Screening 11/18/2024 11/18/2023 COVID-19 Vaccine ( season) 2025 11/22/2024, 11/29/2023, 03/16/2022, Additional history exists Alcohol/Substance Use Screening 08/13/2025 08/13/2024 Depression Screening 08/13/2025 08/13/2024, 08/13/20 24 SDOH Screening 08/13/2025 08/13/2024 Diabetes: Hemoglobin A1C 11/22/2025 11/22/2024, 06/11 Tobacco Screening 11/22/2025 11/22/2024 Colonoscopy 08/07/2029 08/07/2024 Colorectal Cancer Screening 08/07/2029 Lipid Panel 11/22/2029 11/22/2024, 01/0 11/2023, 06/30/2023 DTaP/Tdap/Td Vaccines (2 - Td [...] on patient's age to complete this topic HIB Vaccines Aged Out No longer eligi [...] on patient's age to complete this topic Meningococcal B Vaccine Aged Out No l onger eligible based on patient's age to complete [...] Blanco Gar, PharmD Note: Quit date: 12/26/2023 Procedures Procedure Name Priority Date/Time Associated Diagnosis Comments POCT JOSE-14 URINE DRUG SCREEN Routine 02/15/2025 11:10 AM EDT Long-term current use of opiate analgesic Chronic bilateral low back pain, unspecified whether sciatica present MR CERVICAL SPINE WO CONTRAST Routine 12/03/2024 10:41 AM EST Cervical spondylosis Neck pain HEMOGLOBIN A1C Routine 11/22/2024 12:07 PM EST Screening for diabetes mellitus LIPID PANEL WITH REFLEX TO DIRECT LDL Routine 11/22/2024 12:07 PM EST Dyslipidemia HM COLONOSCOPY Routine 08/07/2024 LDCT LUNG SCREENING Routine 11/18/2023 1 1:57 AM EST HEPATITIS C AB W/REFL TO HCV RNA, QN, PCR Routine 06/30/2023 10:33 AM EDT Routine general medical examination at a health care facility from Last 3 Months or Most Recently Relevant to Health Maintenance Results * POCT JOSE-14 Urine Drug Screen (02/15/2025 11:10 AM EDT) Oxycodone Screen, Urine Positive Urine Urine specimen obtained by clean catch procedure / Unknown 02/15/2025 11:10 AM EDT Narrative Layla Thapa RN - 02/15/2025 11:10 AM EDT Lot# [id number] Exp: 05-29-26 us Kassandra Phillips MD POINT OF CARE TEST ENTER/EDIT OR DERABLES Final Result * MR Cervical Spine w/o Contrast (12/03/2024 10:41 AM EST) Anatomical Region Laterality Modality Spine, C-spine Magnetic Resonan ce 12/03/2024 10:4 1 AM EST Narrative 12/03/2024 10:42 AM EST ? [facility] ?[address] ?[place] [address] ? Magnetic Resonance Report ? Signed ? Patient: Omer Lara ?MR#: [id number] ?? [id number] ? : 1955 ?Acct:[id number] ? Age/Sex: 69 / M ?ADM Date: 11/30/24 ? Loc: HO.MRI ? Attending Dr: Kassandra Phillips MD ? Ordering Physician: Kassandra Phillips MD ?? Date of Service: 11/30/24 ?? Procedure(s): MR cervical spine wo con ?? Accession Number(s): [id number] ? cc: Kassandra Phillips MD ? CLINICAL [...] and moderate bilateral neural foraminal ?? narrowing, [id number]-uzxy-right. ?? C4-C5: Small right eccentric disc protrusion. [...] DD/ 1041 ? TD/TT: 12/03/24 1041 ? Lens Generator: ? Procedure Note Chasidy Carlos - 12/03/2024 [place] [id number] Magnetic Resonance Report Signed Patient: Maria Antonia Lara#: [id number] : 1955cct:[id number] Age/Sex: 69 / MADM Date: 11/30/24 Loc: HO.MRI Attending Dr: Kassandra Phillips MD Ordering Physician: Kassandra Phillips MD Date of Service: 11/30/24 Procedure(s): MR cervical spine wo con Accession Number(s): [id number] cc: Kassandra Phillips MD CLINICAL HISTORY: neck [...] stenosis and moderate bilateral neural foraminal narrowing, [id number]-iparsbk-bfcu-right. C4-C5: Small right eccentric disc protrusion. No [...] 12/03/24 1042 DD/ 1041 TD/TT: 12/03/24 1041 Lens Generator: Kassandra Phillips MD IMG MRI PROCEDURES Final Result * (ABNORMAL) Lipid Panel with Reflex to Direct LDL (11/22/2024 12:07 PM EST) Triglycerides 161(H) <150 mg/dL [facility] Comment:Desirable Triglyceri de: less than 150 mg/dLBorderline High Triglyceride 150-199 mg/dLHigh Triglyceride: 200-499 mg/dLVery High Triglyceride: greater than or equal to 5OO mg/dL Cholesterol 134 <200 mg/dL [facility] Comment:Desirable Cholestero l: less than 200 mg/dLBorderline High Cholesterol: 200-239 mg/dLHigh Cholesterol: greater than 239 mg/dL LDL Cholesterol Calculated 57 <100 mg/dL [facility] Comment:Desirable LDL: less than 100 mg/dLNear Optimal/Above Optimal LDL: 110- 129 mg/dLBorderline High LDL: 130-159 mg/dLHigh LDL: 160-189 mg/dLVery High LDL: greater than or equal to 190 mg/dL HDL Cholesterol 45 >40 mg/dL [facility] Comment:Desirable HDL: great er than 40 mg/dL Note: This HDL assay may give artificially low results in patients with liver disease. Blood 11/22/2024 12:0 7 PM EST 11/22/2024 12:51 PM EST Kassandra Phillips MD LAB BLOOD ORDERABLES Final Resul t Performing Organization Address [facility] Co de Phone Number [facility] [address] [place] [address] [phone] * Hemoglobin A1c (11/22/2024 12:07 PM EST) Hemoglobin A1c 5.7 <6.0 % [facility] Comment:Hemoglobin A1C Refer ence Range Adults: 4.8 - 6.0 % Non diabetic: < 6.0 % Goal: < 7.0 %Additional Action Suggested: > 8.0 %Note: Hemoglobin A1c results are invalid for patients with abnormal amounts of HbF. Blood transfusions may impact the HbA1c concentration in the patient sample. Estimated Average Glucose 117 mg/dL [facility] Comment:eAG = Estimated ave rage glucose which is %A1C expressed asaverage glucose, using the formula of the U0R-AjllcecWugccww Glucose study (ADAG), Diabetes Care, Vol.31,#8,Aug. 2007 Blood Venous blood specimen / Unknown 11/22/2024 12:07 PM EST 11/22/2024 12:51 PM EST Kassandra Phillips MD LAB BLOOD ORDERABLES Final Resul t Performing Organization Address [facility] Co de Phone Number [facility] [address] [place] [phone] * (ABNORMAL) Hm Colonoscopy (08/07/2024) Colonoscopy Abnormal(A ) Normal 08/07/2024 us Historical Provider HEALTH MAINTENANCE Final Result * CT Lung Screening Low dose (11/18/2023 11:57 AM EST) Anatomical Region Laterality Modality Lung Computed Tomogra phy 11/18/2023 11:5 7 AM EST Narrative 11/22/2023 3:09 PM EST ? [facility] ?[address] ?[place] [address] ? CT Scan Report ? Signed ? Patient: Omer Lara ?MR#: [id number] ?? [id number] ? : 1955 ?Acct:[id number] ? Age/Sex: 68 / M ?ADM Date: 11/18/23 ? Loc: HO.CT ? Attending Dr: Laura Tinajero PRECISION MACHINING INSTRUCTOR ? Ordering Physician: Laura Tinajero NP ?? Date of Service: 11/18/23 ?? Procedure(s): CT lung screening ?? Accession Number(s): [id number] ? cc: Kassandra Phillips MD; Laura Tinajero [...] DLP: ? 43 mGy-cm ? FINDINGS: ? SLEEPING BAG FILLER: Clear lungs. ? LUNGS: Mild biapical pleural [...] 1505 ? DD/ 1157 ? TD/TT: ? Lens Generator: ? Procedure Note Breanna, Image - 11/22/[address] [address] [address] Scan Report Signed Patient: Maria Antonia Lara#: [id number] : 1955cct:[id number] Age/Sex: 68 / MADM Date: 11/18/23 Loc: .CT Attending Dr: Laura Tinajero NP Ordering Physician: Laura Tinajero NP Date of Service: 11/18/23 Procedure(s): CT lung screening Accession Number(s): [id number] cc: Kassandra Phillips MD; Laura Tinajero NP [...] iterative reconstruction technique DLP: 43 mGy-cm FINDINGS: SLEEPING BAG FILLER: Clear lungs. LUNGS: Mild biapical pleural thickening. [...] in OV> 11/22/23 1505 DD/ 1157 TD/TT: Lens Generator: [facility] External Provider IMG CT PROCEDURES Final Result * Hepatitis C Antibody with Reflex to HCV, RNA, Quantitative, Real-Time PCR (06/30/2023 10:33 AM EDT) Hepatitis C Antibody Nonreactive Nonreactive [facility] Comment:Antibodies to HCV no t detected; does not exclude early acuteHCV infection. Blood Venous blood specimen / Unknown 06/30/2023 10:33 AM EDT 06/30/2023 11:20 AM EDT Kassandra Phillips MD LAB BLOOD ORDERABLES Final Resul t [facility] [address] [place] [address] [phone] from Last 3 Months or Most Recently Relevant to Health Maintenance Insurance [facility] MEDICARE ADVANTAGE Care Teams Intelligence Support Officer Relationship Specialty Start Date End Date Kassandra Phillips MD [address] [place] [address] PCP - General Family Medicine 06/30/23 Blanco Gar, SouravD [address] [place] [address] Pharmacist Internal Medicine 12/26/23
--- OUTSIDE RECORDS SUMMARY | 2025-02-26 13:40 | XMS_ITS | Encounter Summary ---
Author Organization [employer] Address [address] [facility] 7t [place] [address] Care Team Providers Care Corporate General Manager Name Role Phone Kassandra Phillips MD Primary Care Provider [phone] Blanco Gar PharmD Unavailable [phone] Encounter Details Date Type Department Care Team (Late st Contact Info) Description 07/01/2023 Orders Only [facility] MEDICINE [address] [place] [address] [phone] Kassandra Phillips MD [address] [place] [address] [phone] Anemia, unspecified type (Primary Dx) Social History [...] Description 03/05/2025 1:00 PM EDT Office Visit [facility] MEDICINE [address] [place] [address] [phone] Kassandra Phillips MD [address] [place] [address] [phone] 04/29/2025 10:00 AM EDT Telemedicine [facility] CHC MED & PEDS [address] [place] [address] Layla Thapa, RN [address] [place] [address] Scheduled Orders Name Type Priority Associated Diagnoses [...] documented as of this encounter Care Teams Corporate General Manager Relationship Specialty Start Date End Date Kassandra Phillips MD [address] [place] [address] PCP - General Family Medicine 06/30/23 Blanco Gar, SouravD [address] [place] [address] Pharmacist Internal Medicine 12/26/23 documented as of this encounter
--- OUTSIDE RECORDS SUMMARY | 2025-02-26 13:40 | XMS_ITS | Encounter Summary ---
Author Organization [employer] Address [address] [facility] 7t [place] [address] Care Team Providers Care Ball Warper Tender Name Role Phone Kassandra Phillips MD Primary Care Provider [phone] Blanco Gar PharmD Unavailable [phone] Reason for Visit * Reason Comments Med Refill Encounter Details Date Type Department Care Team ([facility] st Contact Info) Description 09/20/2024 Refill [facility] MEDICINE [address] [place], [place] [phone] Kassandra Phillips MD [address] [place], [place] [phone] Social History Tobacco Use Types Packs/Day Years [...] Upcoming Encounters Date Type Department Care Team ([facility] st Contact Info) Description 03/05/2025 1:00 PM EDT Office Visit [facility] MEDICINE [address] [place] [address] Kassandra Phillips MD [address] [place] [address] 04/29/2025 10:00 AM EDT Telemedicine [facility] CH[facility] MED & PEDS [address] [place] [address] Layla Thapa, DON [address] [place] [address] documented as of this encounter Goals Goal [...] documented as of this encounter Care Teams Ball Warper Tender Relationship Specialty Start Date End Date Kassandra Phillips MD [address] [place] [address] PCP - General Family Medicine 06/30/23 Blanco Gar, Julianne [address] [place] [address] Pharmacist Internal Medicine 12/26/23 documented as of this encounter
--- OUTSIDE RECORDS SUMMARY | 2025-02-26 13:40 | XMS_ITS | Encounter Summary ---
Author Organization [employer] Address [address] [facility] 7t [place] [address] Care Team Providers Care Local Tanker Truck Driver Name Role Phone Kassandra Phillips MD Primary Care Provider [phone] Blanco Gar PharmD Unavailable [phone] Reason for Visit * Reason Comments Med Refill Encounter Details Date Type Department Care Team ([facility] st Contact Info) Description 01/23/[address] [facility] MEDICINE [address] [place], [place] [phone] Kassandra Phillips MD [address] [place], [place] [phone] Social History Tobacco Use Types Packs/Day Years [...] 1:00 PM EDT Office Visit [facility] MEDICINE [address] [place] [phone] Kassandra Phillips MD [address] [place] [address] 04/29/2025 10:00 AM EDT Telemedicine [facility] CH[facility] MED & PEDS [address] [place] [address] Layla hTapa, RN [address] [place] [address] documented as of this encounter Goals Goal [...] documented as of this encounter Care Teams Local Tanker Truck Driver Relationship Specialty Start Date End Date Kassandra Phillips MD [address] [place] [address] PCP - General Family Medicine 06/30/23 Blanco Gar, PharmD [address] [place] [address] Pharmacist Internal Medicine 12/26/23 documented as of this encounter
--- OUTSIDE RECORDS SUMMARY | 2025-02-26 13:40 | XMS_ITS | Encounter Summary ---
Author Organization [employer] Address [address] [facility] 7t [place] [address] Care Team Providers Care Ocean Lifeguard Specialist Name Role Phone Kassandra Phillips MD Primary Care Provider [phone] Blanco Gar PharmD Unavailable [phone] Reason for Visit * Reason Comments Med Refill Encounter Details Date Type Department Care Team ([facility] st Contact Info) Description 06/04/2024 Refill [facility] MEDICINE [address] [place], [place] [phone] Madison Elizondo MD [address] [place], [place] [phone] Social History Tobacco Use Types Packs/Day Years [...] Description 03/05/2025 1:00 PM EDT Office Visit [facility] MEDICINE [address] [place] [address] Kassandra Phillips MD [address] [place] [address] 04/29/2025 10:00 AM EDT Telemedicine [facility] CH[facility] MED & PEDS [address] [place] [address] Layla Thapa, RN [address] [place] [address] documented as of this encounter Goals Goal [...] documented as of this encounter Care Teams Ocean Lifeguard Specialist Relationship Specialty Start Date End Date Kassandra Phillips MD [address] [place] [phone] PCP - General Family Medicine 06/30/23 Blanco Gar, PharmD [address] [place] [address] Pharmacist Internal Medicine 12/26/23 documented as of this encounter
--- OUTSIDE RECORDS SUMMARY | 2025-02-26 13:40 | XMS_ITS | Encounter Summary ---
Author Organization [employer] Address [address] [facility] [address] 7[address] [place] [address] Care Team Providers Care Statistics Teacher Name Role Phone Kassandra Phillips MD Primary Care Provider [phone] Blanco Gar PharmD Unavailable [phone] Encounter Details Date Type Department Care Team (Late st Contact Info) Description 10/30/2024 Telephone [facility] MEDICINE [address] [place], [place] [phone] Kassandra Phillips MD [address] [place], [place] [phone] Social History Tobacco Use Types Packs/Day Years [...] Description 03/05/2025 1:00 PM EDT Office Visit [facility] MEDICINE [address] [place] [address] Kassandra Phillips MD [address] [place] [address] 04/29/2025 10:00 AM EDT Telemedicine [facility] MED & PEDS [address] [place] [address] Layla Thapa, DON [address] [place] [address] documented as of this encounter Goals Goal [...] documented as of this encounter Care Teams Statistics Teacher Relationship Specialty Start Date End Date Kassandra Phillips MD [address] [place] [phone] PCP - General Family Medicine 06/30/23 Blanco Gar, Julianne [address] [place] [phone] Pharmacist Internal Medicine 12/26/23 documented as of this encounter
--- OUTSIDE RECORDS SUMMARY | 2025-02-26 13:40 | XMS_ITS | Encounter Summary ---
Author Organization [employer] Address [address] [facility] 7t [place] [address] Care Team Providers Care Canopy Inspector Name Role Phone Kassandra Phillips MD Primary Care Provider [phone] Blanco Gar PharmD Unavailable [phone] Reason for Visit * Reason Comments Med Refill Encounter Details Date Type Department Care Team ([facility] st Contact Info) Description 01/24/2024 Refill [facility] [address] [place], [place] [phone] Naida Hobson MD [address] [place], [place] [phone] Social History Tobacco Use Types Packs/Day Years [...] 1:00 PM EDT Office Visit [facility] MEDICINE [address] [place] [address] Kassandra Phillips MD [address] [place] [address] 04/29/2025 10:00 AM EDT Telemedicine [facility] MED & PEDS [address] [place], [place] [phone] Layla Thapa, RN [address] [place] [address] documented as of this encounter Goals Goal [...] documented as of this encounter Care Teams Canopy Inspector Relationship Specialty Start Date End Date Kassandra Phillips MD [address] [place] [address] PCP - General Family Medicine 06/30/23 Blanco Gar, PharmD [address] [place] [phone] Pharmacist Internal Medicine 12/26/23 documented as of this encounter
--- OUTSIDE RECORDS SUMMARY | 2025-02-26 13:40 | XMS_ITS | Encounter Summary ---
Author Organization [employer] Address [address] [facility] 7t [place] [address] Care Team Providers Care Director Weights And Measures Name Role Phone Kassandra Phillips MD Primary Care Provider [phone] Blanco Gar PharmD Unavailable [phone] Reason for Visit * Reason Comments Med Refill Encounter Details Date Type Department Care Team ([facility] st Contact Info) Description 02/12/2025 Refill [facility] MEDICINE [address] [place], [place] [phone] Kassandra Phillips MD [address] [place], [place] [phone] Social History Tobacco Use Types Packs/Day Years [...] Upcoming Encounters Date Type Department Care Team ([facility] st Contact Info) Description 03/05/2025 1:00 PM EDT Office Visit [facility] MEDICINE [address] [place] [address] Kassandra Phillips MD [address] [place] [address] 04/29/2025 10:00 AM EDT Telemedicine [facility] MED & PEDS [address] [place] [address] Layla Thapa, DON [address] [place] [address] documented as of this encounter Goals Goal [...] documented as of this encounter Care Teams Director Weights And Measures Relationship Specialty Start Date End Date Kassandra Phillips MD [address] [place] [address] PCP - General Family Medicine 06/30/23 Blanco Gar, Julianne [address] [place] [address] Pharmacist Internal Medicine 12/26/23 documented as of this encounter
--- OUTSIDE RECORDS SUMMARY | 2025-02-26 13:40 | XMS_ITS | Encounter Summary ---
Author Organization [employer] Address [address] [facility] [address] [facility] [address] [address] 7t [place] [address] Care Team Providers Care Seat Trimmer Name Role Phone Kassandra Phillips MD Primary Care Provider [phone] Blanco Gar PharmD Unavailable [phone] Encounter Details Date Type Department Care Team (Late st Contact Info) Description 11/22/2024 Orders Only [facility] MEDICINE 230 [place], [place] [phone] Kassandra Phillips MD [address] [place], [place] [phone] Anemia, unspecified type (Primary Dx); Cervical spondylosis; [...] Description 03/05/2025 1:00 PM EDT Office Visit [facility] MEDICINE 230 [place] [address] Kassandra Phillips MD [address] [place] [address] 04/29/2025 10:00 AM EDT Telemedicine [facility] CHC MED & PEDS [address] [place] [address] Layla Thapa, DON [address] [place] [address] documented as of this encounter Goals Goal [...] Free T4 0.94 0.32 - 4.0 uIU/mL [facility] Blood 11/27/2024 1:19 PM EST 11/27/2024 4:04 PM EST us Kassandra Phillips MD LAB BLOOD ORDERABLES Final Resul t [facility] [address] [place] [address] [phone] * (ABNORMAL) Vitamin B12 (Cobalamin) and Folate Panel, Serum (11/27/2024 1:19 PM EST) Vitamin B12 1,470(H) 200 - 900 pg/mL [facility] Comment:NORMAL 200-900 PG/ML INDETERMINATE 160-199 PG/ML DEFICIENT < 160 PG/ML Folate 12.4 > or = 4.0 ng/mL [facility] Comment:Reference Values:> o r = 4.0 ng/mL< 4.0 ng/mL suggests folate deficiency Methotrexate, aminopterin and folinic acid(leucovorin) are chemotherapeutic agents whose molecularstructures are similar to folate; therefore, the Architectfolate assay cannot be used for patients using these drugs. Blood 11/27/2024 1:19 PM EST 11/27/2024 4:04 PM EST us Kassandra Phillips MD LAB BLOOD ORDERABLES Final Resul t Performing Organization Address [facility] Phone Number [facility] [address] [place] [phone] * TSH with Reflex to Free T4 (11/22/2024 12:07 PM EST) TSH reflex Free T4 1.68 0.32 - 4.0 uIU/mL [facility] 11/22/2024 12:0 7 PM EST 11/22/2024 12:51 PM EST Generic External Data Provider LAB BLOOD ORDERAB LES Final Result Performing Organization Address [facility] Number [facility] [address] [place] [phone] * Ferritin (11/22/2024 12:07 PM EST) Ferritin 141 20 - 250 ng/mL [facility] 11/22/2024 12:0 7 PM EST 11/22/2024 12:51 PM EST Generic External Data Provider LAB BLOOD ORDERAB LES Final Result Performing Organization Address [facility] Phone Number [facility] [address] [place] [phone] documented in this encounter Visit Diagnoses Diagnosis Anemia, unspecified type- Primary Cervical spondylosis Cervical spondylosis without myelopathy Neck pain Cervicalgia Chronic bilateral low back pain, unspecified whether sciatica present documented in this encounter Additional Health Concerns Assessment Noted Time PHQ-9 Depression Total Score: 1 08/13/20 24 12:59 PM EST documented as of this encounter Care Teams Seat Trimmer Relationship Specialty Start Date End Date Kassandra Phillips MD [address] [place] [address] PCP - General Family Medicine 06/30/23 Blanco Gar, SouravD [address] [place] [phone] Pharmacist Internal Medicine 12/26/23 documented as of this encounter
--- OUTSIDE RECORDS SUMMARY | 2025-02-26 13:40 | XMS_ITS | Encounter Summary ---
Author Organization [employer] Address [address] [facility] 7t [place] [address] Care Team Providers Care Grab Driver Name Role Phone Kassandra Phillips MD Primary Care Provider [phone] Blanco Gar PharmD Unavailable [phone] Reason for Referral * Imaging (Routine) - Closed Specialty Diagnoses / Procedures Referred By Contac t Referred To Contact Radiology Diagnoses Chronic bilateral low back pain, unspecified whether sciatica present Procedures MR Lumbar Spine w/o Contrast Kassandra Phillips MD [address] [place] [address] Phone: tel: fax: [address] Phone: tel: fax: Referral ID Status Reason Start Date Expiration Date Visits Re quested Visits Authorized [id number] Closed 05/24/2024 05/24/2025 1 1 Encounter Details Date Type Department Care Team (Late st Contact Info) Description 05/24/2024 Orders Only [facility] MEDICINE [address] [place] [address] [phone] Kassandra Phillips MD [address] [place], [place] [phone] Chronic bilateral low back pain, unspecified whether [...] Description 03/05/2025 1:00 PM EDT Office Visit [facility] MEDICINE [address] [place] [address] Kassandra Phillips MD [address] [place] [address] 04/29/2025 10:00 AM EDT Telemedicine [facility] CHC MED & PEDS [address] [place] [address] Layla Thapa, DON 505 [facility] [place]LE[place] [address] documented as of this encounter Goals Goal [...] EST Narrative 10/15/2024 10:02 AM EST ? [facility] ?[address] ?[place] [address] ? Magnetic Resonance Report ? Signed ? Patient: Omer Lara ?MR#: [id number] ?? [id number] ? : 1955 ?Acct:[id number] ? Age/Sex: 69 / M ?ADM Date: 10/14/24 ? Loc: HO.MRI ? Attending Dr: Kassandra Phillips MD ? Ordering Physician: Kassandra Phillips MD ?? Date of Service: 10/14/24 ?? Procedure(s): MR lumbar spine wo con ?? Accession Number(s): [id number] ? cc: Kassandra Phillips MD ? Workstation: [id number] ? EXAMINATION: ??MR LUMBAR SPINE WITHOUT IV [...] DD/ 1507 ? TD/TT: 10/14/24 1521 ? Solution Architect: ? Procedure Note Donotuseinterpreter, Image - 10/15/[address] [address] Magnetic Resonance Report Signed Patient: Maria Antonia Lara#: [id number] : 1955cct:[id number] Age/Sex: 69 / MADM Date: 10/14/24 Loc: HO.MRI Attending Dr: Kassandra Phillips MD Ordering Physician: Kassandra Phillips MD Date of Service: 10/14/24 Procedure(s): MR lumbar spine wo con Accession Number(s): [id number] cc: Kassandra Phillips MD Workstation: [id number][id number] EXAMINATION: MR LUMBAR SPINE WITHOUT IV CONTRAST [...] 10/15/24 0959 DD/ 1507 TD/TT: 10/14/24 1521 Solution Architect: Kassandra Phillips MD IMG MRI PROCEDURES Edited Result - Final documented in this encounter Visit Diagnoses Diagnosis Chronic bilateral low back pain, unspecified whether sciatica present- Primary documented in this encounter Additional Health Concerns Assessment Noted Time PHQ-9 Depression Total Score: 4 06/30/20 23 9:32 AM EDT documented as of this encounter Care Teams Grab Driver Relationship Specialty Start Date End Date Kassandra Phillips MD [address] [place] [address] PCP - General Family Medicine 06/30/23 Blanco Gar PharmD [address] [place] [address] Pharmacist Internal Medicine 12/26/23 documented as of this encounter
== END 2025-02-26 13:53 | disposition home or self-care (01) ==
LOC: HO.HGI 12:34
PROVIDERS: PCP Family Medicine; Visit Provider Nurse Practitioner
DX: K21.9 Gastro-esophageal reflux disease without esophagitis (principal); R10.10 Upper abdominal pain, unspecified; R63.0 Anorexia
CPT/HCPCS: 99213

== ENCOUNTER → 2025-02-26 12:34 | Outpatient (BNVA) | payer MEDICARE, SELFPAY | PROVIDERS: PCP Family Medicine; Visit Provider Nurse Practitioner | DX: R63.0 Anorexia (principal); R10.10 Upper abdominal pain, unspecified; K21.9 Gastro-esophageal reflux disease without esophagitis | CPT/HCPCS: 99212 ==

== ENCOUNTER 2025-03-05 09:44 | Outpatient (REF) | payer MEDICARE, SELFPAY ==
--- NOTE | ~2025-03-05 | US_ITS ---
EXAMINATION: BILATERAL CAROTID ULTRASOUND WITH DOPPLER HISTORY: I65.23 - Occlusion and stenosis of bilateral carotid arteries COMPARISON: Comparison is made with the prior examination dated 08/14/2024. TECHNIQUE: Real time and Color and Spectral doppler ultrasonography of the carotid and vertebral arteries was performed in multiple planes. FINDINGS: There is a small amount of plaque in the internal carotid arteries. VERTEBRAL FLOW DIRECTION: Antegrade bilaterally. PEAK SYSTOLIC VELOCITIES (in cm/sec): RIGHT: CCA: Prox: 84 Dist: 93 ICA: Prox: 94 Mid: 97 Dist: 110 ICA/CCA Ratio: 1.18 ECA: 122 Peak ICA end diastolic velocity (EDV): 40 LEFT: CCA: Prox: 66 Dist: 66 ICA: Prox: 61 Mid: 81 Dist: 87 ICA/CCA Ratio: 1.31 ECA: 104 Peak ICA end diastolic velocity (EDV): 35 US/US carotid duplex BI IMPRESSION: Findings consistent with 0-49% stenosis of the bilateral internal carotid arteries. Electronically signed by: Azam Brito MD 03/05/2025 11:07 AM EDT
--- OUTSIDE RECORDS SUMMARY | 2025-03-05 10:19 | XMS_ITS | Clinical Summary ---
Author Organization [employer] Address [address] [facility] [address] 7t [place] [address] Care Team Providers Care Amphibious Operations Officer Name Role Phone Kassandra Phillips MD Primary Care Provider [phone] Blanco Gar PharmD Unavailable [phone] Allergies No known active allergies Medications Blood [...] Plan (08/19/2024 2:12 PM EST): -followed by [facility] GI, last seen in Jul 2024 -H. [...] PM EST): - following with Dr. Coy, [facility] Vascular - carotid US on 10/19/23, showed [...] stenosis by velocity criteria. - Seen by [facility] vascular specialist, Dr. Coy, on 01/05/24. CTA [...] imaging or referral to pain management and/or data storage specialist Assessment & Plan (09/14/2023 3:47 PM EST): - multifactorial - evaluate with X-ray - trapezius muscle spasm - add cyclobenzaprine prn - apply lidocaine patch - refer to PT - reassess symptoms in 3 mo to see if he needs further imaging or referral to pain management and/or data storage specialist Back pain 09/14/2023 Assessment & Plan [...] gabapentin - switch tramadol to oxycodone - BACK END ARCHITECT appt Assessment & Plan (08/19/2024 2:18 PM [...] check the status of MRI order - BACK END ARCHITECT appt Assessment & Plan (05/21/2024 11:42 AM [...] PM EST): - low-dose chest CT through [facility] lung cancer screening program - Last CT on 11/18/23 Lung RADS 1 Assessment & Plan (08/19/2024 2:13 PM EST): - low-dose chest CT through [facility] lung cancer screening program - Last CT on 11/18/23 Lung RADS 1 Assessment & Plan (05/21/2024 9:51 AM EDT): - low-dose chest CT through [facility] lung cancer screening program - Last CT on 11/18/23 Lung RADS 1 Assessment & Plan (02/08/2024 9:14 PM EDT): - low-dose chest CT through [facility] lung cancer screening program - Last CT on 11/18/23 Lung RADS 1 Assessment & Plan (09/14/2023 3:51 PM EST): - low-dose chest CT through [facility] lung cancer screening program - pt states he will go to get CT done and is thinking about smoking cessation Assessment & Plan (06/30/2023 5:32 PM EDT): - low-dose chest CT through [facility] lung cancer screening program Resolved Problems Problem Noted Date Diagnosed Date Resolved Date Health care maintenance 09/14/2023 050 10/2023 Assessment & Plan (09/14/2023 4:24 AM EST): - Colonoscopy: Referred - AAA screening US on 07/25/23 negative Encounters Date Type Department Care Team Description 03/01/2025 Telephone [facility] MEDICINE [address] [place] [phone] Kassandra Phillips MD Chart Prep 02/15/2025 11:00 AM EDT Clinical Support [address] [address] Layla Thapa, validation technician bilateral low back pain, unspecified whether sciatica present (Primary Dx); Long-term current use of opiate analgesic 02/15/2025 Travel 02/12/2025 Refill [facility] MEDICINE [address] [place] [address] Kassandra Phillips MD 02/12/2025 Refill C MEDICINE [address] [place] [address] Naida Hobson MD 02/12/2025 Refill C MEDICINE [address] [place] [address] Kassandra Phillips MD 02/11/2025 Refill [facility] CHC MED & PEDS [address] [place] [address] Layla Thapa, RN Cervical spondylosis; Neck pain; Chronic bilateral low back pain, unspecified whether sciatica present 02/11/2025 Telephone [facility] MEDICINE [address] [place] [phone] Kassandra Phillips MD Med Refill 01/16/2025 Refill [facility] CHC MED & PEDS [address] [place] [address] Layla Thapa, DON Cervical spondylosis; Neck pain; Chronic bilateral low back pain, unspecified whether sciatica present 01/16/2025 Telephone [facility] MEDICINE [address] [place] [address] Kassandra Phillips MD Med Refill 01/14/2025 Refill C MEDICINE [address] [place] [address] Naida Hobson MD 01/13/2025 Refill [facility] MEDICINE [address] [place] [address] Kassandra Phillips MD 12/21/2024 Telephone [facility] MEDICINE [address] [place] [phone] Kassandra Phillips MD Medication Question 12/19/2024 Refill [facility] CHC MED & PEDS [address] [place] [address] Layla Thapa, RN Cervical spondylosis; Neck pain; Chronic bilateral low back pain, unspecified whether sciatica present 12/19/2024 Telephone [facility] MEDICINE [address] [place] [address] Kassandra Phillips MD Med Refill 12/14/2024 Refill [facility] MEDICINE [address] [place] [address] Kassandra Phillips MD from Last 3 Months [...] 1:00 PM EDT Office Visit [facility] MEDICINE [address] [place] [address] Kassandra Phillips MD [address] [place] [address] 04/29/2025 10:00 AM EDT Telemedicine [facility] CHC MED & PEDS [address] [place] [address] Layla Thapa, RN [address] [place] [address] Health Maintenance Due Date Last Done Comments [...] low back pain, unspecified whether sciatica present HEMOGLOBIN A1C Routine 11/22/2024 12:07 PM EST [...] RN - 02/15/2025 11:10 AM EDT Lot# [id number] Exp: 05-29-26 Kassandra Phillips MD POINT OF CARE TEST ENTER/EDIT OR DERABLES Final Result * (ABNORMAL) Lipid Panel with Reflex to Direct LDL (11/22/2024 12:07 PM EST) Triglycerides 161(H) <150 mg/dL [facility] Comment:Desirable Triglyceri de: less than 150 mg/dLBorderline High Triglyceride 150-199 mg/dLHigh Triglyceride: 200-499 mg/dLVery High Triglyceride: greater than or equal to 5OO mg/dL Cholesterol 134 <200 mg/dL [facility] Comment:Desirable Cholestero l: less than 200 mg/dLBorderline High Cholesterol: 200-239 mg/dLHigh Cholesterol: greater than 239 mg/dL LDL Cholesterol Calculated 57 <100 mg/dL [facility] Comment:Desirable LDL: less than 100 mg/dLNear Optimal/Above Optimal LDL: 110- 129 mg/dLBorderline High LDL: 130-159 mg/dLHigh LDL: 160-189 mg/dLVery High LDL: greater than or equal to 190 mg/dL HDL Cholesterol 45 >40 mg/dL [facility] Comment:Desirable HDL: great er than 40 mg/dL Note: This HDL assay may give artificially low results in patients with liver disease. Blood 11/22/2024 12:0 7 PM EST 11/22/2024 12:51 PM EST Kassandra Phillips MD LAB BLOOD ORDERABLES Final Resul t [facility] [address] [place] [phone] * Hemoglobin A1c (11/22/2024 12:07 PM EST) Hemoglobin A1c 5.7 <6.0 % [facility] Comment:Hemoglobin A1C Refer ence Range Adults: 4.8 - 6.0 % Non diabetic: < 6.0 % Goal: < 7.0 %Additional Action Suggested: > 8.0 %Note: Hemoglobin A1c results are invalid for patients with abnormal amounts of HbF. Blood transfusions may impact the HbA1c concentration in the patient sample. Estimated Average Glucose 117 mg/dL [facility] Comment:eAG = Estimated ave rage glucose which is %A1C expressed asaverage glucose, using the formula of the C6I-WdhyymvPjxmtni Glucose study (ADAG), Diabetes Care, Vol.31,#8,Aug. 2007 Blood Venous blood specimen / Unknown 11/22/2024 12:07 PM EST 11/22/2024 12:51 PM EST Kassandra Phillips MD LAB BLOOD ORDERABLES Final Resul t [facility] [address] [place] [phone] * (ABNORMAL) Hm Colonoscopy (08/07/2024) Colonoscopy Abnormal(A ) Normal 08/07/2024 Historical Provider HEALTH MAINTENANCE Final Result * CT Lung Screening Low dose (11/18/2023 11:57 AM EST) Anatomical Region Laterality Modality Lung Computed Tomogra phy 11/18/2023 11:5 7 AM EST Narrative 11/22/2023 3:09 PM EST ? [facility] ?[address] ?[place] [address] ? CT Scan Report ? Signed ? Patient: Omer Lara ?MR#: [id number] ?? [id number] ? : 1955 ?Acct:[id number] ? Age/Sex: 68 / M ?ADM Date: 02/09/24 ? Loc: HO.CT ? Attending Dr: Laura Tinajero OFFICE AUTOMATION CLERK ? Ordering Physician: Laura Tinajero NP ?? Date of Service: 11/18/23 ?? Procedure(s): CT lung screening ?? Accession Number(s): [id number] ? cc: Kassandra Phillips MD; Laura Tinajero [...] DLP: ? 43 mGy-cm ? FINDINGS: ? SWITCHBOARD RECEPTIONIST: Clear lungs. ? LUNGS: Mild biapical pleural [...] 1505 ? DD/ 1157 ? TD/TT: ? Supervisor Dry Cleaning: ? Procedure Note Donotuseinterpreter, Image - 11/22/[address] [address] CT Scan Report Signed Patient: Benny LaraR#: [id number] : 1955cct:[id number] Age/Sex: 68 / MADM Date: 11/18/23 Loc: HO.CT Attending Dr: Laura Tinajero NP Ordering Physician: Laura Tinajero NP Date of Service: 11/18/23 Procedure(s): CT lung screening Accession Number(s): [id number] cc: Kassandra Phillips MD; Laura Tinajero NP [...] iterative reconstruction technique DLP: 43 mGy-cm FINDINGS: SWITCHBOARD RECEPTIONIST: Clear lungs. LUNGS: Mild biapical pleural thickening. [...] in OV> 11/22/23 1505 DD/ 1157 TD/TT: Supervisor Dry Cleaning: [facility] External Provider IMG CT PROCEDURES Final Result * Hepatitis C Antibody with Reflex to HCV, RNA, Quantitative, Real-Time PCR (06/30/2023 10:33 AM EDT) Hepatitis C Antibody Nonreactive Nonreactive [facility] Comment:Antibodies to HCV no t detected; does not exclude early acuteHCV infection. Blood Venous blood specimen / Unknown 06/30/2023 10:33 AM EDT 06/30/2023 11:20 AM EDT Kassandra Phillips MD LAB BLOOD ORDERABLES Final Resul t [facility] [address] [place] [address] [phone] from Last 3 Months or Most Recently Relevant to Health Maintenance Insurance [employer] [place] [place] [id number] Care Teams Amphibious Operations Officer Relationship Specialty Start Date End Date Kassandra Phillips MD [address] [place], [place] [phone] PCP - General Family Medicine 06/30/23 Blanco Gar, SouravD [address] [place], [place] [phone] Pharmacist Internal Medicine 12/26/23
== END 2025-03-05 09:45 | disposition home or self-care (01) ==
LOC: HO.US 09:44
PROVIDERS: PCP Otolaryngology; Visit Provider Surgery Vascular Surgery
DX: I65.23 Occlusion and stenosis of bilateral carotid arteries (principal)
CPT/HCPCS: 93880

== ENCOUNTER → 2025-03-05 09:46 | Outpatient (BNV) | payer MEDICARE, SELFPAY | PROVIDERS: PCP Otolaryngology; Visit Provider Radiology Diagnostic Radiology | DX: I65.23 Occlusion and stenosis of bilateral carotid arteries (principal) | CPT/HCPCS: 93880 ==

== ENCOUNTER 2025-03-15 10:48 | Outpatient (AMB) | payer MEDICARE, SELFPAY ==
--- NOTE | 2025-03-15 11:05 | A.SPINEOV_ITS ---
Intake Visit Reasons: neck pain Intake Note: Mr. Kostas Peter is here today c/o neck pain. [employer] Kitchen Required: No Allergies No Known Allergies Allergy (Verified 02/26/25 12:50) Assessment & Plan Assessment & Plan (1) Neck pain: Code(s): M54.2 - Cervicalgia Category: Medical Plan Dear Dr Phillips, Thank you for referring Mr Kenyon to our office today. He is a very nice 69-year-old gentleman presents to the office today for evaluation of chronic neck pain. The neck pain radiates from the back of his neck across his trapezius area. He has had it for many many years. He recently started some physical therapy for it, but after about 2 weeks it was not helping so he discontinued it. It was costing him about 45 dollars per co-pay, so we did not want to continue it if it was not helping much. That was at the [facility]. He has not had an injection yet. He does take oxycodone daily. No myelopathic symptoms to report. PMH: Reports history of hypertension, he had a carotid endarterectomy, cataract surgery Social hx: Quit smoking and drinking many years ago, does not use any recreational drugs Medications: Amlodipine, atorvastatin, vitamin B12, gabapentin, omeprazole, oxycodone Allergies: None Physical exam: Awake alert oriented no acute distress, he is demonstrating excellent full strength of bilateral upper and lower extremities with normal reflexes, no Hart's sign, no clonus, gait is normal Imaging review: Cervical MRI done at [facility] shows just mild spondylosis throughout his whole cervical spine with moderate stenosis at C3-4. Impression: 69-year-old male presents for evaluation of chronic neck pain in the setting of mild diffuse spondylosis and moderate stenosis at C3-4. He is in the unfortunately position of having symptoms that do not correlate to any particular finding on his MRI. He has no myelopathic complaints to suggests that the stenosis at C3-4 is active. Unfortunately I do not have an answer for him surgically. Typically we need some kind of localizing MRI finding that would help us identify which disc is potentially the source of his pain. It is also possible that these are just incidental findings and have nothing to do with his pain at all. This could be a muscular issue altogether. Unfortunately the physical therapy was too expensive so we can not continue it. He is going to look into a potential injection at [facility] but I do not get the sense he was all that eggs excited about it. Unfortunately I do not think there is any surgery we can do that will fix this for him. Thank you for allowing us to care for your patient. The total time spent with this visit with this patient was 45 minutes reviewing history, physical exam, cervical imaging review, and implementation of treatment plan or further diagnostic testing Rj Ash MD,PhD [facility] Coding Level of Care Code New Pt Level 4 (82497) Diagnoses Neck pain M54.2
--- OUTSIDE RECORDS SUMMARY | 2025-03-15 11:43 | XMS_ITS | Clinical Summary ---
Author Organization [employer] Address [address] [facility] [address] [place] [address] Care Team Providers Care Security Patrol Driver Name Role Phone Kassandra Phillips MD Primary Care Provider [phone] Blanco Gar PharmD Unavailable [phone] Allergies No known active allergies Medications Blood [...] AT NIGHT 60 tablet 02/13/20 25 Active oxyCODONE (Roxicodone) 5 MG immediate release tabletIndicati ons:Chronic bilateral low back pain, unspecified whether sciatica present,Neck pain,Cervical spondylosis Take 1 tablet (5 mg) by mouth if needed in the morning and at bedtime for severe pain or moderate pain. 56 tablet 03/05/20 25 Active oxyCODONE (Roxicodone) 5 MG immediate release tabletIndicati ons:Cervical spondylosis,Ne ck pain,Chronic bilateral low back pain, unspecified whether sciatica present Take 1 tablet (5 mg) by mouth if needed each day for severe pain. Do not start before February 14, 2025. 28 tablet 02/15/20 25 025 Discontinued(R eorder (will not trigger notification to Pharmacy)) Active Problems Problem Noted Date Diagnosed Date Long-term current use of opiate analgesic 2024 Chronic pain of both knees 05/21/2024 Assessment & Plan (03/10/2025 12:25 PM EDT): -likely arthritic in nature Assessment & Plan (05/21/2024 11:41 AM EDT): -likely arthritic in nature -ordered XR to further evaluate Gastroesophageal reflux disease 05/21/2024 Assessment & Plan (08/19/2024 2:12 PM EST): -followed by [facility], last seen in Jul 2024 -H. [...] EGD Cervical spondylosis 05/20/2024 Assessment & Plan (03/06/2025 10:16 PM EDT): - see neck pain plan - Ordered MR Cervical Spine w/o Contrast - Prescribed oxyCODONE (Roxicodone) 5 MG immediate release tablet 03/05/25 Assessment & Plan (11/23/2024 12:00 AM EST): - see neck pain plan - Ordered MR Cervical Spine w/o Contrast Assessment & Plan (08/19/2024 2:13 PM EST): - see neck pain plan Abdominal pain 12/04/2023 Assessment & Plan (03/10/2025 12:18 PM EDT): - EGD on 08/07/24 was positive for H. pylori - Continue omeprazole 20 mg daily - Continue Famotidine 20 mg at night - Recommended to follow-up with GI. Assessment & Plan (11/22/2024 2:37 PM EST): [...] and colonoscopy Hypertension 10/30/2023 Assessment & Plan (03/10/2025 12:18 PM EDT): -Goal BP < 130 per ACC/AHA guideline and < 150/90 per JNC-8 -BP elevated today, possibly due to pain, but patient reports elevated BP at home as well -Continue working on lifestyle modifications -Continue amlodipine 5 mg daily (increased in Nov 2024) -Recommended self-monitoring BP. - Return for BP check with our nurse in 2 weeks. If home SBP is above 140 or office SBP is above 145, increase amlodipine to 10 mg daily or add losartan 25 mg daily. Assessment & Plan (11/24/2024 5:23 PM EST): [...] Carotid stenosis, right 10/20/2023 Assessment & Plan (03/05/2025 1:36 PM EDT): - following with Dr. Coy, [facility] - carotid US on 10/19/23, showed [...] Optimize risk factor management Assessment & Plan (11/22/2024 2:42 PM EST): - following with Dr. Coy, [facility] - carotid US on 10/19/23, showed [...] by velocity criteria. - Seen by [facility] specialist, Dr. Coy, on 01/05/24. CTA [...] factor management Dyslipidemia 09/14/2023 Assessment & Plan (03/06/2025 10:14 PM EDT): - Lipid profile on 11/22/24 TC 134; TG 161; HDL 45; LDL 57 - continue working on lifestyle modification - continue atorvastatin 20 mg at bedtime (started in Jun 2023 for 10-year ASCVD risk 23%) Assessment & Plan (11/22/2024 11:57 PM EST): [...] 23%) Neck pain 09/14/2023 Assessment & Plan (03/10/2025 12:23 PM EDT): - multifactorial, cervical spondylosis / DDD, cervical spinal stenosis - MRI in Nov 2024 showed moderate central canal stenosis and multilevel neural foraminal narrowing - diclofenac gel - change tramadol to oxycodone since tramadol was ineffective - currently on oxycodone 5 mg nightly; agreed to increase to bid. - continue following with INSURANCE INSPECTOR visit - continue judicious use of Gabapentin, and encouraged to taper down and off - refer to yard specialist Assessment & Plan (11/22/2024 11:58 PM EST): [...] imaging or referral to pain management and/or yard specialist Assessment & Plan (09/14/2023 3:47 PM EST): - multifactorial - evaluate with X-ray - trapezius muscle spasm - add cyclobenzaprine prn - apply lidocaine patch - refer to PT - reassess symptoms in 3 mo to see if he needs further imaging or referral to pain management and/or yard specialist Back pain 09/14/2023 Assessment & Plan (03/10/2025 12:26 PM EDT): - X-ray in Sep 2023 [...] - started on tramadol and gabapentin - tramadol was changed to oxycodone - Currently on oxycodone 5 mg nightly; will increase to bid - Reviewed INSURANCE INSPECTOR program engagement and agreement - refer to yard specialist Assessment & Plan (11/24/2024 5:21 PM EST): [...] gabapentin - switch tramadol to oxycodone - INSURANCE INSPECTOR appt Assessment & Plan (08/19/2024 2:18 PM [...] check the status of MRI order - INSURANCE INSPECTOR appt Assessment & Plan (05/21/2024 11:42 AM [...] precaution Tobacco dependence 06/30/2023 Assessment & Plan (03/10/2025 12:26 PM EDT): -Congratulated patient on quitting (quit in January 2024) and encouraged him to maintain smoking cessation. - Check the status of her chest CT scan for this year. Assessment & Plan (11/22/2024 11:57 PM EST): [...] 20 pack years 06/30/2023 Assessment & Plan (03/05/2025 1:39 PM EDT): - low-dose chest CT through [facility] cancer screening [facility] - Last CT on 11/18/23 Lung RADS 1 Assessment & Plan (11/22/2024 11:57 PM EST): - low-dose chest CT through [facility] cancer screening [facility] - Last CT on 11/18/23 Lung RADS 1 Assessment & Plan (08/19/2024 2:13 PM EST): - low-dose chest CT through [facility] cancer screening [facility] - Last CT on 11/18/23 Lung RADS 1 Assessment & Plan (05/21/2024 9:51 AM EDT): - low-dose chest CT through [facility] screening [facility] - Last CT on 11/18/23 Lung RADS 1 Assessment & Plan (02/08/2024 9:14 PM EDT): - low-dose chest CT through [facility] cancer screening [facility] - Last CT on 11/18/23 Lung RADS 1 Assessment & Plan (09/14/2023 3:51 PM EST): - low-dose chest CT through [facility] cancer screening [facility] - pt states he will go to get CT done and is thinking about smoking cessation Assessment & Plan (06/30/2023 5:32 PM EDT): - low-dose chest CT through [facility] cancer screening program Resolved Problems Problem Noted Date Diagnosed Date Resolved Date Health care maintenance 09/14/2023 05/0 10/2023 Assessment & Plan (09/14/2023 4:24 AM EST): - Colonoscopy: Referred - AAA screening US on 07/25/23 negative Encounters Date Type Department Care Team Description 03/11/2025 Telephone [facility] [address] [place] [phone] Kassandra Phillips MD Med Refill 03/05/2025 1:00 PM EDT Office Visit [facility] [address] [place] [phone] Kassandra Phillips MD Hypertension, unspecified type (Primary Dx); Dyslipidemia; Carotid stenosis, right; Epigastric pain; Chronic bilateral low back pain, unspecified whether sciatica present; Chronic pain of both knees; Neck pain; Tobacco dependence; Smoking greater than 20 pack years; Cervical spondylosis 03/05/2025 Travel 03/01/2025 Telephone [facility] [address] [place] [phone] Kassandra Phillips MD Chart Prep 02/15/2025 11:00 AM EDT Clinical Support [facility] [address] [place] [address] Layla Thapa RN Chronic bilateral low back pain, unspecified whether sciatica present (Primary Dx); Long-term current use of opiate analgesic 02/15/2025 Travel 02/12/2025 Refill [facility] [address] [place] [phone] Kassandra Phillips MD 02/12/2025 Refill [facility] [address] [place] [phone] Naida Hobson MD 02/12/2025 Refill [facility] [address] [place] [phone] Kassandra Phillips MD 02/11/[address] [facility] [address] [place] [address] Layla Thapa RN Cervical spondylosis; Neck pain; Chronic bilateral low back pain, unspecified whether sciatica present 02/11/2025 Telephone [facility] [address] [place] [phone] Kassandra Phillips MD Med Refill 01/16/[address] [facility] [address] [place] [address] Layla Thapa RN Cervical spondylosis; Neck pain; Chronic bilateral low back pain, unspecified whether sciatica present 01/16/2025 Telephone [facility] [address] [place] [phone] Kassandra Phillips MD Med Refill 01/14/2025 Refill [facility] [address] [place] [phone] Naida Hobson MD 01/13/2025 Refill [facility] [address] [place] [address] Kassandra Phillips MD 12/21/2024 Telephone [facility] [address] [place] [address] Kassandra Phillips MD Medication Question 12/19/2024 Refill [facility] [address] [place] [address] Layla Thapa RN Cervical spondylosis; Neck pain; Chronic bilateral low back pain, unspecified whether sciatica present 12/19/2024 Telephone [facility] [address] [place] [address] Kassandra Phillips MD Med Refill 12/14/2024 Refill [facility] [address] [place] [phone] Kassandra Phillips MD from Last 3 Months [...] Sign Reading Time Taken Comments Blood Pressure 140/80 03/05/2025 1:21 PM EDT Pulse 52 03/05/2025 12:56 PM EDT Temperature 36.6 ??C (97.8 ??F) 03/05/2025 12:56 PM E DT Respiratory Rate 18 03/05/2025 12:56 PM EDT Oxygen Saturation 98% 11/22/2024 11:15 AM EST Inhaled Oxygen Concentration - - Weight 67.1 kg (148 lb) 03/05/2025 12:56 PM EDT Height 165.1 cm (5' 5 ) 03/05/2025 12:56 PM EDT Body Mass Index 24.63 03/05/2025 12:56 PM EDT Plan of Treatment Upcoming Encounters Date Type Department Care Team (Late st Contact Info) Description 03/25/2025 2:00 PM EDT Clinical Support [facility] [address] [place] [address] 04/29/2025 10:00 AM EDT Telemedicine [facility] [address] [place] [address] Layla Thapa, RN [address] [place] [address] Health Maintenance Due Date Last Done Comments CT Colonography 1955 FIT DNA/Cologuard 1955 FIT 1955 FOBT 1955 Sigmoidoscopy 1955 Lung Cancer Screening 11/18/2024 11/18/2023 COVID-19 Vaccine ( season) 2025 11/22/2024, 11/29/2023, 03/16/2022, Additional history exists Alcohol/Substance Use Screening 08/13/2025 08/13/2024 Depression Screening 08/13/2025 08/13/2024, 08/13/20 24 SDOH Screening 08/13/2025 08/13/2024 Diabetes: Hemoglobin A1C 11/22/2025 11/22/2024, 06/11 Tobacco Screening 03/05/2026 03/05/2025 Colonoscopy 08/07/2029 08/07/2024 Colorectal Cancer Screening 08/07/2029 Lipid Panel 11/22/2029 11/22/2024, 11/2023, 06/30/2023 DTaP/Tdap/Td Vaccines (2 - Td [...] Blanco Vega, SouravD Note: Quit date: 12/26/2023 Procedures Procedure Name [...] EDT Routine general medical examination at a [facility] care facility from Last 3 Months or Most Recently Relevant to Health Maintenance Results * POCT JOSE-14 Urine Drug Screen (02/15/2025 11:10 AM EDT) Oxycodone Screen, Urine Positive Urine Urine specimen obtained by clean catch procedure / Unknown 02/15/2025 11:10 AM EDT Narrative Layla Thapa RN - 02/15/2025 11:10 AM EDT Lot# [id number] Exp: 05-29-26 Kassandra Phillips MD POINT OF CARE TEST ENTER/EDIT OR DERABLES Final Result * (ABNORMAL) Lipid Panel with Reflex to Direct LDL (11/22/2024 12:07 PM EST) Triglycerides 161(H) <150 mg/dL [facility] Comment:Desirable Triglyceri de: less than 150 mg/dLBorderline High Triglyceride 150-199 mg/dLHigh Triglyceride: 200-499 mg/dLVery High Triglyceride: greater than or equal to 5OO mg/dL Cholesterol 134 <200 mg/dL [facility] Comment:Desirable Cholestero l: less than 200 mg/dLBorderline High Cholesterol: 200-239 mg/dLHigh Cholesterol: greater than 239 mg/dL LDL Cholesterol Calculated 57 <100 mg/dL [facility] Comment:Desirable LDL: less than 100 mg/dLNear Optimal/Above Optimal LDL: 110- 129 mg/dLBorderline High LDL: 130-159 mg/dLHigh LDL: 160-189 mg/dLVery High LDL: greater than or equal to 190 mg/dL HDL Cholesterol 45 >40 mg/dL [facility] Comment:Desirable HDL: great er than 40 mg/dL Note: This HDL assay may give artificially low results in patients with liver disease. Blood 11/22/2024 12:0 7 PM EST 11/22/2024 12:51 PM EST us Kassandra Phillips MD LAB BLOOD ORDERABLES Final Resul t Performing Organization Address [facility] de Phone Number [facility] [address] [place] [phone] * Hemoglobin A1c (11/22/2024 12:07 PM EST) Hemoglobin A1c 5.7 <6.0 % [facility] Comment:Hemoglobin A1C Refer ence Range Adults: 4.8 - 6.0 % Non diabetic: < 6.0 % Goal: < 7.0 %Additional Action Suggested: > 8.0 %Note: Hemoglobin A1c results are invalid for patients with abnormal amounts of HbF. Blood transfusions may impact the HbA1c concentration in the patient sample. Estimated Average Glucose 117 mg/dL [facility] Comment:eAG = Estimated ave rage glucose which is %A1C expressed asaverage glucose, using the formula of the I3D-[id number] Glucose study (ADAG), Diabetes Care, Vol.31,#8,2007 Blood Venous blood specimen / Unknown 11/22/2024 12:07 PM EST 11/22/2024 12:51 PM EST Kassandra Phillips MD LAB BLOOD ORDERABLES Final Resul t Performing Organization Address [facility] de Phone Number [facility] [address] [place] [phone] * (ABNORMAL) Hm Colonoscopy (08/07/2024) Colonoscopy Abnormal(A ) Normal 08/07/2024 us Historical Provider HEALTH MAINTENANCE Final Result * CT Lung Screening Low dose (11/18/2023 11:57 AM EST) Anatomical Region Laterality Modality Lung Computed Tomogra phy 11/18/2023 11:5 7 AM EST Narrative 11/22/2023 3:09 PM EST ? [facility] ?[address] ?[place] [address] ? CT Scan Report ? Signed ? Patient: Kenyon Rome,Omer ?MR#: [id number] ?? [id number] ? : 1955 ?Acct:[id number] ? Age/Sex: 68 / M ?ADM Date: 11/18/23 ? Loc: HO.CT ? Attending Dr: Laura Tinajero USER INTERFACE DESIGNER ? Ordering Physician: Laura Tinajero NP ?? Date of Service: 11/18/23 ?? Procedure(s): CT lung screening ?? Accession Number(s): [id number] ? cc: Kassandra Phillips MD; Laura Tinajero [...] DLP: ? 43 mGy-cm ? FINDINGS: ? ANTHROPOLOGY AND ARCHEOLOGY INSTRUCTOR: Clear lungs. ? LUNGS: Mild biapical pleural [...] 1505 ? DD/ 1157 ? TD/TT: ? Locks Inspector: ? Procedure Note Donotelenainterpreter, Image - 11/22/[address] [address] [address] Scan Report Signed Patient: Maria Antonia Lara#: [id number] : 1955cct:[id number] Age/Sex: 68 / MADM Date: 11/18/23 Loc: .CT Attending Dr: Laura Tinajero NP Ordering Physician: Laura Tinajero NP Date of Service: 11/18/23 Procedure(s): CT lung screening Accession Number(s): [id number] cc: Kassandra Phillips MD; Laura Tinajero NP [...] iterative reconstruction technique DLP: 43 mGy-cm FINDINGS: ANTHROPOLOGY AND ARCHEOLOGY INSTRUCTOR: Clear lungs. LUNGS: Mild biapical pleural thickening. [...] in OV> 11/22/23 1505 DD/ 1157 TD/TT: Locks Inspector: [facility] External Provider IMG CT PROCEDURES Final Result * Hepatitis C Antibody with Reflex to HCV, RNA, Quantitative, Real-Time PCR (06/30/2023 10:33 AM EDT) Hepatitis C Antibody Nonreactive Nonreactive [facility] Comment:Antibodies to HCV no t detected; does not exclude early acuteHCV infection. Blood Venous blood specimen / Unknown 06/30/2023 10:33 AM EDT 06/30/2023 11:20 AM EDT Kassandra Phillips MD LAB BLOOD ORDERABLES Final Resul t [facility] [address] [place] [phone] from Last 3 Months or Most Recently Relevant to Health Maintenance Insurance [id number] [facility] [place] [id number] Care Teams Security Patrol Driver Relationship Specialty Start Date End Date Kassandra Phillips MD [address] [place] [address] PCP - General Family Medicine 06/30/23 Blanco Gar, PharmD [address] [place] [address] [phone] Pharmacist Internal Medicine 12/26/23
== END 2025-03-15 11:21 | disposition home or self-care (01) ==
LOC: HO.HNS 10:49
PROVIDERS: PCP Otolaryngology; Referring Provider Family Medicine; Visit Provider Physician Assistant
DX: M54.2 Cervicalgia (principal)
CPT/HCPCS: 99204

== ENCOUNTER → 2025-03-15 10:48 | Outpatient (BNVA) | payer MEDICARE, SELFPAY | PROVIDERS: PCP Otolaryngology; Referring Provider Family Medicine; Visit Provider Physician Assistant | DX: M54.2 Cervicalgia (principal) | CPT/HCPCS: 99202 ==

== ENCOUNTER 2025-03-21 13:43 | Outpatient (AMB) | payer MEDICARE, SELFPAY ==
--- NOTE | 2025-03-21 13:53 | MHC.OFFVIS ---
Vital Signs 03/21/25 13:54 Height 5 ft 5 in Weight 147 lb BMI 24.5 Intake Visit Reasons: 6m follow up s/p Carotid US 03/05/25 Intake Note: 6 mo follow up s/p carotid US 03/05/25 w/ hx of Right CEA 04/02/24. Pt states that sometimes he has itching over incision and sharp pains. Also states he feels generally weak and tired. Senior Scrum Master Required: No Accompanied by: Self / Same As Patient Allergies No Known Allergies Allergy (Verified 03/21/25 13:57) HPI HPI 6m follow up s/p Carotid US 03/05/25: Details: Omer is presenting today on a follow up to Carotid US on 03/05. He is s/p right CEA, performed on 04/02/[address] Coy. He states he is feeling fine after the surgery; he states the incision site itches occasionally. He denies any headaches, dizziness, or lightheadedness. He states he has generalized weakness, but this has been going on for awhile. He denies any diff swallowing, chewing, or talking. He has no new concerns today. [facility] Medical History Nicotine dependence, cigarettes, uncomplicated Colon cancer screening HTN (hypertension) Gastric pain Back pain Arthritis Anemia Elevated cholesterol Surgical History Hx of colonoscopy History of esophagogastroduodenoscopy (EGD) S/P carotid endarterectomy (04/02/24) Hx of cataract surgery Family History Father Stomach cancer Brother Stomach cancer Social History Household Members: Spouse Housing: Apartment Are you a primary memory care program director to a significant other at home: No Do you presently have visiting nurse or other home services: No Alcohol intake: former Comment: quit 20 years ago Patient Tobacco Use Status: Former Tobacco user Tobacco use type: Cigarette Cigarettes Per Day: 10 service: No Review of Systems Const Reports as per HPI and Denies weakness ENT Reports Normal hearing present and Denies dizziness Card Reports as per HPI, Denies chest pain, Denies chest pain at rest, Denies chest pain with activity, Denies dyspnea and Denies dyspnea on exertion Resp Reports as per HPI, Denies cough, Denies dyspnea and Denies dyspnea on exertion GI Reports as per HPI, Denies abdominal pain, Denies nausea and Denies vomiting Musc Denies numbness Skin/Breast Reports as per HPI, Denies erythema and Denies wounds Neuro Reports Normal hearing present, Denies dizziness, Denies numbness, Denies Sensory deficit (Neuro) and Denies weakness Psych Reports no additional complaints Endo Reports no additional complaints Physical Exam Vital Signs: BMI result Body Mass Index 24.5 Const General: healthy appearing and no acute distress Orientation/consciousness: patient oriented x3 HEENT Head: Yes normal to inspection Ears: hearing grossly normal bilaterally Mouth: Normal oral and palatal mucosa present Neck Other: Right carotid incision: healed over. No erythema noted. Resp Effort & Inspection: normal respiratory effort and able to speak in complete sentences Auscultation: clear to auscultation bilaterally Cardio Jugular venous distension: no JVD Rate: regular rate Rhythm: regular rhythm Heart sounds: S1 normal heart sound present and S2 normal heart sound present Bruits: no abdominal aortic bruits, no carotid bruits, no femoral bruits and no renal bruits Peripheral pulses: Peripheral pulses 2+ throughout GI Inspection: Yes normal to inspection Palpation (GI): No Abdominal aortic bruit present Skin General skin exam: no rashes or lesions noted Wounds: no wounds Hair: normal Neuro General: patient oriented x3 Cranial nerves: Yes Normal hearing present Cognition (Neuro): normal cognition Gait exam (Neuro): Normal gait present Motor exam (neuro): 5/5 motor strength present throughout Sensory Exam: No Sensory deficit (Neuro) Extrem General: Yes normal to inspection, Yes full ROM, Yes capillary refill normal and Yes normal gait Results Reviewed Results Reviewed: Carotid US Findings consistent with 0-49% stenosis of the bilateral internal carotid arteries. Assessment & Plan Assessment & Plan (1) Bilateral carotid artery stenosis: Comment: 04/02/2024- right carotid endarterectomy Code(s): I65.23 - Occlusion and stenosis of bilateral carotid arteries Category: Medical Plan: Omer is presenting today for a follow up to surveillance bilateral carotid US, performed on 03/05/25. He is s/p right CEA with Dr Coy on 04/02/24. The US revealed findings consistent with 0-49% stenosis of the bilateral internal carotid arteries. He states the incision site occasionally bothers him with itchiness. He states he is having generalized weakness, for which he has an appt with his PCP next week. He denies any symptoms of CVA/TIA. WE discussed continuing with risk factor modifications. I discussed with him that he can apply lotion and warm compresses to the area of the incision to help with the itchiness. We discussed that we will have him follow up in 1y with a surveillance carotid US. We discussed the s/s of a TIA/CVA and to call [phone] if those symptoms occur. If there are any questions or concerns, please do not hesitate to reach out to us. Orders: Orders US carotid duplex BI 1 Year I65.23 - Occlusion and stenosis of bilateral carotid arteries Coding Level of Care Code Est Pt Level 4 (25734) Diagnoses Bilateral carotid artery stenosis I65.23 Comment review of carotid US
[2025-03-21 13:54] VITALS: BMI 24.5
--- OUTSIDE RECORDS SUMMARY | 2025-03-21 16:06 | XMS_ITS | Clinical Summary ---
Author Organization [employer] Address [address] [facility] [address] [place] [address] Care Team Providers Care It Systems Manager Name Role Phone Kassandra Phillips MD Primary Care Provider [phone] Blanco Gar PharmD Unavailable [phone] Allergies No known active allergies Medications Blood [...] (08/19/2024 2:12 PM EST): -followed by [facility], last seen in Jul 2024 [...] EDT): - following with Dr. Coy, [facility] - carotid US on 10/19/23, [...] EST): - following with Dr. Coy, [facility] - carotid US on 10/19/23, [...] by velocity criteria. - Seen [place] [facility] [place], Dr. Coy, on 01/05/24. [...] increase to bid. - continue following with DIABETIC EDUCATOR visit - continue judicious use of Gabapentin, and encouraged to taper down and off - refer to television specialist Assessment & Plan (11/22/2024 11:58 PM [...] imaging or referral to pain management and/or television specialist Assessment & Plan (09/14/2023 3:47 PM EST): - multifactorial - evaluate with X-ray - trapezius muscle spasm - add cyclobenzaprine prn - apply lidocaine patch - refer to PT - reassess symptoms in 3 mo to see if he needs further imaging or referral to pain management and/or television specialist Back pain 09/14/2023 Assessment & Plan [...] nightly; will increase to bid - Reviewed DIABETIC EDUCATOR program engagement and agreement - refer to television specialist Assessment & Plan (11/24/2024 5:21 PM [...] gabapentin - switch tramadol to oxycodone - DIABETIC EDUCATOR appt Assessment & Plan (08/19/2024 2:18 PM [...] check the status of MRI order - DIABETIC EDUCATOR appt Assessment & Plan (05/21/2024 11:42 AM [...] EDT): - low-dose chest CT [place] [facility] [place] - Last CT on 11/18/23 Lung RADS 1 Assessment & Plan (11/22/2024 11:57 PM EST): - low-dose chest CT through [facility] [place] - Last CT on 11/18/23 Lung RADS 1 Assessment & Plan (08/19/2024 2:13 PM EST): - low-dose chest CT through [facility] [place] - Last CT on 11/18/23 Lung RADS 1 Assessment & Plan (05/21/2024 9:51 AM EDT): - low-dose chest CT [place] [facility] [place] - Last CT on 11/18/23 Lung RADS 1 Assessment & Plan (02/08/2024 9:14 PM EDT): - low-dose chest CT through [facility] [place] - Last CT on 11/18/23 Lung RADS 1 Assessment & Plan (09/14/2023 3:51 PM EST): - low-dose chest CT through [facility] [place] - pt states he will go to get CT done and is thinking about smoking cessation Assessment & Plan (06/30/2023 5:32 PM EDT): - low-dose chest CT through [facility] [place] Resolved Problems Problem Noted Date Diagnosed Date Resolved Date Health care maintenance 09/14/2023 05/0 10/2023 Assessment & Plan (09/14/2023 4:24 AM EST): - Colonoscopy: Referred - AAA screening US on 07/25/23 negative Encounters Date Type Department Care Team Description 03/11/2025 Telephone [facility] [address] [place] [phone] Kassandra Phillips MD Med Refill 03/05/2025 1:00 PM EDT Office Visit [facility] [address] [place] [phone] Kassandra Phillips MD Hypertension, unspecified type (Primary Dx); Dyslipidemia; Carotid stenosis, right; Epigastric pain; Chronic bilateral low back pain, unspecified whether sciatica present; Chronic pain of both knees; Neck pain; Tobacco dependence; Smoking greater than 20 pack years; Cervical spondylosis 03/05/2025 Travel 03/01/2025 Telephone [facility] [address] [place] [phone] Kassandra Phillips MD Chart Prep 02/15/2025 11:00 AM EDT Clinical Support [facility] [address] [place] [address] Layla Thapa RN Chronic bilateral low back pain, unspecified whether sciatica present (Primary Dx); Long-term current use of opiate analgesic 02/15/2025 Travel 02/12/2025 Refill [facility] [address] [place] [phone] Kassandra Phillips MD 02/12/2025 Refill [facility] [address] [place] [phone] Naida Hobson MD 02/12/2025 Refill [facility] [address] [place] [phone] Kassandra Phillips MD 02/11/2025 Refill [facility] [address] [place] [address] Layla Thapa RN Cervical spondylosis; Neck pain; Chronic bilateral low back pain, unspecified whether sciatica present 02/11/2025 Telephone [facility] [address] [place] [phone] Kassandra Phillips MD Med Refill 01/16/2025 Refill [facility] [address] [place] [address] Layla Thapa RN Cervical spondylosis; Neck pain; Chronic bilateral low back pain, unspecified whether sciatica present 01/16/2025 Telephone [facility] [address] [place] [address] Kassandra Phillips MD Med Refill 01/14/2025 Refill [facility] [address] [place] [address] Naida Hobson MD 01/13/2025 Refill [facility] [address] [place] [address] Kassandra Phillips MD 12/21/2024 Telephone [facility] [address] [place] [address] Kassandra Phillips MD Medication Question 12/19/2024 Refill [facility] [address] [place] [address] Layla Thapa RN Cervical spondylosis; Neck pain; Chronic bilateral low back pain, unspecified whether sciatica present 12/19/2024 Telephone [facility] [address] [place] [address] Kassandra Phillips MD Med Refill from Last 3 Months Immunizations Immunization Administration [...] Upcoming Encounters Date Type Department Care Team ([facility] st Contact Info) Description 03/25/2025 2:00 PM EDT Clinical Support [facility] [address] [place] [address] 04/29/2025 10:00 AM EDT Telemedicine [facility] [address] [place] [address] Layla Thapa, RN [address] [place] [address] Health Maintenance Due Date Last Done Comments CT Colonography 1955 FIT DNA/Cologuard 1955 FIT 1955 FOBT 1955 Sigmoidoscopy 1955 Lung Cancer Screening 11/18/2024 11/18/2023 COVID-19 Vaccine ( season) 2025 11/22/2024, 11/29/2023, 03/16/2022, Additional history exists Alcohol/Substance Use Screening 08/13/2025 08/13/2024 Depression Screening 08/13/2025 08/13/2024, 08/13/20 24 SDOH Screening 08/13/2025 08/13/2024 Diabetes: Hemoglobin A1C 11/22/2025 11/22/2024, 0910/2022 Tobacco Screening 03/05/2026 03/05/2025 Colonoscopy 08/07/2029 08/07/2024 [...] RN - 02/15/2025 11:10 AM EDT Lot# [id number] Exp: 05-29-26 Kassandra Phillips MD POINT OF CARE TEST ENTER/EDIT OR DERABLES Final Result * (ABNORMAL) Lipid Panel with Reflex to Direct LDL (11/22/2024 12:07 PM EST) Triglycerides 161(H) <150 mg/dL [facility] Comment:Desirable Triglyceri de: less than 150 mg/dLBorderline High Triglyceride 150-199 mg/dLHigh Triglyceride: 200-499 mg/dLVery High Triglyceride: greater than or equal to 5OO mg/dL Cholesterol 134 <200 mg/dL [facility] Comment:Desirable Cholestero l: less than 200 mg/dLBorderline High Cholesterol: 200-239 mg/dLHigh Cholesterol: greater than 239 mg/dL LDL Cholesterol Calculated 57 <100 mg/dL [facility] Comment:Desirable LDL: less than 100 mg/dLNear Optimal/Above Optimal LDL: 110- 129 mg/dLBorderline High LDL: 130-159 mg/dLHigh LDL: 160-189 mg/dLVery High LDL: greater than or equal to 190 mg/dL HDL Cholesterol 45 >40 mg/dL [facility] Comment:Desirable HDL: great er than 40 mg/dL Note: This HDL assay may give artificially low results in patients with liver disease. Blood 11/22/2024 12:0 7 PM EST 11/22/2024 12:51 PM EST Kassandra Phillips MD LAB BLOOD ORDERABLES Final Resul t [facility] [address] [place] [phone] * Hemoglobin A1c (11/22/2024 12:07 PM EST) Hemoglobin A1c 5.7 <6.0 % [facility] Comment:Hemoglobin A1C Refer ence Range Adults: 4.8 - 6.0 % Non diabetic: < 6.0 % Goal: < 7.0 %Additional Action Suggested: > 8.0 %Note: Hemoglobin A1c results are invalid for patients with abnormal amounts of HbF. Blood transfusions may impact the HbA1c concentration in the patient sample. Estimated Average Glucose 117 mg/dL [facility] Comment:eAG = Estimated ave rage glucose which is %A1C expressed asaverage glucose, using the formula of the G2C-NfnteqzCtaxuhm Glucose study (ADAG), Diabetes Care, Vol.31,#8,May. 2007 Blood Venous blood specimen / Unknown 11/22/2024 12:07 PM EST 11/22/2024 12:51 PM EST Kassandra Phillips MD LAB BLOOD ORDERABLES Final Resul t [facility] [address] [place] [address] [phone] * (ABNORMAL) Hm Colonoscopy (08/07/2024) Colonoscopy Abnormal(A ) Normal 08/07/2024 Historical Provider HEALTH MAINTENANCE Final Result * CT Lung Screening Low dose (11/18/2023 11:57 AM EST) Anatomical Region Laterality Modality Lung Computed Tomogra phy 11/18/2023 11:5 7 AM EST Narrative 11/22/2023 3:09 PM EST ? [facility] ?[address] ?[place] [address] ? CT Scan Report ? Signed ? Patient: Kostas Peter,Omer ?MR#: [id number] ?? [id number] ? : 1955 ?Acct:[id number] ? Age/Sex: 68 / M ?ADM Date: 11/18/23 ? Loc: HO.CT ? Attending Dr: Laura Tinajero SEARCH LEAD ? Ordering Physician: Laura Tinajero NP ?? Date of Service: 11/18/23 ?? Procedure(s): CT lung screening ?? Accession Number(s): [id number] ? cc: Kassandra Phillips MD; Laura Tinajero [...] DLP: ? 43 mGy-cm ? FINDINGS: ? FIRE BOSS: Clear lungs. ? LUNGS: Mild biapical pleural [...] 1505 ? DD/ 1157 ? TD/TT: ? Electronic Systems Security Assessment: ? Procedure Note Donotuseinterpreter, Image - 11/22/[address] [address] [address] Scan Report Signed Patient: Benny LaraR#: [id number] : 1955cct:[id number] Age/Sex: 68 / MADM Date: 11/18/23 Loc: HO.CT Attending Dr: Laura Tinajero NP Ordering Physician: Laura Tinajero NP Date of Service: 11/18/23 Procedure(s): CT lung screening Accession Number(s): [id number] cc: Kassandra Phillips MD; Laura Tinajero NP [...] iterative reconstruction technique DLP: 43 mGy-cm FINDINGS: FIRE BOSS: Clear lungs. LUNGS: Mild biapical pleural thickening. [...] in OV> 11/22/23 1505 DD/ 1157 TD/TT: Electronic Systems Security Assessment: [facility] External Provider IMG CT PROCEDURES Final Result * Hepatitis C Antibody with Reflex to HCV, RNA, Quantitative, Real-Time PCR (06/30/2023 10:33 AM EDT) Hepatitis C Antibody Nonreactive Nonreactive [facility] Comment:Antibodies to HCV no t detected; does not exclude early acuteHCV infection. Blood Venous blood specimen / Unknown 06/30/2023 10:33 AM EDT 06/30/2023 11:20 AM EDT Kassandra Phillips MD LAB BLOOD ORDERABLES Final Resul t [facility] [address] [place], [place] [phone] from Last 3 Months or Most Recently Relevant to Health Maintenance Insurance [facility] [employer] [employer] Care Teams It Systems Manager Relationship Specialty Start Date End Date Kassandra Phillips MD [address] [place] [address] PCP - General Family Medicine 06/30/23 Blanco Gar, PharmD [address] [place] [address] Pharmacist Internal Medicine 12/26/23
== END 2025-03-21 14:08 | disposition home or self-care (01) ==
LOC: HO.HVS 13:44
PROVIDERS: PCP Otolaryngology; Visit Provider Physician Assistant Surgical
DX: I65.23 Occlusion and stenosis of bilateral carotid arteries (principal)
CPT/HCPCS: 99214

== ENCOUNTER → 2025-03-21 13:43 | Outpatient (BNVA) | payer MEDICARE, SELFPAY | PROVIDERS: PCP Otolaryngology; Visit Provider Physician Assistant Surgical | DX: I65.23 Occlusion and stenosis of bilateral carotid arteries (principal) | CPT/HCPCS: 99212 ==

== ENCOUNTER 2025-05-21 11:38 | Outpatient (AMB) | payer MEDICARE, SELFPAY ==
--- NOTE | 2025-05-21 11:40 | A.OFFVIS_ITS ---
Vital Signs 05/21/25 11:50 Height 5 ft 5 in Weight 149 lb 14.629 oz BMI 24.9 BP 126/67 Blood Pressure Location Lt brachial Position Sitting Pulse 73 Intake Visit Reasons: discuss reglan Intake Note: Omer presents in the office as a follow up regarding reglan. CC: States that he stopped taking PPI meds because the were not doing anything for him. Still having acid reflux Fiscal Technician Required: No Allergies No Known Allergies Allergy (Verified 05/21/25 11:50) HPI HPI discuss reglan: Details: Assessment & Plan (1) GERD (gastroesophageal reflux disease): Code(s): K21.9 - Gastro-esophageal reflux disease without esophagitis Category: Medical (2) Upper abdominal pain: Code(s): R10.10 - Upper abdominal pain, unspecified Category: Medical (3) Lack of appetite: Comment: Occurs only in the morning and bothersome because he needs to take medications Code(s): R63.0 - Anorexia Category: Medical Plan Still has burning when he lays down at night, and am lack of appetite. Never received the reglan. We are calling the pharmacy to find out why. They were closed for lunch, so sent pt home and will call him when we determine that he can get the medication and to assess its effect. Return office visit to be determined. Medications: Refilled metoclopramide HCl (Reglan) 10 mg PO .qamac and qhs 30 tabs 6RF K21.9 - Gastro-esophageal reflux disease without esophagitis TODAY'S VISIT HE RETURNS TODAY AND REPORTS, I KNEW FROM HIS phone calls to the office that the metoclopramide was no help with his burning is his stomach in the evening in his lack of appetite in the morning. With further discussion, it comes to light that he does not feel he is constipated because he is moving his bowels every day, however the stools are very hard and it seems that he may be having incomplete evacuation. It could be that the burning is actually the bowels trying to work hard in the evening, as culturally sometimes I find that this population will describe cramping as a burning sensation. He says that it is worse at night when he lays down and not as bad during the day when he is moving around. At this point will stop the Reglan, restart him on AcipHex since he did have gastritis on his last EGD, and treat with senna. It is also possible that we did not fully eradicate the H pylori but since he is not on any acid reducing therapy at this time we will repeat the H pylori breath test. The patient is a man of few words so it is difficult as he does not seem to have much insight into the situation. It is doubtful that this is gallbladder disease since he had an ultrasound in late 2023 showing no gallstones and a normal gallbladder. Other possibilities could include thoracic spine pathology as he does have significant stenosis and degenerative disc disease of the lumbar and cervical spine. Return office visit in 2 weeks to assess his response to the senna. [facility] Medical History Nicotine dependence, cigarettes, uncomplicated Colon cancer screening HTN (hypertension) Gastric pain Back pain Arthritis Anemia Elevated cholesterol Surgical History Hx of colonoscopy History of esophagogastroduodenoscopy (EGD) S/P carotid endarterectomy (04/02/24) Hx of cataract surgery Family History Father Stomach cancer Brother Stomach cancer Social History Household Members: Spouse Housing: Apartment Are you a primary foster care worker to a significant other at home: No Do you presently have visiting nurse or other home services: No Alcohol intake: former Comment: quit 20 years ago Patient Tobacco Use Status: Former Tobacco user Tobacco use type: Cigarette Cigarettes Per Day: 10 service: No Review of Systems Const Denies fatigue, Denies fever(s), Denies night sweats, Reports poor appetite and Denies weight loss ENT Reports Normal hearing present, Denies dental pain, Denies dysphagia, Denies hearing loss, Denies mouth pain, Reports neck pain, Denies odynophagia, Denies throat swelling, Denies tongue swelling and Reports other (Dentition adequate) Card Reports no additional complaints Resp Reports no additional complaints GI Details: Reports abdominal pain, Denies melena, Denies bloating, Denies hematochezia, Reports constipation, Denies GI cramping, Denies dysphagia, Denies excessive flatus, Denies early satiety, Denies heartburn, Denies diarrhea, Denies nausea, Denies odynophagia, Denies vomiting and Denies hematemesis Musc Reports back pain and Reports neck pain Skin/Breast Denies pruritus, Denies lesions, Denies rash and Denies jaundice Neuro Reports Normal hearing present and Denies Abnormal speech present Endo Denies fatigue Aller/Immun Denies throat swelling and Denies tongue swelling Physical Exam Vital Signs: Last Vital Signs Pulse 73 05/21/25 11:50 BP 126/67 05/21/25 11:50 BMI result Body Mass Index 24.9 Const General: cooperative, no acute distress, well developed and well groomed Nutritional Appearance: average body habitus and well nourished Orientation/consciousness: oriented to person, oriented to place and oriented to time Limitations: language barrier HEENT Head: Yes normocephalic and Yes atraumatic Eyes General: appearance normal, both eyes and all related structures Pupils: Equal, round and reactive pupils present Neck Neck: Yes normal visual inspection and Yes no lymphadenopathy Thyroid: Thyroid normal Resp Effort & Inspection: normal respiratory effort and able to speak in complete sentences Auscultation: clear to auscultation bilaterally Cardio Rate: regular rate Rhythm: regular rhythm Heart sounds: Normal, physiologic split S2 sound present Peripheral pulses: radial pulses present and posterior tibial pulses present GI Inspection: No distended and No Abdominal panniculus present Palpation (GI): Soft to palpation, nontender, no guarding, not rigid and No hepatosplenomegaly present Percussion: Yes normal to percussion Auscultation: normal bowel sounds Rectal Exam - Male: Yes deferred Skin General skin exam: no rashes or lesions noted, turgor normal, skin not dry, no jaundice, No spider nevi and no striae Rashes: no rashes Nails: normal Neuro General: oriented to person, oriented to place and oriented to time Cranial nerves: Yes Equal, round and reactive pupils present and Yes Normal hearing present Speech: No Abnormal speech present Extrem General: Yes normal to inspection, No clubbing, No cyanosis and No edema Psych Appearance: grossly normal and well kempt Mental Status: mental status grossly normal Speech and movement: Normal speech and movement present Affect: normal affect Attitude: cooperative Thought process: Normal thought process present and not confabulating Thought content: Normal thought content present Insight: Limited insight present (Psych) Judgement: Limited judgement present (Psych) Assessment & Plan Assessment & Plan (1) H. pylori duodenitis: Comment: 10/2024 stool antigen confirms eradication after quadruple therapy Code(s): K29.80 - Duodenitis without bleeding; B96.81 - Helicobacter pylori [H. pylori] as the cause of diseases classified elsewhere Category: Medical (2) Chronic gastritis: Code(s): K29.50 - Unspecified chronic gastritis without bleeding Category: Medical (3) Constipation: Code(s): K59.00 - Constipation, unspecified Category: Medical Plan HE RETURNS TODAY AND REPORTS, I KNEW FROM HIS phone calls to the office that the metoclopramide was no help with his burning is his stomach in the evening in his lack of appetite in the morning. With further discussion, it comes to light that he does not feel he is constipated because he is moving his bowels every day, however the stools are very hard and it seems that he may be having inco mplete evacuation. It could be that the burning is actually the bowels trying to work hard in the evening, as culturally sometimes I find that this population will describe cramping as a burning sensation. He says that it is worse at night when he lays down and not as bad during the day when he is moving around. At this point will stop the Reglan, restart him on AcipHex since he did have gastritis on his last EGD, and treat with senna. It is also possible that we did not fully eradicate the H pylori but since he is not on any acid reducing therapy at this time we will repeat the H pylori breath test. The patient is a man of few words so it is difficult as he does not seem to have much insight into the situation. It is doubtful that this is gallbladder disease since he had an ultrasound in late 2023 showing no gallstones and a normal gallbladder. Other possibilities could include thoracic spine pathology as he does have significant stenosis and degenerative disc disease of the lumbar and cervical spine. Return office visit in 2 weeks to assess his response to the senna. Orders: Orders H Pylori Breath Test Today B96.81 - Helicobacter pylori [H. pylori] as the cause of diseases classified elsewhere, K29.80 - Duodenitis without bleeding Medications: New sennosides (Senna Laxative) 8.6 mg PO BEDTIME 60 tabs 3RF K59.00 - Constipation, unspecified rabeprazole (AcipHex) 20 mg PO BID 60 tabs 6RF K29.50 - Unspecified chronic gastritis without bleeding Discontinued metoclopramide HCl (Reglan) Discontinued Reason: Doctor's Order 10 mg PO .qamac and qhs 30 tabs 6RF K21.9 - Gastro-esophageal reflux disease without esophagitis Coding Level of Care Code Est Pt Level 3 (24453) Diagnoses H. pylori duodenitis K29.80; B96.81 Chronic gastritis K29.50 Constipation K59.00
[2025-05-21 11:50] VITALS: BP 126/67; PULSE 73; BMI 24.9
--- OUTSIDE RECORDS SUMMARY | 2025-05-21 12:39 | XMS_ITS | Clinical Summary ---
Author Organization [employer] Address [address] [facility] 7[address] [place] [address] Care Team Providers Care Meterman Name Role Phone Kassandra Phillips MD Primary Care Provider [phone] Blanco Gar PharmD Unavailable [phone] Allergies No known active allergies Medications Blood [...] or split. 30 tablet 11 05/21/20 24 Active Acetaminophen Extra Strength 500 MG tablet [...] bedtime for severe pain or moderate pain. Do not start before April 29, 2025. 56 tablet 04/29/20 25 Active oxyCODONE (Roxicodone) 5 MG immediate release tabletIndicati ons:Chronic bilateral low back pain, unspecified whether sciatica present,Neck pain,Cervical spondylosis Take 1 tablet (5 mg) by mouth if needed in the morning and at bedtime for severe pain or moderate pain. 56 tablet 04/01/20 25 025 Discontinued(R eorder (will not trigger [...] Plan (08/19/2024 2:12 PM EST): -followed by [facility], last seen in Jul 2024 -H. [...] PM EDT): - following with Dr. Coy, [facility] - carotid US on 10/19/23, showed [...] PM EST): - following with Dr. Coy, [facility] - carotid US on 10/19/23, showed [...] stenosis by velocity criteria. - Seen by [facility] vascular specialist, Dr. Coy, on 01/05/24. CTA [...] increase to bid. - continue following with [facility] visit - continue judicious use of Gabapentin, and encouraged to taper down and off - refer to data capture specialist Assessment & Plan (11/22/2024 11:58 PM [...] or referral to pain management and/or data capture specialist Assessment & Plan (09/14/2023 3:47 PM EST): - multifactorial - evaluate with X-ray - trapezius muscle spasm - add cyclobenzaprine prn - apply lidocaine patch - refer to PT - reassess symptoms in 3 mo to see if he needs further imaging or referral to pain management and/or data capture specialist Back pain 09/14/2023 Assessment & Plan [...] nightly; will increase to bid - Reviewed [facility] program engagement and agreement - refer to data capture specialist Assessment & Plan (11/24/2024 5:21 PM [...] gabapentin - switch tramadol to oxycodone - [facility] appt Assessment & Plan (08/19/2024 2:18 PM [...] check the status of MRI order - [facility] appt Assessment & Plan (05/21/2024 11:42 AM [...] PM EDT): - low-dose chest CT through [facility] lung cancer screening program - Last CT on 11/18/23 Lung RADS 1 Assessment & Plan (11/22/2024 11:57 PM EST): - low-dose chest CT through [facility] cancer screening program - Last CT on 11/18/23 Lung RADS 1 Assessment & Plan (08/19/2024 2:13 PM EST): - low-dose chest CT through [facility] cancer screening program - Last CT on 11/18/23 Lung RADS 1 Assessment & Plan (05/21/2024 9:51 AM EDT): - low-dose chest CT through [facility] cancer screening program - Last CT on 11/18/23 Lung RADS 1 Assessment & Plan (02/08/2024 9:14 PM EDT): - low-dose chest CT through [facility] cancer screening program - Last CT on 11/18/23 Lung RADS 1 Assessment & Plan (09/14/2023 3:51 PM EST): - low-dose chest CT through [facility] lung cancer screening program - pt states he will go to get CT done and is thinking about smoking cessation Assessment & Plan (06/30/2023 5:32 PM EDT): - low-dose chest CT through [facility] lung cancer screening program Resolved Problems Problem Noted Date Diagnosed Date Resolved Date Health care maintenance 09/14/2023 05/0 10/2023 Assessment & Plan (09/14/2023 4:24 AM EST): - Colonoscopy: Referred - AAA screening US on 07/25/23 negative Encounters Date Type Department Care Team Description 04/29/2025 10:00 AM EDT Telemedicine [facility] MED & PEDS [address] [place] [address] Layla Thapa RN Other chronic back pain 04/29/2025 Travel 04/25/[address] [facility] MEDICINE [address], [place] [phone] Kassandra Phillips MD Chronic bilateral low back pain, unspecified whether sciatica present; Neck pain; Cervical spondylosis 04/01/[address] [facility] MED & PEDS [address] [place] [address] Layla Thapa RN Chronic bilateral low back pain, unspecified whether sciatica present; Neck pain; Cervical spondylosis 04/01/[address] [address] Kassandra Phillips MD Med Refill 03/25/2025 2:00 PM EDT Clinical Support [address] [address] Lo Bradley, DON Hypertension, unspecified type 03/25/2025 Travel 03/11/[address] [address] Kassandra Phillips MD Med Refill 03/05/2025 1:00 PM EDT Office Visit [address] [address] Kassandra Phillips MD Hypertension, unspecified type (Primary Dx); Dyslipidemia; Carotid stenosis, right; Epigastric pain; Chronic bilateral low back pain, unspecified whether sciatica present; Chronic pain of both knees; Neck pain; Tobacco dependence; Smoking greater than 20 pack years; Cervical spondylosis 03/05/2025 Travel 03/01/[address] [address] Kassandra Phillips MD Chart Prep from Last 3 Months Immunizations Immunization Administration [...] Sign Reading Time Taken Comments Blood Pressure 126/78 03/25/2025 1:55 PM EDT Pulse 71 03/25/2025 1:55 PM EDT Temperature 36.6 C (97.8 F) 03/05/2025 12:56 PM EDT Respiratory Rate 16 03/25/2025 1:55 PM EDT Oxygen Saturation 98% 03/25/2025 1:55 PM EDT Inhaled Oxygen Concentration - - Weight 67.1 kg (148 lb) 03/05/2025 12:56 PM EDT Height 165.1 cm (5' 5 ) 03/05/2025 12:56 PM EDT Body Mass Index 24.63 03/05/2025 12:56 PM EDT Plan of Treatment Upcoming Encounters Date Type Department Care Team (Late st Contact Info) Description 06/04/2025 2:15 PM EDT Office Visit [facility] MEDICINE [address] [place] [phone] Kassandra Phillips MD [address] [place] [address] 07/12/2025 11:00 AM EDT Clinical Support [facility] MEDICINE [address] [place] [phone] Layla Thapa, DON [address] [place] [address] Health Maintenance Due Date Last Done Comments CT Colonography 1955 FIT DNA/Cologuard 1955 FIT 1955 FOBT 1955 Sigmoidoscopy 1955 Lung Cancer Screening 11/18/2024 11/18/2023 COVID-19 Vaccine ( season) 2025 11/22/2024, 11/29/2023, 03/16/2022, Additional history exists Influenza Vaccine (#1) 2025 , 06/20/2023, 07/18/2021 Alcohol/Substance Use Screening 08/13/2025 08/13/2024 Depression Screening 08/13/2025 08/13/2024, 08/13/20 24 SDOH Screening 08/13/2025 08/13/2024 Diabetes: Hemoglobin A1C 11/22/2025 11/22/2024, 06/11 Tobacco Screening 03/25/2026 03/25/2025 Colonoscopy 08/07/2029 08/07/2024 Colorectal Cancer Screening 08/07/2029 [...] patient's age to complete this topic Meningococcal Vaccine Aged Out 08/13/2024 No rodrigo [...] Procedure Name Priority Date/Time Associated Diagnosis Comments HEMOGLOBIN A1C Routine 11/22/2024 12:07 PM EST Screening for diabetes mellitus LIPID PANEL WITH REFLEX TO DIRECT LDL Routine 11/22/2024 12:07 PM EST Dyslipidemia HM COLONOSCOPY Routine 08/07/2024 LDCT LUNG SCREENING Routine 11/18/2023 1 1:57 AM EST HEPATITIS C AB W/REFL TO HCV RNA, QN, PCR Routine 06/30/2023 10:33 AM EDT Routine general medical examination at a [facility] care facility from Last 3 Months or Most Recently Relevant to Health Maintenance Results * (ABNORMAL) Lipid Panel with Reflex to Direct LDL (11/22/2024 12:07 PM EST) Triglycerides 161(H) <150 mg/dL [facility] Comment:Desirable Triglyceri de: less than 150 mg/dLBorderline High Triglyceride 150-199 mg/dLHigh Triglyceride: 200-499 mg/dLVery High Triglyceride: greater than or equal to 5OO mg/dL Cholesterol 134 <200 mg/dL [facility] Comment:Desirable Cholestero l: less than 200 mg/dLBorderline High Cholesterol: 200-239 mg/dLHigh Cholesterol: greater than 239 mg/dL LDL Cholesterol Calculated 57 <100 mg/dL [facility] Comment:Desirable LDL: less than 100 mg/dLNear Optimal/Above Optimal LDL: 110- 129 mg/dLBorderline High LDL: 130-159 mg/dLHigh LDL: 160-189 mg/dLVery High LDL: greater than or equal to 190 mg/dL HDL Cholesterol 45 >40 mg/dL [facility] Comment:Desirable HDL: great er than 40 mg/dL Note: This HDL assay may give artificially low results in patients with liver disease. Blood 11/22/2024 12:0 7 PM EST 11/22/2024 12:51 PM EST us Kassandra Phillips MD LAB BLOOD ORDERABLES Final Resul t [facility] [address] [place] [phone] * Hemoglobin A1c (11/22/2024 12:07 PM EST) Hemoglobin A1c 5.7 <6.0 % [facility] Comment:Hemoglobin A1C Refer ence Range Adults: 4.8 - 6.0 % Non diabetic: < 6.0 % Goal: < 7.0 %Additional Action Suggested: > 8.0 %Note: Hemoglobin A1c results are invalid for patients with abnormal amounts of HbF. Blood transfusions may impact the HbA1c concentration in the patient sample. Estimated Average Glucose 117 mg/dL [facility] Comment:eAG = Estimated ave rage glucose which is %A1C expressed asaverage glucose, using the formula of the W4Y-WzydrkrLpjyjhc Glucose study (ADAG), Diabetes Care, Vol.31,#8,2007 Blood Venous blood specimen / Unknown 11/22/2024 12:07 PM EST 11/22/2024 12:51 PM EST Kassandra Phillips MD LAB BLOOD ORDERABLES Final Resul t [facility] [address] [place] [phone] * (ABNORMAL) Hm Colonoscopy (08/07/2024) Colonoscopy Abnormal(A ) Normal 08/07/2024 Historical Provider HEALTH MAINTENANCE Final Result * CT Lung Screening Low dose (11/18/2023 11:57 AM EST) Anatomical Region Laterality Modality Lung Computed Tomogra phy 11/18/2023 11:5 7 AM EST Narrative 11/22/2023 3:09 PM EST [address] [address] [address] Scan Report Signed Patient: Omer Lara MR#: [id number] : 1955 Acct:[id number] Age/Sex: 68 / M ADM Date: 11/18/23 Loc: HO.CT Attending Dr: Laura Tinajero NP Ordering Physician: Laura Tinajero NP Date of Service: 11/18/23 Procedure(s): CT lung screening Accession Number(s): [id number] cc: Kassandra Phillips MD; Laura Tinajero NP [...] iterative reconstruction technique DLP: 43 mGy-cm FINDINGS: HOUSING DEVELOPMENT SPECIALIST: Clear lungs. LUNGS: Mild biapical pleural thickening. [...] by Temi Rogers MD in OV> 11/22/23 1502 DD/ 1157 TD/TT: Fish Housekeeper: Procedure Note Donotuseinterpreter, Image - 11/22/[address] [address] [address] Scan Report Signed Patient: Benny LaraR#: [id number] : 1955cct:[id number] Age/Sex: 68 / MADM Date: 11/18/23 Loc: HO.CT Attending Dr: Laura Tinajero NP Ordering Physician: Laura Tinajero NP Date of Service: 11/18/23 Procedure(s): CT lung screening Accession Number(s): [id number] cc: Kassandra Phillips MD; Laura Tinajero NP [...] iterative reconstruction technique DLP: 43 mGy-cm FINDINGS: HOUSING DEVELOPMENT SPECIALIST: Clear lungs. LUNGS: Mild biapical pleural thickening. [...] in OV> 11/22/23 1505 DD/ 1157 TD/TT: Fish Housekeeper: [facility] External Provider IMG CT PROCEDURES Final Result * Hepatitis C Antibody with Reflex to HCV, RNA, Quantitative, Real-Time PCR (06/30/2023 10:33 AM EDT) Hepatitis C Antibody Nonreactive Nonreactive [facility] Comment:Antibodies to HCV no t detected; does not exclude early acuteHCV infection. Blood Venous blood specimen / Unknown 06/30/2023 10:33 AM EDT 06/30/2023 11:20 AM EDT Kassandra Phillips MD LAB BLOOD ORDERABLES Final Resul t [facility] [address] [place] [phone] [phone] from Last 3 Months or Most Recently Relevant to Health [place] [address] [facility] MEDICARE ADVANTAGE Care Teams Meterman Relationship Specialty Start Date End Date Kassandra Phillips MD [address] [place] [phone] PCP - General Family Medicine 06/30/23 Blanco Gar, PharmD [address] [place] [phone] Pharmacist Internal Medicine 12/26/23
== END 2025-05-21 12:17 | disposition home or self-care (01) ==
LOC: HO.HGI 11:38
PROVIDERS: PCP Otolaryngology; Visit Provider Nurse Practitioner
DX: K29.80 Duodenitis without bleeding (principal); B96.81 Helicobacter pylori [H. pylori] as the cause of diseases classified elsewhere; K29.50 Unspecified chronic gastritis without bleeding; K59.00 Constipation, unspecified
CPT/HCPCS: 99213

== ENCOUNTER 2025-05-21 11:38 | Outpatient (REF) | payer MEDICARE, SELFPAY | END 2025-05-21 11:39 | disposition home or self-care (01) | LOC: HO.LNP 11:38 | PROVIDERS: PCP Otolaryngology; Visit Provider Nurse Practitioner | DX: K29.80 Duodenitis without bleeding (principal); B96.81 Helicobacter pylori [H. pylori] as the cause of diseases classified elsewhere; K21.9 Gastro-esophageal reflux disease without esophagitis; R10.10 Upper abdominal pain, unspecified; R63.0 Anorexia; K29.50 Unspecified chronic gastritis without bleeding; K59.00 Constipation, unspecified | CPT/HCPCS: 83013; 99212 ==

== ENCOUNTER 2025-06-14 11:30 | Outpatient (AMB) | payer MEDICARE, SELFPAY ==
--- NOTE | 2025-06-14 11:37 | A.OFFVIS_ITS ---
Vital Signs 06/14/25 12:04 Height 5 ft 5 in Weight 149 lb 11.102 oz BMI 24.9 BP 136/75 Blood Pressure Location Lt brachial Position Sitting Pulse 70 Intake Visit Reasons: f/u HP Test Intake Note: Omer presents to in office follow up of H Pylori. CC: Patient c/o hearburn and constipation. Back Gray Cloth Washer Required: No Accompanied by: Self / Same As Patient Allergies No Known Allergies Allergy (Verified 06/14/25 12:06) HPI HPI f/u HP Test: Details: Assessment & Plan (1) H. pylori duodenitis: Comment: 10/2024 stool antigen confirms eradication after quadruple therapy Code(s): K29.80 - Duodenitis without bleeding; B96.81 - Helicobacter pylori [H. pylori] as the cause of diseases classified elsewhere Category: Medical (2) Chronic gastritis: Code(s): K29.50 - Unspecified chronic gastritis without bleeding Category: Medical (3) Constipation: Code(s): K59.00 - Constipation, unspecified Category: Medical Plan HE RETURNS TODAY AND REPORTS, I KNEW FROM HIS phone calls to the office that the metoclopramide was no help with his burning is his stomach in the evening in his lack of appetite in the morning. With further discussion, it comes to light that he does not feel he is constipated because he is moving his bowels every day, however the stools are very hard and it seems that he may be having incomplete evacuation. It could be that the burning is actually the bowels trying to work hard in the evening, as culturally sometimes I find that this population will describe cramping as a burning sensation. He says that it is worse at night when he lays down and not as bad during the day when he is moving around. At this point will stop the Reglan, restart him on AcipHex since he did have gastritis on his last EGD, and treat with senna. It is also possible that we did not fully eradicate the H pylori but since he is not on any acid reducing therapy at this time we will repeat the H pylori breath test. The patient is a man of few words so it is difficult as he does not seem to have much insight into the situation. It is doubtful that this is gallbladder disease since he had an ultrasound in late 2023 showing no gallstones and a normal gallbladder. Other possibilities could include thoracic spine pathology as he does have significant stenosis and degenerative disc disease of the lumbar and cervical spine. Return office visit in 2 weeks to assess his response to the senna. Orders: Orders H Pylori Breath Test Today B96.81 - Helicobacter pylori [H. pylori] as the cause of diseases classified elsewhere, K29.80 - Duodenitis without bleeding Medications: New sennosides (Senna Laxative) 8.6 mg PO BEDTIME 60 tabs 3RF K59.00 - Constipation , unspecified rabeprazole (AcipHex) 20 mg PO BID 60 tabs 6RF K29.50 - Unspecified chronic gastritis without bleeding Discontinued metoclopramide HCl (Reglan) Discontinued Reason: Doctor's Order 10 mg PO .qamac and qhs 30 tabs 6RF K21.9 - Gastro-esophageal reflux disease without esophagitis LABS: Laboratory Tests 05/21/25 12:28 H. pylori Breath Test Negative TODAY'S VISIT [facility] Medical History Nicotine dependence, cigarettes, uncomplicated Colon cancer screening HTN (hypertension) Gastric pain Back pain Arthritis Anemia Elevated cholesterol Surgical History Hx of colonoscopy History of esophagogastroduodenoscopy (EGD) S/P carotid endarterectomy (04/02/24) Hx of cataract surgery Family History Father Stomach cancer Brother Stomach cancer Social History Household Members: Spouse Housing: Apartment Are you a primary hiv/aids care nurse to a significant other at home: No Do you presently have visiting nurse or other home services: No Alcohol intake: former Comment: quit 20 years ago Patient Tobacco Use Status: Former Tobacco user Tobacco use type: Cigarette Cigarettes Per Day: 10 service: No Review of Systems Const Denies fatigue, Denies fever(s), Denies night sweats, Denies poor appetite and Denies weight loss ENT Reports Normal hearing present, Denies dental pain, Denies dysphagia, Denies hearing loss, Denies mouth pain, Denies odynophagia, Denies throat swelling, Denies tongue swelling and Reports other (Dentition adequate) Card Reports no additional complaints Resp Reports no additional complaints GI Details: Reports abdominal pain, Denies melena, Denies bloating, Denies hematochezia, Denies constipation, Denies GI cramping, Denies dysphagia, Denies excessive flatus, Denies early satiety, Denies heartburn, Denies diarrhea, Denies nausea, Denies odynophagia, Denies vomiting and Denies hematemesis Skin/Breast Denies pruritus, Denies lesions, Denies rash and Denies jaundice Neuro Reports Normal hearing present and Denies Abnormal speech present Endo Denies fatigue Aller/Immun Denies throat swelling and Denies tongue swelling Physical Exam Vital Signs: Last Vital Signs Pulse 70 06/14/25 12:04 BP 136/75 06/14/25 12:04 BMI result Body Mass Index 24.9 Const General: cooperative, no acute distress, well developed and well groomed Nutritional Appearance: average body habitus and well nourished Orientation/consciousness: oriented to person, oriented to place and oriented to time Limitations: language barrier HEENT Head: Yes normocephalic and Yes atraumatic Eyes General: appearance normal, both eyes and all related structures Pupils: Equal, round and reactive pupils present Neck Neck: Yes normal visual inspection and Yes no lymphadenopathy Thyroid: Thyroid normal Resp Effort & Inspection: normal respiratory effort and able to speak in complete sentences Auscultation: clear to auscultation bilaterally Cardio Rate: regular rate Rhythm: regular rhythm Heart sounds: Normal, physiologic split S2 sound present Peripheral pulses: radial pulses present and posterior tibial pulses present GI Inspection: No distended and No Abdominal panniculus present Palpation (GI): Soft to palpation, nontender, no guarding, not rigid and No hepatosplenomegaly present Percussion: Yes normal to percussion Auscultation: normal bowel sounds Rectal Exam - Male: Yes deferred Skin General skin exam: no rashes or lesions noted, turgor normal, skin not dry, no jaundice, No spider nevi and no striae Rashes: no rashes Nails: normal Neuro General: oriented to person, oriented to place and oriented to time Cranial nerves: Yes Equal, round and reactive pupils present and Yes Normal hearing present Speech: No Abnormal speech present Extrem General: Yes normal to inspection, No clubbing, No cyanosis and No edema Psych Appearance: grossly normal and well kempt Mental Status: mental status grossly normal Speech and movement: Normal speech and movement present Affect: normal affect Attitude: cooperative Thought process: Normal thought process present and not confabulating Thought content: Normal thought content present Insight: Limited insight present (Psych) Judgement: Limited judgement present (Psych) Results Reviewed Results Reviewed: Laboratory Tests 05/21/25 12:28 H. pylori Breath Test Negative Assessment & Plan Assessment & Plan (1) H. pylori duodenitis: Comment: 10/2024 stool antigen confirms eradication after quadruple therapy Code(s): K29.80 - Duodenitis without bleeding; B96.81 - Helicobacter pylori [H. pylori] as the cause of diseases classified elsewhere Category: Medical (2) Upper abdominal pain: Code(s): R10.10 - Upper abdominal pain, unspecified Category: Medical Plan In short, Mr. Kenyon has had a burning sensation in the epigastrium, ?like I am hungry? for quite some time that has not responded to eradication of his H pylori infection, treatment with famotidine or omeprazole or rabeprazole. We also tried metoclopramide to see if gastric rumination was part of the problem as well as laxatives to see if constipation was causing the issue. He has had an unremarkable ultrasound for gallstones. He does have comorbid rather severe degenerative disc disease of the cervical and lumbar spine so musculoskeletal contribution is a possibility. In 2023 he had an EGD with results as follows: Esophagus: GE junction at 40 cms. Mildly tortuous esophagus without stricture or ring. No esophagitis or Krueger's Stomach: Moderate diffuse gastric erythema with decreased fundal folds - biopsies were obtained from the gastric body and antrum. A 5-6 mm calcified nodule in the gastric body - biopsied. Grade 2 flap valve on retroflexed examination of the cardia. * A. Small bowel, biopsy: Duodenal mucosa within normal limits. B. Stomach, antrum, biopsy: Reactive gastropathy with background mild chronic inactive inflammation. C. Stomach, body, biopsy: - Oxyntic mucosa with severe chronic active inflammation. - Positive for H pylori. D. Stomach, nodule, biopsy: Antral-type mucosa with moderate chronic active inflammation. E. Cecum, polypectomy: Fragments of sessile serrated lesion/polyp; negative for cytologic dysplasia Since I have not been able to help him with this problem, and I have run out of ideas I would like for him to see 1 of our physicians for 2nd opinion to see if there is something that I am missing. He can return to my care depending on what they think or what his course of treatment baby going forward. Coding Level of Care Code Est Pt Level 3 (70999) Diagnoses H. pylori duodenitis K29.80; B96.81 Upper abdominal pain R10.10
[2025-06-14 12:04] VITALS: BP 136/75; PULSE 70; BMI 24.9
--- OUTSIDE RECORDS SUMMARY | 2025-06-14 12:27 | XMS_ITS | Encounter Summary ---
Author Organization [employer] Address [address] [place] [address] Care Team Providers Care Registered Nurse First Assistant Name Role Phone Kassandra Phillips MD Primary Care Provider [phone] Blanco Gar PharmD Unavailable [phone] Reason for Visit * Reason Comments Med Refill Encounter Details Date Type Department Care Team ([facility] st Contact Info) Description 02/12/2025 Refill [facility] MEDICINE [address], [place] [phone] Kassandra Phillips MD [address] [place], [place] [phone] Social History Tobacco Use Types Packs/Day Years [...] Care Team (Late st Contact Info) Description 07/02/2025 1:00 PM EDT Clinical Support [address] [address] 07/12/2025 11:00 AM EDT Clinical Support [address] [address] Layla Thapa RN [address] [place] [address] 09/04/2025 9:00 AM EST Office Visit [address] [address] Kassandra Phillips MD [address] [place] [phone] documented as of this encounter Goals Goal [...] as of this encounter Care Teams Registered Nurse First Assistant Relationship Specialty Start Date End Date Kassandra Phillips MD [address] [place] [address] PCP - General Family Medicine 06/30/23 Blanco Gar, [place]ne [address] [place] [address] Pharmacist Internal Medicine 12/26/23 documented as of this encounter
--- OUTSIDE RECORDS SUMMARY | 2025-06-14 12:27 | XMS_ITS | Clinical Summary ---
Author Organization [employer] Address [address] [facility] 7[address] [place] [address] Care Team Providers Care Compliance Specialist Name Role Phone Kassandra Phillips MD Primary Care Provider [phone] Blanco Gar PharmD Unavailable [phone] Allergies No known active allergies Medications Blood [...] Take 1 tablet (5 mg) by mouth every 8 (eight) hours if needed for severe pain. Do not start before June 14, 2025. 84 tablet 06/14/20 25 Active oxyCODONE (Roxicodone) 5 MG immediate release tabletIndicati ons:Chronic bilateral low back pain, unspecified whether sciatica present,Neck pain,Cervical spondylosis Take 1 tablet (5 mg) by mouth if needed in the morning and at bedtime for severe pain or moderate pain. Do not start before April 29, 2025. 56 tablet 04/29/20 25 025 Discontinued(R eorder (will not trigger notification to Pharmacy)) oxyCODONE (Roxicodone) 5 MG immediate release tabletIndicati ons:Chronic bilateral low back pain, unspecified whether sciatica present,Neck pain,Cervical spondylosis Take 1 tablet (5 mg) by mouth if needed in the morning and at bedtime for severe pain or moderate pain. Do not start before May 25, 2025. 56 tablet 05/25/20 25 025 Discontinued(R eorder (will not trigger [...] Plan (08/19/2024 2:12 PM EST): -followed by [facility], last seen in Jul 2024 -H. [...] plan Abdominal pain 12/04/2023 Assessment & Plan (06/04/2025 11:35 PM EDT): - EGD on 08/07/24 was positive for H. pylori - Continue omeprazole 20 mg daily - Continue Famotidine 20 mg at night - Recommended to follow-up with GI. Assessment & Plan (03/10/2025 12:18 PM EDT): [...] and colonoscopy Hypertension 10/30/2023 Assessment & Plan (06/04/2025 11:34 PM EDT): -Goal BP < 130 per [...] losartan 25 mg daily. Assessment & Plan (03/10/2025 12:18 PM EDT): [...] PM EDT): - following with Dr. Coy, [facility] - carotid US on 10/19/23, showed [...] PM EST): - following with Dr. Coy, [facility] - carotid US on 10/19/23, showed [...] stenosis by velocity criteria. - Seen by [facility] specialist, Dr. Coy, on 01/05/24. CTA [...] increase to bid. - continue following with REHABILITATION DIRECTOR visit - continue judicious use of Gabapentin, and encouraged to taper down and off - refer to patient accounts specialist Assessment & Plan (11/22/2024 11:58 PM [...] imaging or referral to pain management and/or patient accounts specialist Assessment & Plan (09/14/2023 3:47 PM EST): - multifactorial - evaluate with X-ray - trapezius muscle spasm - add cyclobenzaprine prn - apply lidocaine patch - refer to PT - reassess symptoms in 3 mo to see if he needs further imaging or referral to pain management and/or patient accounts specialist Back pain 09/14/2023 Assessment & Plan [...] nightly; will increase to bid - Reviewed REHABILITATION DIRECTOR program engagement and agreement - refer to patient accounts specialist Assessment & Plan (11/24/2024 5:21 PM [...] gabapentin - switch tramadol to oxycodone - REHABILITATION DIRECTOR appt Assessment & Plan (08/19/2024 2:18 PM [...] check the status of MRI order - REHABILITATION DIRECTOR appt Assessment & Plan (05/21/2024 11:42 AM [...] PM EDT): - low-dose chest CT through [facility] lung cancer screening program - Last CT on 11/18/23 Lung RADS 1 Assessment & Plan (11/22/2024 11:57 PM EST): - low-dose chest CT through [facility] lung cancer screening program - Last CT on 11/18/23 Lung RADS 1 Assessment & Plan (08/19/2024 2:13 PM EST): - low-dose chest CT through [facility] lung cancer screening program - Last CT on 11/18/23 Lung RADS 1 Assessment & Plan (05/21/2024 9:51 AM EDT): - low-dose chest CT through [facility] lung cancer screening program - Last CT on 11/18/23 Lung RADS 1 Assessment & Plan (02/08/2024 9:14 PM EDT): - low-dose chest CT through [facility] lung cancer screening program - Last CT on 11/18/23 Lung RADS 1 Assessment & Plan (09/14/2023 3:51 PM EST): - low-dose chest CT through [facility] lung cancer screening program - pt states he will go to get CT done and is thinking about smoking cessation Assessment & Plan (06/30/2023 5:32 PM EDT): - low-dose chest CT through [facility] lung cancer screening program Resolved Problems Problem Noted Date Diagnosed Date Resolved Date Health care maintenance 09/14/2023 05/0 10/2023 Assessment & Plan (09/14/2023 4:24 AM EST): - Colonoscopy: Referred - AAA screening US on 07/25/23 negative Encounters Date Type Department Care Team Description 06/12/2025 Refill [facility] [address] [place] [address] Kassandra Phillips MD Chronic bilateral low back pain, unspecified whether sciatica present; Neck pain; Cervical spondylosis 06/04/2025 2:15 PM EDT Office Visit [facility] [address] [place] [address] Kassandra Phillips MD Hypertension, unspecified type (Primary Dx); Epigastric pain 06/04/2025 Travel 05/24/2025 Refill [facility] [address] [place] [address] Kassandra Phillips MD Chronic bilateral low back pain, unspecified whether sciatica present; Neck pain; Cervical spondylosis 04/29/2025 10:00 AM EDT Telemedicine [facility] [address] [place], [place] [phone] Layla Thapa, DON Other chronic back pain 04/29/2025 Travel 04/25/2025 Refill [facility] [address] [place] [address] Kassandra Phillips MD Chronic bilateral low back pain, unspecified whether sciatica present; Neck pain; Cervical spondylosis 04/01/2025 Refill [facility] [address] [place] [address] Layla Thapa, community administrator bilateral low back pain, unspecified whether sciatica present; Neck pain; Cervical spondylosis 04/01/2025 Telephone [facility] [address] [place] [address] Kassandra Phillips MD Med Refill 03/25/2025 2:00 PM EDT Clinical Support [facility] [address] [place] [address] Lo Bradley, DON Hypertension, unspecified type 03/25/2025 Travel from Last 3 Months Immunizations Immunization Administration [...] Sign Reading Time Taken Comments Blood Pressure 150/70 06/04/2025 2:22 PM EDT Pulse 76 06/04/2025 2:22 PM EDT Temperature 36.4 C (97.6 F) 06/04/2025 2:22 PM EDT Respiratory Rate 23 06/04/2025 2:22 PM EDT Oxygen Saturation 96% 06/04/2025 2:22 PM EDT Inhaled Oxygen Concentration - - Weight 67.6 kg (149 lb) 06/04/2025 2:22 PM EDT Height 165.1 cm (5' 5 ) 06/04/2025 2:22 PM EDT Body Mass Index 24.79 06/04/2025 2:22 PM EDT Plan of Treatment Upcoming Encounters Date Type Department Care Team (Late st Contact Info) Description 07/02/2025 1:00 PM EDT Clinical Support [address] [address] 07/12/2025 11:00 AM EDT Clinical Support [address] [address] Layla Thapa RN [address] [place] [address] 09/04/2025 9:00 AM EST Office Visit [address] [address] Kassandra Phillips MD [address] [place] [address] Health Maintenance Due Date Last Done Comments [...] Hemoglobin A1C 11/22/2025 11/22/2024, 06/11 Tobacco Screening 06/04/2026 06/04/2025 Colonoscopy 08/07/2029 08/07/2024 Colorectal Cancer Screening 08/07/2029 [...] 12:07 PM EST) Triglycerides 161(H) <150 mg/dL [facility] Comment:Desirable Triglyceri de: less than 150 mg/dLBorderline High Triglyceride 150-199 mg/dLHigh Triglyceride: 200-499 mg/dLVery High Triglyceride: greater than or equal to 5OO mg/dL Cholesterol 134 <200 mg/dL [facility] Comment:Desirable Cholestero l: less than 200 mg/dLBorderline High Cholesterol: 200-239 mg/dLHigh Cholesterol: greater than 239 mg/dL LDL Cholesterol Calculated 57 <100 mg/dL [facility] Comment:Desirable LDL: less than 100 mg/dLNear Optimal/Above Optimal LDL: 110- 129 mg/dLBorderline High LDL: 130-159 mg/dLHigh LDL: 160-189 mg/dLVery High LDL: greater than or equal to 190 mg/dL HDL Cholesterol 45 >40 mg/dL [facility] Comment:Desirable HDL: great er than 40 mg/dL Note: This HDL assay may give artificially low results in patients with liver disease. Blood 11/22/2024 12:0 7 PM EST 11/22/2024 12:51 PM EST us Kassandra Phillips MD LAB BLOOD ORDERABLES Final Resul t [facility] [address] [place] [phone] * Hemoglobin A1c (11/22/2024 12:07 PM EST) Hemoglobin A1c 5.7 <6.0 % [facility] Comment:Hemoglobin A1C Refer ence Range Adults: 4.8 - 6.0 % Non diabetic: < 6.0 % Goal: < 7.0 %Additional Action Suggested: > 8.0 %Note: Hemoglobin A1c results are invalid for patients with abnormal amounts of HbF. Blood transfusions may impact the HbA1c concentration in the patient sample. Estimated Average Glucose 117 mg/dL [facility] Comment:eAG = Estimated ave rage glucose which is %A1C expressed asaverage glucose, using the formula of the I9E-EwtoltfYjplczb Glucose study (ADAG), Diabetes Care, Vol.31,#8,May. 2007 Blood Venous blood specimen / Unknown 11/22/2024 12:07 PM EST 11/22/2024 12:51 PM EST us Kassandra Phillips MD LAB BLOOD ORDERABLES Final Resul t [facility] [address] [place] [phone] * (ABNORMAL) Hm Colonoscopy (08/07/2024) Colonoscopy Abnormal(A ) Normal 08/07/2024 Suni Provider HEALTH MAINTENANCE Final Result * CT Lung Screening Low dose (11/18/2023 11:57 AM EST) Anatomical Region Laterality Modality Lung Computed Tomogra phy 11/18/2023 11:5 7 AM EST Narrative 11/22/2023 3:09 PM EST [address] [address] [address] Scan Report Signed Patient: Omer Lara MR#: [id number] : 1955 Acct:[id number] Age/Sex: 68 / M ADM Date: 11/18/23 Loc: HO.CT Attending Dr: Laura Tinajero GASTROENTEROLOGY TEACHER Ordering Physician: Laura Tinajero NP Date of Service: 11/18/23 Procedure(s): CT lung screening Accession Number(s): [id number] cc: Kassandra Phillips MD; Laura Tinajero NP [...] iterative reconstruction technique DLP: 43 mGy-cm FINDINGS: SHOE PLANNER: Clear lungs. LUNGS: Mild biapical pleural thickening. [...] in OV> 11/22/23 1505 DD/ 1157 TD/TT: Bicycle Fitter: Procedure Note Donotuseinterpreter, Image - 11/22/[address] [place] [address] [address] Scan Report Signed Patient: Maria Antonia Lara#: [id number] : 1955cct:[id number] Age/Sex: 68 / MADM Date: 11/18/23 Loc: HO.CT Attending Dr: Laura Tinajero NP Ordering Physician: Laura Tinajero NP Date of Service: 11/18/23 Procedure(s): CT lung screening Accession Number(s): [id number] cc: Kassandra Phillips MD; Laura Tinajero NP [...] iterative reconstruction technique DLP: 43 mGy-cm FINDINGS: SHOE PLANNER: Clear lungs. LUNGS: Mild biapical pleural thickening. [...] in OV> 11/22/23 1505 DD/ 1157 TD/TT: Bicycle Fitter: [facility] External Provider IMG CT PROCEDURES Final Result * Hepatitis C Antibody with Reflex to HCV, RNA, Quantitative, Real-Time PCR (06/30/2023 10:33 AM EDT) Hepatitis C Antibody Nonreactive Nonreactive [facility] Comment:Antibodies to HCV no t detected; does not exclude early acuteHCV infection. Blood Venous blood specimen / Unknown 06/30/2023 10:33 AM EDT 06/30/2023 11:20 AM EDT Kassandra Phillips MD LAB BLOOD ORDERABLES Final Resul t [facility] [address] [place] [phone] from Last 3 Months or Most Recently Relevant to Health Maintenance Insurance [facility] MEDICARE ADVANTAGE Care Teams Compliance Specialist Relationship Specialty Start Date End Date Kassandra Phillips MD [address] [place] [address] PCP - General Family Medicine 06/30/23 Blanco Gar, PharmD [address] [place] [address] Pharmacist Internal Medicine 12/26/23
--- OUTSIDE RECORDS SUMMARY | 2025-06-14 12:27 | XMS_ITS | Encounter Summary ---
Author Organization [employer] Address [address] [facility] 7t [place] [address] Care Team Providers Care Hide Washer Name Role Phone Kassandra Phillips MD Primary Care Provider [phone] Blanco Gar PharmD Unavailable [phone] Reason for Visit * Reason Comments Med Refill Encounter Details Date Type Department Care Team ([facility] st Contact Info) Description 06/04/[address] [facility] [address] [place], [place] [phone] Madison Elizondo MD [address] [place], [place] [phone] Social History Tobacco Use Types Packs/Day Years [...] Description 07/02/2025 1:00 PM EDT Clinical Support [address] [address] 07/12/2025 11:00 AM EDT Clinical Support [address] [address] Layla Thapa, DON [address] [place] [address] 09/04/2025 9:00 AM EST Office Visit [address] [address] Kassandra Phillips MD [address] [place] [address] documented as of this encounter Goals Goal [...] documented as of this encounter Care Teams Hide Washer Relationship Specialty Start Date End Date Kassandra Phillips MD [address] [place] [address] PCP - General Family Medicine 06/30/23 Blanco Gar, SouravD [address] [place] [address] Pharmacist Internal Medicine 12/26/23 documented as of this encounter
--- OUTSIDE RECORDS SUMMARY | 2025-06-14 12:27 | XMS_ITS | Encounter Summary ---
Author Organization [employer] Address [address] [facility] 7t [place] [address] Care Team Providers Care Shoes Salesperson Name Role Phone Kassandra Phillips MD Primary Care Provider [phone] Blanco Gar PharmD Unavailable [phone] Reason for Visit * Reason Comments Med Refill Encounter Details Date Type Department Care Team ([facility] st Contact Info) Description 02/12/[address] [facility] [address] [place], [place] [phone] Kassandra Phillips MD [address] [place], [place] [phone] Social History Tobacco Use Types Packs/Day Years [...] Description 07/02/2025 1:00 PM EDT Clinical Support [address] [address] 07/12/2025 11:00 AM EDT Clinical Support [address] [address] Layla Thapa RN [address] [place] [address] 09/04/2025 9:00 AM EST Office Visit [address] [address] Kassandra Phillips MD [address] [place] [address] documented as of this encounter Goals Goal [...] documented as of this encounter Care Teams Shoes Salesperson Relationship Specialty Start Date End Date Kassandra Phillips MD [address] [place] [address] PCP - General Family Medicine 06/30/23 Blanco Gar, Julianne [address] [place] [address] Pharmacist Internal Medicine 12/26/23 documented as of this encounter
--- OUTSIDE RECORDS SUMMARY | 2025-06-14 12:27 | XMS_ITS | Encounter Summary ---
Author Organization [employer] Address [address] [facility] 7t [place] [address] Care Team Providers Care Boilers And Pressure Vessels Inspector Name Role Phone Kassandra Phillips MD Primary Care Provider [phone] Blanco Gar PharmD Unavailable [phone] Reason for Referral * Consultation (Routine) - Closed Specialty Diagnoses / Procedures Referred By Contac t Referred To Contact Orthopaedic Surgery Diagnoses Osteoarthritis of cervical spine, unspecified spinal osteoarthritis complication status Lumbar degenerative disc disease Kassandra Phillips MD [address] [place] [address] Phone: tel: fax: [facility] [address] [facility] [address] [place], [place] Phone: tel: fax: Referral ID Status Reason Start Date Expiration Date V isits Requested Visits Authorized [id number] Closed Specialty Services Required 09/19/2023 09/18/2024 1 1 * Imaging (Routine) - Closed Specialty Diagnoses / Procedures Referred By Contac t Referred To Contact Cardiology Diagnoses Calcification of both carotid arteries Procedures VASC US Carotid Artery Duplex Bilateral Kassandra Phillips MD [address] [place] [address] Phone: tel: fax: [facility] [address] [place], [place] Phone: tel: fax: Referral ID Status Reason Start Date Expiration Date V isits Requested Visits Authorized [id number] Closed Perform Procedure 09/19/2023 09/18/2024 1 1 Encounter Details Date Type Department Care Team (Late st Contact Info) Description 09/19/2023 Orders Only [facility] [address] [place] [address] Kassandra Phillips MD [address] [place] [address] Calcification of both carotid arteries (Primary Dx); [...] Description 07/02/2025 1:00 PM EDT Clinical Support [address] [address] 07/12/2025 11:00 AM EDT Clinical Support [address] [address] Layla Thapa RN [address] [place] [address] 09/04/2025 9:00 AM EST Office Visit [address] [address] Kassandra Phillips MD [address] [place] [address] Scheduled Referrals Name Type Priority Associated Diagnoses Orde r Schedule Referral to Orthopaedic Surgery Outpatient Referral Routine Osteoarthritis of cervical spine, unspecified spinal osteoarthritis complication status Lumbar degenerative disc disease Expected: 09/19/2023 (Approximate), Expires: 09/19/2024 documented as of this encounter Procedures Procedure Name Priority Date/Time Associated Diagnosis Comments [facility] US CAROTID ARTERY DUPLEX BILATERAL Routine 10/19/2023 2:39 PM EST documented in this encounter Results * [facility] US Carotid Artery Duplex Bilateral (10/19/2023 2:39 PM EST) 10/19/2023 2:39 PM EST Narrative [facility] - 10/20/2023 12:34 PM EST [address] [address] Ultrasound Report Signed Patient: Omer Lara MR#: [id number] : 1955 Acct:[id number] Age/Sex: 68 / M ADM Date: 10/19/23 Loc: HO.US Attending Dr: Kassandra Phillips MD Ordering Physician: Kassandra Phillips MD Date of Service: 10/19/23 Procedure(s): US carotid duplex BI Accession Number(s): [id number] cc: Kassandra Phillips MD EXAMINATION: US EXTRACRANIAL [...] in OV> 10/20/23 1230 DD/ 1439 TD/TT: Special Agent Group Insurance: SUMAN Procedure Note Donotuseinterpreter, Image - 10/20/[address] [address] Ultrasound Report Signed Patient: Benny LaraR#: [id number] : 7Acct:[id number] Age/Sex: 68 / MADM Date: 10/19/23 Loc: HO.US Attending Dr: Kassandra Phillips MD Ordering Physician: Kassandra Phillips MD Date of Service: 10/19/23 Procedure(s): US carotid duplex BI Accession Number(s): [id number] cc: Kassandra Phillips MD EXAMINATION: US EXTRACRANIAL [...] in OV> 10/20/23 1230 DD/ 1439 TD/TT: Special Agent Group Insurance: SUMAN us Kassandra Phillips MD CV VASCULAR PROCEDURES Final Res ult [facility] [address] [place] [phone] documented in this encounter Visit Diagnoses Diagnosis Calcification of both carotid arteries- Primary Osteoarthritis of cervical spine, unspecified spinal osteoarthritis complication status Lumbar degenerative disc disease documented in this encounter Additional Health Concerns Assessment Noted Time PHQ-9 Depression Total Score: 4 06/30/20 23 9:32 AM EDT documented as of this encounter Care Teams Boilers And Pressure Vessels Inspector Relationship Specialty Start Date End Date Kassandra Phillips MD [address] [place] [address] PCP - General Family Medicine 06/30/23 Blanco Gar, SouravD [address] [place] [address] Pharmacist Internal Medicine 12/26/23 documented as of this encounter
--- OUTSIDE RECORDS SUMMARY | 2025-06-14 12:27 | XMS_ITS | Encounter Summary ---
Author Organization [employer] Address [address] [facility] 7t [place] [address] Care Team Providers Care Compliance And Control Analyst Name Role Phone Kassandra Phillips MD Primary Care Provider [phone] Blanco Gar PharmD Unavailable [phone] Reason for Visit * Reason Comments Med Refill Encounter Details Date Type Department Care Team ([facility] st Contact Info) Description 09/20/2024 Refill [facility] [address] [place], [place] [phone] Kassandra Phillips MD [address] [place], [place] [phone] Social History Tobacco Use Types Packs/Day Years [...] Description 07/02/2025 1:00 PM EDT Clinical Support [address] [address] 07/12/2025 11:00 AM EDT Clinical Support [address] [address] Layla Thapa RN [address] [place] [address] 09/04/2025 9:00 AM EST Office Visit [address] [address] Kassandra Phillips MD [address] [place] [address] documented as of this encounter Goals Goal [...] documented as of this encounter Care Teams Compliance And Control Analyst Relationship Specialty Start Date End Date Kassandra Phillips MD [address] [place] [address] PCP - General Family Medicine 06/30/23 Blanco Gar, Julianne [address] [place] [address] Pharmacist Internal Medicine 12/26/23 documented as of this encounter
--- OUTSIDE RECORDS SUMMARY | 2025-06-14 12:27 | XMS_ITS | Encounter Summary ---
Author Organization [employer] Address [address] [facility] 7t [place] [address] Care Team Providers Care Visitor Services Information Assistant Name Role Phone Kassandra Phillips MD Primary Care Provider Blanco Gar PharmD Unavailable [phone] Reason for Referral * Imaging (Routine) - Closed Specialty Diagnoses / Procedures Referred By Contac t Referred To Contact Radiology Diagnoses Chronic bilateral low back pain, unspecified whether sciatica present Procedures MR Lumbar Spine w/o Contrast Kassandra Phillips MD [address] [place] [address] Phone: tel: fax: [address] Phone: tel: fax: Referral ID Status Reason Start Date Expiration Date Visits Re quested Visits Authorized [id number] Closed 05/24/2024 05/24/2025 1 1 Encounter Details Date Type Department Care Team (Late st Contact Info) Description 05/24/2024 Orders Only [facility] [address] [place] [phone] Kassandra Phillips MD [address] [place], [place] [phone] Chronic bilateral low back pain, unspecified whether [...] Description 07/02/2025 1:00 PM EDT Clinical Support [facility] [address] [place] [address] 07/12/2025 11:00 AM EDT Clinical Support [facility] [address] [place] [address] Layla Thapa, DON [address] [place] [address] 09/04/2025 9:00 AM EST Office Visit [facility] [address] [place] [address] Kassandra Phillips MD [address] [place] [address] documented as of this encounter Goals Goal Patient Goal Type Associated Problems Recent Progress Patient-Stated? Author Quit using tobacco (cigarettes, smokeless, etc) Tobacco Use Blanco Vega PharmD Note: Quit date: 12/26/2023 documented as [...] PM EST Narrative 10/15/2024 10:02 AM EST [address] [address] Magnetic Resonance Report Signed Patient: Omer Lara MR#: [id number] : 1955 Acct:[id number] Age/Sex: 69 / M ADM Date: 10/14/24 Loc: .MRI Attending Dr: Kassandra Phillips MD Ordering Physician: Kassandra Phillips MD Date of Service: 10/14/24 Procedure(s): MR lumbar spine wo con Accession Number(s): [id number] cc: Kassandra Phillips MD Workstation: [email or web address] EXAMINATION: MR LUMBAR SPINE WITHOUT IV CONTRAST [...] 10/15/24 0959 DD/ 1507 TD/TT: 10/14/24 1521 Egg Processing Supervisor: Procedure Note Donotuseinterpreter, Image - 10/15/[address] [address] Magnetic Resonance Report Signed Patient: Maria Antonia Lara#: [id number] : 1955cct:[id number] Age/Sex: 69 / MADM Date: 10/14/24 Loc: HO.MRI Attending Dr: Kassandra Phillips MD Ordering Physician: Kassandra Phillips MD Date of Service: 10/14/24 Procedure(s): MR lumbar spine wo con Accession Number(s): [id number] cc: Kassandra Phillips MD Workstation: [email or web address] EXAMINATION: MR LUMBAR SPINE WITHOUT IV CONTRAST [...] 10/15/24 0959 DD/ 1507 TD/TT: 10/14/24 1521 Egg Processing Supervisor: Kassandra Phillips MD IMG MRI PROCEDURES Edited Result - Final documented in this encounter Visit Diagnoses Diagnosis Chronic bilateral low back pain, unspecified whether sciatica present- Primary documented in this encounter Additional Health Concerns Assessment Noted Time PHQ-9 Depression Total Score: 4 06/30/20 23 9:32 AM EDT documented as of this encounter Care Teams Visitor Services Information Assistant Relationship Specialty Start Date End Date Kassandra Phillips MD [address] [place] [address] PCP - General Family Medicine 06/30/23 Blanco Gar PharmD [address] [place] [address] Pharmacist Internal Medicine 12/26/23 documented as of this encounter
--- OUTSIDE RECORDS SUMMARY | 2025-06-14 12:27 | XMS_ITS | Encounter Summary ---
Author Organization [employer] Address 75 [facility] 7t [place] [address] Care Team Providers Care College Hire Name Role Phone Kassandra Phillips MD Primary Care Provider [phone] Blanco Gar PharmD Unavailable [phone] Reason for Visit * Reason Onset Date Comments Med Refill 06/20/2024 Encounter Details Date Type Department Care Team ([facility] st Contact Info) Description 06/20/2024 Telephone [facility] MEDICINE 230 [place], [place] [phone] Kassandra Phillips MD 230 [place], [place] [phone] Med Refill Social History Tobacco Use Types [...] 50 MG tablet To be sent to: [id number] [place], [place] - [address] [facility] documented in this encounter Plan of Treatment Upcoming Encounters Date Type Department Care Team (Late st Contact Info) Description 07/02/2025 1:00 PM EDT Clinical Support [address] [address] 07/12/2025 11:00 AM EDT Clinical Support [address] [address] Layla Thapa RN 505 [place] [address] 09/04/2025 9:00 AM EST Office Visit [facility] MEDICINE [address] [place] [address] Kassandra Phillips MD [address] [place] [address] documented as of this encounter Goals Goal [...] documented as of this encounter Care Teams College Hire Relationship Specialty Start Date End Date Kassandra Phillips MD [address] [place] [address] PCP - General Family Medicine 06/30/23 Blanco Gar, PharmD [address] [place] [address] Pharmacist Internal Medicine 12/26/23 documented as of this encounter
--- OUTSIDE RECORDS SUMMARY | 2025-06-14 12:27 | XMS_ITS | Encounter Summary ---
Author Organization [employer] Address 75 [facility] 7t [place] [address] Care Team Providers Care Ski Instructor Name Role Phone Kassandra Phillips MD Primary Care Provider [phone] Blanco Gar PharmD Unavailable [phone] Reason for Visit * Reason Comments Med Refill Encounter Details Date Type Department Care Team ([facility] st Contact Info) Description 02/29/2024 Refill [facility] MEDICINE 230 [place], [place] [phone] Kassandra Phillips MD 230 [place], [place] [phone] Social History Tobacco Use Types Packs/Day Years [...] 07/02/2025 1:00 PM EDT Clinical Support [address] [address] 07/12/2025 11:00 AM EDT Clinical Support [address] [address] Layla Thapa, DON 505 [place] [address] 09/04/2025 9:00 AM EST Office Visit [address] [address] Kassandra Phillips MD [address] [place] [address] documented as of this encounter Goals Goal Patient Goal Type Associated Problems Recent Progress Patient-Stated? Author Quit using tobacco (cigarettes, smokeless, etc) Tobacco Use No Blanco Gar, SouravD Note: Quit date: 12/26/2023 documented as of this encounter Visit Diagnoses Not on filedocumented in this encounter Additional Health Concerns Assessment Noted Time PHQ-9 Depression Total Score: 4 06/30/20 9:32 AM EDT documented as of this encounter Care Teams Ski Instructor Relationship Specialty Start Date End Date Kassandra Phillips MD [address] [place] [address] PCP - General Family Medicine 06/30/23 Blanco Gar, SouravD 230 [place] [address] Pharmacist Internal Medicine 12/26/23 documented as of this encounter
--- OUTSIDE RECORDS SUMMARY | 2025-06-14 12:27 | XMS_ITS | Encounter Summary ---
Author Organization [employer] Address [address] [facility] [address] 7t [place] [address] Care Team Providers Care Packer Inspector Name Role Phone Kassandra Phillips MD Primary Care Provider [phone] Blanco Gar PharmD Unavailable [phone] Encounter Details Date Type Department Care Team (Late st Contact Info) Description 10/20/2023 Orders Only [facility] MEDICINE 230 [place], [place] [phone] Kassandra Phillips MD 230 [place], [place] [phone] Carotid stenosis, right Social History Tobacco Use [...] Description 07/02/2025 1:00 PM EDT Clinical Support [address] [address] 07/12/2025 11:00 AM EDT Clinical Support [address] [address] Layla Thapa RN 505 [place] [address] 09/04/2025 9:00 AM EST Office Visit [address] [address] Kassandra Phillips MD [address] [place] [address] documented as of this encounter Procedures Procedure Name Priority Date/Time Associated Diagnosis Comments LDCT LUNG SCREENING Routine 11/18/2023 1 1:57 AM EST documented in this encounter Results * CT Lung Screening Low dose (11/18/2023 11:57 AM EST) Anatomical Region Laterality Modality Lung Computed Tomogra phy 11/18/2023 11:5 7 AM EST Narrative 11/22/2023 3:09 PM EST [address] [address] [address] Scan Report Signed Patient: Omer Lara MR#: [id number] : 1955 Acct:[id number] Age/Sex: 68 / M ADM Date: 11/18/23 Loc: HO.CT Attending Dr: Laura Tinajero NP Ordering Physician: Laura Tinajero NP Date of Service: 11/18/23 Procedure(s): CT lung screening Accession Number(s): [id number] cc: Kassandra Phillips MD; Laura Tinajero NP [...] iterative reconstruction technique DLP: 43 mGy-cm FINDINGS: FLAGSTONE LAYER: Clear lungs. LUNGS: Mild biapical pleural thickening. [...] in OV> 11/22/23 1505 DD/ 1157 TD/TT: Asset Protection Manager: Procedure Note Donotuseinterpreter, Image - 11/22/[address] [address] [address] Scan Report Signed Patient: Maria Antonia Lara#: [id number] : 1955cct:[id number] Age/Sex: 68 / MADM Date: 11/18/23 Loc: HO.CT Attending Dr: Laura Tinajero NP Ordering Physician: Laura Tinajero NP Date of Service: 11/18/23 Procedure(s): CT lung screening Accession Number(s): [id number] cc: Kassandra Phillips MD; Laura Tinajero NP [...] iterative reconstruction technique DLP: 43 mGy-cm FINDINGS: FLAGSTONE LAYER: Clear lungs. LUNGS: Mild biapical pleural thickening. [...] in OV> 11/22/23 1505 DD/ 1157 TD/TT: Asset Protection Manager: [facility] External Provider IMG CT PROCEDURES Final Result documented in this encounter Visit Diagnoses Diagnosis Carotid stenosis, right Occlusion and stenosis of carotid artery without mention of cerebral infarction documented in this encounter Additional Health Concerns Assessment Noted Time PHQ-9 Depression Total Score: 4 06/30/20 23 9:32 AM EDT documented as of this encounter Care Teams Packer Inspector Relationship Specialty Start Date End Date Kassandra Phillips MD 230 [place] [address] PCP - General Family Medicine 06/30/23 Blanco Gar PharmD 230 [place] [address] Pharmacist Internal Medicine 12/26/23 documented as of this encounter
--- OUTSIDE RECORDS SUMMARY | 2025-06-14 12:28 | XMS_ITS | Encounter Summary ---
Author Organization [employer] Address 75 [facility] 7t [place] [address] Care Team Providers Care Music Historian Name Role Phone Kassandra Phillips MD Primary Care Provider Blanco Gar PharmD Unavailable [phone] Reason for Visit * Reason Onset Date Comments Med Refill 12/19/2024 Encounter Details Date Type Department Care Team (Late st Contact Info) Description 12/19/2024 Telephone [facility] MEDICINE 230 [place], [place] [phone] Kassandra Phillips MD 230 [place], [place] [phone] Med Refill Social History Tobacco Use Types [...] immediate release tablet To be sent to: [facility]/pharmacy #[address] [place] [address] documented in this encounter Plan of Treatment Upcoming Encounters Date Type Department Care Team ([facility] st Contact Info) Description 07/02/2025 1:00 PM EDT Clinical Support [facility] MEDICINE [address] [place] [address] 07/12/2025 11:00 AM EDT Clinical Support [facility] MEDICINE [address] [place] [address] Layla Thapa RN 505 [place] [address] 09/04/2025 9:00 AM EST Office Visit [facility] MEDICINE [address] [place] [address] Kassandra Phillips MD [address] [place] [address] documented as of this encounter Goals Goal [...] documented as of this encounter Care Teams Music Historian Relationship Specialty Start Date End Date Kassandra Phillips MD [address] [place] [address] PCP - General Family Medicine 06/30/23 Blanco Gar, PharmD [address] [place] [address] Pharmacist Internal Medicine 12/26/23 documented as of this encounter
--- OUTSIDE RECORDS SUMMARY | 2025-06-14 12:28 | XMS_ITS | Encounter Summary ---
Author Organization [employer] Address 75 [facility] 7t [place] [address] Care Team Providers Care Employment And Claims Aide Name Role Phone Kassandra Phillips MD Primary Care Provider [phone] Blanco Gar PharmD Unavailable [phone] Encounter Details Date Type Department Care Team (Late st Contact Info) Description 11/10/2023 Telephone [facility] MEDICINE 230 [place], [place] [phone] Kassandra Phillips MD 230 [place], [place] [phone] Social History Tobacco Use Types Packs/Day Years [...] Description 07/02/2025 1:00 PM EDT Clinical Support [address] [address] 07/12/2025 11:00 AM EDT Clinical Support [address] [address] Layla Thapa, RN 505 [place] [address] 09/04/2025 9:00 AM EST Office Visit [address] [address] Kassandra Phillips MD [address] [place] [address] documented as of this encounter Visit Diagnoses Not on filedocumented in this encounter Additional Health Concerns Assessment Noted Time PHQ-9 Depression Total Score: 4 06/30/20 9:32 AM EDT documented as of this encounter Care Teams Employment And Claims Aide Relationship Specialty Start Date End Date Kassandra Phillips MD [address] [place] [address] PCP - General Family Medicine 06/30/23 Blanco Gar, Julianne [address] [place] [address] Pharmacist Internal Medicine 12/26/23 documented as of this encounter
--- OUTSIDE RECORDS SUMMARY | 2025-06-14 12:28 | XMS_ITS | Encounter Summary ---
Author Organization [employer] Address 75 [facility] 7t [place] [address] Care Team Providers Care Direct Selling Counselor Name Role Phone Kassandra Phillips MD Primary Care Provider [phone] Blanco Gar PharmD Unavailable [phone] Reason for Visit * Reason Onset Date Comments Med Refill 02/11/2025 Encounter Details Date Type Department Care Team (Late st Contact Info) Description 02/11/2025 Telephone [facility] MEDICINE 230 [place], [place] [phone] Kassandra Phillips MD 230 [place], [place] [phone] Med Refill Social History Tobacco Use Types [...] immediate release tablet To be sent to: [facility][id number] [place], [place] - [address] [facility] documented in this encounter Plan of Treatment Upcoming Encounters Date Type Department Care Team ([facility] st Contact Info) Description 07/02/2025 1:00 PM EDT Clinical Support [facility] MEDICINE [address] [place] [address] 07/12/2025 11:00 AM EDT Clinical Support [address] [address] Layla Thapa, RN 505 [place] [address] 09/04/2025 9:00 AM EST Office Visit [facility] MEDICINE [address] [place] [address] Kassandra Phillips MD [address] [place] [address] documented as of this encounter Goals Goal [...] documented as of this encounter Care Teams Direct Selling Counselor Relationship Specialty Start Date End Date Kassandra Phillips MD [address] [place] [address] PCP - General Family Medicine 06/30/23 Blanco Gar, PharmD [address] [place] [address] Pharmacist Internal Medicine 12/26/23 documented as of this encounter
--- OUTSIDE RECORDS SUMMARY | 2025-06-14 12:28 | XMS_ITS | Encounter Summary ---
Author Organization [employer] Address [address] [facility] [address] 7t [place] [address] Care Team Providers Care Test Boring Crew Chief Name Role Phone Kassandra Phillips MD Primary Care Provider [phone] Blanco Gar PharmD Unavailable [phone] Reason for Visit * Reason Onset Date Comments Med Refill 06/12/2025 Encounter Details Date Type Department Care Team (Late st Contact Info) Description 06/12/2025 Refill [facility] MEDICINE 230 [place] [address] Kassandra Phillips MD 230 [place], [place] [phone] Chronic bilateral low back pain, unspecified whether sciatica present; Neck pain; Cervical spondylosis Social History Tobacco Use Types Packs/Day Years [...] encounter Miscellaneous Notes * Telephone Encounter - Karen Bernardo - 06/12/2025 1:12 PM EDT TC from pt requesting medication refill. Medications needing refill : oxyCODONE (Roxicodone) 5 MG immediate release tablet To be sent to: [facility] #[id number] - [place] - [address] [facility] documented in this encounter Plan of Treatment Upcoming Encounters Date Type Department Care Team (Late st Contact Info) Description 07/02/2025 1:00 PM EDT Clinical Support [facility] MEDICINE 230 [place] [address] 07/12/2025 11:00 AM EDT Clinical Support [facility] MEDICINE [address] [place] [address] Layla Thapa, RN 505 [place] [address] 09/04/2025 9:00 AM EST Office Visit [address] [address] Kassandra Phillips MD [address] [place] [address] documented as of this encounter Goals Goal Patient Goal Type Associated Problems Recent Progress Patient-Stated? Author Quit using tobacco (cigarettes, smokeless, etc) Tobacco Use No Blanco Gar, Julianne Note: Quit date: 12/26/2023 documented as of this encounter Visit Diagnoses Diagnosis Chronic bilateral low back pain, unspecified whether sciatica present Neck pain Cervicalgia Cervical spondylosis Cervical spondylosis without myelopathy documented in this encounter Additional Health Concerns Assessment Noted Time PHQ-9 Depression Total Score: 1 08/13/20 24 12:59 PM EST documented as of this encounter Care Teams Test Boring Crew Chief Relationship Specialty Start Date End Date Kassandra Phillips MD [address] [place] [address] PCP - General Family Medicine 06/30/23 Blanco Gar PharmD [address] [place] [address] Pharmacist Internal Medicine 12/26/23 documented as of this encounter
--- OUTSIDE RECORDS SUMMARY | 2025-06-14 12:28 | XMS_ITS | Encounter Summary ---
Author Organization [employer] Address 75 [facility] 7t [place] [address] Care Team Providers Care Buncher Operator Name Role Phone Kassandra Phillips MD Primary Care Provider [phone] Blanco Gar PharmD Unavailable [phone] Reason for Visit * Reason Onset Date Comments Med Refill 11/22/2024 Encounter Details Date Type Department Care Team (Late st Contact Info) Description 11/22/2024 Telephone [facility] MEDICINE 230 [place], [place] [phone] Kassandra Phillips MD 230 [place], [place] [phone] Med Refill Social History Tobacco Use Types [...] immediate release tablet To be sent to: [facility] - [address] [place] [address]. Pt's spouse states that [facility][id number] [place], [place] does not have the medication in stock and requested that the medication be sent to another pharmacy. Stator Tester called to [address] [place] [address] and Med is available. documented in this encounter Plan of Treatment Upcoming Encounters Date Type Department Care Team ([facility] st Contact Info) Description 07/02/2025 1:00 PM EDT Clinical Support [address] [address] 07/12/2025 11:00 AM EDT Clinical Support [address] [address] Layla Thapa, RN 505 [place] [address] 09/04/2025 9:00 AM EST Office Visit [address] [address] Kassandra Phillips MD [address] [place] [address] documented as of this encounter Goals Goal [...] documented as of this encounter Care Teams Buncher Operator Relationship Specialty Start Date End Date Kassandra Phillips MD [address] [place] [address] PCP - General Family Medicine 06/30/23 Blanco Gar, PharmD [address] [place] [address] Pharmacist Internal Medicine 12/26/23 documented as of this encounter
--- OUTSIDE RECORDS SUMMARY | 2025-06-14 12:28 | XMS_ITS | Encounter Summary ---
Author Organization [employer] Address [address] [facility] [address] 7t [place] [address] Care Team Providers Care Multiple Knife Edge Trimmer Operator Name Role Phone Kassandra Phillips MD Primary Care Provider Blanco Gar PharmD Unavailable [phone] Reason for Visit * Reason Onset Date Comments Medication Question 11/23/2024 Encounter Details Date Type Department Care Team ([facility] st Contact Info) Description 11/23/2024 Telephone [facility] MEDICINE 230 [place], [place] [phone] Kassandra Phillips MD 230 [place], [place] [phone] Medication Question Social History Tobacco Use Types [...] tablet. Contact pt at Contact pt at [phone] documented in this encounter Plan of Treatment Upcoming Encounters Date Type Department Care Team (Late st Contact Info) Description 07/02/2025 1:00 PM EDT Clinical Support [facility] MEDICINE [address] [place] [address] 07/12/2025 11:00 AM EDT Clinical Support [facility] MEDICINE [address] [place] [address] Layla Thapa RN 505 [place] [address] 09/04/2025 9:00 AM EST Office Visit [facility] MEDICINE 230 [place] [address] K[place] [address] documented as of this encounter Goals Goal [...] documented as of this encounter Care Teams Multiple Knife Edge Trimmer Operator Relationship Specialty Start Date End Date K[place] [address] PCP - General Family Medicine 06/30/23 Blanco Gar, PharmD [address] [place] [address] Pharmacist Internal Medicine 12/26/23 documented as of this encounter
--- OUTSIDE RECORDS SUMMARY | 2025-06-14 12:28 | XMS_ITS | Encounter Summary ---
Author Organization [employer] Address 75 [facility] 7t [place] [address] Care Team Providers Care Bean Sprout Laborer Name Role Phone Kassandra Phillips MD Primary Care Provider [phone] Blanco Gar PharmD Unavailable [phone] Reason for Visit * Reason Onset Date Comments Med Refill 04/01/2025 Encounter Details Date Type Department Care Team (Late st Contact Info) Description 04/01/2025 Telephone [facility] MEDICINE 230 [place], [place] [phone] Kassandra Phillips MD 230 [place], [place] [phone] Med Refill Social History Tobacco Use Types [...] * Telephone Encounter - Karen Bernardo - 04/01/2025 10:43 AM EDT TC from pt requesting medication refill. Medications needing refill : oxyCODONE (Roxicodone) 5 MG immediate release tablet [id number] - [place], [place] - [address] [facility] documented in this encounter Plan of Treatment Upcoming Encounters Date Type Department Care Team ([facility] st Contact Info) Description 07/02/2025 1:00 PM EDT Clinical Support [address] [address] 07/12/2025 11:00 AM EDT Clinical Support [address] [place] [address] Layla Thapa, RN 505 [place] [address] 09/04/2025 9:00 AM EST Office Visit [facility] MEDICINE [address] [place] [address] Kassandra Phillips MD [address] [place] [address] documented as of this encounter Goals Goal [...] documented as of this encounter Care Teams Bean Sprout Laborer Relationship Specialty Start Date End Date Kassandra Phillips MD [address] [place] [address] PCP - General Family Medicine 06/30/23 Blanco Gar, PharmD [address] [place] [address] Pharmacist Internal Medicine 12/26/23 documented as of this encounter
--- OUTSIDE RECORDS SUMMARY | 2025-06-14 12:28 | XMS_ITS | Encounter Summary ---
Author Organization [employer] Address 75 [facility] 7 [place] [address] Care Team Providers Care Purchasing And Claims Supervisor Name Role Phone Kassandra Phillips MD Primary Care Provider [phone] Blanco Gar PharmD Unavailable [phone] Reason for Visit * Reason Comments Med Refill Encounter Details Date Type Department Care Team ([facility] st Contact Info) Description 01/14/2025 Refill [facility] MEDICINE 230 [place], [place] [phone] Naida Hobson MD 230 [place], [place] [phone] Social History Tobacco Use Types Packs/Day Years [...] Description 07/02/2025 1:00 PM EDT Clinical Support [address] [address] 07/12/2025 11:00 AM EDT Clinical Support [address] [address] Layla Thapa RN 505 [place] [address] 09/04/2025 9:00 AM EST Office Visit [address] [address] Kassandra Phillips MD [address] [place] [address] documented as of this encounter Goals Goal Patient Goal Type Associated Problems Recent Progress Patient-Stated? Author Quit using tobacco (cigarettes, smokeless, etc) Tobacco Use No Gar, Blanco, Julinane Note: Quit date: 12/26/2023 documented as of this encounter Visit Diagnoses Not on filedocumented in this encounter Additional Health Concerns Assessment Noted Time PHQ-9 Depression Total Score: 1 08/13/20 24 12:59 PM EST documented as of this encounter Care Teams Purchasing And Claims Supervisor Relationship Specialty Start Date End Date Kassandra Phillips MD 230 [place] [address] PCP - General Family Medicine 06/30/23 Blanco Gar, Julianne [address] [place] [address] Pharmacist Internal Medicine 12/26/23 documented as of this encounter
--- OUTSIDE RECORDS SUMMARY | 2025-06-14 12:28 | XMS_ITS | Encounter Summary ---
Author Organization [employer] Address 75 [facility] 7t [place] [address] Care Team Providers Care Cut Off Machine Operator Name Role Phone Kassandra Phillips MD Primary Care Provider [phone] Blanco Gar PharmD Unavailable [phone] Encounter Details Date Type Department Care Team (Late st Contact Info) Description 07/01/2023 Orders Only [facility] MEDICINE [address] [place] [address] Kassandra Phillips MD [address] [place] [address] Anemia, unspecified type (Primary Dx) Social History [...] Description 07/02/2025 1:00 PM EDT Clinical Support [address] [phone] 07/12/2025 11:00 AM EDT Clinical Support [address] [phone] Layla Thapa RN [address] [place] [address] 09/04/2025 9:00 AM EST Office Visit [facility] MEDICINE 230 [place] [address] Kassandra Phillips MD 230 [place] [address] Scheduled Orders Name Type Priority Associated Diagnoses [...] documented as of this encounter Care Teams Cut Off Machine Operator Relationship Specialty Start Date End Date Kassandra Phillips MD [address] [place] [address] PCP - General Family Medicine 06/30/23 Blanco Gar, SouravD [address] [place] [address] Pharmacist Internal Medicine 12/26/23 documented as of this encounter
--- OUTSIDE RECORDS SUMMARY | 2025-06-14 12:28 | XMS_ITS | Encounter Summary ---
Author Organization [employer] Address [address] [facility] [address] 7t [place] [address] Care Team Providers Care General Internal Medicine Physician Name Role Phone Kassandra Phillips MD Primary Care Provider [phone] Blnaco Gar PharmD Unavailable [phone] Encounter Details Date Type Department Care Team (Late st Contact Info) Description 11/22/2024 Orders Only [facility] [address] [place], [place] [phone] Kassandra Phillips MD 230 [place], [place] [phone] Anemia, unspecified type (Primary Dx); Cervical spondylosis; [...] Description 07/02/2025 1:00 PM EDT Clinical Support [address] [address] 07/12/2025 11:00 AM EDT Clinical Support [address] [address] Layla Thapa RN 505 [place] [address] 09/04/2025 9:00 AM EST Office Visit [address] [address] Kassandra Phillips MD [address] [place] [address] documented as of this encounter Goals Goal [...] Free T4 0.94 0.32 - 4.0 uIU/mL [facility] Blood 11/27/2024 1:19 PM EST 11/27/2024 4:04 PM EST us Kassandra Phillips MD LAB BLOOD ORDERABLES Final Resul t [facility] [address] [place] [phone] * (ABNORMAL) Vitamin B12 (Cobalamin) and Folate Panel, Serum (11/27/2024 1:19 PM EST) Vitamin B12 1,470(H) 200 - 900 pg/mL [facility] Comment:NORMAL 200-900 PG/ML INDETERMINATE 160-199 PG/ML DEFICIENT < 160 PG/ML Folate 12.4 > or = 4.0 ng/mL [facility] Comment:Reference Values:> o r = 4.0 ng/mL< 4.0 ng/mL suggests folate deficiency Methotrexate, aminopterin and folinic acid(leucovorin) are chemotherapeutic agents whose molecularstructures are similar to folate; therefore, the Architectfolate assay cannot be used for patients using these drugs. Blood 11/27/2024 1:19 PM EST 11/27/2024 4:04 PM EST us Kassandra Phillips MD LAB BLOOD ORDERABLES Final Resul t Performing Organization Address [facility] Co de Phone Number [facility] [address] [place] [phone] * TSH with Reflex to Free T4 (11/22/2024 12:07 PM EST) TSH reflex Free T4 1.68 0.32 - 4.0 uIU/mL [facility] 11/22/2024 12:0 7 PM EST 11/22/2024 12:51 PM EST us Generic External Data Provider LAB BLOOD ORDERAB LES Final Result Performing Organization Address [facility] Co de Phone Number [facility] [address] [place] [phone] * Ferritin (11/22/2024 12:07 PM EST) Ferritin 141 20 - 250 ng/mL [facility] 11/22/2024 12:0 7 PM EST 11/22/2024 12:51 PM EST Generic External Data Provider LAB BLOOD ORDERAB LES Final Result Performing Organization Address [facility] de Phone Number [facility] [address] [place] [phone] documented in this encounter Visit Diagnoses Diagnosis Anemia, unspecified type- Primary Cervical spondylosis Cervical spondylosis without myelopathy Neck pain Cervicalgia Chronic bilateral low back pain, unspecified whether sciatica present documented in this encounter Additional Health Concerns Assessment Noted Time PHQ-9 Depression Total Score: 1 08/13/20 12:59 PM EST documented as of this encounter Care Teams General Internal Medicine Physician Relationship Specialty Start Date End Date Kassandra Phillips MD 230 [place] [address] PCP - General Family Medicine 06/30/23 lBanco Gar PharmD 230 [place] [address] Pharmacist Internal Medicine 12/26/23 documented as of this encounter
--- OUTSIDE RECORDS SUMMARY | 2025-06-14 12:28 | XMS_ITS | Encounter Summary ---
Author Organization [employer] Address [address] [facility] 7t [place] [address] Care Team Providers Care Imaging Center Manager Name Role Phone Kassandra Phillips MD Primary Care Provider [phone] Blanco Gar PharmD Unavailable [phone] Reason for Visit * Reason Comments Med Refill Encounter Details Date Type Department Care Team ([facility] st Contact Info) Description 03/11/2025 Telephone [facility] 230 [place], [place] [phone] Kassandra Phillips MD 230 [place], [place] [phone] Med Refill Social History Tobacco Use Types [...] encounter Miscellaneous Notes * Telephone Encounter - Clare Ortiz RN - 03/13/2025 9:20 AM EDT Telephone call to pt via [facility] cook soup Abimael Hernandez81. Pt reports not taking Pepcid, states it does not improve his symptoms. Advised him if he has any stomach/indigestion symptoms, to contact hisGI doctor for another recommendation. Pt verbalized understanding, no further questions. documented in this encounter Plan of Treatment Upcoming Encounters Date Type Department Care Team (Late st Contact Info) Description 07/02/2025 1:00 PM EDT Clinical Support [facility] [address] [place] [address] 07/12/2025 11:00 AM EDT Clinical Support [facility] [address] [place] [address] Layla Thapa, DON 505 [place] [address] 09/04/2025 9:00 AM EST Office Visit [facility] [address] [place] [address] Kassandra Phillips MD [address] [place] [address] documented as of this encounter Goals Goal [...] documented as of this encounter Care Teams Imaging Center Manager Relationship Specialty Start Date End Date Kassandra Phillips MD [address] [place] [address] PCP - General Family Medicine 06/30/23 Blanco Gar, PharmD [address] [place] [phone] Pharmacist Internal Medicine 12/26/23 documented as of this encounter
--- OUTSIDE RECORDS SUMMARY | 2025-06-14 12:28 | XMS_ITS | Encounter Summary ---
Author Organization [employer] Address 75 [facility] 7t [place] [address] Care Team Providers Care Fibre Composite Technician Name Role Phone Kassandra Phillips MD Primary Care Provider [phone] Blanco Gar PharmD Unavailable [phone] Encounter Details Date Type Department Care Team (Late st Contact Info) Description 10/30/2024 Telephone [facility] 230 [place], [place] [phone] Kassandra Phillips MD 230 [place], [place] [phone] Social History Tobacco Use Types Packs/Day Years [...] Clinical Support [facility] [address] [place] [address] 07/12/2025 11:00 AM EDT Clinical Support [address] [address] Layla Thapa RN 505 [place] [address] 09/04/2025 9:00 AM EST Office Visit [address] [address] Kassandra Phillips MD [address] [place] [address] documented as of this encounter Goals Goal [...] documented as of this encounter Care Teams Fibre Composite Technician Relationship Specialty Start Date End Date Kassandra Phillips MD 230 [place] [address] PCP - General Family Medicine 06/30/23 Blanco Gar, PharmD 230 [place] [address] Pharmacist Internal Medicine 12/26/23 documented as of this encounter
--- OUTSIDE RECORDS SUMMARY | 2025-06-14 12:28 | XMS_ITS | Encounter Summary ---
Author Organization [employer] Address 75 [facility] 7t [place] [address] Care Team Providers Care Entry Engineer Name Role Phone Kassandra Phillips MD Primary Care Provider [phone] Blanco Gar PharmD Unavailable [phone] Reason for Visit * Reason Onset Date Comments Med Refill 09/17/2024 Encounter Details Date Type Department Care Team (Late st Contact Info) Description 09/17/2024 Telephone [facility] 230 [place], [place] [phone] Kassandra Phillips MD 230 [place], [place] [phone] Med Refill Social History Tobacco Use Types [...] 50 MG tablet To be sent to: [id number] documented in this encounter Plan of Treatment Upcoming Encounters Date Type Department Care Team (Late st Contact Info) Description 07/02/2025 1:00 PM EDT Clinical Support [facility] [address] [place] [phone] 07/12/2025 11:00 AM EDT Clinical Support [facility] [address] [place] [address] Layla Thapa RN 505 [place] [address] 09/04/2025 9:00 AM EST Office Visit [facility] 230 [place] [address] Kassandra Phililps MD 230 [place] [address] documented as of this encounter Goals Goal [...] documented as of this encounter Care Teams Entry Engineer Relationship Specialty Start Date End Date Kassandra Phillips MD [address] [place] [address] PCP - General Family Medicine 06/30/23 Blanco Gar, PharmD [address] [place] [phone] Pharmacist Internal Medicine 12/26/23 documented as of this encounter
--- OUTSIDE RECORDS SUMMARY | 2025-06-14 12:28 | XMS_ITS | Encounter Summary ---
Author Organization [employer] Address 75 [facility] 7t [place] [address] Care Team Providers Care Dining Room Helper Name Role Phone Kassandra Phillips MD Primary Care Provider [phone] Blanco Gar PharmD Unavailable [phone] Reason for Visit * Reason Comments Med Refill Encounter Details Date Type Department Care Team ([facility] st Contact Info) Description 01/24/2024 Refill [facility] 230 [place], [place] [phone] Naida Hobson MD 230 [place], [place] [phone] Social History Tobacco Use Types Packs/Day Years [...] Description 07/02/2025 1:00 PM EDT Clinical Support [address] [address] 07/12/2025 11:00 AM EDT Clinical Support [address] [address] Layla Thapa RN 505 [place] [address] 09/04/2025 9:00 AM EST Office Visit [address] [address] Kassandra Phillips MD [address] [place] [address] documented as of this encounter Goals Goal [...] documented as of this encounter Care Teams Dining Room Helper Relationship Specialty Start Date End Date Kassandra Phillips MD 230 [place] [address] PCP - General Family Medicine 06/30/23 Blanco Gar, SouravD 230 [place] [address] Pharmacist Internal Medicine 12/26/23 documented as of this encounter
--- OUTSIDE RECORDS SUMMARY | 2025-06-14 12:28 | XMS_ITS | Encounter Summary ---
Author Organization [employer] Address 75 [facility] 7t [place] [address] Care Team Providers Care Office Professionals Name Role Phone Kassandra Phillips MD Primary Care Provider [phone] Blanco Gar PharmD Unavailable [phone] Reason for Visit * Reason Comments Med Refill Encounter Details Date Type Department Care Team ([facility] st Contact Info) Description 01/23/2024 Refill [facility] 230 [place], [place] [phone] Kassandra Phillips MD 230 [place], [place] [phone] Social History Tobacco Use Types Packs/Day Years [...] Description 07/02/2025 1:00 PM EDT Clinical Support [address] [address] 07/12/2025 11:00 AM EDT Clinical Support [address] [address] Layla Thapa, DON 505 [place] [address] 09/04/2025 9:00 AM EST Office Visit [address] [address] Kassandra Phillips MD [address] [place] [address] documented as of this encounter Goals Goal [...] documented as of this encounter Care Teams Office Professionals Relationship Specialty Start Date End Date Kassandra Phillips MD [address] [place] [address] PCP - General Family Medicine 06/30/23 Blanco Gar, SouravD 230 [place] [address] Pharmacist Internal Medicine 12/26/23 documented as of this encounter
== END 2025-06-14 12:56 | disposition home or self-care (01) ==
LOC: HO.HGI 11:31
PROVIDERS: PCP Otolaryngology; Visit Provider Nurse Practitioner
DX: K29.80 Duodenitis without bleeding (principal); B96.81 Helicobacter pylori [H. pylori] as the cause of diseases classified elsewhere; R10.10 Upper abdominal pain, unspecified
CPT/HCPCS: 99213

== ENCOUNTER → 2025-06-14 11:30 | Outpatient (BNVA) | payer MEDICARE, SELFPAY | PROVIDERS: PCP Otolaryngology; Visit Provider Nurse Practitioner | DX: K29.80 Duodenitis without bleeding (principal); B96.81 Helicobacter pylori [H. pylori] as the cause of diseases classified elsewhere; R10.10 Upper abdominal pain, unspecified | CPT/HCPCS: 99212 ==

== ENCOUNTER 2025-07-26 07:06 | Outpatient (REF) | payer MEDICARE, SELFPAY ==
--- OUTSIDE RECORDS SUMMARY | 2025-07-26 17:46 | XMS_ITS | Encounter Summary ---
Author Organization [employer] Address 75 [facility] 7t [place] [address] Care Team Providers Care Mold Capper Helper Name Role Phone Kassandra Phillips MD Primary Care Provider [phone] Blanco Gar PharmD Unavailable [phone] Reason for Visit * Reason Comments Med Refill Encounter Details Date Type Department Care Team ([facility] st Contact Info) Description 09/20/[address] [facility] MEDICINE [address] [place], [place] [phone] Kassandra Phillips MD 230 [place], [place] [phone] Social History Tobacco Use Types Packs/Day Years [...] 09/04/2025 9:00 AM EST Office Visit [facility] MEDICINE [address] [place] [phone] Kassandra Phillips MD [address] [place] [phone] 11/15/2025 11:30 AM EST Clinical Support [facility] MEDICINE [address] [place] [address] Layla Thapa RN [address] [place] [phone] documented as of this encounter Goals Goal [...] documented as of this encounter Care Teams Mold Capper Helper Relationship Specialty Start Date End Date Kassandra Phillips MD 230 [place] [address] PCP - General Family Medicine 06/30/23 Blanco Gar, SouravD [address] [place] [phone] Pharmacist Internal Medicine 12/26/23 documented as of this encounter
--- OUTSIDE RECORDS SUMMARY | 2025-07-26 17:46 | XMS_ITS | Encounter Summary ---
Author Organization [employer] Address [address] [facility] 7t [place] [address] Care Team Providers Care Salesperson Recreational Vehicles Name Role Phone Kassandra Phillips MD Primary Care Provider [phone] Blanco Gar PharmD Unavailable [phone] Reason for Referral * Imaging (Routine) - Closed Specialty Diagnoses / Procedures Referred By Contac t Referred To Contact Radiology Diagnoses Chronic bilateral low back pain, unspecified whether sciatica present Procedures MR Lumbar Spine w/o Contrast Kassandra Phillips MD [address] [place] [address] Phone: tel: fax: [address] Phone: tel: fax: Referral ID Status Reason Start Date Expiration Date Visits Re quested Visits Authorized [id number] Closed 05/24/2024 05/24/2025 1 1 Encounter Details Date Type Department Care Team (Late st Contact Info) Description 05/24/2024 Orders Only [facility] [address] [place] [address] [phone] Kassandra Phillips MD [address] [place], [place] [phone] Chronic bilateral low back pain, unspecified whether [...] Description 09/04/2025 9:00 AM EST Office Visit [facility] [address] [place] [address] Kassandra Phillips MD [address] [place] [address] 11/15/2025 11:30 AM EST Clinical Support [facility] [address] [place] [address] Layla Thapa RN 505 [place] [address] documented as of this encounter Goals Goal [...] PM EST Narrative 10/15/2024 10:02 AM EST [address] [address] Magnetic Resonance Report Signed Patient: Omre Lara MR#: [id number] : 1955 Acct:[id number] Age/Sex: 69 / M ADM Date: 10/14/24 Loc: HO.MRI Attending Dr: Kassandra Phillips MD Ordering Physician: Kassandra Phillips MD Date of Service: 10/14/24 Procedure(s): MR lumbar spine wo con Accession Number(s): [id number] cc: Kassandra Phillips MD Workstation: [id number] EXAMINATION: MR LUMBAR SPINE WITHOUT IV CONTRAST [...] 10/15/24 0959 DD/ 1507 TD/TT: 10/14/24 1521 Bird Cage Assembler: Procedure Note Donotuseinterpreter, Image - 10/15/[address] [address] Magnetic Resonance Report Signed Patient: Kostas PeterMaria Antonia#: [id number] : 1955cct:[id number] Age/Sex: 69 / MADM Date: 10/14/24 Loc: HO.MRI Attending Dr: Kassandra Phillips MD Ordering Physician: Kassandra Phillips MD Date of Service: 10/14/24 Procedure(s): MR lumbar spine wo con Accession Number(s): [id number] cc: Kassandra Phillips MD Workstation: [id number] EXAMINATION: MR LUMBAR SPINE WITHOUT IV CONTRAST [...] 10/15/24 0959 DD/ 1507 TD/TT: 10/14/24 1521 Bird Cage Assembler: Kassandra Phillips MD IMG MRI PROCEDURES Edited Result - Final documented in this encounter Visit Diagnoses Diagnosis Chronic bilateral low back pain, unspecified whether sciatica present- Primary documented in this encounter Additional Health Concerns Assessment Noted Time PHQ-9 Depression Total Score: 4 06/30/20 23 9:32 AM EDT documented as of this encounter Care Teams Salesperson Recreational Vehicles Relationship Specialty Start Date End Date Kassandra Phillips MD [address] [place] [address] PCP - General Family Medicine 06/30/23 Blanco Gar, Julianne [address] [place] [address] Pharmacist Internal Medicine 12/26/23 documented as of this encounter
--- OUTSIDE RECORDS SUMMARY | 2025-07-26 17:46 | XMS_ITS | Encounter Summary ---
Author Organization [employer] Address 75 [facility] 7t [place] [address] Care Team Providers Care Makeup Artistry Instructor Name Role Phone Kassandra Phillips MD Primary Care Provider [phone] Blanco Gar PharmD Unavailable [phone] Reason for Visit * Reason Comments Med Refill Encounter Details Date Type Department Care Team ([facility] st Contact Info) Description 02/29/[address] [facility] [address] [place], [place] [phone] Kassandra Phillips MD 230 [place], [place] [phone] Social History Tobacco Use Types Packs/Day Years [...] Description 09/04/2025 9:00 AM EST Office Visit [address] [address] Ksasandra Phillips MD [address] [place] [address] 11/15/2025 11:30 AM EST Clinical Support [address] [address] Layla Thapa, DON 505 [place] [address] documented as of this encounter Goals Goal [...] documented as of this encounter Care Teams Makeup Artistry Instructor Relationship Specialty Start Date End Date Kassandra Phillips MD [address] [place] [address] PCP - General Family Medicine 06/30/23 Blanco Gar, PharmD [address] [place] [address] Pharmacist Internal Medicine 12/26/23 documented as of this encounter
--- OUTSIDE RECORDS SUMMARY | 2025-07-26 17:46 | XMS_ITS | Clinical Summary ---
Author Organization [employer] Address [address] [facility] [address] 7t [place] [address] Care Team Providers Care Semiconductor Wafers Saw Operator Name Role Phone Kassandra Phillips MD Primary Care Provider [phone] Blanco Gar PharmD Unavailable [phone] Allergies No known active allergies Medications Blood [...] (06/14/2025 5:27 PM EDT): - followed by [facility] program - patient reported hard stool to [...] (06/14/2025 5:26 PM EDT): - following with [facility] - EGD on 08/07/24 was positive [...] PM EDT): - following with Dr. Coy, [facility] - carotid US on 10/19/23, showed [...] PM EDT): - following with Dr. Coy, [facility] - carotid US on 10/19/23, showed [...] PM EST): - following with Dr. Coy, [facility] - carotid US on 10/19/23, showed [...] is the maximum - continue following with [facility] visit - continue judicious use of Gabapentin, and encouraged to taper down and off - evaluated by surgical training specialist. Patient tried PT, but it was [...] increase to bid. - continue following with [facility] visit - continue judicious use of Gabapentin, and encouraged to taper down and off - refer to surgical training specialist Assessment & Plan (11/22/2024 11:58 PM [...] imaging or referral to pain management and/or surgical training specialist Assessment & Plan (09/14/2023 3:47 PM EST): - multifactorial - evaluate with X-ray - trapezius muscle spasm - add cyclobenzaprine prn - apply lidocaine patch - refer to PT - reassess symptoms in 3 mo to see if he needs further imaging or referral to pain management and/or surgical training specialist Back pain 09/14/2023 Assessment & Plan [...] the maximum. Patient verbalized understanding - Reviewed [facility] program engagement and agreement Assessment & Plan [...] nightly; will increase to bid - Reviewed [facility] program engagement and agreement - refer to surgical training specialist Assessment & Plan (11/24/2024 5:21 PM [...] gabapentin - switch tramadol to oxycodone - [facility] appt Assessment & Plan (08/19/2024 2:18 PM [...] check the status of MRI order - [facility] appt Assessment & Plan (05/21/2024 11:42 AM [...] Type Department Care Team Description 07/14/2025 Refill [facility] [address] [place] [address] Kassandra Phillips MD 07/12/2025 11:00 AM EDT Clinical Support [facility] [address] [facility] [place] [address] Layla Thapa RN Chronic pain of both knees (Primary Dx) 07/12/2025 Travel 07/10/2025 Refill [facility] [address] [place] [place] [address] Layla Thapa RN Chronic bilateral low back pain, unspecified whether sciatica present; Neck pain; Cervical spondylosis 07/10/2025 Telephone [facility] [address] [place] [address] Kassandra Phillips MD Med Refill 07/02/2025 1:00 PM EDT Clinical Support [address] [address] Clare Ortiz RN Hypertension, unspecified type 07/02/2025 Travel 06/21/[address] [address] Kassandra Phillips MD Routine general medical examination at a health care facility 06/12/2025 Refill [facility] [address] [facility] [place] [address] Kassandra Phillips MD Chronic bilateral low back pain, unspecified whether sciatica present; Neck pain; Cervical spondylosis 06/04/2025 2:15 PM EDT Office Visit [address] [place] [address] Kassandra Phillips MD Hypertension, unspecified type (Primary Dx); Epigastric pain; Pain of upper abdomen; Dyslipidemia; Carotid stenosis, right; Long-term current use of opiate analgesic; Neck pain; Chronic bilateral low back pain, unspecified whether sciatica present; Smoking greater than 20 pack years 06/04/2025 Travel 05/24/2025 Refill [facility] [address] [place] [address] Kassandra Phillips MD Chronic bilateral low back pain, unspecified whether sciatica present; Neck pain; Cervical spondylosis 04/29/2025 10:00 AM EDT Telemedicine [facility] [address] [place] [address] Layla Thapa RN Other chronic back pain 04/29/2025 Travel 04/25/2025 Refill [facility] [address] [place] [address] Kassandra Phillips MD Chronic bilateral low back [...] Description 09/04/2025 9:00 AM EST Office Visit [facility] [address] [place] [address] Kassandra Phillips MD [address] [place] [address] 11/15/2025 11:30 AM EST Clinical Support [facility] [address] [place] [address] [address] Layla Thapa, RN 505 [facility] [place] [address] Health Maintenance Due Date Last Done Comments [...] - 07/12/2025 10:49 AM EDT .UTOX cup Lot#[id number] Exp. 07/16/26 Internal Pass Control Kassandra Phillips MD POINT OF CARE TEST ENTER/EDIT OR DERABLES Final Result * (ABNORMAL) Lipid Panel with Reflex to Direct LDL (11/22/2024 12:07 PM EST) Triglycerides 161(H) <150 mg/dL [facility] Comment:Desirable Triglyceri de: less than 150 mg/dLBorderline High Triglyceride 150-199 mg/dLHigh Triglyceride: 200-499 mg/dLVery High Triglyceride: greater than or equal to 5OO mg/dL Cholesterol 134 <200 mg/dL [facility] Comment:Desirable Cholestero l: less than 200 mg/dLBorderline High Cholesterol: 200-239 mg/dLHigh Cholesterol: greater than 239 mg/dL LDL Cholesterol Calculated 57 <100 mg/dL [facility] Comment:Desirable LDL: less than 100 mg/dLNear Optimal/Above Optimal LDL: 110- 129 mg/dLBorderline High LDL: 130-159 mg/dLHigh LDL: 160-189 mg/dLVery High LDL: greater than or equal to 190 mg/dL HDL Cholesterol 45 >40 mg/dL [facility] Comment:Desirable HDL: great er than 40 mg/dL Note: This HDL assay may give artificially low results in patients with liver disease. Blood 11/22/2024 12:0 7 PM EST 11/22/2024 12:51 PM EST Kassandra Phillips MD LAB BLOOD ORDERABLES Final Resul t Performing Organization Address City/State/[facility] Co de Phone Number [facility] [address] [place] [phone] * Hemoglobin A1c (11/22/2024 12:07 PM EST) Hemoglobin A1c 5.7 <6.0 % [facility] Comment:Hemoglobin A1C Refer ence Range Adults: 4.8 - 6.0 % Non diabetic: < 6.0 % Goal: < 7.0 %Additional Action Suggested: > 8.0 %Note: Hemoglobin A1c results are invalid for patients with abnormal amounts of HbF. Blood transfusions may impact the HbA1c concentration in the patient sample. Estimated Average Glucose 117 mg/dL [facility] Comment:eAG = Estimated ave rage glucose which is %A1C expressed asaverage glucose, using the formula of the N3F-FnwpzoiErkolat Glucose study (ADAG), Diabetes Care, Vol.31,#8,May. 2007 Blood Venous blood specimen / Unknown 11/22/2024 12:07 PM EST 11/22/2024 12:51 PM EST Kassandra Phillips MD LAB BLOOD ORDERABLES Final Resul t Performing Organization Address [facility] Co de Phone Number [facility] [address] [place] [phone] * (ABNORMAL) Hm Colonoscopy (08/07/2024) Colonoscopy Abnormal(A ) Normal 08/07/2024 us Historical Provider HEALTH MAINTENANCE Final Result * CT Lung Screening Low dose (11/18/2023 11:57 AM EST) Anatomical Region Laterality Modality Lung Computed Tomogra phy 11/18/2023 11:5 7 AM EST Narrative 11/22/2023 3:09 PM EST [address] [address] [address] Scan Report Signed Patient: Omer Lara MR#: [id number] : 1955 Acct:[id number] Age/Sex: 68 / M ADM Date: 11/18/23 Loc: HO.CT Attending Dr: Laura Tinajero NP Ordering Physician: Laura Tinajero NP Date of Service: 11/18/23 Procedure(s): CT lung screening Accession Number(s): [id number] cc: Kassandra Phillips MD; Laura Tinajero NP [...] iterative reconstruction technique DLP: 43 mGy-cm FINDINGS: CAMPUS POLICE OFFICER: Clear lungs. LUNGS: Mild biapical pleural thickening. [...] in OV> 11/22/23 1505 DD/ 1157 TD/TT: Yarn Comber: Procedure Note Donotuseinterpreter, Image - 11/22/[address] [address] [address] Scan Report Signed Patient: Maria Antonia Lara#: [id number] : 7Acct:[id number] Age/Sex: 68 / MADM Date: 11/18/23 Loc: HO.CT Attending Dr: Laura Tinajero NP Ordering Physician: Laura Tinajero NP Date of Service: 11/18/23 Procedure(s): CT lung screening Accession Number(s): [id number] cc: Kassandra Phillips MD; Laura Tinajero NP [...] iterative reconstruction technique DLP: 43 mGy-cm FINDINGS: CAMPUS POLICE OFFICER: Clear lungs. LUNGS: Mild biapical pleural thickening. [...] in OV> 11/22/23 1505 DD/ 1157 TD/TT: Yarn Comber: [facility] External Provider IMG CT PROCEDURES Final Result * Hepatitis C Antibody with Reflex to HCV, RNA, Quantitative, Real-Time PCR (06/30/2023 10:33 AM EDT) Hepatitis C Antibody Nonreactive Nonreactive [facility] Comment:Antibodies to HCV no t detected; does not exclude early acuteHCV infection. Blood Venous blood specimen / Unknown 06/30/2023 10:33 AM EDT 06/30/2023 11:20 AM EDT Kassandra Phillips MD LAB BLOOD ORDERABLES Final Resul t [facility] [address] [place] [phone] [phone] from Last 3 Months or Most Recently Relevant to Health Maintenance Insurance [facility] MEDICARE ADVANTAGE Care Teams Semiconductor Wafers Saw Operator Relationship Specialty Start Date End Date Kassandra Phillips MD [address] [place] [address] PCP - General Family Medicine 06/30/23 Blanco Gar, PharmD [address] [place] [address] [place] [address] Pharmacist Internal Medicine 12/26/23
--- OUTSIDE RECORDS SUMMARY | 2025-07-26 17:46 | XMS_ITS | Encounter Summary ---
Author Organization [employer] Address 75 [facility] 7t [place] [address] Care Team Providers Care Crop Puller Name Role Phone Kassandra Phillips MD Primary Care Provider [phone] Blanco Gar PharmD Unavailable [phone] Reason for Visit * Reason Comments Med Refill Encounter Details Date Type Department Care Team ([facility] st Contact Info) Description 06/04/2024 Refill [facility] [address] [place], [place] [phone] Madison Elizondo MD 230 [place], [place] [phone] Social History Tobacco Use Types Packs/Day Years [...] Description 09/04/2025 9:00 AM EST Office Visit [address] [address] Kassandra Phillips MD [address] [place] [address] 11/15/2025 11:30 AM EST Clinical Support [address] [address] Layla Thapa RN 505 [place] [address] documented as of this encounter Goals Goal [...] documented as of this encounter Care Teams Crop Puller Relationship Specialty Start Date End Date Kassandra Phillips MD [address] [place] [address] PCP - General Family Medicine 06/30/23 Blanco Gar PharmD [address] [place] [address] Pharmacist Internal Medicine 12/26/23 documented as of this encounter
--- OUTSIDE RECORDS SUMMARY | 2025-07-26 17:46 | XMS_ITS | Encounter Summary ---
Author Organization [employer] Address 75 [facility] 7t [place] [address] Care Team Providers Care Family Consumer Science Fcs Teacher Name Role Phone Kassandra Phillips MD Primary Care Provider [phone] Blanco Gar PharmD Unavailable [phone] Reason for Visit * Reason Onset Date Comments Med Refill 06/20/2024 Encounter Details Date Type Department Care Team ([facility] st Contact Info) Description 06/20/2024 Telephone [facility] 230 [place], [place] [phone] Kassandra Phillips MD [address] [place], [place] [phone] Med Refill Social History Tobacco Use Types [...] 50 MG tablet To be sent to: [id number] [place], [place] - [address] [place] [address] AT [employer] [facility] [employer] documented in this encounter Plan of Treatment Upcoming Encounters Date Type Department Care Team (Late st Contact Info) Description 09/04/2025 9:00 AM EST Office Visit [facility] [address] [place] [address] Kassandra Phillips MD [address] [place] [address] 11/15/2025 11:30 AM EST Clinical Support [facility] [address] [place] [address] Layla Thapa RN [address] [place] [address] documented as of this encounter Goals Goal [...] documented as of this encounter Care Teams Family Consumer Science Fcs Teacher Relationship Specialty Start Date End Date Kassandra Phillips MD [address] [place] [address] PCP - General Family Medicine 06/30/23 Blanco Gar, SouravD [address] [place] [address] Pharmacist Internal Medicine 12/26/23 documented as of this encounter
--- OUTSIDE RECORDS SUMMARY | 2025-07-26 17:47 | XMS_ITS | Encounter Summary ---
Author Organization [employer] Address 75 [facility] 7t [place] [address] Care Team Providers Care Health Underwriter Name Role Phone Kassandra Phillips MD Primary Care Provider [phone] Blanco Gar PharmD Unavailable [phone] Reason for Visit * Reason Comments Med Refill Encounter Details Date Type Department Care Team ([facility] st Contact Info) Description 01/24/2024 Refill [facility] 230 [place], [place] [phone] Naida Hobson MD 230 [place], [place] [phone] Social History Tobacco Use Types Packs/Day Years [...] Description 09/04/2025 9:00 AM EST Office Visit [address] [address] Kassandra Phillips MD [address] [place] [phone] 11/15/2025 11:30 AM EST Clinical Support [address] [address] Layla Thapa, RN [address] [place] [address] documented as of this encounter Goals Goal [...] documented as of this encounter Care Teams Health Underwriter Relationship Specialty Start Date End Date Kassandra Phillips MD [address] [place] [address] PCP - General Family Medicine 06/30/23 Blanco Gar, PharmD [address] [place] [address] Pharmacist Internal Medicine 12/26/23 documented as of this encounter
--- OUTSIDE RECORDS SUMMARY | 2025-07-26 17:47 | XMS_ITS | Encounter Summary ---
Author Organization [employer] Address [address] [facility] [address] 7t [place] [address] Care Team Providers Care Dining Room Coordinator Name Role Phone Kassandra Phillips MD Primary Care Provider [phone] Blanco Gar PharmD Unavailable [phone] Encounter Details Date Type Department Care Team (Late st Contact Info) Description 10/20/2023 Orders Only [facility] 230 [place], [place] [phone] Kassandra Phillips MD [address] [place], [place] [phone] Carotid stenosis, right Social History Tobacco Use [...] Description 09/04/2025 9:00 AM EST Office Visit [address] [address] Kassandra Phillips MD 230 [place] [address] 11/15/2025 11:30 AM EST Clinical Support [address] [address] Layla Thapa, DON [address] [place] [address] documented as of this encounter Procedures Procedure Name Priority Date/Time Associated Diagnosis Comments LDCT LUNG SCREENING Routine 11/18/2023 1 1:57 AM EST documented in this encounter Results * CT Lung Screening Low dose (11/18/2023 11:57 AM EST) Anatomical Region Laterality Modality Lung Computed Tomogra phy 11/18/2023 11:5 7 AM EST Narrative 11/22/2023 3:09 PM EST [address] [address] [address] Scan Report Signed Patient: Omer Lara MR#: [id number] : 1955 Acct:[id number] Age/Sex: 68 / M ADM Date: 11/18/23 Loc: HO.CT Attending Dr: Laura Tinajero NP Ordering Physician: Laura Tinajero NP Date of Service: 11/18/23 Procedure(s): CT lung screening Accession Number(s): [id number] cc: Kassandra Phillips MD; Laura Tinajero NP [...] reconstruction technique DLP: 43 mGy-cm FINDINGS: SHOE PULLER: Clear lungs. LUNGS: Mild biapical pleural thickening. [...] in OV> 11/22/23 1505 DD/ 1157 TD/TT: Abrasive Sawyer: Procedure Note Bhaveshter, Image - 11/22/[address] [address] [address] Scan Report Signed Patient: Maria Antonia Lara#: [id number] : 1955cct:[id number] Age/Sex: 68 / MADM Date: 11/18/23 Loc: HO.CT Attending Dr: Laura Tinajero NP Ordering Physician: Laura Tinajero NP Date of Service: 11/18/23 Procedure(s): CT lung screening Accession Number(s): [id number] cc: Kassandra Phillips MD; Laura Tinajero NP [...] reconstruction technique DLP: 43 mGy-cm FINDINGS: SHOE PULLER: Clear lungs. LUNGS: Mild biapical pleural thickening. [...] in OV> 11/22/23 1505 DD/ 1157 TD/TT: Abrasive Sawyer: [facility] External Provider IMG CT PROCEDURES Final Result documented in this encounter Visit Diagnoses Diagnosis Carotid stenosis, right Occlusion and stenosis of carotid artery without mention of cerebral infarction documented in this encounter Additional Health Concerns Assessment Noted Time PHQ-9 Depression Total Score: 4 06/30/20 23 9:32 AM EDT documented as of this encounter Care Teams Dining Room Coordinator Relationship Specialty Start Date End Date Kassandra Phillips MD [address] [place] [address] PCP - General Family Medicine 06/30/23 Blanco Gar, Julianne [address] [place] [address] Pharmacist Internal Medicine 12/26/23 documented as of this encounter
--- OUTSIDE RECORDS SUMMARY | 2025-07-26 17:47 | XMS_ITS | Encounter Summary ---
Author Organization [employer] Address 75 [facility] 7t [place] [address] Care Team Providers Care Welder Plasma Arc Name Role Phone Kassandra Phillips MD Primary Care Provider [phone] Blanco Gar PharmD Unavailable [phone] Encounter Details Date Type Department Care Team (Late st Contact Info) Description 07/01/2023 Orders Only [facility] [address] [place] [address] [phone] Kassandra Phillips MD [address] [place] [address] [phone] Anemia, unspecified type (Primary Dx) Social History [...] Description 09/04/2025 9:00 AM EST Office Visit [facility] [address] [place] [phone] Kassandra Phillips MD [address] [place] [address] [phone] 11/15/2025 11:30 AM EST Clinical Support [facility] 230 [place] [address] Layla Thapa, RN 505 [place] [address] Scheduled Orders Name Type Priority Associated Diagnoses [...] documented as of this encounter Care Teams Welder Plasma Arc Relationship Specialty Start Date End Date Kassandra Phillips MD [address] [place] [address] PCP - General Family Medicine 06/30/23 Blanco Gar, Julianne [address] [place] [address] Pharmacist Internal Medicine 12/26/23 documented as of this encounter
--- OUTSIDE RECORDS SUMMARY | 2025-07-26 17:47 | XMS_ITS | Encounter Summary ---
Author Organization [employer] Address 75 [facility] 7t [place] [address] Care Team Providers Care Streetcar Repairer Name Role Phone Kassandra Phillips MD Primary Care Provider Blanco Gar PharmD Unavailable [phone] Reason for Visit * Reason Comments Med Refill Encounter Details Date Type Department Care Team ([facility] st Contact Info) Description 01/23/2024 Refill [facility] MEDICINE 230 [place], [place] [phone] Kassandra Phillips MD 230 [place], [place] [phone] Social History Tobacco Use Types Packs/Day Years [...] Description 09/04/2025 9:00 AM EST Office Visit [address] [address] Kassandra Phillips MD [address] [place] [address] 11/15/2025 11:30 AM EST Clinical Support [address] [address] Layla Thapa, DON 505 [place] [address] documented as of this encounter Goals Goal [...] documented as of this encounter Care Teams Streetcar Repairer Relationship Specialty Start Date End Date Kassandra Phillips MD [address] [place] [address] PCP - General Family Medicine 06/30/23 Blanco Gar, PharmD [address] [place] [address] Pharmacist Internal Medicine 12/26/23 documented as of this encounter
--- OUTSIDE RECORDS SUMMARY | 2025-07-26 17:47 | XMS_ITS | Encounter Summary ---
Author Organization [employer] Address 75 [facility] 7t [place] [address] Care Team Providers Care Api Product Manager Name Role Phone Kassandra Phillips MD Primary Care Provider [phone] Blanco Gar PharmD Unavailable [phone] Reason for Visit * Reason Onset Date Comments Med Refill 02/11/2025 Encounter Details Date Type Department Care Team (Late st Contact Info) Description 02/11/2025 Telephone [facility] MEDICINE 230 [place], [place] [phone] Kassandra Phillips MD 230 [place], [place] [phone] Med Refill Social History Tobacco Use Types [...] immediate release tablet To be sent to: [id number] [place], [place] - [address] [facility] documented in this encounter Plan of Treatment Upcoming Encounters Date Type Department Care Team ([facility] st Contact Info) Description 09/04/2025 9:00 AM EST Office Visit [facility] MEDICINE 230 [place] [address] Kassandra Phillips MD 230 [place], [place] [phone] 11/15/2025 11:30 AM EST Clinical Support [facility] MEDICINE 230 [place] [address] Layla Thapa RN 505 [place] [address] documented as of this encounter Goals Goal [...] documented as of this encounter Care Teams Api Product Manager Relationship Specialty Start Date End Date Kassandra Phillips MD 230 [place] [address] PCP - General Family Medicine 06/30/23 Blanco Gar, PharmD [address] [place] [address] Pharmacist Internal Medicine 12/26/23 documented as of this encounter
--- OUTSIDE RECORDS SUMMARY | 2025-07-26 17:47 | XMS_ITS | Encounter Summary ---
Author Organization [employer] Address 75 [facility] 7t [place] [address] Care Team Providers Care Knotting Machine Operator Portable Name Role Phone Kassandra Phillips MD Primary Care Provider [phone] Blanco Gar PharmD Unavailable [phone] Reason for Visit * Reason Onset Date Comments Med Refill 07/10/2025 Encounter Details Date Type Department Care Team ([facility] st Contact Info) Description 07/10/2025 Telephone [facility] MEDICINE 230 [place], [place] [phone] Kassandra Phillips MD 230 [place], [place] [phone] Med Refill Social History Tobacco Use Types [...] immediate release tablet To be sent to: [email or web address][id number] - [place], [place] - [address] [facility] documented in this encounter Plan of Treatment Upcoming Encounters Date Type Department Care Team ([facility] st Contact Info) Description 09/04/2025 9:00 AM EST Office Visit [facility] MEDICINE 230 [place] [address] Kassandra Phillips MD 230 [place] [address] 11/15/2025 11:30 AM EST Clinical Support [facility] MEDICINE 230 [place] [address] Layla Thapa, RN 505 [place] [address] documented as of this encounter Goals Goal [...] documented as of this encounter Care Teams Knotting Machine Operator Portable Relationship Specialty Start Date End Date Kassandra Phillips MD [address] [place] [address] PCP - General Family Medicine 06/30/23 Blanco Gar, PharmD [address] [place] [address] Pharmacist Internal Medicine 12/26/23 documented as of this encounter
--- OUTSIDE RECORDS SUMMARY | 2025-07-26 17:47 | XMS_ITS | Encounter Summary ---
Author Organization [employer] Address 75 [facility] 7t [place] [address] Care Team Providers Care Lay Health Advocate Name Role Phone Kassandra Phillips MD Primary Care Provider [phone] Blanco Gar PharmD Unavailable [phone] Reason for Referral * Consultation (Routine) - Closed Specialty Diagnoses / Procedures Referred By Contac t Referred To Contact Orthopaedic Surgery Diagnoses Osteoarthritis of cervical spine, unspecified spinal osteoarthritis complication status Lumbar degenerative disc disease Kassandra Phillips MD 230 [place] [address] Phone: tel: fax: [facility] [address] [facility] [address] [place], [place] Phone: tel: fax: Referral ID Status Reason Start Date Expiration Date V isits Requested Visits Authorized [id number] Closed Specialty Services Required 09/19/2023 09/18/2024 1 1 * Imaging (Routine) - Closed Specialty Diagnoses / Procedures Referred By Contac t Referred To Contact Cardiology Diagnoses Calcification of both carotid arteries Procedures VASC US Carotid Artery Duplex Bilateral Kassandra Phillips MD 230 [place] [address] Phone: tel: fax: [facility] [address] [place], [place] Phone: tel: fax: Referral ID Status Reason Start Date Expiration Date V isits Requested Visits Authorized [id number] Closed Perform Procedure 09/19/2023 09/18/2024 1 1 Encounter Details Date Type Department Care Team (Late st Contact Info) Description 09/19/2023 Orders Only [facility] MEDICINE 230 [place] [address] Kassandra Phillips MD 230 [place] [address] Calcification of both carotid arteries (Primary Dx); [...] Description 09/04/2025 9:00 AM EST Office Visit [address] [phone] Kassandra Phillips MD 230 [place] [address] 11/15/2025 11:30 AM EST Clinical Support [address] [address] Layla Thapa, DON 505 [place], [place] [phone] Scheduled Referrals Name Type Priority Associated Diagnoses Orde r Schedule Referral to Orthopaedic Surgery Outpatient Referral Routine Osteoarthritis of cervical spine, unspecified spinal osteoarthritis complication status Lumbar degenerative disc disease Expected: 09/19/2023 (Approximate), Expires: 09/19/2024 documented as of this encounter Procedures Procedure Name Priority Date/Time Associated Diagnosis Comments [facility] US CAROTID ARTERY DUPLEX BILATERAL Routine 10/19/2023 2:39 PM EST documented in this encounter Results * [facility] US Carotid Artery Duplex Bilateral (10/19/2023 2:39 PM EST) 10/19/2023 2:39 PM EST Narrative [facility] - 10/20/2023 12:34 PM EST [address] [address] Ultrasound Report Signed Patient: Omer Lara MR#: [id number] : 1955 Acct:[id number] Age/Sex: 68 / M ADM Date: 10/19/23 Loc: . Attending Dr: Kassandra Phillips MD Ordering Physician: Kassandra Phillips MD Date of Service: 10/19/23 Procedure(s): US carotid duplex BI Accession Number(s): [id number] cc: Kassandra Phillips MD EXAMINATION: US EXTRACRANIAL [...] in OV> 10/20/23 1230 DD/ 1439 TD/TT: Rug Hooker: SUMAN Procedure Note Donotuseinterpreter, Image - 10/20/[address] [address] Ultrasound Report Signed Patient: Maria Antonia Lara#: [id number] : 7Acct:[id number] Age/Sex: 68 / MADM Date: 10/19/23 Loc: HO.US Attending Dr: Kassandra Phillips MD Ordering Physician: Kassandra Phillips MD Date of Service: 10/19/23 Procedure(s): US carotid duplex BI Accession Number(s): [id number] cc: Kassandra Phillips MD EXAMINATION: US EXTRACRANIAL [...] in OV> 10/20/23 1230 DD/ 1439 TD/TT: Rug Hooker: SUMAN us Kassandra Phillips MD CV VASCULAR PROCEDURES Final Res ult [facility] [address] [place] [address] documented in this encounter Visit Diagnoses Diagnosis Calcification of both carotid arteries- Primary Osteoarthritis of cervical spine, unspecified spinal osteoarthritis complication status Lumbar degenerative disc disease documented in this encounter Additional Health Concerns Assessment Noted Time PHQ-9 Depression Total Score: 4 06/30/20 23 9:32 AM EDT documented as of this encounter Care Teams Lay Health Advocate Relationship Specialty Start Date End Date Kassandra Phillips MD 230 [place] [address] PCP - General Family Medicine 06/30/23 Blanco Gar, SouravD 230 [place] [address] Pharmacist Internal Medicine 12/26/23 documented as of this encounter
--- OUTSIDE RECORDS SUMMARY | 2025-07-26 17:47 | XMS_ITS | Encounter Summary ---
Author Organization [employer] Address 75 [facility] 7t [place] [address] Care Team Providers Care High Raw Sugar Boiler Name Role Phone Kassandra Phillips MD Primary Care Provider [phone] Blanco Gar PharmD Unavailable [phone] Reason for Visit * Reason Comments Med Refill Encounter Details Date Type Department Care Team ([facility] st Contact Info) Description 03/11/2025 Telephone [facility] MEDICINE 230 [place], [place] [phone] Kassandra Phillips MD 230 [place], [place] [phone] Med Refill Social History Tobacco Use Types [...] encounter Miscellaneous Notes * Telephone Encounter - lCare Ortiz RN - 03/13/2025 9:20 AM EDT Telephone call to pt via [facility] language interpreter Abimael Hernandez81. Pt reports not taking Pepcid, states it does not improve his symptoms. Advised him if he has any stomach/indigestion symptoms, to contact hisGI doctor for another recommendation. Pt verbalized understanding, no further questions. documented in this encounter Plan of Treatment Upcoming Encounters Date Type Department Care Team (Late st Contact Info) Description 09/04/2025 9:00 AM EST Office Visit [facility] MEDICINE 230 [place] [address] Kassandra Phillips MD 230 [place], [place] [phone] 11/15/2025 11:30 AM EST Clinical Support [facility] MEDICINE 230 [place] [address] Layla Thapa RN 505 [place] [address] documented as of this encounter Goals Goal [...] documented as of this encounter Care Teams High Raw Sugar Boiler Relationship Specialty Start Date End Date Kassandra Phillips MD [address] [place] [address] PCP - General Family Medicine 06/30/23 Blanco Gar, PharmD [address] [place] [address] Pharmacist Internal Medicine 12/26/23 documented as of this encounter
--- OUTSIDE RECORDS SUMMARY | 2025-07-26 17:47 | XMS_ITS | Encounter Summary ---
Author Organization [employer] Address [address] [facility] [address] 7t [place] [address] Care Team Providers Care Mirror Department Supervisor Name Role Phone Kassandra Phillips MD Primary Care Provider [phone] Blanco Gar PharmD Unavailable [phone] Reason for Visit * Reason Onset Date Comments Medication Question 11/23/2024 Encounter Details Date Type Department Care Team ([facility] st Contact Info) Description 11/23/2024 Telephone [facility] MEDICINE 230 [place], [place] [phone] Kassandra Phillips MD 230 [place], [place] [phone] Medication Question Social History Tobacco Use Types [...] tablet. Contact pt at Contact pt at [phone] documented in this encounter Plan of Treatment Upcoming Encounters Date Type Department Care Team (Late st Contact Info) Description 09/04/2025 9:00 AM EST Office Visit [facility] MEDICINE [address] [place] [address] Kassandra Phillips MD [address] [place] [address] 11/15/2025 11:30 AM EST Clinical Support [facility] MEDICINE [address] [place] [address] Layla Thapa, RN 505 [place] [address] documented as of this encounter Goals Goal [...] documented as of this encounter Care Teams Mirror Department Supervisor Relationship Specialty Start Date End Date Kassandra Phillips MD [address] [place] [address] PCP - General Family Medicine 06/30/23 Blanco Gar, PharmD [address] [place] [address] Pharmacist Internal Medicine 12/26/23 documented as of this encounter
--- OUTSIDE RECORDS SUMMARY | 2025-07-26 17:47 | XMS_ITS | Encounter Summary ---
Author Organization [employer] Address 75 [facility] 7t [place] [address] Care Team Providers Care Composing Room Machinist Apprentice Name Role Phone Kassandra Phillips MD Primary Care Provider [phone] Blanco Gar PharmD Unavailable [phone] Encounter Details Date Type Department Care Team (Late st Contact Info) Description 10/30/2024 Telephone [facility] MEDICINE 230 [place], [place] [phone] Kassandra Phillips MD 230 [place], [place] [phone] Social History Tobacco Use Types Packs/Day Years [...] Description 09/04/2025 9:00 AM EST Office Visit [address] [address] Kassandra Phillips MD [address] [place] [address] 11/15/2025 11:30 AM EST Clinical Support [address] [address] Layla Thapa RN 505 [place] [address] documented as of this encounter Goals Goal [...] documented as of this encounter Care Teams Composing Room Machinist Apprentice Relationship Specialty Start Date End Date Kassandra Phillips MD 230 [place] [address] PCP - General Family Medicine 06/30/23 Blanco Gar, SouravD 230 [place] [address] Pharmacist Internal Medicine 12/26/23 documented as of this encounter
--- OUTSIDE RECORDS SUMMARY | 2025-07-26 17:47 | XMS_ITS | Encounter Summary ---
Author Organization [employer] Address [address] [facility] [address] 7t [place] [address] Care Team Providers Care Health Researcher Name Role Phone Kassandra Phillips MD Primary Care Provider [phone] Blanco Gar PharmD Unavailable [phone] Reason for Visit * Reason Onset Date Comments Med Refill 09/17/2024 Encounter Details Date Type Department Care Team (Late st Contact Info) Description 09/17/2024 Telephone [facility] MEDICINE 230 [place], [place] [phone] Kassandra Phillips MD 230 [place], [place] [phone] Med Refill Social History Tobacco Use Types [...] 50 MG tablet To be sent to: [facility][id number] documented in this encounter Plan of Treatment Upcoming Encounters Date Type Department Care Team (Late st Contact Info) Description 09/04/2025 9:00 AM EST Office Visit [facility] MEDICINE [address] [place] [address] Kassandra Phillips MD [address] [place] [address] 11/15/2025 11:30 AM EST Clinical Support [address] [address] Layla Thapa, RN 505 [place] [address] documented as of this encounter Goals Goal [...] as of this encounter Care Teams Health Researcher Relationship Specialty Start Date End Date Kassandra Phillips MD 230 [place] [address] PCP - General Family Medicine 06/30/23 Blanco Gar, PharmD [address] [place] [address] Pharmacist Internal Medicine 12/26/23 documented as of this encounter
--- OUTSIDE RECORDS SUMMARY | 2025-07-26 17:47 | XMS_ITS | Encounter Summary ---
Author Organization [employer] Address 75 [facility] 7t [place] [address] Care Team Providers Care Perinatal Nurse Name Role Phone Kassandra Phillips MD Primary Care Provider Blanco Gar PharmD Unavailable [phone] Reason for Visit * Reason Comments Med Refill Encounter Details Date Type Department Care Team ([facility] st Contact Info) Description 02/12/[address] [facility] MEDICINE 230 [place], [place] [phone] Kassandra Phillips MD 230 [place], [place] [phone] Social History Tobacco Use Types Packs/Day Years [...] 09/04/2025 9:00 AM EST Office Visit [facility] MEDICINE [address] [place] [address] Kassandra Phillips MD [address] [place] [address] 11/15/2025 11:30 AM EST Clinical Support [facility] MEDICINE [address] [place] [address] Layla Thapa RN [address] [place] [address] documented as of this encounter Goals Goal [...] documented as of this encounter Care Teams Perinatal Nurse Relationship Specialty Start Date End Date Kassandra Phillips MD 230 [place] [address] PCP - General Family Medicine 06/30/23 Blanco Gar, SouravD [address] [place] [address] Pharmacist Internal Medicine 12/26/23 documented as of this encounter
--- OUTSIDE RECORDS SUMMARY | 2025-07-26 17:47 | XMS_ITS | Encounter Summary ---
Author Organization [employer] Address [address] [facility] [address] 7t [place] [address] Care Team Providers Care Brake Machine Operator Name Role Phone Kassandra Phillips MD Primary Care Provider [phone] Blanco Gar PharmD Unavailable [phone] Encounter Details Date Type Department Care Team (Late st Contact Info) Description 11/10/2023 Telephone [facility] MEDICINE 230 [place], [place] [phone] Kassandra Phillips MD 230 [place], [place] [phone] Social History Tobacco Use Types Packs/Day Years [...] Description 09/04/2025 9:00 AM EST Office Visit [address] [address] Kassandra Phillips MD [address] [place] [address] 11/15/2025 11:30 AM EST Clinical Support [address] [address] Layla Thapa, RN 505 [place] [address] documented as of this encounter Visit Diagnoses Not on filedocumented in this encounter Additional Health Concerns Assessment Noted Time PHQ-9 Depression Total Score: 4 06/30/20 23 9:32 AM EDT documented as of this encounter Care Teams Brake Machine Operator Relationship Specialty Start Date End Date Kassandra Phillips MD [address] [place] [address] PCP - General Family Medicine 06/30/23 Blanco Gar, PharmD [address] [place] [address] Pharmacist Internal Medicine 12/26/23 documented as of this encounter
--- OUTSIDE RECORDS SUMMARY | 2025-07-26 17:47 | XMS_ITS | Encounter Summary ---
Author Organization [employer] Address 75 [facility] 7t [place] [address] Care Team Providers Care Criminal Research Specialist Name Role Phone Kassandra Phillips MD Primary Care Provider [phone] Blanco Gar PharmD Unavailable [phone] Reason for Visit * Reason Comments Med Refill Encounter Details Date Type Department Care Team ([facility] st Contact Info) Description 02/12/2025 Refill [facility] MEDICINE 230 [place], [place] [phone] Kassandra Phillips MD 230 [place], [place] [phone] Social History Tobacco Use Types Packs/Day Years [...] Description 09/04/2025 9:00 AM EST Office Visit [facility] MEDICINE [address] [place] [address] Kassandra Phillips MD [address] [place] [address] 11/15/2025 11:30 AM EST Clinical Support [facility] MEDICINE [address] [place] [address] Layla Thapa RN [address] [place] [address] documented as of this encounter Goals Goal [...] documented as of this encounter Care Teams Criminal Research Specialist Relationship Specialty Start Date End Date Kassandra Phillips MD 230 [place] [address] PCP - General Family Medicine 06/30/23 Blanco Gar, SouravD [address] [place] [address] Pharmacist Internal Medicine 12/26/23 documented as of this encounter
--- OUTSIDE RECORDS SUMMARY | 2025-07-26 17:47 | XMS_ITS | Encounter Summary ---
Author Organization [employer] Address [address] [facility] [address] 7t [place] [address] Care Team Providers Care Body And Fender Mechanic Name Role Phone Kassandra Phillips MD Primary Care Provider Blanco Gar PharmD Unavailable [phone] Encounter Details Date Type Department Care Team (Late st Contact Info) Description 11/22/2024 Orders Only [facility] MEDICINE 230 [place], [place] [phone] Kassandra Phillips MD 230 [place], [place] [phone] Anemia, unspecified type (Primary Dx); Cervical spondylosis; [...] 09/04/2025 9:00 AM EST Office Visit [address] [address] Kassandra Phillips MD [address] [place] [address] 11/15/2025 11:30 AM EST Clinical Support [facility] MEDICINE [address] [place] [address] Layla Thapa RN 505 [place] [address] documented as of this encounter Goals Goal [...] Free T4 0.94 0.32 - 4.0 uIU/mL [facility] Blood 11/27/2024 1:19 PM EST 11/27/2024 4:04 PM EST us Kassandra Phillips MD LAB BLOOD ORDERABLES Final Resul t [facility] [address] [place] [phone] * (ABNORMAL) Vitamin B12 (Cobalamin) and Folate Panel, Serum (11/27/2024 1:19 PM EST) Vitamin B12 1,470(H) 200 - 900 pg/mL [facility] Comment:NORMAL 200-900 PG/ML INDETERMINATE 160-199 PG/ML DEFICIENT < 160 PG/ML Folate 12.4 > or = 4.0 ng/mL [facility] Comment:Reference Values:> o r = 4.0 ng/mL< 4.0 ng/mL suggests folate deficiency Methotrexate, aminopterin and folinic acid(leucovorin) are chemotherapeutic agents whose molecularstructures are similar to folate; therefore, the Architectfolate assay cannot be used for patients using these drugs. Blood 11/27/2024 1:1 9 PM EST 11/27/2024 4:04 PM EST Kassandra Phillips MD LAB BLOOD ORDERABLES Final Resul t Performing Organization Address [facility] Number [facility] [address] [place] [phone] * TSH with Reflex to Free T4 (11/22/2024 12:07 PM EST) TSH reflex Free T4 1.68 0.32 - 4.0 uIU/mL [facility] 11/22/2024 12:0 7 PM EST 11/22/2024 12:51 PM EST Generic External Data Provider LAB BLOOD ORDERAB LES Final Result Performing Organization Address [facility] Number [facility] [address] [place] [phone] * Ferritin (11/22/2024 12:07 PM EST) Ferritin 141 20 - 250 ng/mL [facility] 11/22/2024 12:0 7 PM EST 11/22/2024 12:51 PM EST Generic External Data Provider LAB BLOOD ORDERAB LES Final Result Performing Organization Address [facility] Number [facility] [address] [place] [phone] documented in this encounter Visit Diagnoses Diagnosis Anemia, unspecified type- Primary Cervical spondylosis Cervical spondylosis without myelopathy Neck pain Cervicalgia Chronic bilateral low back pain, unspecified whether sciatica present documented in this encounter Additional Health Concerns Assessment Noted Time PHQ-9 Depression Total Score: 1 08/13/20 24 12:59 PM EST documented as of this encounter Care Teams Body And Fender Mechanic Relationship Specialty Start Date End Date Kassandra Phillips MD 230 [place] [address] PCP - General Family Medicine 06/30/23 Blanco Gar, SouravD [address] [place] [address] Pharmacist Internal Medicine 12/26/23 documented as of this encounter
--- OUTSIDE RECORDS SUMMARY | 2025-07-26 17:48 | XMS_ITS | Encounter Summary ---
Author Organization [employer] Address 75 [facility] 7t [place] [address] Care Team Providers Care Family Dentist Name Role Phone Kassandra Phillips MD Primary Care Provider [phone] Blanco Gar PharmD Unavailable [phone] Reason for Visit * Reason Onset Date Comments Med Refill 12/19/2024 Encounter Details Date Type Department Care Team (Late st Contact Info) Description 12/19/2024 Telephone [facility] MEDICINE [address] [place], [place] [phone] Kassandra Phillips MD [address] [place], [place] [phone] Med Refill Social History Tobacco Use Types [...] immediate release tablet To be sent to: [facility]/pharmacy #[address] [place] [address] documented in this encounter Plan of Treatment Upcoming Encounters Date Type Department Care Team (Late st Contact Info) Description 09/04/2025 9:00 AM EST Office Visit [facility] [address] [place] [address] Kassandra Phillips MD [address] [place], [place] [phone] 11/15/2025 11:30 AM EST Clinical Support [facility] [address] [place] [address] Layla Thapa, RN 505 [place] [address] documented as of this encounter Goals Goal [...] as of this encounter Care Teams Family Dentist Relationship Specialty Start Date End Date Kassandra Phillips MD [address] [place] [address] PCP - General Family Medicine 06/30/23 Blanco Gar, PharmD [address] [place] [address] Pharmacist Internal Medicine 12/26/23 documented as of this encounter
--- OUTSIDE RECORDS SUMMARY | 2025-07-26 17:48 | XMS_ITS | Encounter Summary ---
Author Organization [employer] Address 75 [facility] 7 [place] [address] Care Team Providers Care Waitress Name Role Phone Kassandra Phillips MD Primary Care Provider [phone] Blanco Gar PharmD Unavailable [phone] Reason for Visit * Reason Comments Med Refill Encounter Details Date Type Department Care Team ([facility] st Contact Info) Description 01/14/2025 Refill [facility] MEDICINE 230 [place], [place] [phone] Naida Hobson MD 230 [place], [place] [phone] Social History Tobacco Use Types Packs/Day Years [...] 09/04/2025 9:00 AM EST Office Visit [address] [address] Kassandra Phillips MD [address] [place] [address] 11/15/2025 11:30 AM EST Clinical Support [facility] [address] [place] [address] Layla Thapa RN [address] [place] [address] documented as of this encounter Goals Goal [...] documented as of this encounter Care Teams Waitress Relationship Specialty Start Date End Date Kassandra Phillips MD 230 [place] [address] PCP - General Family Medicine 06/30/23 Blanco Gar, SouravD [address] [place] [address] Pharmacist Internal Medicine 12/26/23 documented as of this encounter
--- OUTSIDE RECORDS SUMMARY | 2025-07-26 17:48 | XMS_ITS | Encounter Summary ---
Author Organization [employer] Address 75 [facility] 7t [place] [address] Care Team Providers Care Flocculator Operator Name Role Phone Kassandra Phillips MD Primary Care Provider [phone] Blanco Gar PharmD Unavailable [phone] Reason for Visit * Reason Onset Date Comments Med Refill 11/22/2024 Encounter Details Date Type Department Care Team (Late st Contact Info) Description 11/22/2024 Telephone [facility] MEDICINE 230 [place], [place] [phone] Kassandra Phillips MD 230 [place], [place] [phone] Med Refill Social History Tobacco Use Types [...] immediate release tablet To be sent to: [facility] Pharm[facility] - [address] [place] [address]. Pt's spouse states that [facility] #[id number] [place], [place] does not have the medication in stock and requested that the medication be sent to another pharmacy. [employer] called to [address] [place] [address] and Med is available. documented in this encounter Plan of Treatment Upcoming Encounters Date Type Department Care Team ([facility] st Contact Info) Description 09/04/2025 9:00 AM EST Office Visit [address] [address] Kassandra Phillips MD [address] [place] [address] 11/15/2025 11:30 AM EST Clinical Support [address] [address] Layla Thapa, DON 505 [place] [address] documented as of this encounter Goals Goal [...] documented as of this encounter Care Teams Flocculator Operator Relationship Specialty Start Date End Date Kassandra Phillips MD [address] [place] [address] PCP - General Family Medicine 06/30/23 Blanco Gar, PharmD [address] [place] [address] Pharmacist Internal Medicine 12/26/23 documented as of this encounter
== END 2025-07-26 07:07 | disposition home or self-care (01) ==
LOC: HO.LNP 07:06
PROVIDERS: PCP Otolaryngology; Visit Provider Internal Medicine Gastroenterology
DX: K21.9 Gastro-esophageal reflux disease without esophagitis (principal); K59.00 Constipation, unspecified; R14.0 Abdominal distension (gaseous); R68.81 Early satiety; R10.10 Upper abdominal pain, unspecified; Z86.19 Personal history of other infectious and parasitic diseases
CPT/HCPCS: 83013; 99212

== ENCOUNTER 2025-07-26 07:06 | Outpatient (AMB) | payer MEDICARE, SELFPAY ==
--- OUTSIDE RECORDS SUMMARY | 2025-07-26 07:08 | XMS_ITS | Encounter Summary ---
Author Organization [employer] Address 75 [facility] 7t [place] [address] Care Team Providers Care Aboriginal Home School Liaison Officer Name Role Phone Kassandra Phillips MD Primary Care Provider [phone] Blanco Gar PharmD Unavailable [phone] Reason for Visit * Reason Comments Med Refill Encounter Details Date Type Department Care Team ([facility] st Contact Info) Description 09/20/2024 Refill [facility] 230 [place], [place] [phone] Kassandra Phillips MD 230 [place], [place] [phone] Social History Tobacco Use Types Packs/Day Years [...] Care Team (Late st Contact Info) Description 09/04/2025 9:00 AM EST Office Visit [facility] [address] [place] [address] Kassandra Phillips MD [address] [place] [address] 11/15/2025 11:30 AM EST Clinical Support [facility] [address] [place] [address] Layla Thapa RN [address] [place] [address] documented as of this encounter Goals Goal [...] documented as of this encounter Care Teams [employer] Liaison Officer Relationship Specialty Start Date End Date Kassandra Phillips MD 230 [place] [address] PCP - General Family Medicine 06/30/23 Blanco Gar, SouravD [address] [place] [address] Pharmacist Internal Medicine 12/26/23 documented as of this encounter
--- OUTSIDE RECORDS SUMMARY | 2025-07-26 07:08 | XMS_ITS | Encounter Summary ---
Author Organization [employer] Address 75 [facility] 7t [place] [address] Care Team Providers Care Elderly Companion Name Role Phone Kassandra Phillips MD Primary Care Provider [phone] Blanco Gar PharmD Unavailable [phone] Reason for Visit * Reason Comments Med Refill Encounter Details Date Type Department Care Team ([facility] st Contact Info) Description 02/29/2024 Refill [facility] 230 [place], [place] [phone] Kassandra Phillips MD 230 [place], [place] [phone] Social History Tobacco Use Types Packs/Day Years [...] Description 09/04/2025 9:00 AM EST Office Visit [address] [address] Kassandra Phillips MD [address] [place] [address] 11/15/2025 11:30 AM EST Clinical Support [address] [address] Layla Thapa, DON 505 [place] [address] documented as of this encounter Goals Goal [...] documented as of this encounter Care Teams Elderly Companion Relationship Specialty Start Date End Date Kassandra Phillips MD [address] [place] [address] PCP - General Family Medicine 06/30/23 Blanco Gar, PharmD [address] [place] [address] Pharmacist Internal Medicine 12/26/23 documented as of this encounter
--- OUTSIDE RECORDS SUMMARY | 2025-07-26 07:08 | XMS_ITS | Encounter Summary ---
Author Organization [employer] Address 75 [facility] 7t [place] [address] Care Team Providers Care Union Laborer Name Role Phone Kassandra Phillips MD Primary Care Provider [phone] Blanco Gar PharmD Unavailable [phone] Reason for Visit * Reason Onset Date Comments Med Refill 06/20/2024 Encounter Details Date Type Department Care Team ([facility] st Contact Info) Description 06/20/2024 Telephone [facility] 230 [place], [place] [phone] Kassandra Phillips MD 230 [place], [place] [phone] Med Refill Social History Tobacco Use Types [...] 50 MG tablet To be sent to: [facility][id number] [place], [place] - [address] [place] [address] AT [facility] documented in this encounter Plan of Treatment Upcoming Encounters Date Type Department Care Team (Late st Contact Info) Description 09/04/2025 9:00 AM EST Office Visit [facility] [address] [place] [address] Kassandra Phillips MD [address] [place] [address] 11/15/2025 11:30 AM EST Clinical Support [facility] [address] [place] [address] Layla Thapa RN 505 [place] [address] documented as of this encounter Goals Goal [...] documented as of this encounter Care Teams Union Laborer Relationship Specialty Start Date End Date Kassandra Phillips MD 230 [place] [address] PCP - General Family Medicine 06/30/23 Blanco Gar, SouravD 230 [place] [address] Pharmacist Internal Medicine 12/26/23 documented as of this encounter
--- OUTSIDE RECORDS SUMMARY | 2025-07-26 07:08 | XMS_ITS | Clinical Summary ---
Author Organization [employer] Address [address] 7[address] [place] [address] Care Team Providers Care Agricultural Engineering Technologist Name Role Phone Kassandra Phillips MD Primary Care Provider [phone] Blanco Gar PharmD Unavailable [phone] Allergies No known active allergies Medications Blood [...] for cravings 110 each 12/26/19 24 Active Diclofenac Sodium 1 % gel APPLY TOPICALLY TO THE AFFECTED AREA DAILY 100 g 2 04/13/20 24 Active pantoprazole (Protonix) 40 MG EC tablet Take 1 tablet (40 mg) by mouth before breakfast. Do not crush, chew, or split. 30 tablet 11 05/21/20 24 Active gabapentin (Neurontin) 600 MG tablet [...] AT NIGHT 60 tablet 02/13/20 25 Active atorvastatin (Lipitor) 20 MG tabletIndicati ons:Routine general medical examination at a health care facility TAKE 1 TABLET(20 MG) BY MOUTH AT BEDTIME 90 tablet 3 06/21/20 25 Active oxyCODONE (Roxicodone) 5 MG immediate release tabletIndicati ons:Chronic bilateral low back pain, unspecified whether sciatica present,Neck pain,Cervical spondylosis Take 1 tablet (5 mg) by mouth every 8 (eight) hours if needed for severe pain. 84 tablet 07/11/20 25 Active Acetaminophen Extra Strength 500 MG tablet TAKE 2 TABLETS BY MOUTH EVERY 8 HOURS NEEDED FOR MODERATE PAIN OR FEVER 60 tablet 3 07/15/20 25 Active Acetaminophen Extra Strength 500 MG tablet TAKE 2 TABLETS BY MOUTH EVERY 8 HOURS NEEDED FOR MODERATE PAIN OR FEVER 60 tablet 3 07/30/20 24 025 Discontinued oxyCODONE (Roxicodone) 5 MG immediate release tabletIndicati ons:Chronic bilateral low back pain, unspecified whether sciatica present,Neck pain,Cervical spondylosis Take 1 tablet (5 mg) by mouth every 8 (eight) hours if needed for severe pain. Do not start before June 14, 2025. 84 tablet 06/14/20 25 025 Discontinued(R eorder (will not trigger notification to Pharmacy)) Active Problems Problem Noted Date Diagnosed Date Long-term current use of opiate analgesic 2024 Assessment & Plan (06/14/2025 5:27 PM EDT): - followed by TECHNICAL SUPPORT ANALYST program - patient reported hard stool to his GI - senna is prescribed by GI - continue healthy diet and adequate water intake Chronic pain of both knees 05/21/2024 Assessment & Plan (03/10/2025 12:25 PM EDT): -likely arthritic in nature Assessment & Plan (05/21/2024 11:41 AM EDT): -likely arthritic in nature -ordered XR to further evaluate Gastroesophageal reflux disease 05/21/2024 Assessment & Plan (08/19/2024 2:12 PM EST): -followed by [facility], last seen in Jul 2024 -H. [...] plan Abdominal pain 12/04/2023 Assessment & Plan (06/14/2025 5:26 PM EDT): - following with [facility] - EGD on 08/07/24 was positive for H. Pylori, which he completed eradication treatment - colonoscopy in Jul 2024 showed a benign polyp - Most recent H. Pylori breath test was negative in May 2025 - Previously tried medications: omeprazole; famotidine; rabeprazole; metoclopramide - Last AAA screening doppler in 2022 showed no AAA. It showed atherosclerosis - However, he has vasculopathy. Will evaluate with CT angiogram for vascular cause of pain. Assessment & Plan (03/10/2025 12:18 PM EDT): [...] and colonoscopy Hypertension 10/30/2023 Assessment & Plan (06/14/2025 5:15 PM EDT): -Goal BP < 130 per ACC/AHA -BP elevated today, possibly due to pain, but patient reports elevated BP at home as well -Continue working on lifestyle modifications -Continue amlodipine 5 mg daily (increased in Nov 2024) -Recommended self-monitoring BP. - Return for BP check with our nurse in 3 weeks. If home SBP is above 140 or office SBP is above 145, increase amlodipine to 10 mg daily or add olmesartan 20 mg daily (we can eventually change to amlodipine / olmesartan combo 5/20 mg daily). Assessment & Plan (03/10/2025 12:18 PM EDT): [...] Carotid stenosis, right 10/20/2023 Assessment & Plan (06/14/2025 5:16 PM EDT): - following with Dr. Coy, [facility] - carotid US on 10/19/23, showed [...] 04/02/24. - most recent post CEA US in February 2025, no hemodynamically significant stenosis bilateral. - Optimize risk factor management Assessment & Plan (03/05/2025 1:36 PM EDT): - following with Dr. Coy, [facility] - carotid US on 10/19/23, showed [...] PM EST): - following with Dr. Coy, [facility] - carotid US on 10/19/23, showed [...] stenosis by velocity criteria. - Seen by [facility] vascular specialist, Dr. Coy, on 01/05/24. CTA [...] factor management Dyslipidemia 09/14/2023 Assessment & Plan (06/14/2025 5:16 PM EDT): - Lipid profile on 11/22/24 TC 134; TG 161; HDL 45; LDL 57 - continue working on lifestyle modification - continue atorvastatin 20 mg at bedtime (started in Jun 2023 for 10-year ASCVD risk 23%) Assessment & Plan (03/06/2025 10:14 PM EDT): [...] 23%) Neck pain 09/14/2023 Assessment & Plan (06/14/2025 5:31 PM EDT): - multifactorial, cervical spondylosis / DDD, cervical spinal stenosis - MRI in Nov 2024 showed moderate central canal stenosis and multilevel neural foraminal narrowing - diclofenac gel - change tramadol to oxycodone since tramadol was ineffective - currently on oxycodone 5 mg bid; will increase to tid. Agreed that this is the maximum - continue following with TECHNICAL SUPPORT ANALYST visit - continue judicious use of Gabapentin, and encouraged to taper down and off - evaluated by relationship specialist. Patient tried PT, but it was not covered by his insurance Assessment & Plan (03/10/2025 12:23 PM EDT): - multifactorial, cervical spondylosis / DDD, cervical spinal stenosis - MRI in Nov 2024 showed moderate central canal stenosis and multilevel neural foraminal narrowing - diclofenac gel - change tramadol to oxycodone since tramadol was ineffective - currently on oxycodone 5 mg nightly; agreed to increase to bid. - continue following with TECHNICAL SUPPORT ANALYST visit - continue judicious use of Gabapentin, and encouraged to taper down and off - refer to relationship specialist Assessment & Plan (11/22/2024 11:58 PM [...] imaging or referral to pain management and/or relationship specialist Assessment & Plan (09/14/2023 3:47 PM EST): - multifactorial - evaluate with X-ray - trapezius muscle spasm - add cyclobenzaprine prn - apply lidocaine patch - refer to PT - reassess symptoms in 3 mo to see if he needs further imaging or referral to pain management and/or relationship specialist Back pain 09/14/2023 Assessment & Plan (06/14/2025 5:29 PM EDT): - X-ray in Sep 2023 [...] oxycodone - Currently on oxycodone 5 mg bid, will increase to tid. Agreed that this is the maximum. Patient verbalized understanding - Reviewed TECHNICAL SUPPORT ANALYST program engagement and agreement Assessment & Plan (03/10/2025 12:26 PM EDT): [...] nightly; will increase to bid - Reviewed TECHNICAL SUPPORT ANALYST program engagement and agreement - refer to relationship specialist Assessment & Plan (11/24/2024 5:21 PM [...] gabapentin - switch tramadol to oxycodone - TECHNICAL SUPPORT ANALYST appt Assessment & Plan (08/19/2024 2:18 PM [...] check the status of MRI order - TECHNICAL SUPPORT ANALYST appt Assessment & Plan (05/21/2024 11:42 AM [...] 20 pack years 06/30/2023 Assessment & Plan (06/14/2025 5:30 PM EDT): - low-dose chest CT through [facility] lung cancer screening program - Last CT on 11/18/23 Lung RADS 1 - Advised to call for next CT appt Assessment & Plan (03/05/2025 1:39 PM EDT): - low-dose chest CT through [facility] lung cancer screening program - Last CT on 11/18/23 Lung RADS 1 Assessment & Plan (11/22/2024 11:57 PM EST): - low-dose chest CT through [facility] lung cancer screening program - Last CT on 11/18/23 Lung RADS 1 Assessment & Plan (08/19/2024 2:13 PM EST): - low-dose chest CT through [facility] lung cancer screening program - Last CT on 11/18/23 Lung RADS 1 Assessment & Plan (05/21/2024 9:51 AM EDT): - low-dose chest CT through [facility] lung cancer screening program - Last CT on 11/18/23 Lung RADS 1 Assessment & Plan (02/08/2024 9:14 PM EDT): - low-dose chest CT through [facility] lung cancer screening program - Last CT on 11/18/23 Lung RADS 1 Assessment & Plan (09/14/2023 3:51 PM EST): - low-dose chest CT through [facility] lung cancer screening program - pt states he will go to get CT done and is thinking about smoking cessation Assessment & Plan (06/30/2023 5:32 PM EDT): - low-dose chest CT through [facility] lung cancer screening program Resolved Problems Problem Noted Date Diagnosed Date Resolved Date Health care maintenance 09/14/2023 05/0 10/2023 Assessment & Plan (09/14/2023 4:24 AM EST): - Colonoscopy: Referred - AAA screening US on 07/25/23 negative Encounters Date Type Department Care Team Description 07/14/2025 Refill [facility] [address] [place] [address] Kassandra Phillips MD 07/12/2025 11:00 AM EDT Clinical Support [facility] [address] [facility] [place] [address] Layla Thapa RN Chronic pain of both knees (Primary Dx) 07/12/2025 Travel 07/10/2025 Refill [facility] [address] [facility] [place] [address] Layla Thapa RN Chronic bilateral low back pain, unspecified whether sciatica present; Neck pain; Cervical spondylosis 07/10/2025 Telephone [facility] [address] [place] [phone] Kassandra Phillips MD Med Refill 07/02/2025 1:00 PM EDT Clinical Support [address] [address] Clare Ortiz RN Hypertension, unspecified type 07/02/2025 Travel 06/21/[address] [address] Kassandra Phillips MD Routine general medical examination at a health care facility 06/12/2025 Refill [facility] [address] [facility] [place] [address] Kassandra Phillips MD Chronic bilateral low back pain, unspecified whether sciatica present; Neck pain; Cervical spondylosis 06/04/2025 2:15 PM EDT Office Visit [address] [place] [address] Kassandra Phillips MD Hypertension, unspecified type (Primary Dx); Epigastric pain; Pain of upper abdomen; Dyslipidemia; Carotid stenosis, right; Long-term current use of opiate analgesic; Neck pain; Chronic bilateral low back pain, unspecified whether sciatica present; Smoking greater than 20 pack years 06/04/2025 Travel 05/24/2025 Refill [facility] [address] [place] [address] Kassandra Phillips MD Chronic bilateral low back pain, unspecified whether sciatica present; Neck pain; Cervical spondylosis 04/29/2025 10:00 AM EDT Telemedicine [facility] [address] [place] [address] Layla Thapa RN Other chronic back pain 04/29/2025 Travel 04/25/2025 Refill [facility] [address] [place] [address] Kassandra Phillips MD Chronic bilateral low back pain, unspecified whether sciatica present; Neck pain; Cervical spondylosis from Last 3 Months Immunizations Immunization Administration [...] Sign Reading Time Taken Comments Blood Pressure 128/78 07/02/2025 1:05 PM EDT Pulse 90 07/02/2025 1:05 PM EDT Temperature 36.4 C (97.6 F) 06/04/2025 2:22 PM EDT Respiratory Rate 16 07/02/2025 1:05 PM EDT Oxygen Saturation 95% 07/02/2025 1:05 PM EDT room air Inhaled Oxygen Concentration - - Weight 67.6 kg (149 lb) 06/04/2025 2:22 PM EDT Height 165.1 cm (5' 5 ) 06/04/2025 2:22 PM EDT Body Mass Index 24.79 06/04/2025 2:22 PM EDT Plan of Treatment Upcoming Encounters Date Type Department Care Team (Late st Contact Info) Description 09/04/2025 9:00 AM EST Office Visit [facility] [address] [place] [address] Kassandra Phillips MD [address] [place] [address] 11/15/2025 11:30 AM EST Clinical Support [facility] [address] [place] [address] Layla Thapa, RN [address] [facility] [place] [address] Health Maintenance Due Date Last Done Comments [...] Comments POCT JOSE-14 URINE DRUG SCREEN Routine 07/12/2025 10:49 AM EDT Chronic pain of both knees HEMOGLOBIN A1C Routine 11/22/2024 12:07 PM EST [...] Relevant to Health Maintenance Results * (ABNORMAL) POCT JOSE-14 Urine Drug Screen (07/12/2025 10:49 AM EDT) THC Negative Negative Cocaine Screen, Urine Negative Negative Opiate Screen, Urine Negative Negative Methamphetamine Screen Urine Negative Negative Amphetamine Screen, Urine Negative Negative Benzodiazepines Screen, Urine Negative Negative Barbiturate Screen, Urine Negative Negative Methadone Screen, Urine Negative Negative Buprenophine Screen, Urine Negative Negative TCA, Urine Negative Negative MDMA Urine Negative Negative ng/mL Oxycodone Screen, Urine Positive(A) Negative Phencyclidine (PCP), Urine Negative Negative Propoxyphene, Urine Negative Negative Fentanyl, Urine Negative Negative Urine Urine specimen obtained by clean catch procedure / Unknown 07/12/2025 10:49 AM EDT Narrative Layla Thapa RN - 07/12/2025 10:49 AM EDT .UTOX cup Lot#[id number] Exp. 07/16/26 Internal Pass Control Kassandra Phillips MD POINT OF CARE TEST ENTER/EDIT OR DERABLES Final Result * (ABNORMAL) Lipid Panel with Reflex to Direct LDL (11/22/2024 12:07 PM EST) Triglycerides 161(H) <150 mg/dL [facility] Comment:Desirable Triglyceri de: less than 150 mg/dLBorderline High Triglyceride 150-199 mg/dLHigh Triglyceride: 200-499 mg/dLVery High Triglyceride: greater than or equal to 5OO mg/dL Cholesterol 134 <200 mg/dL [facility] Comment:Desirable Cholestero l: less than 200 mg/dLBorderline High Cholesterol: 200-239 mg/dLHigh Cholesterol: greater than 239 mg/dL LDL Cholesterol Calculated 57 <100 mg/dL [facility] Comment:Desirable LDL: less than 100 mg/dLNear Optimal/Above Optimal LDL: 110- 129 mg/dLBorderline High LDL: 130-159 mg/dLHigh LDL: 160-189 mg/dLVery High LDL: greater than or equal to 190 mg/dL HDL Cholesterol 45 >40 mg/dL [facility] Comment:Desirable HDL: great er than 40 mg/dL Note: This HDL assay may give artificially low results in patients with liver disease. Blood 11/22/2024 12:0 7 PM EST 11/22/2024 12:51 PM EST Kassandra Phillips MD LAB BLOOD ORDERABLES Final Resul t Performing Organization Address City/State/[facility] Co de Phone Number [facility] [address] [place] [phone] * Hemoglobin A1c (11/22/2024 12:07 PM EST) Hemoglobin A1c 5.7 <6.0 % [facility] Comment:Hemoglobin A1C Refer ence Range Adults: 4.8 - 6.0 % Non diabetic: < 6.0 % Goal: < 7.0 %Additional Action Suggested: > 8.0 %Note: Hemoglobin A1c results are invalid for patients with abnormal amounts of HbF. Blood transfusions may impact the HbA1c concentration in the patient sample. Estimated Average Glucose 117 mg/dL [facility] Comment:eAG = Estimated ave rage glucose which is %A1C expressed asaverage glucose, using the formula of the Z0F-AldxzfvQxkfgnm Glucose study (ADAG), Diabetes Care, Vol.31,#8,May. 2007 Blood Venous blood specimen / Unknown 11/22/2024 12:07 PM EST 11/22/2024 12:51 PM EST Kassandra Phillips MD LAB BLOOD ORDERABLES Final Resul t Performing Organization Address [facility] Co de Phone Number [facility] [address] [place] [phone] * (ABNORMAL) Hm Colonoscopy (08/07/2024) Colonoscopy Abnormal(A ) Normal 08/07/2024 us Historical Provider HEALTH MAINTENANCE Final Result * CT Lung Screening Low dose (11/18/2023 11:57 AM EST) Anatomical Region Laterality Modality Lung Computed Tomogra phy 11/18/2023 11:5 7 AM EST Narrative 11/22/2023 3:09 PM EST [address] [address] [address] Scan Report Signed Patient: Omer Lara MR#: [id number] : 1955 Acct:[id number] Age/Sex: 68 / M ADM Date: 11/18/23 Loc: HO.CT Attending Dr: Laura Tinajero NP Ordering Physician: Laura Tinajero NP Date of Service: 11/18/23 Procedure(s): CT lung screening Accession Number(s): [id number] cc: Kassandra Phillips MD; Laura Tinajero NP [...] iterative reconstruction technique DLP: 43 mGy-cm FINDINGS: WELDER EXPERIMENTAL: Clear lungs. LUNGS: Mild biapical pleural thickening. [...] in OV> 11/22/23 1505 DD/ 1157 TD/TT: Tack Maker: Procedure Note Donotuseinterpreter, Image - 11/22/[address] [address] [address] Scan Report Signed Patient: Maria Antonia Lara#: [id number] : 7Acct:[id number] Age/Sex: 68 / MADM Date: 11/18/23 Loc: HO.CT Attending Dr: Laura Tinajero NP Ordering Physician: Laura Tinajero NP Date of Service: 11/18/23 Procedure(s): CT lung screening Accession Number(s): [id number] cc: Kassandra Phillips MD; Laura Tinajero NP [...] iterative reconstruction technique DLP: 43 mGy-cm FINDINGS: WELDER EXPERIMENTAL: Clear lungs. LUNGS: Mild biapical pleural thickening. [...] in OV> 11/22/23 1505 DD/ 1157 TD/TT: Tack Maker: [facility] External Provider IMG CT PROCEDURES Final Result * Hepatitis C Antibody with Reflex to HCV, RNA, Quantitative, Real-Time PCR (06/30/2023 10:33 AM EDT) Hepatitis C Antibody Nonreactive Nonreactive [facility] Comment:Antibodies to HCV no t detected; does not exclude early acuteHCV infection. Blood Venous blood specimen / Unknown 06/30/2023 10:33 AM EDT 06/30/2023 11:20 AM EDT Kassandra Phillips MD LAB BLOOD ORDERABLES Final Resul t [facility] [address] [place] [phone] [phone] from Last 3 Months or Most Recently Relevant to Health Maintenance Insurance [facility] MEDICARE ADVANTAGE Care Teams Agricultural Engineering Technologist Relationship Specialty Start Date End Date Kassandra Phillips MD [address] [place] [phone] PCP - General Family Medicine 06/30/23 Blanco Gar, PharmD [address] [place] [address] [place] [phone] Pharmacist Internal Medicine 12/26/23
--- OUTSIDE RECORDS SUMMARY | 2025-07-26 07:09 | XMS_ITS | Encounter Summary ---
Author Organization [employer] Address [address] [facility] 7t [place] [address] Care Team Providers Care Inventory Clerk Name Role Phone Kassandra Phillips MD Primary Care Provider [phone] Blanco Gar PharmD Unavailable [phone] Reason for Visit * Reason Onset Date Comments Med Refill 11/22/2024 Encounter Details Date Type Department Care Team (Late st Contact Info) Description 11/22/[address] [facility] [address] [place], [place] [phone] Kassandra Phillips MD [address] [place], [place] [phone] Med Refill Social History Tobacco Use Types [...] immediate release tablet To be sent to: [facility] - [address] [place] [phone]. Pt's spouse states that [id number] [place], [place] does not have the medication in stock and requested that the medication be sent to another pharmacy. [employer] called to [address] [place] [address] and Med is available. documented in this encounter Plan of Treatment Upcoming Encounters Date Type Department Care Team ([facility] st Contact Info) Description 09/04/2025 9:00 AM EST Office Visit [address] [address] Kassandra Phillips MD [address] [place] [phone] 11/15/2025 11:30 AM EST Clinical Support [address] [address] Layla Thapa, DON [address] [place] [address] documented as of this encounter Goals Goal [...] documented as of this encounter Care Teams Inventory Clerk Relationship Specialty Start Date End Date Kassandra Phillips MD [address] [place] [phone] PCP - General Family Medicine 06/30/23 Blanco Gar, PharmD [address] [place] [phone] Pharmacist Internal Medicine 12/26/23 documented as of this encounter
--- OUTSIDE RECORDS SUMMARY | 2025-07-26 07:09 | XMS_ITS | Encounter Summary ---
Author Organization [employer] Address [address] [facility] 7t [place] [address] Care Team Providers Care Arbor Press Operator Name Role Phone Kassandra Phillips MD Primary Care Provider Blanco Gar PharmD Unavailable [phone] Reason for Visit * Reason Comments Med Refill Encounter Details Date Type Department Care Team ([facility] st Contact Info) Description 02/12/2025 Refill [facility] [address] [place], [place] [phone] Kassandra Phillips MD [address] [place], [place] [phone] Social History Tobacco Use Types Packs/Day Years [...] Description 09/04/2025 9:00 AM EST Office Visit [facility] [address] [place] [phone] Kassandra Phillips MD [address] [place] [phone] 11/15/2025 11:30 AM EST Clinical Support [facility] [address] [place] [phone] Layla Thapa RN [address] [place] [phone] documented as of this encounter Goals Goal [...] documented as of this encounter Care Teams Arbor Press Operator Relationship Specialty Start Date End Date Kassandra Phillips MD [address] [place] [address] PCP - General Family Medicine 06/30/23 Blanco Gar, SouravD [address] [place] [phone] Pharmacist Internal Medicine 12/26/23 documented as of this encounter
--- OUTSIDE RECORDS SUMMARY | 2025-07-26 07:09 | XMS_ITS | Encounter Summary ---
Author Organization [employer] Address [address] [facility] 7t [place] [address] Care Team Providers Care Roofing Layer Name Role Phone Kassandra Phillips MD Primary Care Provider [phone] Blanco Gar PharmD Unavailable [phone] Reason for Visit * Reason Comments Med Refill Encounter Details Date Type Department Care Team ([facility] st Contact Info) Description 01/24/2024 Refill [facility] [address] [place], [place] [phone] Naida Hobson MD 230 [place], [place] [phone] Social History Tobacco Use Types Packs/Day Years [...] Description 09/04/2025 9:00 AM EST Office Visit [address] [address] Kassandra Phillips MD [address] [place] [phone] 11/15/2025 11:30 AM EST Clinical Support [address] [address] Layla Thapa, RN 505 [place] [address] documented as of this encounter Goals Goal [...] documented as of this encounter Care Teams Roofing Layer Relationship Specialty Start Date End Date Kassandra Phillips MD [address] [place] [phone] PCP - General Family Medicine 06/30/23 Blanco Gar, PharmD 230 [place] [address] Pharmacist Internal Medicine 12/26/23 documented as of this encounter
--- OUTSIDE RECORDS SUMMARY | 2025-07-26 07:09 | XMS_ITS | Encounter Summary ---
Author Organization [employer] Address 75 [facility] 7t [place] [address] Care Team Providers Care University Professor Name Role Phone Kassandra Phillips MD Primary Care Provider [phone] Blanco Gar PharmD Unavailable [phone] Reason for Visit * Reason Onset Date Comments Med Refill 07/10/2025 Encounter Details Date Type Department Care Team ([facility] st Contact Info) Description 07/10/[address] [facility] [address] [place], [place] [phone] Kassandra Phillips MD 230 [place], [place] [phone] Med Refill Social History Tobacco Use Types [...] * Telephone Encounter - Karen Bernardo - 07/10/2025 11:11 AM EDT TC from pt requesting medication refill. Medications needing refill : oxyCODONE (Roxicodone) 5 MG immediate release tablet To be sent to: [id number] - [place], [place] - [address] [facility] documented in this encounter Plan of Treatment Upcoming Encounters Date Type Department Care Team ([facility] st Contact Info) Description 09/04/2025 9:00 AM EST Office [address] [facility] [address] [place] [address] Kassandra Phillips MD 230 [place] [address] 11/15/2025 11:30 AM EST [address] [facility] [address] [place] [address] Layla Thapa, RN 505 [place] [address] documented as of this encounter Goals Goal [...] documented as of this encounter Care Teams University Professor Relationship Specialty Start Date End Date Kassandra Phillips MD [address] [place] [address] PCP - General Family Medicine 06/30/23 Blanco Gar, PharmD [address] [place] [address] Pharmacist Internal Medicine 12/26/23 documented as of this encounter
--- OUTSIDE RECORDS SUMMARY | 2025-07-26 07:09 | XMS_ITS | Encounter Summary ---
Author Organization [employer] Address 75 [facility] 7t [place] [address] Care Team Providers Care Home Health Care Social Worker Name Role Phone Kassandra Phillips MD Primary Care Provider [phone] Blanco Gar PharmD Unavailable [phone] Reason for Referral * Consultation (Routine) - Closed Specialty Diagnoses / Procedures Referred By Contac t Referred To Contact Orthopaedic Surgery Diagnoses Osteoarthritis of cervical spine, unspecified spinal osteoarthritis complication status Lumbar degenerative disc disease Kassandra Phillips MD 230 [place] [address] Phone: tel: fax: [facility] [address] [facility] 1st [place], [place] Phone: tel: fax: Referral ID Status Reason Start Date Expiration Date V isits Requested Visits Authorized [id number] Closed Specialty Services Required 09/19/2023 09/18/2024 1 1 * Imaging (Routine) - Closed Specialty Diagnoses / Procedures Referred By Contac t Referred To Contact Cardiology Diagnoses Calcification of both carotid arteries Procedures VASC US Carotid Artery Duplex Bilateral Kassandra Phillips MD [address] [place] [address] Phone: tel: fax: [facility] [address] [place], [place] Phone: tel: fax: Referral ID Status Reason Start Date Expiration Date V isits Requested Visits Authorized [id number] Closed Perform Procedure 09/19/2023 09/18/2024 1 1 Encounter Details Date Type Department Care Team (Late st Contact Info) Description 09/19/2023 Orders Only [facility] MEDICINE 230 [place] [address] Kassandra Phillips MD 230 [place] [address] Calcification of both carotid arteries (Primary Dx); [...] Description 09/04/2025 9:00 AM EST Office Visit [address] [phone] Kassandra Phillips MD 230 [place] [address] 11/15/2025 11:30 AM EST Clinical Support [address] [address] Layla Thapa, DON 505 [place], [place] [phone] Scheduled Referrals Name Type Priority Associated Diagnoses Orde r Schedule Referral to Orthopaedic Surgery Outpatient Referral Routine Osteoarthritis of cervical spine, unspecified spinal osteoarthritis complication status Lumbar degenerative disc disease Expected: 09/19/2023 (Approximate), Expires: 09/19/2024 documented as of this encounter Procedures Procedure Name Priority Date/Time Associated Diagnosis Comments [facility] US CAROTID ARTERY DUPLEX BILATERAL Routine 10/19/2023 2:39 PM EST documented in this encounter Results * [facility] US Carotid Artery Duplex Bilateral (10/19/2023 2:39 PM EST) 10/19/2023 2:39 PM EST Narrative [facility] - 10/20/2023 12:34 PM EST [address] [address] Ultrasound Report Signed Patient: Omer Lara MR#: [id number] : 1955 Acct:[id number] Age/Sex: 68 / M ADM Date: 10/19/23 Loc: . Attending Dr: Kassandra Phillips MD Ordering Physician: Kassandra Phillips MD Date of Service: 10/19/23 Procedure(s): US carotid duplex BI Accession Number(s): [id number] cc: Kassandra Phillips MD EXAMINATION: US EXTRACRANIAL [...] in OV> 10/20/23 1230 DD/ 1439 TD/TT: Claims Specialist: SUMAN Procedure Note Donotuseinterpreter, Image - 10/20/[address] [address] Ultrasound Report Signed Patient: Maria Antonia Lara#: [id number] : 7Acct:[id number] Age/Sex: 68 / MADM Date: 10/19/23 Loc: HO.US Attending Dr: Kassandra Phillips MD Ordering Physician: Kassandra Phillips MD Date of Service: 10/19/23 Procedure(s): US carotid duplex BI Accession Number(s): [id number] cc: Kassandra Phillips MD EXAMINATION: US EXTRACRANIAL [...] in OV> 10/20/23 1230 DD/ 1439 TD/TT: Claims Specialist: SUMAN us Kassandra Phillips MD CV VASCULAR PROCEDURES Final Res ult [facility] [address] [place] [phone] documented in this encounter Visit Diagnoses Diagnosis Calcification of both carotid arteries- Primary Osteoarthritis of cervical spine, unspecified spinal osteoarthritis complication status Lumbar degenerative disc disease documented in this encounter Additional Health Concerns Assessment Noted Time PHQ-9 Depression Total Score: 4 06/30/20 23 9:32 AM EDT documented as of this encounter Care Teams Home Health Care Social Worker Relationship Specialty Start Date End Date Kassandra Phillips MD 230 [place] [address] PCP - General Family Medicine 06/30/23 Blanco Gar, SouravD [address] [place] [address] Pharmacist Internal Medicine 12/26/23 documented as of this encounter
--- OUTSIDE RECORDS SUMMARY | 2025-07-26 07:09 | XMS_ITS | Encounter Summary ---
Author Organization [employer] Address 75 [facility] 7t [place] [address] Care Team Providers Care Clinical Research Director Name Role Phone Kassandra Phillips MD Primary Care Provider [phone] Blanco Gar PharmD Unavailable [phone] Reason for Visit * Reason Onset Date Comments Med Refill 02/11/2025 Encounter Details Date Type Department Care Team (Late st Contact Info) Description 02/11/2025 Telephone [facility] MEDICINE 230 [place], [place] [phone] Kassandra Phillips MD 230 [place], [place] [phone] Med Refill Social History Tobacco Use Types [...] immediate release tablet To be sent to: [id number] [place], [place] - [address] [facility] documented in this encounter Plan of Treatment Upcoming Encounters Date Type Department Care Team ([facility] st Contact Info) Description 09/04/2025 9:00 AM EST Office Visit [facility] 230 [place] [address] Kassandra Phillips MD 230 [place], [place] [phone] 11/15/2025 11:30 AM EST Clinical Support [facility] 230 [place] [address] Layla Thapa RN 505 [place] [address] documented as of this encounter Goals Goal [...] documented as of this encounter Care Teams Clinical Research Director Relationship Specialty Start Date End Date Kassandra Phillips MD 230 [place] [address] PCP - General Family Medicine 06/30/23 Blanco Gar, PharmD [address] [place] [address] Pharmacist Internal Medicine 12/26/23 documented as of this encounter
--- OUTSIDE RECORDS SUMMARY | 2025-07-26 07:09 | XMS_ITS | Encounter Summary ---
Author Organization [employer] Address [address] [facility] [address] 7t [place] [address] Care Team Providers Care Service Crew Leader Name Role Phone Kassandra Phillips MD Primary Care Provider [phone] Blacno Gar PharmD Unavailable [phone] Reason for Visit * Reason Onset Date Comments Medication Question 11/23/2024 Encounter Details Date Type Department Care Team ([facility] st Contact Info) Description 11/23/2024 Telephone [facility] MEDICINE 230 [place], [place] [phone] Kassandra Phillips MD 230 [place], [place] [phone] Medication Question Social History Tobacco Use Types [...] tablet. Contact pt at Contact pt at [phone] documented in this encounter Plan of Treatment Upcoming Encounters Date Type Department Care Team (Late st Contact Info) Description 09/04/2025 9:00 AM EST Office Visit [facility] [address] [place] [address] Kassandra Phillips MD [address] [place] [address] 11/15/2025 11:30 AM EST Clinical Support [facility] [address] [place] [address] Layla Thapa, RN 505 [place] [address] documented as of this encounter Goals Goal [...] documented as of this encounter Care Teams Service Crew Leader Relationship Specialty Start Date End Date Kassandra Phillips MD [address] [place] [address] PCP - General Family Medicine 06/30/23 Blanco Gar, PharmD [address] [place] [address] Pharmacist Internal Medicine 12/26/23 documented as of this encounter
--- OUTSIDE RECORDS SUMMARY | 2025-07-26 07:09 | XMS_ITS | Encounter Summary ---
Author Organization [employer] Address 75 [facility] 7t [place] [address] Care Team Providers Care Teachers' Aide Name Role Phone Kassandra Phillips MD Primary Care Provider [phone] Blanco Gar PharmD Unavailable [phone] Reason for Visit * Reason Comments Med Refill Encounter Details Date Type Department Care Team ([facility] st Contact Info) Description 03/11/2025 Telephone [facility] MEDICINE 230 [place], [place] [phone] Kassandra Phillips MD 230 [place], [place] [phone] Med Refill Social History Tobacco Use Types [...] AM EDT Telephone call to pt via [facility] picture engraver Abimael Hernandez81. Pt reports not taking Pepcid, states it does not improve his symptoms. Advised him if he has any stomach/indigestion symptoms, to contact hisGI doctor for another recommendation. Pt verbalized understanding, no further questions. documented in this encounter Plan of Treatment Upcoming Encounters Date Type Department Care Team (Late st Contact Info) Description 09/04/2025 9:00 AM EST Office Visit [facility] MEDICINE 230 [place] [address] Kassandra Phillips MD 230 [place], [place] [phone] 11/15/2025 11:30 AM EST Clinical Support [facility] MEDICINE 230 [place] [address] Layla Thapa RN 505 [place] [address] documented as of this encounter Goals Goal [...] documented as of this encounter Care Teams Teachers' Aide Relationship Specialty Start Date End Date Kassandra Phillips MD [address] [place] [address] PCP - General Family Medicine 06/30/23 Blanco Gar, PharmD [address] [place] [address] Pharmacist Internal Medicine 12/26/23 documented as of this encounter
--- OUTSIDE RECORDS SUMMARY | 2025-07-26 07:09 | XMS_ITS | Encounter Summary ---
Author Organization [employer] Address 75 [facility] 7t [place] [address] Care Team Providers Care Customizer Name Role Phone Kassandra Phillips MD Primary Care Provider [phone] Blanco Gar PharmD Unavailable [phone] Reason for Visit * Reason Onset Date Comments Med Refill 12/19/2024 Encounter Details Date Type Department Care Team (Late st Contact Info) Description 12/19/2024 Telephone [facility] MEDICINE 230 [place], [place] [phone] Kassandra Phillips MD 230 [place], [place] [phone] Med Refill Social History Tobacco Use Types [...] immediate release tablet To be sent to: [facility]/pharmacy [address] [place] [address] documented in this encounter Plan of Treatment Upcoming Encounters Date Type Department Care Team (Late st Contact Info) Description 09/04/2025 9:00 AM EST Office Visit [facility] MEDICINE 230 [place] [address] Kassandra hPillips MD 230 [place], [place] [phone] 11/15/2025 11:30 AM EST Clinical Support [facility] MEDICINE [address] [place] [address] Layla Thapa, RN 505 [place] [address] documented as of this encounter Goals Goal [...] documented as of this encounter Care Teams Customizer Relationship Specialty Start Date End Date Kassandra Phillips MD [address] [place] [address] PCP - General Family Medicine 06/30/23 Blanco Gar, PharmD [address] [place] [address] Pharmacist Internal Medicine 12/26/23 documented as of this encounter
--- OUTSIDE RECORDS SUMMARY | 2025-07-26 07:09 | XMS_ITS | Encounter Summary ---
Author Organization [employer] Address 75 [facility] [address]t [place] [address] Care Team Providers Care Oliving Machine Operator Name Role Phone Kassandra Phillips MD Primary Care Provider [phone] Blanco Gar PharmD Unavailable [phone] Reason for Visit * Reason Comments Med Refill Encounter Details Date Type Department Care Team ([facility] st Contact Info) Description 02/12/2025 Refill [facility] MEDICINE 230 [place], [place] [phone] Kassandra Phillips MD 230 [place], [place] [phone] Social History Tobacco Use Types Packs/Day Years [...] Description 09/04/2025 9:00 AM EST Office Visit [facility] MEDICINE [address] [place] [address] Kassanrda Phillips MD [address] [place] [address] 11/15/2025 11:30 AM EST Clinical Support [facility] MEDICINE [address] [place] [address] Layla Thapa RN [address] [place] [address] documented as of this encounter Goals Goal [...] documented as of this encounter Care Teams Oliving Machine Operator Relationship Specialty Start Date End Date Kassandra Phillips MD 230 [place] [address] PCP - General Family Medicine 06/30/23 Blanco Gar, SouravD [address] [place] [address] Pharmacist Internal Medicine 12/26/23 documented as of this encounter
--- OUTSIDE RECORDS SUMMARY | 2025-07-26 07:09 | XMS_ITS | Encounter Summary ---
Author Organization [employer] Address 75 [facility] 7t [place] [address] Care Team Providers Care Curb And Gutter Laborer Name Role Phone Kassandra Phillips MD Primary Care Provider [phone] Blanco Gar PharmD Unavailable [phone] Reason for Visit * Reason Comments Med Refill Encounter Details Date Type Department Care Team ([facility] st Contact Info) Description 01/23/2024 Refill [facility] MEDICINE 230 [place], [place] [phone] Kassandra Phillips MD 230 [place], [place] [phone] Social History Tobacco Use Types Packs/Day Years [...] Description 09/04/2025 9:00 AM EST Office Visit [address] [address] Kassandra Phillips MD [address] [place] [address] 11/15/2025 11:30 AM EST Clinical Support [address] [address] Layla Thapa, DON 505 [place] [address] documented as of this encounter Goals Goal [...] documented as of this encounter Care Teams Curb And Gutter Laborer Relationship Specialty Start Date End Date Kassandra Phillips MD [address] [place] [address] PCP - General Family Medicine 06/30/23 Blanco Gar, PharmD [address] [place] [address] Pharmacist Internal Medicine 12/26/23 documented as of this encounter
--- OUTSIDE RECORDS SUMMARY | 2025-07-26 07:09 | XMS_ITS | Encounter Summary ---
Author Organization [employer] Address [address] [facility] [address] 7t [place] [address] Care Team Providers Care Social Work Assistant Name Role Phone Kassandra Phillips MD Primary Care Provider [phone] Blanco Gar PharmD Unavailable [phone] Encounter Details Date Type Department Care Team (Late st Contact Info) Description 11/22/2024 Orders Only [facility] MEDICINE 230 [place], [place] [phone] Kassandra Phillips MD 230 [place], [place] [phone] Anemia, unspecified type (Primary Dx); Cervical spondylosis; [...] Description 09/04/2025 9:00 AM EST Office Visit [address] [address] Kassandra Phillips MD [address] [place] [address] 11/15/2025 11:30 AM EST Clinical Support [facility] MEDICINE [address] [place] [address] Layla Thapa RN 505 [place] [address] documented as of this encounter Goals Goal [...] Free T4 0.94 0.32 - 4.0 uIU/mL [facility] Blood 11/27/2024 1:19 PM EST 11/27/2024 4:04 PM EST us Kassandra Phillips MD LAB BLOOD ORDERABLES Final Resul t [facility] [address] [place] [phone] * (ABNORMAL) Vitamin B12 (Cobalamin) and Folate Panel, Serum (11/27/2024 1:19 PM EST) Vitamin B12 1,470(H) 200 - 900 pg/mL [facility] Comment:NORMAL 200-900 PG/ML INDETERMINATE 160-199 PG/ML DEFICIENT < 160 PG/ML Folate 12.4 > or = 4.0 ng/mL [facility] Comment:Reference Values:> o r = 4.0 ng/mL< 4.0 ng/mL suggests folate deficiency Methotrexate, aminopterin and folinic acid(leucovorin) are chemotherapeutic agents whose molecularstructures are similar to folate; therefore, the Architectfolate assay cannot be used for patients using these drugs. Blood 11/27/2024 1:1 9 PM EST 11/27/2024 4:04 PM EST Kassandra Phillips MD LAB BLOOD ORDERABLES Final Resul t Performing Organization Address [facility] Number [facility] [address] [place] [phone] * TSH with Reflex to Free T4 (11/22/2024 12:07 PM EST) TSH reflex Free T4 1.68 0.32 - 4.0 uIU/mL [facility] 11/22/2024 12:0 7 PM EST 11/22/2024 12:51 PM EST Generic External Data Provider LAB BLOOD ORDERAB LES Final Result Performing Organization Address [facility] Number [facility] [address] [place] [phone] * Ferritin (11/22/2024 12:07 PM EST) Ferritin 141 20 - 250 ng/mL [facility] 11/22/2024 12:0 7 PM EST 11/22/2024 12:51 PM EST Generic External Data Provider LAB BLOOD ORDERAB LES Final Result Performing Organization Address [facility] Number [facility] [address] [place] [phone] documented in this encounter Visit Diagnoses Diagnosis Anemia, unspecified type- Primary Cervical spondylosis Cervical spondylosis without myelopathy Neck pain Cervicalgia Chronic bilateral low back pain, unspecified whether sciatica present documented in this encounter Additional Health Concerns Assessment Noted Time PHQ-9 Depression Total Score: 1 08/13/20 24 12:59 PM EST documented as of this encounter Care Teams Social Work Assistant Relationship Specialty Start Date End Date Kassandra Phillips MD 230 [place] [address] PCP - General Family Medicine 06/30/23 Blanco Gar, SouravD [address] [place] [address] Pharmacist Internal Medicine 12/26/23 documented as of this encounter
--- OUTSIDE RECORDS SUMMARY | 2025-07-26 07:09 | XMS_ITS | Encounter Summary ---
Author Organization [employer] Address [address] [facility] [address] 7t [place] [address] Care Team Providers Care Toll Booth Operator Name Role Phone Kassandra Phillips MD Primary Care Provider [phone] Blanco Gar PharmD Unavailable [phone] Encounter Details Date Type Department Care Team (Late st Contact Info) Description 10/20/2023 Orders Only [facility] MEDICINE 230 [place], [place] [phone] Kassandra Phillips MD 230 [place], [place] [phone] Carotid stenosis, right Social History Tobacco Use [...] 09/04/2025 9:00 AM EST Office Visit [address] [address] Kassandra Phillips MD 230 [place] [address] 11/15/2025 11:30 AM EST Clinical Support [address] [address] Layla Thapa, DON 505 [place] [address] documented as of this encounter Procedures Procedure Name Priority Date/Time Associated Diagnosis Comments LDCT LUNG SCREENING Routine 11/18/2023 1 1:57 AM EST documented in this encounter Results * CT Lung Screening Low dose (11/18/2023 11:57 AM EST) Anatomical Region Laterality Modality Lung Computed Tomogra phy 11/18/2023 11:5 7 AM EST Narrative 11/22/2023 3:09 PM EST [address] [address] [address] Scan Report Signed Patient: Omer Lara MR#: [id number] : 1955 Acct:[id number] Age/Sex: 68 / M ADM Date: 11/18/23 Loc: HO.CT Attending Dr: Laura Tinajero NP Ordering Physician: Laura Tinajero NP Date of Service: 11/18/23 Procedure(s): CT lung screening Accession Number(s): [id number] cc: Kassandra Phillips MD; Laura Tinajero NP [...] iterative reconstruction technique DLP: 43 mGy-cm FINDINGS: LIGHT CLEANER: Clear lungs. LUNGS: Mild biapical pleural thickening. [...] in OV> 11/22/23 1505 DD/ 1157 TD/TT: Biological Aide: Procedure Note Bhaveshter, Image - 11/22/[address] [address] [address] Scan Report Signed Patient: Maria Antonia Lara#: [id number] : 1955cct:[id number] Age/Sex: 68 / MADM Date: 11/18/23 Loc: HO.CT Attending Dr: Laura Tinajero NP Ordering Physician: Laura Tinajero NP Date of Service: 11/18/23 Procedure(s): CT lung screening Accession Number(s): [id number] cc: Kassandra Phillips MD; Laura Tinajero NP [...] iterative reconstruction technique DLP: 43 mGy-cm FINDINGS: LIGHT CLEANER: Clear lungs. LUNGS: Mild biapical pleural thickening. [...] in OV> 11/22/23 1505 DD/ 1157 TD/TT: Biological Aide: [facility] External Provider IMG CT PROCEDURES Final Result documented in this encounter Visit Diagnoses Diagnosis Carotid stenosis, right Occlusion and stenosis of carotid artery without mention of cerebral infarction documented in this encounter Additional Health Concerns Assessment Noted Time PHQ-9 Depression Total Score: 4 06/30/20 23 9:32 AM EDT documented as of this encounter Care Teams Toll Booth Operator Relationship Specialty Start Date End Date Kassandra Phillips MD 230 [place] [address] PCP - General Family Medicine 06/30/23 Blanco Gar, Julianne 230 [place] [address] Pharmacist Internal Medicine 12/26/23 documented as of this encounter
--- OUTSIDE RECORDS SUMMARY | 2025-07-26 07:09 | XMS_ITS | Encounter Summary ---
Author Organization [employer] Address 75 [facility] 7t [place] [address] Care Team Providers Care District Plant Supervisor Name Role Phone Kassandra Phillips MD Primary Care Provider [phone] Blanco Gar PharmD Unavailable [phone] Reason for Visit * Reason Comments Med Refill Encounter Details Date Type Department Care Team ([facility] st Contact Info) Description 06/04/2024 Refill [facility] MEDICINE 230 [place], [place] [phone] Madison Elizondo MD 230 [place], [place] [phone] Social History Tobacco Use Types Packs/Day Years [...] 09/04/2025 9:00 AM EST Office Visit [address] [address] Kassandra Phillips MD [address] [place] [address] 11/15/2025 11:30 AM EST Clinical Support [address] [address] Layla Thapa RN 505 [place] [address] documented as of this encounter Goals Goal [...] documented as of this encounter Care Teams District Plant Supervisor Relationship Specialty Start Date End Date Kassandra Phillips MD [address] [place] [address] PCP - General Family Medicine 06/30/23 Blanco Gar PharmD [address] [place] [address] Pharmacist Internal Medicine 12/26/23 documented as of this encounter
--- OUTSIDE RECORDS SUMMARY | 2025-07-26 07:09 | XMS_ITS | Encounter Summary ---
Author Organization [employer] Address [address] [facility] [address] 7t [place] [address] Care Team Providers Care Senior Ux Designer Name Role Phone Kassandra Phillips MD Primary Care Provider [phone] Blanco Gar PharmD Unavailable [phone] Encounter Details Date Type Department Care Team (Late st Contact Info) Description 11/10/2023 Telephone [facility] MEDICINE 230 [place], [place] [phone] Kassandar Phillips MD [address] [place], [place] [phone] Social History Tobacco Use Types Packs/Day Years [...] Description 09/04/2025 9:00 AM EST Office Visit [address] [address] Kassandra Phillips MD [address] [place] [address] 11/15/2025 11:30 AM EST Clinical Support [address] [address] Layla Thapa, RN 505 [place] [address] documented as of this encounter Visit Diagnoses Not on filedocumented in this encounter Additional Health Concerns Assessment Noted Time PHQ-9 Depression Total Score: 4 06/30/20 23 9:32 AM EDT documented as of this encounter Care Teams Senior Ux Designer Relationship Specialty Start Date End Date Kassandra Phillips MD [address] [place] [address] PCP - General Family Medicine 06/30/23 Blanco Gar, PharmD [address] [place] [address] Pharmacist Internal Medicine 12/26/23 documented as of this encounter
--- OUTSIDE RECORDS SUMMARY | 2025-07-26 07:09 | XMS_ITS | Encounter Summary ---
Author Organization [employer] Address 75 [facility] 7t [place] [address] Care Team Providers Care Professor Of Architecture Name Role Phone Kassandra Phillips MD Primary Care Provider [phone] Blanco Gar PharmD Unavailable [phone] Encounter Details Date Type Department Care Team (Late st Contact Info) Description 10/30/2024 Telephone [facility] MEDICINE 230 [place], [place] [phone] Kassandra Phillips MD 230 [place], [place] [phone] Social History Tobacco Use Types Packs/Day Years [...] Description 09/04/2025 9:00 AM EST Office Visit [address] [address] Kassandra Phillips MD [address] [place] [address] 11/15/2025 11:30 AM EST Clinical Support [address] [address] Layla Thapa RN 505 [place] [address] documented as of this encounter Goals Goal [...] documented as of this encounter Care Teams Professor Of Architecture Relationship Specialty Start Date End Date Kassandra Phillips MD 230 [place] [address] PCP - General Family Medicine 06/30/23 Blanco Gar, SouravD 230 [place] [address] Pharmacist Internal Medicine 12/26/23 documented as of this encounter
--- OUTSIDE RECORDS SUMMARY | 2025-07-26 07:09 | XMS_ITS | Encounter Summary ---
Author Organization [employer] Address 75 [facility] 7t [place] [address] Care Team Providers Care Personnel Research Scientist Name Role Phone Kassandra Phillips MD Primary Care Provider [phone] Blanco Gar PharmD Unavailable [phone] Reason for Referral * Imaging (Routine) - Closed Specialty Diagnoses / Procedures Referred By Contac t Referred To Contact Radiology Diagnoses Chronic bilateral low back pain, unspecified whether sciatica present Procedures MR Lumbar Spine w/o Contrast Kassandra Phillips MD 230 [place] [address] Phone: tel: fax: [address] Phone: tel: fax: Referral ID Status Reason Start Date Expiration Date Visits Re quested Visits Authorized [id number] Closed 05/24/2024 05/24/2025 1 1 Encounter Details Date Type Department Care Team (Late st Contact Info) Description 05/24/2024 Orders Only [facility] MEDICINE [address] [place] [phone] Kassandra Phillips MD 230 [place], [place] [phone] Chronic bilateral low back pain, unspecified whether [...] 9:00 AM EST Office Visit [facility] MEDICINE [address] [place] [address] Kassandra Phillips MD 230 [place] [address] 11/15/2025 11:30 AM EST Clinical Support [facility] MEDICINE [address] [place] [address] Layla Thapa RN 505 [place] [address] documented as of this encounter Goals Goal [...] PM EST Narrative 10/15/2024 10:02 AM EST [address] [address] Magnetic Resonance Report Signed Patient: Omer Lara MR#: [id number] : 1955 Acct:[id number] Age/Sex: 69 / M ADM Date: 10/14/24 Loc: HO.MRI Attending Dr: Kassandra Phillips MD Ordering Physician: Kassandra Phillips MD Date of Service: 10/14/24 Procedure(s): MR lumbar spine wo con Accession Number(s): [id number] cc: Kassandra Phillips MD Workstation: [email or web address] EXAMINATION: MR LUMBAR SPINE WITHOUT IV CONTRAST [...] 10/15/24 0959 DD/ 1507 TD/TT: 10/14/24 1521 Recovery Engineer: Procedure Note Donotuseinterpreter, Image - 10/15/[address] [address] Magnetic Resonance Report Signed Patient: Kostas PeterMaria Antonia#: [id number] : 1955cct:[id number] Age/Sex: 69 / MADM Date: 10/14/24 Loc: HO.MRI Attending Dr: Kassandra Phillips MD Ordering Physician: Kassandra Phillips MD Date of Service: 10/14/24 Procedure(s): MR lumbar spine wo con Accession Number(s): [id number] cc: Kassandra Phillips MD Workstation: [email or web address] EXAMINATION: MR LUMBAR SPINE WITHOUT IV CONTRAST [...] 10/15/24 0959 DD/ 1507 TD/TT: 10/14/24 1521 Recovery Engineer: Kassandra Phillips MD IMG MRI PROCEDURES Edited Result - Final documented in this encounter Visit Diagnoses Diagnosis Chronic bilateral low back pain, unspecified whether sciatica present- Primary documented in this encounter Additional Health Concerns Assessment Noted Time PHQ-9 Depression Total Score: 4 06/30/20 23 9:32 AM EDT documented as of this encounter Care Teams Personnel Research Scientist Relationship Specialty Start Date End Date Kassandra Phillips MD 230 [place] [address] PCP - General Family Medicine 06/30/23 Blanco Gar, Julianne 230 [place] [address] Pharmacist Internal Medicine 12/26/23 documented as of this encounter
--- OUTSIDE RECORDS SUMMARY | 2025-07-26 07:09 | XMS_ITS | Encounter Summary ---
Author Organization [employer] Address [address] [facility] [address] 7t [place] [address] Care Team Providers Care Sewer System Supervisor Name Role Phone Kassandra Phillips MD Primary Care Provider [phone] Blanoc Gar PharmD Unavailable [phone] Reason for Visit * Reason Onset Date Comments Med Refill 09/17/2024 Encounter Details Date Type Department Care Team (Late st Contact Info) Description 09/17/2024 Telephone [facility] MEDICINE 230 [place], [place] [phone] Kassandra Phillips MD 230 [place], [place] [phone] Med Refill Social History Tobacco Use Types [...] 50 MG tablet To be sent to: [facility][id number] documented in this encounter Plan of Treatment Upcoming Encounters Date Type Department Care Team (Late st Contact Info) Description 09/04/2025 9:00 AM EST Office Visit [facility] MEDICINE [address] [place] [phone] Kassandra Phillips MD [address] [place] [address] 11/15/2025 11:30 AM EST Clinical Support [address] [address] Layla Thapa, RN 505 [place] [address] documented as of this encounter Goals Goal [...] documented as of this encounter Care Teams Sewer System Supervisor Relationship Specialty Start Date End Date Kassandra Phillips MD 230 [place] [address] PCP - General Family Medicine 06/30/23 Blanco Gar, PharmD [address] [place] [address] Pharmacist Internal Medicine 12/26/23 documented as of this encounter
--- OUTSIDE RECORDS SUMMARY | 2025-07-26 07:09 | XMS_ITS | Encounter Summary ---
Author Organization [employer] Address 75 [facility] 7 [place] [address] Care Team Providers Care Cooling Pan Tender Name Role Phone Kassandra Phillips MD Primary Care Provider [phone] Blanco Gar PharmD Unavailable [phone] Reason for Visit * Reason Comments Med Refill Encounter Details Date Type Department Care Team ([facility] st Contact Info) Description 01/14/2025 Refill [facility] MEDICINE 230 [place], [place] [phone] Naida Hobson MD 230 [place], [place] [phone] Social History Tobacco Use Types Packs/Day Years [...] Description 09/04/2025 9:00 AM EST Office Visit [address] [address] Kassandra Phillips MD [address] [place] [address] 11/15/2025 11:30 AM EST Clinical Support [facility] MEDICINE [address] [place] [address] Layla Thapa RN [address] [place] [address] documented as of this encounter Goals Goal [...] documented as of this encounter Care Teams Cooling Pan Tender Relationship Specialty Start Date End Date Kassandra Phillips MD 230 [place] [address] PCP - General Family Medicine 06/30/23 Blanco Gar, SouravD [address] [place] [address] Pharmacist Internal Medicine 12/26/23 documented as of this encounter
--- OUTSIDE RECORDS SUMMARY | 2025-07-26 07:09 | XMS_ITS | Encounter Summary ---
Author Organization [employer] Address 75 [facility] 7t [place] [address] Care Team Providers Care Construction Accountant Name Role Phone Kassandra Phillips MD Primary Care Provider [phone] Blanco Gar PharmD Unavailable [phone] Encounter Details Date Type Department Care Team (Late st Contact Info) Description 07/01/2023 Orders Only [facility] MEDICINE [address] [place] [address] [phone] Kassandra Phillips MD [address] [place] [address] [phone] Anemia, unspecified type (Primary Dx) Social History [...] Description 09/04/2025 9:00 AM EST Office Visit [facility] MEDICINE [address] [place] [address] [phone] Kassandra Phillips MD [address] [place] [address] [phone] 11/15/2025 11:30 AM EST Clinical Support [facility] MEDICINE 230 [place] [address] Layla Thapa, RN 505 [place] [address] Scheduled Orders Name Type Priority Associated Diagnoses [...] documented as of this encounter Care Teams Construction Accountant Relationship Specialty Start Date End Date Kassandra Phillips MD [address] [place] [address] PCP - General Family Medicine 06/30/23 Blanco Gar, Julianne [address] [place] [phone] Pharmacist Internal Medicine 12/26/23 documented as of this encounter
--- NOTE | 2025-07-26 07:26 | MHC.OFFVIS ---
Vital Signs 07/26/25 07:40 Height 5 ft 5 in Weight 149 lb BMI 24.8 BP 137/72 Blood Pressure Location Lt brachial Position Sitting Pulse 77 Pulse Oximetry (%) 97 Oxygen Delivery Method Room Air Intake Visit Reasons: 2nd opinion/January for Epigastric pain Intake Note: Patient complex 2nd opinion follow up for epigastric pain/January patient Patient cc: chronic abdominal pain with chronic burning sensation when he lie face up/patient stop January medications due was not helping him, constipation with hard stool and painful BM and he said he is not able to do any BM sometimes for 2/3 dates. Patient stop med Senna and AcipHex. Mounting Inspector Required: Yes Mounting Inspector Name: Serina [id number] Accompanied by: Self / Same As Patient Allergies No Known Allergies Allergy (Verified 09/19/25 12:06) Medication List - Last Reconciled 07/26/25 by Ben Ricci MD acetaminophen 1,000 mg PO Q8H PRN amlodipine 5 mg PO DAILY atorvastatin 20 mg PO BEDTIME diclofenac sodium 1% grams topical DAILY gabapentin 600 mg PO DAILY oxycodone mg PO DAILY rabeprazole (AcipHex) 20 mg PO BID HPI HPI 2nd opinion/January for Epigastric pain: Details: GI clinic visit for this 69 M referred by Niki Borrego NP for a 2nd opinion for chronic epigastric pain TODAY'S VISIT: Pt complains of burning epigastric pain x approx 5 years. Notes burning upper abd pain (10/10) when he is lying down and looks up - pain can last for hours Pt denies radiation of the pain to the back or shoulder - does have chronic neck pain Pain resolves when he wakes up Denies association of pain with food intake Sometimes he does not eat because he does'nt feel hungry - admits to early satiety Sometimes eats at 2 or 3 pm Also complains of gas and bloating. Complains of constipation with passage of hard stools -denies rectal bleeding Has a BM daily with incomplete evacuation. Denies change in abdominal pain after a BM and passage of gas. Patient denies symptoms of heartburn, dysphagia, nausea, vomiting. Denies recent change in bowel habits, diarrhea, black stools or rectal bleeding. Takes oxycodone three times a day for neck pain. Patient denies major cardiac or pulmonary problems, loud snoring or sleep apnea Denies problems with anesthesia in the past. Denies being on chronic anticoagulation. Wt gain of 13 lbs over the past year. 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 Lives with his FAMILY HISTORY: Dad (59 yrs) and a brother (? age 70) of stomach cancer Patient denies known family history of other GI malignancies. [facility] - mild anemia, iron studies suggestive of anemia of chronic disease IMAGING STUDIES: 09/2024 ABD US SHOWED: 1. No ultrasound explanation for patient's pain symptoms. 2. No evidence of gallbladder disease or gallstones. 3. Atheromatous plaques of the abdominal aorta. ENDOSCOPIC STUDIES: 07/2024 EGD and colonoscopy were performed and findings as noted. PAST GI HISTORY BY REVIEW OF MEDICAL RECORDS: 06/2025 PATIENT WAS LAST SEEN BY NIKI BORREGO FINGERNAIL SCULPTURER: Plan In short, Mr. Kenyon has had a burning sensation in the epigastrium, ?like I am hungry? for quite some time that has not responded to eradication of his H pylori infection, treatment with famotidine or omeprazole or rabeprazole. We also tried metoclopramide to see if gastric rumination was part of the problem as well as laxatives to see if constipation was causing the issue. He has had an unremarkable ultrasound for gallstones. He does have comorbid rather severe degenerative disc disease of the cervical and lumbar spine so musculoskeletal contribution is a possibility. In 2023 he had an EGD with results as follows: Esophagus: GE junction at 40 cms. Mildly tortuous esophagus without stricture or ring. No esophagitis or Krueger's Stomach: Moderate diffuse gastric erythema with decreased fundal folds - biopsies were obtained from the gastric body and antrum. A 5-6 mm calcified nodule in the gastric body - biopsied. Grade 2 flap valve on retroflexed examination of the cardia. A. Small bowel, biopsy: Duodenal mucosa within normal limits. B. Stomach, antrum, biopsy: Reactive gastropathy with background mild chronic inactive inflammation. C. Stomach, body, biopsy: - Oxyntic mucosa with severe chronic active inflammation. - Positive for H pylori. D. Stomach, nodule, biopsy: Antral-type mucosa with moderate chronic active inflammation. E. Cecum, polypectomy: Fragments of sessile serrated lesion/polyp; negative for cytologic dysplasia Since I have not been able to help him with this problem, and I have run out of ideas I would like for him to see 1 of our physicians for 2nd opinion to see if there is something that I am missing. He can return to my care depending on what they think or what his course of treatment baby going forward. [facility] Medical History Nicotine dependence, cigarettes, uncomplicated Colon cancer screening HTN (hypertension) Gastric pain Back pain Arthritis Anemia Elevated cholesterol Surgical History Hx of colonoscopy History of esophagogastroduodenoscopy (EGD) S/P carotid endarterectomy (04/02/24) Hx of cataract surgery Family History Father Stomach cancer Brother Stomach cancer Social History Household Members: Spouse Housing: Apartment Are you a primary healthcare consultant to a significant other at home: No Do you presently have visiting nurse or other home services: No Alcohol intake: former Comment: quit 20 years ago Patient Tobacco Use Status: Former Tobacco user Tobacco use type: Cigarette Cigarettes Per Day: 10 service: No Review of Systems Const All systems reviewed & are unremarkable except as noted in HPI and below Physical Exam Vital Signs: Last Vital Signs Pulse 77 07/26/25 07:40 BP 137/72 07/26/25 07:40 Pulse Ox 97 07/26/25 07:40 Oxygen Delivery Method Room Air 07/26/25 07:40 BMI result Body Mass Index 24.8 Const General: healthy appearing and no acute distress Nutritional Appearance: average body habitus Orientation/consciousness: patient oriented x3 Limitations: no limitations HEENT Head: Yes normal to inspection Ears: hearing grossly normal bilaterally Eyes Sclerae: sclerae normal Pupils: Equal, round and reactive pupils present Neck Neck: Yes normal visual inspection Chest Chest palpation & inspection: normal inspection of the chest Resp Effort & Inspection: normal respiratory effort Auscultation: clear to auscultation bilaterally Cardio Palpation: normal PMI Rate: regular rate Rhythm: regular rhythm Heart sounds: S1 normal heart sound present, S2 normal heart sound present and no murmurs GI Palpation (GI): Soft to palpation, nontender and No hepatosplenomegaly present Auscultation: normal bowel sounds Rectal Exam - Male: Yes deferred Skin General skin exam: no rashes or lesions noted Neuro General: patient oriented x3, gait normal and moves all extremities Cranial nerves: Yes Equal, round and reactive pupils present Psych Appearance: grossly normal Mental Status: mental status grossly normal Assessment & Plan Assessment & Plan (1) GERD (gastroesophageal reflux disease): Code(s): K21.9 - Gastro-esophageal reflux disease without esophagitis Category: Medical (2) H. pylori duodenitis: Comment: 10/2024 stool antigen confirms eradication after quadruple therapy Code(s): K29.80 - Duodenitis without bleeding; B96.81 - Helicobacter pylori [H. pylori] as the cause of diseases classified elsewhere Category: Medical (3) Constipation: Code(s): K59.00 - Constipation, unspecified Category: Medical (4) Upper abdominal pain: Code(s): R10.10 - Upper abdominal pain, unspecified Category: Medical (5) Abdominal bloating: Code(s): R14.0 - Abdominal distension (gaseous) Category: Medical (6) Early satiety: Code(s): R68.81 - Early satiety Category: Medical Plan 70 M with History of smoking, hypertension, dyslipidemia referred by Niki Borrego NP for a 2nd opinion for chronic epigastric pain 07/26/25 Notes burning upper abd pain (10/10) when he is lying down and looks up - pain can last for hours Pt denies radiation of the pain to the back or shoulder - does have chronic neck pain Pain resolves when he wakes up Denies association of pain with food intake Sometimes he does not eat because he does'nt feel hungry - admits to early satiety Sometimes eats at 2 or 3 pm Also complains of gas and bloating. Complains of constipation with passage of hard stools -denies rectal bleeding Epigastric pain possibly due to referred pain from the neck since pt notes upper abd pain (10/10) when he is lying down and looks up Pt advised an H Pylori breath test and to schedule a gastric emptying study to rule out idiopathic gastroparesis. [facility]. Patient is scheduled for a CT angiogram on 08/13/2025. Follow-up in 2 months Orders: Orders H Pylori Breath Test 07/26/25 NM gastric emptying study 07/26/25 R10.10 - Upper abdominal pain, unspecified, R68.81 - Early satiety Medications: New simethicone (Gas Relief (simethicone)) 125 mg PO BID-QID PRN 90 tabs 1RF abdominal distention 30 days R10.10 - Upper abdominal pain, unspecified, R14.0 - Abdominal distension (gaseous) Coding Level of Care Code Est Pt Level 4 (75833) Diagnoses GERD (gastroesophageal reflux disease) K21.9 H. pylori duodenitis K29.80; B96.81 Constipation K59.00 Upper abdominal pain R10.10 Abdominal bloating R14.0 Early satiety R68.81 Time Spent (min) 26
[2025-07-26 07:40] VITALS: BP 137/72; PULSE 77; O2SAT 97; BMI 24.8
== END 2025-07-26 08:11 | disposition home or self-care (01) ==
LOC: HO.HGI 07:07
PROVIDERS: PCP Otolaryngology; Visit Provider Internal Medicine Gastroenterology
DX: K21.9 Gastro-esophageal reflux disease without esophagitis (principal); K29.80 Duodenitis without bleeding; B96.81 Helicobacter pylori [H. pylori] as the cause of diseases classified elsewhere; K59.00 Constipation, unspecified; R10.10 Upper abdominal pain, unspecified; R14.0 Abdominal distension (gaseous); R68.81 Early satiety
CPT/HCPCS: 99214

== ENCOUNTER 2025-08-13 12:46 | Outpatient (REF) | payer MEDICARE, SELFPAY ==
--- NOTE | ~2025-08-13 | CT_ITS ---
EXAMINATION: CT LUNG SCREENING HISTORY: F17.210 - Nicotine dependence, cigarettes, uncomplicated TECHNIQUE: Low dose axial images were obtained from the sternal notch to upper abdomen without IV contrast per standard departmental protocol. Sagittal and coronal reformatted images were also obtained and reviewed. One or more of the following techniques was used for dose reduction: Automated exposure control, adjustment of the mA and/or kV according to patient size, use of iterative reconstruction technique. DLP: 51 mGy-cm COMPARISON: Comparison is made with the prior examination dated 11/18/2023. FINDINGS: Lung nodules: Again seen is a 4 mm calcified granuloma in the right lower lobe (series 4, image 93). There is a new 6 x 3 mm nodule (average diameter 4.5 mm) in the left lower lobe (series 4, image 137). No additional pulmonary nodules are identified. Emphysema: mild Coronary Calcification: mild Aortic Arch Calcification: mild Potentially Significant Incidentals : none Additional Chest Findings: There is no pleural or pericardial effusion. No mediastinal or axillary lymphadenopathy is identified. Visualized upper abdomen: The visualized portions of the liver, spleen, and adrenals have an unremarkable unenhanced appearance. CT/CT lung screening IMPRESSION: New 6 x 3 mm left lower lobe nodule. Follow-up low-dose chest CT is recommended in 6 months. LUNG-RADS ASSESSMENT: Lung-RADS 3: Probably Benign MANAGEMENT: 6 month LDCT Category S: N/A Electronically signed by: Azam Brito MD 08/13/2025 01:43 PM [facility]
== END 2025-08-13 12:47 | disposition home or self-care (01) ==
LOC: HO.CT 12:46
PROVIDERS: PCP Family Medicine; Visit Provider Physician Assistant Medical
DX: Z12.2 Encounter for screening for malignant neoplasm of respiratory organs (principal); F17.210 Nicotine dependence, cigarettes, uncomplicated
CPT/HCPCS: 71271

== ENCOUNTER → 2025-08-13 12:48 | Outpatient (BNV) | payer MEDICARE, SELFPAY | PROVIDERS: PCP Family Medicine; Visit Provider Radiology Diagnostic Radiology | DX: Z12.2 Encounter for screening for malignant neoplasm of respiratory organs (principal); Z87.891 Personal history of nicotine dependence; R91.1 Solitary pulmonary nodule | CPT/HCPCS: 71271 ==

== ENCOUNTER → 2025-08-29 07:35 | Outpatient (REF) | payer MEDICARE, SELFPAY ==
--- NOTE | ~2025-08-29 | NM_ITS ---
EXAMINATION: AL RADIONUCLIDE SOLID FOOD GASTRIC EMPTYING 4-HOUR STUDY CLINICAL INFORMATION: R10.10 - Upper abdominal pain, unspecified COMPARISON: There are no prior studies available for comparison. TECHNIQUE: A standard meal consisting of 4 oz of Egg Beaters brand tagged with 0.833 mCi Tc-99m Sulfur Colloid, 6 oz water and 1 slice of toast with jelly was administered orally to the patient. Images were obtained using a dual head gamma camera in the anterior and posterior projections over of the stomach immediately post ingestion and at hourly intervals up to 4 hours post ingestion. The anterior and posterior counts at each time interval were averaged using the geometric mean and expressed as percentage of the immediate post ingestion counts. FINDINGS: There is visualization of activity in the stomach immediately post ingestion. As the study progresses, there is clearance of activity from the stomach and visualization of progressively increasing small bowel activity. Retention in the stomach at each time interval was: 1 hour 82% (normal 37%-90%) 2 hours 72% (normal 30%-60%) 3 hours 52% 4 hours 49% (normal 0%-10%) AL/AL gastric emptying study IMPRESSION: Delayed gastric emptying. For solid meal, rapid gastric emptying is less than 30% at 60 minutes. Delayed gastric emptying criteria is more than 60% remaining at 120 minutes or more than 10% at 240 minutes. The 4-hour value is the best discriminator of a normal or abnormal result). Gastric emptying study grading per JNMT Consensus Recommendations in 2008 (https://tech.snmjournals.org/content/36/1/44) Grade 1 (mild retention): 11-20% at 4h Grade 2 (moderate retention): 21-35% at 4h Grade 3 (severe retention): 36-50% at 4h Grade 4 (very severe retention): >50% retention at 4h Electronically signed by: Azam Brito MD 08/29/2025 12:12 PM [facility]
--- OUTSIDE RECORDS SUMMARY | 2025-08-29 07:39 | XMS_ITS | Encounter Summary ---
Author Organization [email or web address] Address 75 [facility] 7t [place] [address] Care Team Providers Care Is/It Project Manager Name Role Phone Kassandra Phillips MD Primary Care Provider [phone] Blanco Gar PharmD Unavailable [phone] Reason for Visit * Reason Onset Date Comments Med Refill 02/11/2025 Encounter Details Date Type Department Care Team (Late st Contact Info) Description 02/11/2025 Telephone [facility] MED[facility]INE 230 [place], [place] [phone] Kassandra Phillips MD 230 [place], [place] [phone] Med Refill Social History Tobacco Use Types [...] immediate release tablet To be sent to: [facility] #[id number] [place], [place] - [address] [facility] documented in this encounter Plan of Treatment Upcoming Encounters Date Type Department Care Team ([facility] st Contact Info) Description 09/04/2025 9:00 AM EST Office Visit [facility] [address] [place] [address] Kassandra Phillips MD 230 [place], [place] [phone] 11/15/2025 11:30 AM EST Clinical Support [facility] [address] [place] [address] Layla Thapa RN 505 [place] [address] documented as of this encounter Goals Goal [...] documented as of this encounter Care Teams Is/It Project Manager Relationship Specialty Start Date End Date Kassandra Phillips MD 230 [place] [address] PCP - General Family Medicine 06/30/23 Blanco Gar, PharmD [address] [place] [address] Pharmacist Internal Medicine 12/26/23 documented as of this encounter
--- OUTSIDE RECORDS SUMMARY | 2025-08-29 07:39 | XMS_ITS | Encounter Summary ---
Author Organization [employer] Address 75 [facility] 7t [place] [address] Care Team Providers Care Marketing Systems Manager Name Role Phone Kassandra Phillips MD Primary Care Provider [phone] lBanco Gar PharmD Unavailable [phone] Reason for Visit * Reason Comments Med Refill Encounter Details Date Type Department Care Team ([facility] st Contact Info) Description 02/12/2025 Refill [facility] 230 [place], [place] [phone] Kassandra Phillips MD 230 [place], [place] [phone] Social History Tobacco Use Types Packs/Day Years [...] Description 09/04/2025 9:00 AM EST Office Visit [facility] [address] [place] [address] Kassandra Phillips MD [address] [place] [address] 11/15/2025 11:30 AM EST Clinical Support [facility] [address] [place] [address] Layla Thapa RN [address] [place] [address] documented as of this encounter Goals Goal [...] documented as of this encounter Care Teams Marketing Systems Manager Relationship Specialty Start Date End Date Kassandra Phillips MD 230 [place] [address] PCP - General Family Medicine 06/30/23 Blanco Gar, SouravD [address] [place] [address] Pharmacist Internal Medicine 12/26/23 documented as of this encounter
--- OUTSIDE RECORDS SUMMARY | 2025-08-29 07:39 | XMS_ITS | Encounter Summary ---
Author Organization [employer] Address 75 [facility] 7t [place] [address] Care Team Providers Care Grey Roll Worker Name Role Phone Kassandra Phillips MD Primary Care Provider [phone] Blanco Gar PharmD Unavailable [phone] Reason for Referral * Imaging (Routine) - Closed Specialty Diagnoses / Procedures Referred By Contac t Referred To Contact Radiology Diagnoses Chronic bilateral low back pain, unspecified whether sciatica present Procedures MR Lumbar Spine w/o Contrast Kassandra Phillips MD 230 [place] [address] Phone: tel: fax: [address] Phone: tel: fax: Referral ID Status Reason Start Date Expiration Date Visits Re quested Visits Authorized [id number] Closed 05/24/2024 05/24/2025 1 1 Encounter Details Date Type Department Care Team (Late st Contact Info) Description 05/24/2024 Orders Only [facility] MEDICINE [address] [place] [address] [phone] Kassandra Phillips MD 230 [place], [place] [phone] Chronic bilateral low back pain, unspecified whether [...] Description 09/04/2025 9:00 AM EST Office Visit [facility] MED[facility]INE [address] [place] [address] Kassandra Phillips MD 230 [place] [address] 11/15/2025 11:30 AM EST Clinical Support [facility] MED[facility]INE [address] [place] [address] Layla Thapa RN 505 [place] [address] documented as of this encounter Goals Goal [...] PM EST Narrative 10/15/2024 10:02 AM EST [address] [address] Magnetic Resonance Report Signed Patient: Omer Lara MR#: [id number] : 1955 Acct:[id number] Age/Sex: 69 / M ADM Date: 10/14/24 Loc: HO.MRI Attending Dr: Kassandra Phillips MD Ordering Physician: Kassandra Phillips MD Date of Service: 10/14/24 Procedure(s): MR lumbar spine wo con Accession Number(s): [id number] cc: Kassandra Phillips MD Workstation: [email or web address] EXAMINATION: MR LUMBAR SPINE WITHOUT IV CONTRAST [...] 10/15/24 0959 DD/ 1507 TD/TT: 10/14/24 1521 Workplace Rehabilitation Officer: Procedure Note Donotuseinterpreter, Image - 10/15/[address] [address] Magnetic Resonance Report Signed Patient: Kostas PeterMaria Antonia#: [id number] : 1955cct:[id number] Age/Sex: 69 / MADM Date: 10/14/24 Loc: HO.MRI Attending Dr: Kassandra Phillips MD Ordering Physician: Kassandra Phillips MD Date of Service: 10/14/24 Procedure(s): MR lumbar spine wo con Accession Number(s): [id number] cc: Kassandra Phillips MD Workstation: [email or web address] EXAMINATION: MR LUMBAR SPINE WITHOUT IV CONTRAST [...] 10/15/24 0959 DD/ 1507 TD/TT: 10/14/24 1521 Workplace Rehabilitation Officer: Kassandra Phillips MD IMG MRI PROCEDURES Edited Result - Final documented in this encounter Visit Diagnoses Diagnosis Chronic bilateral low back pain, unspecified whether sciatica present- Primary documented in this encounter Additional Health Concerns Assessment Noted Time PHQ-9 Depression Total Score: 4 06/30/20 23 9:32 AM EDT documented as of this encounter Care Teams Grey Roll Worker Relationship Specialty Start Date End Date Kassandra Phillips MD 230 [place] [address] PCP - General Family Medicine 06/30/23 Blanco Gar, Julianne [address] [place] [address] Pharmacist Internal Medicine 12/26/23 documented as of this encounter
--- OUTSIDE RECORDS SUMMARY | 2025-08-29 07:39 | XMS_ITS | Encounter Summary ---
Author Organization [employer] Address 75 [facility] 7t [place] [address] Care Team Providers Care Senior Ux Developer Name Role Phone Kassandra Phillips MD Primary Care Provider [phone] Blanco Gar PharmD Unavailable [phone] Reason for Visit * Reason Comments Med Refill Encounter Details Date Type Department Care Team ([facility] st Contact Info) Description 06/04/2024 Refill [facility] MEDICINE 230 [place], [place] [phone] [place] Elizondo MD 230 [place], [place] [phone] Social History Tobacco Use Types Packs/Day Years [...] Description 09/04/2025 9:00 AM EST Office Visit [address] [address] Kassandra Phillips MD [address] [place] [address] 11/15/2025 11:30 AM EST Clinical Support [address] [address] Layla Thapa RN 505 [place] [address] documented as of this encounter Goals Goal [...] of this encounter Care Teams Senior Ux Developer Relationship Specialty Start Date End Date Kassandra Phillips MD [address] [place] [address] PCP - General Family Medicine 06/30/23 Blanco Gar PharmD [address] [place] [address] Pharmacist Internal Medicine 12/26/23 documented as of this encounter
--- OUTSIDE RECORDS SUMMARY | 2025-08-29 07:39 | XMS_ITS | Encounter Summary ---
Author Organization [employer] Address 75 [facility] 7t [place] [address] Care Team Providers Care Wind Turbine Sheet Metal Worker Name Role Phone Kassandra Phillips MD Primary Care Provider [phone] Blanco Gar PharmD Unavailable [phone] Reason for Visit * Reason Comments Med Refill Encounter Details Date Type Department Care Team ([facility] st Contact Info) Description 09/20/2024 Refill [facility] MEDICINE 230 [place], [place] [phone] Kassandra Phillips MD 230 [place], [place] [phone] Social History Tobacco Use Types Packs/Day Years [...] Description 09/04/2025 9:00 AM EST Office Visit [facility] MEDICINE [address] [place] [address] Kassandra Phillips MD [address] [place] [address] 11/15/2025 11:30 AM EST Clinical Support [facility] MEDICINE [address] [place] [address] Layla Thapa RN [address] [place] [address] documented as of this encounter Goals Goal [...] documented as of this encounter Care Teams Wind Turbine Sheet Metal Worker Relationship Specialty Start Date End Date Kassandra Phillips MD 230 [place] [address] PCP - General Family Medicine 06/30/23 Blanco Gar, SouravD [address] [place] [address] Pharmacist Internal Medicine 12/26/23 documented as of this encounter
--- OUTSIDE RECORDS SUMMARY | 2025-08-29 07:39 | XMS_ITS | Encounter Summary ---
Author Organization [employer] Address 75 [facility] 7t [place] [address] Care Team Providers Care Technology Risk Intern Name Role Phone Kassandra Phillips MD Primary Care Provider [phone] Blanco Gar PharmD Unavailable [phone] Reason for Visit * Reason Onset Date Comments Med Refill 06/20/2024 Encounter Details Date Type Department Care Team ([facility] st Contact Info) Description 06/20/2024 Telephone [facility] MEDICINE 230 [place], [place] [phone] Kassandra Phillips MD 230 [place], [place] [phone] Med Refill Social History Tobacco Use Types [...] 50 MG tablet To be sent to: [facility] #[id number] [place], [place] - [address] [place] [address] AT [facility] documented in this encounter Plan of Treatment Upcoming Encounters Date Type Department Care Team (Late st Contact Info) Description 09/04/2025 9:00 AM EST Office Visit [facility] MED[facility]INE [address] [place] [address] Kassandra Phillips MD [address] [place] [address] 11/15/2025 11:30 AM EST Clinical Support [facility]INE [address] [place] [address] Layla Thapa RN 505 [place] [address] documented as of this encounter Goals Goal [...] documented as of this encounter Care Teams Technology Risk Intern Relationship Specialty Start Date End Date Kassandra Phillips MD 230 [place] [address] PCP - General Family Medicine 06/30/23 Blanco Gar, SouravD 230 [place] [address] Pharmacist Internal Medicine 12/26/23 documented as of this encounter
--- OUTSIDE RECORDS SUMMARY | 2025-08-29 07:39 | XMS_ITS | Encounter Summary ---
Author Organization [employer] Address 75 [facility] 7t [place] [address] Care Team Providers Care Recovery Rn Name Role Phone Kassandra Phillips MD Primary Care Provider [phone] Blanco Gar PharmD Unavailable [phone] Reason for Visit * Reason Comments Med Refill Encounter Details Date Type Department Care Team ([facility] st Contact Info) Description 02/29/2024 Refill [facility] MEDICINE 230 [place], [place] [phone] Kassandra Phillips MD 230 [place], [place] [phone] Social History Tobacco Use Types Packs/Day Years [...] Description 09/04/2025 9:00 AM EST Office Visit [address] [address] Kassandra Phillips MD [address] [place] [address] 11/15/2025 11:30 AM EST Clinical Support [address] [address] Layla Thapa, DON 505 [place] [address] documented as of this encounter Goals Goal [...] documented as of this encounter Care Teams Recovery Rn Relationship Specialty Start Date End Date Kassandra Phillips MD [address] [place] [address] PCP - General Family Medicine 06/30/23 Blanco Gar, PharmD [address] [place] [address] Pharmacist Internal Medicine 12/26/23 documented as of this encounter
--- OUTSIDE RECORDS SUMMARY | 2025-08-29 07:39 | XMS_ITS | Encounter Summary ---
Author Organization [employer] Address 75 [facility] 7t [place] [address] Care Team Providers Care Web User Experience Strategist Name Role Phone Kassandra Phillips MD Primary Care Provider [phone] Blanco Gar PharmD Unavailable [phone] Reason for Visit * Reason Comments Med Refill Encounter Details Date Type Department Care Team ([facility] st Contact Info) Description 02/12/2025 Refill [facility] MEDICINE 230 [place], [place] [phone] Kassandra Phillips MD 230 [place], [place] [phone] Social History Tobacco Use Types Packs/Day Years [...] Description 09/04/2025 9:00 AM EST Office Visit [facility] MEDICINE [address] [place] [address] Kassandra Phillips MD [address] [place] [address] 11/15/2025 11:30 AM EST Clinical Support [facility] MEDICINE [address] [place] [address] Layla Thapa RN [address] [place] [address] documented as of this encounter Goals Goal [...] documented as of this encounter Care Teams Web User Experience Strategist Relationship Specialty Start Date End Date Kassandra Phillips MD 230 [place] [address] PCP - General Family Medicine 06/30/23 Blanco Gar, SouravD [address] [place] [address] Pharmacist Internal Medicine 12/26/23 documented as of this encounter
--- OUTSIDE RECORDS SUMMARY | 2025-08-29 07:39 | XMS_ITS | Clinical Summary ---
Author Organization [employer] Address [address] [facility] [place] [place] [address] Care Team Providers Care Applicator Sprayer Name Role Phone Kassandra Phillips MD Primary Care Provider [phone] Blanco Gar PharmD Unavailable [phone] Allergies No known active allergies Medications Blood [...] DAILY 100 g 2 04/13/20 24 Active naloxone (Narcan) 4 mg/0.1 mL nasal [...] BEDTIME 90 tablet 3 06/21/20 25 Active Acetaminophen Extra Strength 500 MG tablet TAKE 2 TABLETS BY MOUTH EVERY 8 HOURS NEEDED FOR MODERATE PAIN OR FEVER 60 tablet 3 07/15/20 25 Active pantoprazole (ProtoNix) 40 MG EC tablet TAKE 1 TABLET(40 MG) BY MOUTH BEFORE BREAKFAST. DO NOT CRUSH, CHEW, OR SPLIT 30 tablet 11 08/06/20 25 Active gabapentin (Neurontin) 600 MG tablet TAKE 1 TABLET(600 MG) BY MOUTH TWICE DAILY 60 tablet 11 08/07/20 25 Active oxyCODONE (Roxicodone) 5 MG immediate release tabletIndicati ons:Chronic bilateral low back pain, unspecified whether sciatica present,Neck pain,Cervical spondylosis Take 1 tablet (5 mg) by mouth every 8 (eight) hours if needed for severe pain. 84 tablet 08/07/20 25 Active pantoprazole (Protonix) 40 MG EC tablet Take 1 tablet (40 mg) by mouth before breakfast. Do not crush, chew, or split. 30 tablet 11 05/21/20 24 025 Discontinued gabapentin (Neurontin) 600 MG tablet Take 1 tablet (600 mg) by mouth 2 times daily. 60 tablet 11 08/13/20 24 025 Discontinued oxyCODONE (Roxicodone) 5 MG immediate release tabletIndicati ons:Chronic bilateral low back pain, unspecified whether sciatica present,Neck pain,Cervical spondylosis Take 1 tablet (5 mg) by mouth every 8 (eight) hours if needed for severe pain. 84 tablet 07/11/20 25 025 Discontinued(R eorder (will not trigger notification to Pharmacy)) Active Problems Problem Noted Date Diagnosed Date Long-term current use of opiate analgesic 2024 Assessment & Plan (06/14/2025 5:27 PM EDT): - followed by FULFILLMENT COORDINATOR program - patient reported hard stool to [...] PM EST): -followed by [facility], last seen in Jul 2024 -H. [...] EDT): - following with [facility] - EGD on 08/07/24 was positive [...] following with Dr. Coy, [facility] - carotid US on 10/19/23, showed [...] following with Dr. Coy, [facility] - carotid US on 10/19/23, showed [...] following with Dr. Coy, [facility] - carotid US on 10/19/23, showed [...] criteria. - Seen by [facility] vascular specialist, Dr. Coy, on 01/05/24. CTA [...] is the maximum - continue following with FULFILLMENT COORDINATOR visit - continue judicious use of Gabapentin, and encouraged to taper down and off - evaluated by microchip specialist. Patient tried PT, but it was [...] increase to bid. - continue following with FULFILLMENT COORDINATOR visit - continue judicious use of Gabapentin, and encouraged to taper down and off - refer to microchip specialist Assessment & Plan (11/22/2024 11:58 PM [...] imaging or referral to pain management and/or microchip specialist Assessment & Plan (09/14/2023 3:47 PM EST): - multifactorial - evaluate with X-ray - trapezius muscle spasm - add cyclobenzaprine prn - apply lidocaine patch - refer to PT - reassess symptoms in 3 mo to see if he needs further imaging or referral to pain management and/or microchip specialist Back pain 09/14/2023 Assessment & Plan [...] the maximum. Patient verbalized understanding - Reviewed FULFILLMENT COORDINATOR program engagement and agreement Assessment & Plan [...] nightly; will increase to bid - Reviewed FULFILLMENT COORDINATOR program engagement and agreement - refer to microchip specialist Assessment & Plan (11/24/2024 5:21 PM [...] gabapentin - switch tramadol to oxycodone - FULFILLMENT COORDINATOR appt Assessment & Plan (08/19/2024 2:18 PM [...] check the status of MRI order - FULFILLMENT COORDINATOR appt Assessment & Plan (05/21/2024 11:42 AM [...] low-dose chest CT through [facility] lung cancer screening program - Last CT on 11/18/23 Lung RADS 1 - Advised to call for next CT appt Assessment & Plan (03/05/2025 1:39 PM EDT): - low-dose chest CT through [facility] lung cancer screening program - Last CT on 11/18/23 Lung RADS 1 Assessment & Plan (11/22/2024 11:57 PM EST): - low-dose chest CT through [facility] lung cancer screening program - Last CT on 11/18/23 Lung RADS 1 Assessment & Plan (08/19/2024 2:13 PM EST): - low-dose chest CT through [facility] lung cancer screening program - Last CT on 11/18/23 Lung RADS 1 Assessment & Plan (05/21/2024 9:51 AM EDT): - low-dose chest CT through [facility] lung cancer screening program - Last CT on 11/18/23 Lung RADS 1 Assessment & Plan (02/08/2024 9:14 PM EDT): - low-dose chest CT through [facility] lung cancer screening program - Last CT on 11/18/23 Lung RADS 1 Assessment & Plan (09/14/2023 3:51 PM EST): - low-dose chest CT through [facility] lung cancer screening program - pt states he will go to get CT done and is thinking about smoking cessation Assessment & Plan (06/30/2023 5:32 PM EDT): - low-dose chest CT through [facility] lung cancer screening program Resolved Problems Problem Noted Date Diagnosed Date Resolved Date Health care maintenance 09/14/2023 050 10/2023 Assessment & Plan (09/14/2023 4:24 AM EST): - Colonoscopy: Referred - AAA screening US on 07/25/23 negative Encounters Date Type Department Care Team Description 08/14/2025 Orders Only [facility] [address] [place] [address] Kassandra Phillips MD Epigastric pain (Primary Dx); Pain of upper abdomen 08/14/2025 Telephone [facility] [place] [address] Kassandra Phillips MD 08/13/2025 Orders Only [facility] External Provider, [facility] 08/07/2025 Refill [facility] [address] [place] [address] Layla Thapa RN Chronic bilateral low back pain, unspecified whether sciatica present; Neck pain; Cervical spondylosis 08/07/2025 Telephone [facility] [address] [place] [phone] Kassandra Phillips MD Med Refill 08/06/2025 Refill [facility] [address] [place] [phone] Kassandra Phillips MD 08/06/2025 Refill [facility] [address] [place] [phone] Kassandra Phillips MD 07/14/2025 Refill [facility] [address] [place] [phone] Kassandra Phillips MD 07/12/2025 11:00 AM EDT Clinical Support [facility] [address] [place] [phone] Layla Thapa RN Chronic pain of both knees (Primary Dx) 07/12/2025 Travel 07/10/2025 Refill [facility] [address] [place] [address] Layla Thapa RN Chronic bilateral low back pain, unspecified whether sciatica present; Neck pain; Cervical spondylosis 07/10/2025 Telephone [facility] [address] [place] [phone] Kassandra Phillips MD Med Refill 07/02/2025 1:00 PM EDT Clinical Support [facility] [address] [place] [phone] Clare Ortiz, DON Hypertension, unspecified type 07/02/2025 Travel 06/21/2025 Refill [facility] [address] [place] [address] Kassandra Phillips MD Routine general medical examination at a health care facility 06/12/2025 Refill [facility] [address] [place] [address] Kassandra Phillips MD Chronic bilateral low back pain, unspecified whether sciatica present; Neck pain; Cervical spondylosis 06/04/2025 2:15 PM EDT Office Visit [facility] [address] [place] [address] Kassandra Phillips MD Hypertension, unspecified type (Primary Dx); Epigastric pain; Pain of upper abdomen; Dyslipidemia; Carotid stenosis, right; Long-term current use of opiate analgesic; Neck pain; Chronic bilateral low back pain, unspecified whether sciatica present; Smoking greater than 20 pack years 06/04/2025 Travel from Last 3 Months Immunizations Immunization [...] Description 09/04/2025 9:00 AM EST Office Visit [facility] [address] [place] [phone] Kassandra Phillips MD [address] [place] [address] 11/15/2025 11:30 AM EST Clinical Support [address] [address] Layla Thapa, RN [address] [place], [place] [phone] Health Maintenance Due Date Last Done Comments CT Colonography 1955 FIT DNA/Cologuard 1955 FIT 1955 FOBT 1955 Sigmoidoscopy 1955 Alcohol/Substance Use Screening 1969 COVID-19 Vaccine ( season) 2025 11/22/2024, 11/29/2023, 03/16/2022, Additional history exists Influenza Vaccine (#1) 2025 , 06/20/2023, 07/18/2021 Depression Screening 08/13/2025 08/13/2024, 08/13/20 24 SDOH Screening 08/13/2025 08/13/2024 Diabetes: Hemoglobin A1C 11/22/2025 11/22/2024, 06/11 Tobacco Screening 06/04/2026 06/04/2025 Lung Cancer Screening 08/13/2026 08/13/2025, 024 Colonoscopy 08/07/2029 08/07/2024 Colorectal Cancer Screening 08/07/2029 [...] Associated Diagnosis Comments LDCT LUNG SCREENING Routine 08/13/2025 1 :00 PM EST POCT JOSE-14 URINE DRUG SCREEN Routine 07/12/2025 10:49 AM EDT Chronic pain of both knees HEMOGLOBIN A1C Routine 11/22/2024 12:07 PM EST Screening for diabetes mellitus LIPID PANEL WITH REFLEX TO DIRECT LDL Routine 11/22/2024 12:07 PM EST Dyslipidemia HM COLONOSCOPY Routine 08/07/2024 HEPATITIS C AB W/REFL TO HCV RNA, QN, PCR Routine 06/30/2023 10:33 AM EDT Routine general medical examination at a health care facility from Last 3 Months or Most Recently Relevant to Health Maintenance Results * CT Lung Screening Low dose (08/13/2025 1:00 PM EST) Anatomical Region Laterality Modality Lung Computed Tomogra phy 08/13/2025 1:00 PM EST Narrative 08/13/2025 1:46 PM EST [address] [address] [address] Scan Report Signed Patient: Omer Lara MR#: [id number] : 1955 Acct:[id number] Age/Sex: 70 / M ADM Date: 08/13/25 Loc: .CT Attending Dr: Margo Chamberlain PA-C Ordering Physician: Margo Chamberlain PA-C Date of Service: 08/13/25 Procedure(s): CT lung screening Accession Number(s): [id number] cc: Margo Chamberlain PA-C; Kassandra Phillips MD Report Number: [id number]: Total DLP = 51.00 mGy-cm Reason for Exam: F17.210 - Nicotine dependence, cigarettes, uncomplicated EXAMINATION: CT LUNG SCREENING HISTORY: F17.210 - Nicotine dependence, cigarettes, uncomplicated TECHNIQUE: Low dose axial images were obtained from the sternal notch to upper abdomen without IV contrast per standard departmental protocol. Sagittal and coronal reformatted images were also obtained and reviewed. One or more of the following techniques was used for dose reduction: Automated exposure control, adjustment of the mA and/or kV according to patient size, use of iterative reconstruction technique. DLP: 51 mGy-cm COMPARISON: Comparison is made with the prior examination dated 11/18/2023. FINDINGS: Lung nodules: Again seen is a 4 mm calcified granuloma in the right lower lobe (series 4, image 93). There is a new 6 x 3 mm nodule (average diameter 4.5 mm) in the left lower lobe (series 4, image 137). No additional pulmonary nodules are identified. Emphysema: mild Coronary Calcification: mild Aortic Arch Calcification: mild Potentially Significant Incidentals : none Additional Chest Findings: There is no pleural or pericardial effusion. No mediastinal or axillary lymphadenopathy is identified. Visualized upper abdomen: The visualized portions of the liver, spleen, and adrenals have an unremarkable unenhanced appearance. CT/CT lung screening IMPRESSION: New 6 x 3 mm left lower lobe nodule. Follow-up low-dose chest CT is recommended in 6 months. LUNG-RADS ASSESSMENT: Lung-RADS 3: Probably Benign MANAGEMENT: 6 month LDCT Category S: N/A Electronically signed by: Azam Brito MD 08/13/2025 01:43 PM [facility] Dictated By: Azam Brito MD Signed By: <Electronically signed by Azam Brito MD in OV> 08/13/25 1343 DD/ 1300 TD/TT: 08/13/25 1310 Railway Track Worker: Procedure Note Donotuseinterpreter, Image - 08/13/[address] [place] [address] [address] Scan Report Signed Patient: Maria Antonia Lara#: [id number] : 1955cct:[id number] Age/Sex: 70 / MADM Date: 08/13/25 Loc: .CT Attending Dr: Margo Chamberlain PA-C Ordering Physician: Margo Chamberlain PA-C Date of Service: 08/13/25 Procedure(s): CT lung screening Accession Number(s): [id number] cc: Margo Chamberlain PA-C; Kassandra Phillips MD Report Number: [id number]: Total DLP = 51.00 mGy-cm Reason for Exam: F17.210 - Nicotine dependence, cigarettes, uncomplicated EXAMINATION: CT LUNG SCREENING HISTORY: F17.210 - Nicotine dependence, cigarettes, uncomplicated TECHNIQUE: Low dose axial images were obtained from the sternal notch to upper abdomen without IV contrast per standard departmental protocol. Sagittal and coronal reformatted images were also obtained and reviewed. One or more of the following techniques was used for dose reduction: Automated exposure control, adjustment of the mA and/or kV according to patient size, use of iterative reconstruction technique. DLP: 51 mGy-cm COMPARISON: Comparison is made with the prior examination dated 11/18/2023. FINDINGS: Lung nodules: Again seen is a 4 mm calcified granuloma in the right lower lobe (series 4, image 93). There is a new 6 x 3 mm nodule (average diameter 4.5 mm) in the left lower lobe (series 4, image 137). No additional pulmonary nodules are identified. Emphysema: mild Coronary Calcification: mild Aortic Arch Calcification: mild Potentially Significant Incidentals : none Additional Chest Findings: There is no pleural or pericardial effusion. No mediastinal or axillary lymphadenopathy is identified. Visualized upper abdomen: The visualized portions of the liver, spleen, and adrenals have an unremarkable unenhanced appearance. CT/CT lung screening IMPRESSION: New 6 x 3 mm left lower lobe nodule. Follow-up low-dose chest CT is recommended in 6 months. LUNG-RADS ASSESSMENT: Lung-RADS 3: Probably Benign MANAGEMENT: 6 month LDCT Category S: N/A Electronically signed by: Azam Brito MD 08/13/2025 01:43 PM [facility] Dictated By: Azam Brito MD Signed By: <Electronically signed by Azam Brito MD in OV> 08/13/25 1343 DD/ 1300 TD/TT: 08/13/25 1310 Railway Track Worker: [facility] External Provider IMG CT PROCEDURES Final Result * (ABNORMAL) POCT JOSE-14 Urine Drug Screen [...] - 07/12/2025 10:49 AM EDT .UTOX cup Lot#[id number] Exp. 07/16/26 Internal Pass Control Kassandra Phillips MD POINT OF CARE TEST ENTER/EDIT OR DERABLES Final Result * (ABNORMAL) Lipid Panel with Reflex to Direct LDL (11/22/2024 12:07 PM EST) Triglycerides 161(H) <150 mg/dL [facility] Comment:Desirable Triglyceri de: less than 150 mg/dLBorderline High Triglyceride 150-199 mg/dLHigh Triglyceride: 200-499 mg/dLVery High Triglyceride: greater than or equal to 5OO mg/dL Cholesterol 134 <200 mg/dL [facility] Comment:Desirable Cholestero l: less than 200 mg/dLBorderline High Cholesterol: 200-239 mg/dLHigh Cholesterol: greater than 239 mg/dL LDL Cholesterol Calculated 57 <100 mg/dL [facility] Comment:Desirable LDL: less than 100 mg/dLNear Optimal/Above Optimal LDL: 110- 129 mg/dLBorderline High LDL: 130-159 mg/dLHigh LDL: 160-189 mg/dLVery High LDL: greater than or equal to 190 mg/dL HDL Cholesterol 45 >40 mg/dL [facility] Comment:Desirable HDL: great er than 40 mg/dL Note: This HDL assay may give artificially low results in patients with liver disease. Blood 11/22/2024 12:0 7 PM EST 11/22/2024 12:51 PM EST Kassandra Phillips MD LAB BLOOD ORDERABLES Final Resul t [facility] [address] [place] [phone] * Hemoglobin A1c (11/22/2024 12:07 PM EST) Hemoglobin A1c 5.7 <6.0 % [facility] Comment:Hemoglobin A1C Refer ence Range Adults: 4.8 - 6.0 % Non diabetic: < 6.0 % Goal: < 7.0 %Additional Action Suggested: > 8.0 %Note: Hemoglobin A1c results are invalid for patients with abnormal amounts of HbF. Blood transfusions may impact the HbA1c concentration in the patient sample. Estimated Average Glucose 117 mg/dL [facility] Comment:eAG = Estimated ave rage glucose which is %A1C expressed asaverage glucose, using the formula of the Y2K-XapwnhbBssxfcw Glucose study (ADAG), Diabetes Care, Vol.31,#8,May. 2007 Blood Venous blood specimen / Unknown 11/22/2024 12:07 PM EST 11/22/2024 12:51 PM EST Kassandra Phillips MD LAB BLOOD ORDERABLES Final Resul t Performing Organization Address City/[facility] Co de Phone Number [facility] [address] [place] [phone] * (ABNORMAL) Hm Colonoscopy (08/07/2024) Pathologist [facility] Colonoscopy Abnormal(A ) Normal 08/07/2024 Historical Provider HEALTH MAINTENANCE Final Result * Hepatitis C Antibody with Reflex to HCV, RNA, Quantitative, Real-Time PCR (06/30/2023 10:33 AM EDT) Hepatitis C Antibody Nonreactive Nonreactive [facility] Comment:Antibodies to HCV no t detected; does not exclude early acuteHCV infection. Blood Venous blood specimen / Unknown 06/30/2023 10:33 AM EDT 06/30/2023 11:20 AM EDT Kassandra Phillips MD LAB BLOOD ORDERABLES Final Resul t [facility] [address] [place] [phone] [phone] from Last 3 Months or Most Recently Relevant to Health Maintenance Insurance [facility] MEDICARE ADVANTAGE Care Teams Applicator Sprayer Relationship Specialty Start Date End Date Kassandra Phillips MD [address] [place] [address] PCP - General Family Medicine 06/30/23 Blanco Gar, SouravD [address] [place] [address] Pharmacist Internal Medicine 12/26/23
--- OUTSIDE RECORDS SUMMARY | 2025-08-29 07:39 | XMS_ITS | Encounter Summary ---
Author Organization [employer] Address [address] [facility] [address] [place] [address] Care Team Providers Care Grommet Machine Operator Name Role Phone Kassandra Phillips MD Primary Care Provider [phone] Blanco Gar PharmD Unavailable [phone] Reason for Referral * Consultation (Routine) - Closed Specialty Diagnoses / Procedures Referred By Contac t Referred To Contact Orthopaedic Surgery Diagnoses Osteoarthritis of cervical spine, unspecified spinal osteoarthritis complication status Lumbar degenerative disc disease Kassandra Phillips MD [address] [place] [address] Phone: tel: fax: [facility] [address] [facility] [address] [place], [place] Phone: tel: fax: Referral ID Status Reason Start Date Expiration Date V isits Requested Visits Authorized [id number] Closed Specialty Services Required 09/19/2023 09/18/2024 1 1 * Imaging (Routine) - Closed Specialty Diagnoses / Procedures Referred By Contac t Referred To Contact Cardiology Diagnoses Calcification of both carotid arteries Procedures VASC US Carotid Artery Duplex Bilateral Kassandra Phillips MD [address] [place] [address] Phone: tel: fax: [facility] [address] [place], [place] Phone: tel: fax: Referral ID Status Reason Start Date Expiration Date V isits Requested Visits Authorized [id number] Closed Perform Procedure 09/19/2023 09/18/2024 1 1 Encounter Details Date Type Department Care Team (Late st Contact Info) Description 09/19/[address] [facility] [address] [place] [address] Kassandra Phillips MD [address] [place] [address] Calcification of both carotid arteries (Primary Dx); [...] Description 09/04/2025 9:00 AM EST Office Visit [address] [phone] Kassandra Phillips MD [address] [place] [address] 11/15/2025 11:30 AM EST Clinical Support [address] [address] Layla Thapa, DON [address] [place], [place] [phone] Scheduled Referrals Name Type Priority Associated Diagnoses Orde r Schedule Referral to Orthopaedic Surgery Outpatient Referral Routine Osteoarthritis of cervical spine, unspecified spinal osteoarthritis complication status Lumbar degenerative disc disease Expected: 09/19/2023 (Approximate), Expires: 09/19/2024 documented as of this encounter Procedures Procedure Name Priority Date/Time Associated Diagnosis Comments [facility] US CAROTID ARTERY DUPLEX BILATERAL Routine 10/19/2023 2:39 PM EST documented in this encounter Results * [facility] US Carotid Artery Duplex Bilateral (10/19/2023 2:39 PM EST) 10/19/2023 2:39 PM EST Narrative [facility] - 10/20/2023 12:34 PM EST [address] [address] Ultrasound Report Signed Patient: Omer Lara MR#: [id number] : 1955 Acct:[id number] Age/Sex: 68 / M ADM Date: 10/19/23 Loc: . Attending Dr: Kassandra Phillips MD Ordering Physician: Kassandra Phillips MD Date of Service: 10/19/23 Procedure(s): US carotid duplex BI Accession Number(s): [id number] cc: Kassandra Phillips MD EXAMINATION: US EXTRACRANIAL [...] in OV> 10/20/23 1230 DD/ 1439 TD/TT: Direct Care Provider: SUMAN Procedure Note Donotuseinterpreter, Image - 10/20/[address] [address] Ultrasound Report Signed Patient: Maria Antonia Lara#: [id number] : 7Acct:[id number] Age/Sex: 68 / MADM Date: 10/19/23 Loc: HO.US Attending Dr: Kassandra Phillips MD Ordering Physician: Kassandra Phillips MD Date of Service: 10/19/23 Procedure(s): US carotid duplex BI Accession Number(s): [id number] cc: Kassandra Phillips MD EXAMINATION: US EXTRACRANIAL [...] in OV> 10/20/23 1230 DD/ 1439 TD/TT: Direct Care Provider: SUMAN us Kassandra Phillips MD CV VASCULAR PROCEDURES Final Res ult [facility] [address] [place] [phone] documented in this encounter Visit Diagnoses Diagnosis Calcification of both carotid arteries- Primary Osteoarthritis of cervical spine, unspecified spinal osteoarthritis complication status Lumbar degenerative disc disease documented in this encounter Additional Health Concerns Assessment Noted Time PHQ-9 Depression Total Score: 4 06/30/20 23 9:32 AM EDT documented as of this encounter Care Teams Grommet Machine Operator Relationship Specialty Start Date End Date Kassandra Phillips MD [address] [place] [address] PCP - General Family Medicine 06/30/23 Blanco Gar, SouravD [address] [place] [address] Pharmacist Internal Medicine 12/26/23 documented as of this encounter
--- OUTSIDE RECORDS SUMMARY | 2025-08-29 07:39 | XMS_ITS | Encounter Summary ---
Author Organization [employer] Address [address] [facility] [address] 7t [place] [address] Care Team Providers Care Wood Cutter Name Role Phone Kassandra Phillips MD Primary Care Provider [phone] Blanco Gar PharmD Unavailable [phone] Encounter Details Date Type Department Care Team (Late st Contact Info) Description 10/20/2023 Orders Only [facility] MEDICINE 230 [place], [place] [phone] Kassandra Phillips MD 230 [place], [place] [phone] Carotid stenosis, right Social History Tobacco Use [...] Description 09/04/2025 9:00 AM EST Office Visit [address] [address] Kassandra Phillips MD 230 [place] [address] 11/15/2025 11:30 AM EST Clinical Support [address] [address] Layla Thapa, DON 505 [place] [address] documented as of this encounter Procedures Procedure Name Priority Date/Time Associated Diagnosis Comments LDCT LUNG SCREENING Routine 11/18/2023 1 1:57 AM EST documented in this encounter Results * CT Lung Screening Low dose (11/18/2023 11:57 AM EST) Anatomical Region Laterality Modality Lung Computed Tomogra phy 11/18/2023 11:5 7 AM EST Narrative 11/22/2023 3:09 PM EST [address] [address] [address] Scan Report Signed Patient: Omer Lara MR#: [id number] : 1955 Acct:[id number] Age/Sex: 68 / M ADM Date: 11/18/23 Loc: HO.CT Attending Dr: Laura Tinajero NP Ordering Physician: Laura Tinajero NP Date of Service: 11/18/23 Procedure(s): CT lung screening Accession Number(s): [id number] cc: Kassandra Phillips MD; Laura Tinajero NP [...] iterative reconstruction technique DLP: 43 mGy-cm FINDINGS: SUBSCRIPTION CLERK: Clear lungs. LUNGS: Mild biapical pleural thickening. [...] in OV> 11/22/23 1505 DD/ 1157 TD/TT: Transferrer: Procedure Note Bhaveshter, Image - 11/22/[address] [address] [address] Scan Report Signed Patient: Maria Antonia Lara#: [id number] : 1955cct:[id number] Age/Sex: 68 / MADM Date: 11/18/23 Loc: HO.CT Attending Dr: Laura Tinajero NP Ordering Physician: Laura Tinajero NP Date of Service: 11/18/23 Procedure(s): CT lung screening Accession Number(s): [id number] cc: Kassandra Phillips MD; Laura Tinajero NP [...] iterative reconstruction technique DLP: 43 mGy-cm FINDINGS: SUBSCRIPTION CLERK: Clear lungs. LUNGS: Mild biapical pleural thickening. [...] in OV> 11/22/23 1505 DD/ 1157 TD/TT: Transferrer: [facility] External Provider IMG CT PROCEDURES Final Result documented in this encounter Visit Diagnoses Diagnosis Carotid stenosis, right Occlusion and stenosis of carotid artery without mention of cerebral infarction documented in this encounter Additional Health Concerns Assessment Noted Time PHQ-9 Depression Total Score: 4 06/30/20 23 9:32 AM EDT documented as of this encounter Care Teams Wood Cutter Relationship Specialty Start Date End Date Kassandra Phillips MD 230 [place] [address] PCP - General Family Medicine 06/30/23 Blanco Gar, Julianne 230 [place] [address] Pharmacist Internal Medicine 12/26/23 documented as of this encounter
--- OUTSIDE RECORDS SUMMARY | 2025-08-29 07:40 | XMS_ITS | Encounter Summary ---
Author Organization [employer] Address [address] [facility] [address] 7t [place] [address] Care Team Providers Care Director Of Religious Activities Name Role Phone Kassandra Phillips MD Primary Care Provider [phone] Blanco Gar PharmD Unavailable [phone] Reason for Visit * Reason Onset Date Comments Medication Question 11/23/2024 Encounter Details Date Type Department Care Team ([facility] st Contact Info) Description 11/23/2024 Telephone [facility] MEDICINE 230 [place], [place] [phone] Kassandra Phillips MD 230 [place], [place] [phone] Medication Question Social History Tobacco Use Types [...] tablet. Contact pt at Contact pt at [phone] documented in this encounter Plan of Treatment Upcoming Encounters Date Type Department Care Team (Late st Contact Info) Description 09/04/2025 9:00 AM EST Office Visit [facility] MEDICINE [address] [place] [address] Kassandra Phillips MD [address] [place] [address] 11/15/2025 11:30 AM EST Clinical Support [facility] MEDICINE [address] [place] [address] Layla Thapa, RN 505 [place] [address] documented as of this encounter Goals Goal [...] as of this encounter Care Teams Director Of Religious Activities Relationship Specialty Start Date End Date Kassandra Phillips MD [address] [place] [address] PCP - General Family Medicine 06/30/23 Blanco Gar, PharmD [address] [place] [address] Pharmacist Internal Medicine 12/26/23 documented as of this encounter
--- OUTSIDE RECORDS SUMMARY | 2025-08-29 07:40 | XMS_ITS | Encounter Summary ---
Author Organization [employer] Address 75 [facility] 7t [place] [address] Care Team Providers Care Forestry Aide Name Role Phone Kassandra Phillips MD Primary Care Provider [phone] Blanco Gar PharmD Unavailable [phone] Reason for Visit * Reason Onset Date Comments Med Refill 07/10/2025 Encounter Details Date Type Department Care Team ([facility] st Contact Info) Description 07/10/2025 Telephone [facility] MEDICINE 230 [place], [place] [phone] Kassandra Phillips MD 230 [place], [place] [phone] Med Refill Social History Tobacco Use Types [...] immediate release tablet To be sent to: [id number] - [place], [place] - [address] [facility] documented in this encounter Plan of Treatment Upcoming Encounters Date Type Department Care Team ([facility] st Contact Info) Description 09/04/2025 9:00 AM EST Office Visit [facility] MEDICINE 230 [place] [address] Kassandra Phillips MD 230 [place] [address] 11/15/2025 11:30 AM EST Clinical Support [facility] MEDICINE 230 [place] [address] Layla Thapa, RN 505 [place] [address] documented as of this encounter Goals Goal [...] documented as of this encounter Care Teams Forestry Aide Relationship Specialty Start Date End Date Kassandra Phillips MD [address] [place] [address] PCP - General Family Medicine 06/30/23 Blanco Gar, PharmD [address] [place] [address] Pharmacist Internal Medicine 12/26/23 documented as of this encounter
--- OUTSIDE RECORDS SUMMARY | 2025-08-29 07:40 | XMS_ITS | Encounter Summary ---
Author Organization [employer] Address 75 [facility] 7t [place] [address] Care Team Providers Care Pottery Kiln Builder Name Role Phone Kassandra Phillips MD Primary Care Provider [phone] Blanco Gar PharmD Unavailable [phone] Reason for Visit * Reason Onset Date Comments Med Refill 09/17/2024 Encounter Details Date Type Department Care Team (Late st Contact Info) Description 09/17/2024 Telephone [facility] MEDICINE 230 [place], [place] [phone] Kassandra Phillips MD 230 [place], [place] [phone] Med Refill Social History Tobacco Use Types [...] 50 MG tablet To be sent to: [facility][id number] documented in this encounter Plan of Treatment Upcoming Encounters Date Type Department Care Team (Late st Contact Info) Description 09/04/2025 9:00 AM EST Office Visit [facility] MEDICINE [address] [place] [address] Kassandra Phillips MD [address] [place] [address] 11/15/2025 11:30 AM EST Clinical Support [address] [address] Layla Thapa, RN 505 [place] [address] documented as of this encounter Goals Goal [...] documented as of this encounter Care Teams Pottery Kiln Builder Relationship Specialty Start Date End Date Kassandra Phillips MD 230 [place] [address] PCP - General Family Medicine 06/30/23 Blanco Gar, PharmD [address] [place] [address] Pharmacist Internal Medicine 12/26/23 documented as of this encounter
--- OUTSIDE RECORDS SUMMARY | 2025-08-29 07:40 | XMS_ITS | Encounter Summary ---
Author Organization [employer] Address 75 [facility] 7t [place] [address] Care Team Providers Care Ocean Export Agent Name Role Phone Kassandra Phillips MD Primary Care Provider [phone] Blanco Gar PharmD Unavailable [phone] Reason for Referral * Imaging (Routine) - Authorized Specialty Diagnoses / Procedures Referred By Contac t Referred To Contact Radiology Diagnoses Epigastric pain Pain of upper abdomen Procedures CT Abdomen Pelvis w/ Contrast Kassandra Phillips MD 230 [place] [address] Phone: tel: fax: [address] Phone: tel: fax: Referral ID Status Reason Start Date Expiration Date V isits Requested Visits Authorized [id number] Authorized 08/14/2025 08/14/2026 1 1 Encounter Details Date Type Department Care Team (Late st Contact Info) Description 08/14/2025 Orders Only [facility] MEDICINE [address] [place] [phone] Kassandra Phillips MD 230 [place], [place] [phone] Epigastric pain (Primary Dx); Pain of upper abdomen Social History Tobacco Use Types Packs/Day Years [...] your housing situation today? I have suma cynthia 08/13/[address] you li [...] Description 09/04/2025 9:00 AM EST Office Visit [address] [address] Kassandra Phillips MD [address] [place] [address] 11/15/2025 11:30 AM EST Clinical Support [address] [address] Layla Thapa, RN 505 [place] [address] Scheduled Orders Name Type Priority Associated Diagnoses Orde r Schedule CT Abdomen Pelvis w/ Contrast Imaging Routine Epigastric pain Pain of upper abdomen Expected: 08/14/2025, Expires: 08/14/2026 documented as of this encounter Goals Goal Patient Goal Type Associated Problems Recent Progress Patient-Stated? Author Quit using tobacco (cigarettes, smokeless, etc) Tobacco Use No Blanco Gar, Julianne Note: Quit date: 12/26/2023 documented as of this encounter Visit Diagnoses Diagnosis Epigastric pain- Primary Abdominal pain, epigastric Pain of upper abdomen documented in this encounter Additional Health Concerns Assessment Noted Time PHQ-9 Depression Total Score: 1 08/13/20 24 12:59 PM EST documented as of this encounter Care Teams Ocean Export Agent Relationship Specialty Start Date End Date Kassandra Phillips MD [address] [place] [address] PCP - General Family Medicine 06/30/23 Blanco Gar, PharmD [address] [place] [address] Pharmacist Internal Medicine 12/26/23 documented as of this encounter
--- OUTSIDE RECORDS SUMMARY | 2025-08-29 07:40 | XMS_ITS | Encounter Summary ---
Author Organization [employer] Address 75 [facility] 7t [place] [address] Care Team Providers Care Cloth Shearing Supervisor Name Role Phone Kassandra Phillips MD Primary Care Provider [phone] Blanco Gar PharmD Unavailable [phone] Reason for Visit * Reason Comments Med Refill Encounter Details Date Type Department Care Team ([facility] st Contact Info) Description 03/11/2025 Telephone [facility] MEDICINE 230 [place], [place] [phone] Kassandra Phillips MD 230 [place], [place] [phone] Med Refill Social History Tobacco Use Types [...] AM EDT Telephone call to pt via [facility] coremaking machine operator Abimael Hernandez81. Pt reports not taking Pepcid, states it does not improve his symptoms. Advised him if he has any stomach/indigestion symptoms, to contact hisGI doctor for another recommendation. Pt verbalized understanding, no further questions. documented in this encounter Plan of Treatment Upcoming Encounters Date Type Department Care Team (Late st Contact Info) Description 09/04/2025 9:00 AM EST Office Visit [facility] MEDICINE 230 [place] [address] Kassadnra Phillips MD 230 [place], [place] [phone] 11/15/2025 11:30 AM EST Clinical Support [facility] MEDICINE 230 [place] [address] Layla Thapa RN 505 [place] [address] documented as of this encounter Goals Goal [...] as of this encounter Care Teams Cloth Shearing Supervisor Relationship Specialty Start Date End Date Kassandra Phillips MD [address] [place] [address] PCP - General Family Medicine 06/30/23 Blanco Gar, PharmD [address] [place] [address] Pharmacist Internal Medicine 12/26/23 documented as of this encounter
--- OUTSIDE RECORDS SUMMARY | 2025-08-29 07:40 | XMS_ITS | Encounter Summary ---
Author Organization [employer] Address 75 [facility] 7t [place] [address] Care Team Providers Care Sales Counselor Name Role Phone Kassandra Phillips MD Primary Care Provider [phone] Blanco Gar PharmD Unavailable [phone] Reason for Visit * Reason Onset Date Comments Med Refill 11/22/2024 Encounter Details Date Type Department Care Team (Late st Contact Info) Description 11/22/2024 Telephone [facility] MEDICINE 230 [place], [place] [phone] Kassandra Phillips MD 230 [place], [place] [phone] Med Refill Social History Tobacco Use Types [...] immediate release tablet To be sent to: [facility] Pharmacy - [address] [place] [phone]. Pt's spouse states that [id number] [place] does not have the medication in stock and requested that the medication be sent to another pharmacy. Potato Peeling Machine Operator called to [address] [place] [address] and Med is available. documented in this encounter Plan of Treatment Upcoming Encounters Date Type Department Care Team ([facility] st Contact Info) Description 09/04/2025 9:00 AM EST Office Visit [address] [address] Kassandra Phillips MD [address] [place] [address] 11/15/2025 11:30 AM EST Clinical Support [address] [address] Layla Thapa, DON 505 [place] [address] documented as of this encounter Goals Goal [...] documented as of this encounter Care Teams Sales Counselor Relationship Specialty Start Date End Date Kassandra Phillips MD [address] [place] [address] PCP - General Family Medicine 06/30/23 Blanco Gar, PharmD [address] [place] [address] Pharmacist Internal Medicine 12/26/23 documented as of this encounter
--- OUTSIDE RECORDS SUMMARY | 2025-08-29 07:40 | XMS_ITS | Encounter Summary ---
Author Organization [employer] Address 75 [facility] 7t [place] [address] Care Team Providers Care Health Unit Coordinator Name Role Phone Kassandra Phillips MD Primary Care Provider [phone] Blanco Gar PharmD Unavailable [phone] Reason for Visit * Reason Onset Date Comments Med Refill 08/07/2025 Encounter Details Date Type Department Care Team ([facility] st Contact Info) Description 08/07/2025 Telephone [facility] MEDICINE 230 [place], [place] [phone] Kassandra Phillips MD 230 [place], [place] [phone] Med Refill Social History Tobacco Use Types [...] encounter Miscellaneous Notes * Telephone Encounter - Monica Matthews - 08/07/2025 11:44 AM EDT TC from pt requesting medication refill. Medications needing refill : - oxyCODONE (Roxicodone) 5 MG immediate release tablet To be sent to: - [id number] - [place], [place] - [address] [facility] documented in this encounter Plan of Treatment Upcoming Encounters Date Type Department Care Team (Late st Contact Info) Description 09/04/2025 9:00 AM EST Office Visit [facility] MEDICINE 230 [place] [address] Kassandra Phillips MD 230 [place], [place] [phone] 11/15/2025 11:30 AM EST Clinical Support [facility] MEDICINE [address] [place] [address] Layla Thapa, RN 505 [place] [address] documented as of this encounter Goals Goal [...] as of this encounter Care Teams Health Unit Coordinator Relationship Specialty Start Date End Date Kassandra Phillips MD [address] [place] [address] PCP - General Family Medicine 06/30/23 Blanco Gar, PharmD [address] [place] [address] Pharmacist Internal Medicine 12/26/23 documented as of this encounter
--- OUTSIDE RECORDS SUMMARY | 2025-08-29 07:40 | XMS_ITS | Encounter Summary ---
Author Organization [employer] Address [address] [facility] [address] 7t [place] [address] Care Team Providers Care Registered Radiographer Name Role Phone Kassandra Phillips MD Primary Care Provider [phone] Blanco Gar PharmD Unavailable [phone] Encounter Details Date Type Department Care Team (Late st Contact Info) Description 11/10/2023 Telephone [facility] MEDICINE 230 [place], [place] [phone] Kassandra Phillips MD 230 [place], [place] [phone] Social History Tobacco Use Types Packs/Day Years [...] Description 09/04/2025 9:00 AM EST Office Visit [address] [address] Kassandra Phillips MD [address] [place] [address] 11/15/2025 11:30 AM EST Clinical Support [address] [address] Layla Thapa, RN 505 [place] [address] documented as of this encounter Visit Diagnoses Not on filedocumented in this encounter Additional Health Concerns Assessment Noted Time PHQ-9 Depression Total Score: 4 06/30/20 23 9:32 AM EDT documented as of this encounter Care Teams Registered Radiographer Relationship Specialty Start Date End Date Kassandra Phillips MD [address] [place] [address] PCP - General Family Medicine 06/30/23 Blanco Gar, PharmD [address] [place] [address] Pharmacist Internal Medicine 12/26/23 documented as of this encounter
--- OUTSIDE RECORDS SUMMARY | 2025-08-29 07:40 | XMS_ITS | Encounter Summary ---
Author Organization [employer] Address [address] [facility] [address] 7t [place] [address] Care Team Providers Care Tool And Die Repair Name Role Phone Kassandra Phillips MD Primary Care Provider [phone] Blanco Gar PharmD Unavailable [phone] Encounter Details Date Type Department Care Team (Late st Contact Info) Description 11/22/2024 Orders Only [facility] MEDICINE 230 [place], [place] [phone] Kassandra Phillips MD 230 [place], [place] [phone] Anemia, unspecified type (Primary Dx); Cervical spondylosis; [...] 09/04/2025 9:00 AM EST Office Visit [address] [address] Kassandra Phillips MD [address] [place] [address] 11/15/2025 11:30 AM EST Clinical Support [facility] MEDICINE [address] [place] [address] Layla Thapa RN 505 [place] [address] documented as of this encounter Goals Goal [...] Free T4 0.94 0.32 - 4.0 uIU/mL [facility] Blood 11/27/2024 1:19 PM EST 11/27/2024 4:04 PM EST us Kassandra Phillips MD LAB BLOOD ORDERABLES Final Resul t [facility] [address] [place] [phone] * (ABNORMAL) Vitamin B12 (Cobalamin) and Folate Panel, Serum (11/27/2024 1:19 PM EST) Vitamin B12 1,470(H) 200 - 900 pg/mL [facility] Comment:NORMAL 200-900 PG/M L INDETERMINATE 160-199 PG/ML DEFICIENT < 160 PG/ML Folate 12.4 > or = 4.0 ng/mL [facility] Comment:Reference Values:> o r = 4.0 ng/mL< 4.0 ng/mL suggests folate deficiency Methotrexate, aminopterin and folinic acid(leucovorin) are chemotherapeutic agents whose molecularstructures are similar to folate; therefore, the Architectfolate assay cannot be used for patients using these drugs. Blood 11/27/2024 1:19 PM EST 11/27/2024 4:04 PM EST Kassandra Phillips MD LAB BLOOD ORDERABLES Final Resul t Performing Organization Address [facility] Number [facility] [address] [place] [phone] * TSH with Reflex to Free T4 (11/22/2024 12:07 PM EST) TSH reflex Free T4 1.68 0.32 - 4.0 uIU/mL [facility] 11/22/2024 12:0 7 PM EST 11/22/2024 12:51 PM EST Generic External Data Provider LAB BLOOD ORDERAB LES Final Result Performing Organization Address [facility] Number [facility] [address] [place] [phone] * Ferritin (11/22/2024 12:07 PM EST) Ferritin 141 20 - 250 ng/mL [facility] 11/22/2024 12:0 7 PM EST 11/22/2024 12:51 PM EST Generic External Data Provider LAB BLOOD ORDERAB LES Final Result Performing Organization Address [facility] Phone Number [facility] [address] [place] [phone] documented in this encounter Visit Diagnoses Diagnosis Anemia, unspecified type- Primary Cervical spondylosis Cervical spondylosis without myelopathy Neck pain Cervicalgia Chronic bilateral low back pain, unspecified whether sciatica present documented in this encounter Additional Health Concerns Assessment Noted Time PHQ-9 Depression Total Score: 1 08/13/20 24 12:59 PM EST documented as of this encounter Care Teams Tool And Die Repair Relationship Specialty Start Date End Date Kassandra Phillips MD 230 [place] [address] PCP - General Family Medicine 06/30/23 Blanco Gar, SouravD [address] [place] [address] Pharmacist Internal Medicine 12/26/23 documented as of this encounter
--- OUTSIDE RECORDS SUMMARY | 2025-08-29 07:40 | XMS_ITS | Encounter Summary ---
Author Organization [employer] Address 75 [facility] 7t [place] [address] Care Team Providers Care Verifying Machine Operator Name Role Phone Kassandra Phillips MD Primary Care Provider [phone] Blanco Gar PharmD Unavailable [phone] Reason for Visit * Reason Comments Med Refill Encounter Details Date Type Department Care Team ([facility] st Contact Info) Description 01/23/2024 Refill [facility] MEDICINE 230 [place], [place] [phone] Kassandra Phillips MD 230 [place], [place] [phone] Social History Tobacco Use Types Packs/Day Years [...] 09/04/2025 9:00 AM EST Office Visit [address] [address] Kassandra Phillips MD [address] [place] [address] 11/15/2025 11:30 AM EST Clinical Support [address] [address] Layla Thapa, DON 505 [place] [address] documented as of this encounter Goals Goal [...] documented as of this encounter Care Teams Verifying Machine Operator Relationship Specialty Start Date End Date Kassandra Phillips MD [address] [place] [address] PCP - General Family Medicine 06/30/23 Blanco Gar, PharmD [address] [place] [address] Pharmacist Internal Medicine 12/26/23 documented as of this encounter
--- OUTSIDE RECORDS SUMMARY | 2025-08-29 07:40 | XMS_ITS | Encounter Summary ---
Author Organization [email or web address] Address [address] [facility] 7t [place] [address] Care Team Providers Care Fitter'S Assistant Name Role Phone Kassandra Phillips MD Primary Care Provider [phone] Blanco Gar PharmD Unavailable [phone] Reason for Visit * Reason Onset Date Comments Med Refill 12/19/2024 Encounter Details Date Type Department Care Team (Late st Contact Info) Description 12/19/2024 Telephone [facility] [address] [place], [place] [phone] Kassandra Phillips MD [address] [place], [place] [phone] Med Refill Social History Tobacco Use Types [...] immediate release tablet To be sent to: [facility]/pharmacy [address] [place] [address] documented in this encounter Plan of Treatment Upcoming Encounters Date Type Department Care Team (Late st Contact Info) Description 09/04/2025 9:00 AM EST Office Visit [facility] [address] [place] [address] Kassandra Phillips MD [address] [place], [place] [phone] 11/15/2025 11:30 AM EST Clinical Support [facility] [address] [place] [phone] Layla Thapa, RN [address] [place] [address] documented as of this encounter Goals Goal [...] documented as of this encounter Care Teams Fitter'S Assistant Relationship Specialty Start Date End Date Kassandra Phillips MD [address] [place] [phone] PCP - General Family Medicine 06/30/23 Blanco Gar, PharmD [address] [place] [phone] Pharmacist Internal Medicine 12/26/23 documented as of this encounter
--- OUTSIDE RECORDS SUMMARY | 2025-08-29 07:40 | XMS_ITS | Encounter Summary ---
Author Organization [employer] Address [address] [facility] 7t [place] [address] Care Team Providers Care Warehouse Manager Name Role Phone Kassandra Phillips MD Primary Care Provider Blanco Gar PharmD Unavailable [phone] Encounter Details Date Type Department Care Team (Late st Contact Info) Description 10/30/2024 Telephone [facility] [address] [place], [place] [phone] Kassandra Phillips MD 230 [place], [place] [phone] Social History Tobacco Use Types Packs/Day Years [...] Description 09/04/2025 9:00 AM EST Office Visit [address] [address] Kassandra Phillips MD [address] [place] [address] 11/15/2025 11:30 AM EST Clinical Support [address] [address] Layla Thapa RN 505 [place] [address] documented as of this encounter Goals Goal [...] documented as of this encounter Care Teams Warehouse Manager Relationship Specialty Start Date End Date Kassandra Phillips MD 230 [place] [address] PCP - General Family Medicine 06/30/23 Blanco Gar, SouravD 230 [place] [address] Pharmacist Internal Medicine 12/26/23 documented as of this encounter
--- OUTSIDE RECORDS SUMMARY | 2025-08-29 07:40 | XMS_ITS | Encounter Summary ---
Author Organization [employer] Address 75 [facility] 7 [place] [address] Care Team Providers Care Superintendent Police Name Role Phone Kassandra Phillips MD Primary Care Provider [phone] Blanco Gar PharmD Unavailable [phone] Reason for Visit * Reason Comments Med Refill Encounter Details Date Type Department Care Team ([facility] st Contact Info) Description 01/14/2025 Refill [facility] 230 [place], [place] [phone] Naida Hobson MD 230 [place], [place] [phone] Social History Tobacco Use Types Packs/Day Years [...] Description 09/04/2025 9:00 AM EST Office Visit [address] [address] Kassandra Phillips MD [address] [place] [address] 11/15/2025 11:30 AM EST Clinical Support [facility] [address] [place] [address] Layla Thapa RN [address] [place] [address] documented as of this encounter Goals Goal [...] documented as of this encounter Care Teams Superintendent Police Relationship Specialty Start Date End Date Kassandra Phillips MD 230 [place] [address] PCP - General Family Medicine 06/30/23 Blanco Gar, SouravD [address] [place] [address] Pharmacist Internal Medicine 12/26/23 documented as of this encounter
--- OUTSIDE RECORDS SUMMARY | 2025-08-29 07:40 | XMS_ITS | Encounter Summary ---
Author Organization [employer] Address 75 [facility] 7t [place] [address] Care Team Providers Care Signalling And Communications Engineer Name Role Phone Kassandra Phillips MD Primary Care Provider [phone] Blanco Gar PharmD Unavailable [phone] Reason for Visit * Reason Comments Med Refill Encounter Details Date Type Department Care Team ([facility] st Contact Info) Description 01/24/2024 Refill [facility] 230 [place], [place] [phone] Naida Hobson MD 230 [place], [place] [phone] Social History Tobacco Use Types Packs/Day Years [...] Description 09/04/2025 9:00 AM EST Office Visit [address] [address] Kassandra Phillips MD [address] [place] [address] 11/15/2025 11:30 AM EST Clinical Support [address] [address] Layla Thapa, RN 505 [place] [address] documented as of this encounter Goals Goal [...] documented as of this encounter Care Teams Signalling And Communications Engineer Relationship Specialty Start Date End Date Kassandra Phillips MD [address] [place] [phone] PCP - General Family Medicine 06/30/23 Blanco Gar, PharmD 230 [place] [address] Pharmacist Internal Medicine 12/26/23 documented as of this encounter
--- OUTSIDE RECORDS SUMMARY | 2025-08-29 07:40 | XMS_ITS | Encounter Summary ---
Author Organization [employer] Address 75 [facility] 7t [place] [address] Care Team Providers Care Fitness Coordinator Name Role Phone Kassandra Phillips MD Primary Care Provider [phone] Blanco Gar PharmD Unavailable [phone] Encounter Details Date Type Department Care Team (Late st Contact Info) Description 07/01/2023 Orders Only [facility] [address] [place] [address] [phone] Kassandra Phillips MD [address] [place] [address] [phone] Anemia, unspecified type (Primary Dx) Social History [...] Description 09/04/2025 9:00 AM EST Office Visit [facility] [address] [place] [address] [phone] Kassandra Phillips MD [address] [place] [address] [phone] 11/15/2025 11:30 AM EST Clinical Support [facility] [address] [place] [address] Layla Thapa, RN [address] [place] [address] Scheduled Orders Name Type Priority Associated Diagnoses [...] documented as of this encounter Care Teams Fitness Coordinator Relationship Specialty Start Date End Date Kassandra Phillips MD [address] [place] [phone] PCP - General Family Medicine 06/30/23 Blanco Gar, Julianne [address] [place] [address] Pharmacist Internal Medicine 12/26/23 documented as of this encounter
== END ==
LOC: HO.NUCMED 07:35
PROVIDERS: PCP Otolaryngology; Visit Provider Internal Medicine Gastroenterology
DX: R68.81 Early satiety (principal); R10.10 Upper abdominal pain, unspecified
CPT/HCPCS: 78264; A9541

== ENCOUNTER → 2025-08-29 07:36 | Outpatient (BNV) | payer MEDICARE, SELFPAY | PROVIDERS: PCP Otolaryngology; Visit Provider Radiology Diagnostic Radiology | DX: R10.10 Upper abdominal pain, unspecified (principal) | CPT/HCPCS: 78264 ==

== ENCOUNTER 2025-09-19 12:02 | Outpatient (AMB) | payer MEDICARE, SELFPAY ==
--- NOTE | 2025-09-19 12:06 | MHC.OFFVIS ---
Vital Signs 09/19/25 12:07 Height 5 ft 5 in Weight 144 lb BMI 24.0 BP 126/61 Blood Pressure Location Lt brachial Position Sitting Pulse 85 Intake Visit Reasons: BS,H-pylori results Intake Note: Patient follow up for BS and H-pylori results. Patient cc: abdominal discomfort, denies any other GI issues. 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 Accompanied by: Self / Same As Patient Allergies No Known Allergies Allergy (Verified 09/19/25 12:06) Medication List - Last Reconciled 09/19/25 by Ben Ricci MD acetaminophen 1,000 mg PO Q8H PRN amlodipine 5 mg PO DAILY atorvastatin 20 mg PO BEDTIME diclofenac sodium 1% grams topical DAILY gabapentin 600 mg PO DAILY oxycodone mg PO DAILY rabeprazole (AcipHex) 20 mg PO BID simethicone (Gas Relief (simethicone)) 125 mg PO BID-QID PRN 30 days HPI HPI BS,H-pylori results: Details: GI clinic visit for this 70 M with History of smoking, hypertension, dyslipidemia referred by Niki Borrego NP for a 2nd opinion for chronic epigastric pain TODAY'S VISIT: Patient reports abdominal discomfort, Gastric emptying test results reviewed - showed gastroparesis Breath test for H pylori was negative. Admits to taking oxycodone three times a day for neck and back pain. Takes 1 meal a day since he does not feel hungry. PAST VISITS: Pt complains of burning epigastric pain x approx 5 years. Notes burning upper abd pain (10/10) when he is lying down and look up - pain can last for hours Pt denies radiation of the pain to the back or shoulder - does have chronic neck pain Pain resolves when he wakes up Denies association of pain with food intake Sometimes he does not eat because he does'nt feel hungry - admits to early satiety Sometimes eats at 2 or 3 pm Also complains of gas and bloating. Complains of constipation with passage of hard stools -denies rectal bleeding Has a BM daily with incomplete evacuation. Denies change in BM after a BM and passage of gas. Patient denies symptoms of heartburn, dysphagia, nausea, vomiting. Denies recent change in bowel habits, diarrhea, black stools or rectal bleeding. Takes oxycodone three times a day for neck pain. Patient denies major cardiac or pulmonary problems, loud snoring or sleep apnea Denies problems with anesthesia in the past. Denies being on chronic anticoagulation. Wt gain of 13 lbs over the past year. 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 Lives with his FAMILY HISTORY: Dad (59 yrs) and a brother (? age 70) of stomach cancer Patient denies known family history of other GI malignancies. LABS IN [facility] : REVIEWED - mild anemia, iron studies suggestive of anemia of chronic disease IMAGING STUDIES: 08/29/25 GASTRIC EMPTYING STUDY SHOWED: 1 hour 82% (normal 37%-90%) 2 hours 72% (normal 30%-60%) 3 hours 52% 4 hours 49% (normal 0%-10%) IMPRESSION: Delayed gastric emptying. 09/2024 ABD US SHOWED: 1. No ultrasound explanation for patient's pain symptoms. 2. No evidence of gallbladder disease or gallstones. 3. Atheromatous plaques of the abdominal aorta. ENDOSCOPIC STUDIES: 07/2024 EGD and colonoscopy were performed and findings as noted. 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 Kenyon has had a burning sensation in the epigastrium, ?like I am hungry? for quite some time that has not responded to eradication of his H pylori infection, treatment with famotidine or omeprazole or rabeprazole. We also tried metoclopramide to see if gastric rumination was part of the problem as well as laxatives to see if constipation was causing the issue. He has had an unremarkable ultrasound for gallstones. He does have comorbid rather severe degenerative disc disease of the cervical and lumbar spine so musculoskeletal contribution is a possibility. In 2023 he had an EGD with results as follows: Esophagus: GE junction at 40 cms. Mildly tortuous esophagus without stricture or ring. No esophagitis or Krueger's Stomach: Moderate diffuse gastric erythema with decreased fundal folds - biopsies were obtained from the gastric body and antrum. A 5-6 mm calcified nodule in the gastric body - biopsied. Grade 2 flap valve on retroflexed examination of the cardia. A. Small bowel, biopsy: Duodenal mucosa within normal limits. B. Stomach, antrum, biopsy: Reactive gastropathy with background mild chronic inactive inflammation. C. Stomach, body, biopsy: - Oxyntic mucosa with severe chronic active inflammation. - Positive for H pylori. D. Stomach, nodule, biopsy: Antral-type mucosa with moderate chronic active inflammation. E. Cecum, polypectomy: Fragments of sessile serrated lesion/polyp; negative for cytologic dysplasia Since I have not been able to help him with this problem, and I have run out of ideas I would like for him to see 1 of our physicians for 2nd opinion to see if there is something that I am missing. He can return to my care depending on what they think or what his course of treatment baby going forward [facility] Medical History Nicotine dependence, cigarettes, uncomplicated Colon cancer screening HTN (hypertension) Gastric pain Back pain Arthritis Anemia Elevated cholesterol Surgical History Hx of colonoscopy History of esophagogastroduodenoscopy (EGD) S/P carotid endarterectomy (04/02/24) Hx of cataract surgery Family History Father Stomach cancer Brother Stomach cancer Social History Household Members: Spouse Housing: Apartment Are you a primary hourly caregiver to a significant other at home: No Do you presently have visiting nurse or other home services: No Alcohol intake: former Comment: quit 20 years ago Patient Tobacco Use Status: Former Tobacco user Tobacco use type: Cigarette Cigarettes Per Day: 10 service: No Review of Systems Const All systems reviewed & are unremarkable except as noted in HPI and below Physical Exam Vital Signs: Last Vital Signs Pulse 85 09/19/25 12:07 BP 126/61 09/19/25 12:07 BMI result Body Mass Index 24.0 Const General: healthy appearing and no acute distress Nutritional Appearance: average body habitus Orientation/consciousness: patient oriented x3 Limitations: no limitations HEENT Head: Yes normal to inspection Ears: hearing grossly normal bilaterally Eyes Sclerae: sclerae normal Pupils: Equal, round and reactive pupils present Neck Neck: Yes normal visual inspection Chest Chest palpation & inspection: normal inspection of the chest Resp Effort & Inspection: normal respiratory effort Auscultation: clear to auscultation bilaterally Cardio Palpation: normal PMI Rate: regular rate Rhythm: regular rhythm Heart sounds: S1 normal heart sound present, S2 normal heart sound present and no murmurs GI Palpation (GI): Soft to palpation, nontender and No hepatosplenomegaly present Auscultation: normal bowel sounds Rectal Exam - Male: Yes deferred Skin General skin exam: no rashes or lesions noted Neuro General: patient oriented x3, gait normal and moves all extremities Cranial nerves: Yes Equal, round and reactive pupils present Psych Appearance: grossly normal Mental Status: mental status grossly normal Assessment & Plan Assessment & Plan (1) Gastroparesis: Code(s): K31.84 - Gastroparesis Category: Medical Plan 70 M with History of smoking, hypertension, dyslipidemia referred by Niki Borrego NP for a 2nd opinion for chronic epigastric pain 08/29/25 GASTRIC EMPTYING STUDY SHOWED: 1 hour 82% (normal 37%-90%) 2 hours 72% (normal 30%-60%) 3 hours 52% 4 hours 49% (normal 0%-10%) IMPRESSION: Delayed gastric emptying. Breath test for H pylori was negative. Admits to taking oxycodone three times a day for neck and back pain which may be the cause of delayed gastric emptying Takes 1 meal a day since he does not feel hungry. Epigastric pain possibly due to gastroparesis versus referred pain from the neck since pt notes upper abd pain (10/10) when he is lying down and looks up Pt advised to start metoclopramide 10 mg 20-30 minutes before meals. Follow-up in 6 weeks Medications: New metoclopramide HCl Take 1 tab three times a day 20 - 30 min before meals 10 mg PO .Q 8 hrly 90 tabs 3RF nausea and vomiting 30 days K3.84 - Gastroparesis Coding Level of Care Code Est Pt Level 4 (66326) Diagnoses Gastroparesis 84 Time Spent (min) 21
[2025-09-19 12:07] VITALS: BP 126/61; PULSE 85; BMI 24.0
== END 2025-09-19 12:53 | disposition home or self-care (01) ==
LOC: HO.HGI 12:02
PROVIDERS: PCP Otolaryngology; Visit Provider Internal Medicine Gastroenterology
DX: K31.84 Gastroparesis (principal)
CPT/HCPCS: 99214

== ENCOUNTER → 2025-09-19 12:02 | Outpatient (BNVA) | payer MEDICARE, SELFPAY | PROVIDERS: PCP Otolaryngology; Visit Provider Internal Medicine Gastroenterology | DX: K31.84 Gastroparesis (principal); Z80.0 Family history of malignant neoplasm of digestive organs | CPT/HCPCS: 99212 ==